=== PATIENT | female | born 1950 | race Caucasian/White ===

== ENCOUNTER 2024-08-01 14:05 | Emergency (ER) | payer MEDICARE, SELFPAY ==
--- OUTSIDE RECORDS SUMMARY | 2024-07-10 07:45 | XMS_ITS | Encounter Summary ---
Author Organization [facility] Address [facility] [place] [address] Care Team Providers Care It Support Engineer Name Role Phone Annalee Olivas DO, Charles Lewis Primary [facility] Provi elliott Source Comments In the event this information is protected by the Federal Confidentiality of Alcohol and Drug AbusePatient Records regulations: The Federal rules restrict any use of the information to criminally investigate or prosecute any alcohol or drug abuse patient.[facility] Reason for Visit * Reason Comments New Follow Up Established Patient Encounter Details Date Type Department Care Team (Latest Contact Info) Description 07/10/2024 7:45 AM EDT [facility] [address] [place] [address] Efrain Hernandez MD [address] [facility] 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 No 05/15/2024 Social Connection and Isolat ion Panel [NHANES] Answer Date Recorded In a typical week, how many times do you talk on the phone with family, friends, or neighbors? More than three times a week 05/15/2024 How often do you get togethe r with friends or relatives? More than three times a week 05/15/2024 How often do you attend chur ch or advent services? Never 05/15/2024 Do you belong to any clubs o r organizations such as episcopal groups, unions, fraternal or athletic groups, or school groups? Yes 05/15/2024 How often do you attend meet ings of the clubs or organizations you belong to? 1 to 4 times per year 05/15/2024 Are you , , di vorced, , never , or living with a partner? 05/15/2024 AUDIT-C Answer Date Recorded Q1: How often do you have a drink containing alc ohol? 2-3 times a week 05/15/2024 Q2: How many drinks containi ng alcohol do you have on a typical day when you are drinking? 1 or 2 05/15/2024 Q3: How often do you have si x or more drinks on one occasion? Never 05/15/2024 Overall Financial Resource Strain (CARDIA) Answe r Date Recorded How hard is it for you to pa y for the very basics like food, housing, medical care, and heating? Not hard at all 05/15/2024 PHQ-2 Answer Date Recorded PHQ-2 score 2 07/03/2024 [facility] [place] [facility] Occupat ional Health - Occupational Stress Questionnaire Answer Date Recorded Do you feel stress - tense, restless, nervous, or anxious, or unable to sleep at night because your mind is troubled all the time - these days? To some extent 05/15/2024 Exercise Vital Sign Answer Date Recorde d On average, how many days pe r week do you engage in moderate to strenuous exercise (like a brisk walk)? 1 day 05/15/2024 On average, how many minutes do you engage in exercise at this level? 30 min 05/15/2024 Hunger Vital Sign Answer Date Recorded Within the past 12 months, y ou worried that your food would run out before you got the money to buy more. Never true 05/16/19 25 Within the past 12 months, t he food you bought just didn't last and you didn't have money to get more. Never true 05/15/2024 PRAPARE - Transportation Answer Date Re corded In the past 12 months, has l ack of transportation kept you from medical appointments or from getting medications? No 04/20 In the past 12 months, has l ack of transportation kept you from meetings, work, or from getting things needed for daily living? No 05/15/2024 Housing Stability Vital Sign Answer Jf e Recorded In the last 12 months, was t here a time when you were not able to pay the mortgage or rent on time? No 05/15/2024 In the past 12 months, how m any times have you moved where you were living? 1 05/15/2024 At any time in the past 12 m [facility], were you homeless or living in a mcc (including now)? No 05/15/2024 Area Deprivation Index Answer Date Jorge rded National Score (1-100), lower number is lower ri sk 74 07/13/2022 State Score (1-10), lower number is lower risk 6 07/13/2022 Data from: https://www.neighborhoodatlas.medicine.[facility].edu/. Last address used for calculation [address] [place] 07/13/2022 Comments No Sex and Gender Information Value Date Recorded Sex Assigned at Not on file Legal Sex Female 9:51 AM EST Gender Identity Not on file Sexual Orientation Lesbian or Nagy 07/31/2024 2: 30 PM EDT documented as of this encounter Functional Status * Are you deaf or do you have serious difficulty hearing? Answer Date of Assessment Author No 01/22/2024 2:52 PM Yany Aguilar RN * Are you blind or do you have serious difficulty seeing, even when wearing glasses? Answer Date of Assessment Author No 01/22/2024 2:52 PM Yany Aguilar RN * Do you have serious difficulty walking or climbing stairs? Answer Date of Assessment Author No 01/22/2024 2:52 PM Yany Aguilar RN * Do you have difficulty dressing or bathing? Answer Date of Assessment Author No 01/22/2024 2:52 PM Yany Aguilar RN * Because of a physical, mental, or emotional condition, do you have difficulty doing errands alone such as visiting a doctor's office or shopping? Answer Date of Assessment Author No 01/22/2024 2:52 PM Yany Aguilar RN documented as of this encounter Mental Status * Because of a physical, mental, or emotional condition, do you have serious difficulty concentrating, remembering, or making decisions? Answer Entry Date Author No 01/22/2024 2:52 PM Yany Aguilar RN documented in this encounter Progress Notes * Efrain Hernandez MD - 07/10/2024 7:45 AM EDT [facility] NOTE Department of Orthopaedics Telephone visit NAME: Candice Dejesus CLINIC NO.: [id number] DATE: July 10, 2024 Last visit: 06/23/2024 Interval Hx: Candice Dejesus is back for follow up since their last visit with me At the last visit we discussed her left proximal humerus fracture malunion. She consented for surgery for a reverse total shoulder. She had a few more questions about surgery, preop, intra-op and postop, so she wanted to schedule a followup to discuss. Today they report questions about the surgery itself, the nerve block, and the sling. PHYSICAL EXAMINATION: Telephone visit RADIOGRAPHIC STUDIES: All imaging was personally reviewed and interpreted by me as follows: No new imaging today ASSESSMENT: Encounter Diagnosis ICD-10-CM 1. 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 We talked about how to wear her sling after surgery, how the nerve block works, and how the surgery will be performed. She also obtained clearance from her oral surgeon, who confirmed she has no infection and is cleared to proceed. Again I reiterated the risks and benefits of surgery and how this surgery has great potential to improve her pain and function but there is no guarantee, especially given the nature of RSA for malunion. She understands all of this, and she is still interested in proceeding with surgery as she is not satisfied with her current level of pain or disability. Plan: - follow up for surgery - obtain Preop PACC, labs, and CT before surgery (all scheduled) Total Time Spent: 15 minutes Efrain Hernandez MD Shoulder and Elbow Surgeon Orthopaedic Surgery Department documented in this encounter Plan of Treatment Upcoming Encounters Date Type Department Care Team (Late st Contact Info) Description 08/11/2024 11:45 AM EDT Office Visit Orthopaedics [address] [address] Efrain Hernandez MD [address] [place] [address] 2 wk PO reverse 09/15/2024 11:45 AM EDT Office Visit Orthopaedics [address] [address] Efrain Hernandez MD [address] 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
--- OUTSIDE RECORDS SUMMARY | 2024-07-15 13:40 | XMS_ITS | Encounter Summary ---
Author Organization [facility] Address [facility] [place] [address] Care Team Providers Care Injection Molder Name Role Phone Annalee Olivas DO, Charles Lewis Primary Care Provi elliott Source Comments In the event this information is protected by the Federal Confidentiality of Alcohol and Drug AbusePatient Records regulations: The Federal rules restrict any use of the information to criminally investigate or prosecute any alcohol or drug abuse patient.[facility] Reason for Visit * Reason Comments Pre-Op Visit Encounter Details Date Type Department Care Team (Late st Contact Info) Description 07/15/2024 1:40 PM EDT PAT Pre Anesthesia [address] [place] [address] 1, Pacc Dunn [address] [place] [address] Pre-op examination (Primary Dx); Crohn's disease with complication, unspecified gastrointestinal tract location (HCC); Closed fracture of proximal end of left humerus, unspecified fracture morphology, initial encounter; Hyperlipidemia, unspecified hyperlipidemia type Social History Tobacco Use Types Packs/Day Years Used Date Smoking Tobacco: Former Cigarettes Q uit: 09/20/1995 Smokeless Tobacco: Never Tobacco Cessation:Counseling Given: Not Answered Alcohol Use Standard Drinks/Week Comments Yes 7 (1 standard drink = 0.6 oz pur e alcohol) glass of wine with dinner [facility] Utilities Answer Date Recorded In the past [...] often do you attend chur ch or samaritan services? Never 05/15/2024 Do you belong to any clubs o r organizations such as faith groups, unions, fraternal or athletic groups, or [...] Answer Date Recorded PHQ-2 score 2 07/03/2024 [facility] - Occupational Stress [...] money to buy more. Never true 05/16/19 Within the past 12 months, t he [...] any time in the past 12 m [facility], were you homeless or living in a residential (including now)? No 05/15/2024 Area Deprivation Index Answer Date Jorge rded National Score (1-100), lower number is lower ri sk 74 07/13/2022 State Score (1-10), lower number is lower risk 6 07/13/2022 Data from: https://www.neighborhoodatlas.medicine.[facility].edu/. Last address used for calculation [address] 07/13/2022 Comments No Sex and Gender Information Value Date Recorded Sex Assigned at Not on file Legal Sex Female 9:51 AM EST Gender Identity Not on file Sexual Orientation Lesbian or Nagy 07/31/2024 2: 30 PM EDT documented as of this encounter Last Filed Vital Signs Vital Sign Reading Time Taken Comments Blood Pressure 128/83 07/15/2024 1:42 PM EDT Pulse 89 07/15/2024 1:42 PM EDT Temperature 36.7 C (98 F) 07/15/2024 1:42 PM EDT Respiratory Rate 16 07/15/2024 1:42 PM EDT Oxygen Saturation 95% 07/15/2024 1:42 PM EDT Inhaled Oxygen Concentration - - Weight 55 kg (121 lb 4.1 oz) 07/15/2024 1:42 PM EDT Height 147.3 cm (4' 10 ) 07/15/2024 1:42 PM EDT Body Mass Index 25.34 07/15/2024 1:42 PM EDT documented in this encounter Functional Status * Are you deaf or do you have serious difficulty hearing? Answer Date of Assessment Author No 01/22/2024 2:52 PM Yany Aguilar RN * Are you blind or do you have serious difficulty seeing, even when wearing glasses? Answer Date of Assessment Author No 01/22/2024 2:52 PM aYny Aguilar RN * Do you have serious [...] Yany Aguilar RN documented in this encounter Patient Instructions * Patient Instructions* Carlin Guaman APRN.SENIOR HYDROGEOLOGIST - 07/15/2024 1:48 PM EDT PATIENT PREOPERATIVE INSTRUCTIONS Efrain Hernandez has scheduled you for your procedure at this surgery center: [facility] [place] [facility] Scheduling Office: [phone] --[address] [place] [address]. Please read below carefully for your personalized instructions. Dietary Restrictions: - No solid food after midnight. - You may have 12 ounces of clear liquids (water, clear juices such as apple juice or gatorade, carbonated beverages, clear tea, black coffee, jello) until 2 hours before scheduled arrival at facility. - Do not drink any alcohol after midnight the night before your surgery. - No Milk/Dairy - No Pulp Juices Medications: Unless instructed differently below, stay on all of your medications until your surgery. If you start any new medications after today's visit, please contact your surgeon. use mupirocin ointment twice daily for 5 days. Apply 0.5 inch with cotton swab (Q-tip) to each nostril in the morning and evening for 5 days prior to and including day of surgery. If you start any new medications after today's visit, please contact the surgeon's office. If you are currently using a [id number] injectable or oral medication for diabetes or weight loss such as Dulaglutide (Trulicity), Exenatide (Byetta, Bydureon), Liraglutide (Victoza, Saxenda), Semaglutide (Ozempic, Wegovy, Rybelsus), or Tirzepatide (Mounjaro), the medicine should be stopped at least 7 days before surgery. These medicines can cause food to remain in your stomach for a very longtime and increase the risks from surgery and anesthesia. Not stopping the medication for a long enough time may result in your surgery being rescheduled. Blood Thinning Medications: - Hold NSAIDS (Ibuprofen, Advil, Aleve, Motrin, Celebrex, Mobic, etc.) 7 days before surgery, as directed by your surgeon. - Hold Aspirin 7 days before surgery, as directed by your surgeon. - Hold all herbals and dietary supplements 7 days before surgery. - You may take Tylenol (Acetaminophen) or any of your pain medications that do not contain aspirin or NSAIDS as needed. Important Reminders: - If you are prescribed inhalers for breathing, continue using them. - If you use CPAP/BIPAP, and will be staying over night, bring the machine with you to the surgery center. - If you use home O2, please bring with you to the surgery center - Please abstain from cannabis use for one week prior to surgery - Candy, mints, and tobacco products are NOT permitted the morning of surgery. - Hearing aids, dentures and glasses may be worn the morning of surgery. - NO jewelry, body piercings, makeup, hairpins or contacts are to be worn the day of surgery. If you develop symptoms such as a fever, cold, or flu, or have other changes to your health within TWO DAYS of scheduled surgery or the morning of surgery, please contact the surgery center above. Personal Belongings: -Please have photo ID and insurance cards. -If you do not have a copy of advance directives on file with us, please bring a copy with you on the day of surgery. - Leave ALL valuables and money at home or with family members. For Outpatient Procedures: - YOU MUST HAVE A RESPONSIBLE CLOTHESPIN MACHINE OPERATOR TAKE YOU HOME. A HOSPICE HOME HEALTH AIDE OR LEGAL RESEARCHER CANNOT BE MADE A RESPONSIBLE CLOTHESPIN MACHINE OPERATOR. - We recommend that a responsible person stays with you overnight to take care of you. - You cannot stay in a hotel alone after outpatient surgery. You will not be permitted to have yoursurgery, if you do not have someone to take care of you. Arrival Time for Surgery: - To obtain your arrival time for surgery, call your physician's office the day before your surgery. - If you have received different instructions about finding out your arrival time from your surgeon, please follow those instructions. - If your surgery is scheduled for Sunday, call the Sunday before. Your surgeon???s nurse recruiter will tell you what time to call the office. - If you have not reached the departmental nurse recruiter by 5 P.M., call [phone] after 5 P.M. the day before your surgery. Please be aware that emergency situations arise, which may delay or change your surgical time. If this happens, we will notify you as soon as possible and regret any inconvenience. If you already have an Advance Directive, please fax a copy to [phone] or email to for it to be added to your chart. If you do not have an Advance Directive, you can find the appropriate form and more information at [email or web address]. We recommend that youcomplete the Advance Directive form found on the website and bring it with you the day of your surgery. It can be witnessed and scanned into your chart that day. documented in this encounter H&P Notes * Carlin Guaman APRN.CNP - 07/15/2024 1:40 PM EDT Images from the original note were not included. HISTORY AND PHYSICAL EXAMINATION SERVICE DATE: 07/15/2024 SERVICE TIME: 2:22 PM PRIMARY CARE PHYSICIAN: Efrain Mantilla Jr, DO REASON FOR VISIT: Candice Dejesus is a 73 year old female who is scheduled for Left - 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 at the request of Dr. Efrain Hernandez for consultation. My final recommendation will be communicated back to the requesting physician by way of shared medical record or letter. Assessment Crohn disease (HCC) Assessment: stable, follows with Dr. Horvath at [facility] Status post total colectomy and ileostomy in 2021; no current medication management required. Crohn's disease, s/p TPC with ileostomy. Empties stoma 5x daily. Early satieity, but is able to keep down protein shakes. 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 Presents for surgical intervention Per surgeon's note 07/10/24: Candice's questions about surgery have all been answered. We talked about how to wear her sling after surgery, how the nerve block works, and how the surgery will be performed. She also obtained clearance from her oral surgeon, who confirmed she has no infection and is cleared to proceed. HLD (hyperlipidemia) Assessment: stable with current medication regimen Hypothyroidism stable with current medication regimen ANESTHESIA FINDINGS: Intubation History: No history of difficult intubation Significant Anesthesia Considerations: none Airway History: No history of difficult airway Raza Activity Status Index: METS: Walk indoors, such as around the house (1.75 METs) Do light work around the house, such as dusting or washing dishes (2.70 METs) Take care of self; that is eating, dressing, bathing, using the toilet (2.75 METs) Walk a block or two on level ground (2.75 METs) Do yardwork, such as raking leaves, weeding, or pushing a power mower (4.50 METs) Climb a flight of stairs or walk up a hill (5.50 METs) Participate in moderate recreational activites, such as golf, bowling, dancing, doubles tennis, or throwing a baseball or football (6.00 METs) DASI Score: 25.95 Patient denies any chest pain or undue shortness of breath with the above physical activity. Clinical Frailty Scale: 2. Well STOP-Bang Score: Patient over 50 years old Denies snoring loudly Denies feeling tired, fatigued, or sleepy during the daytime Has not been observed to stop breathing or choking/gasping during sleep Denies having high blood pressure BMI less than or equal to 35 kg/m^2 Does not have a large neck Non-male patient STOP-Bang Score: 1 [id number] Score: Age: 65-74 Sex: female CHF history: No Hypertension history: No Stroke/TIA/thromboembolism history: No Vascular disease history: No Diabetes history: No [id number] Score: 2 ARISCAT Score: Age: 51-80 Preoperative SpO2: 91-95% Respiratory infection in the last month: No Duration of surgery: >3 hrs Emergency procedure: No ARISCAT Score: most recent airway history - 04/27/21 Final Airway Details Final airway type: endotracheal airway Final Endotracheal Airway: ETT Cuffed: yes Successful intubation technique: video laryngoscopy Devices used: Pitts Blade size: #3 ETT size (mm): 7.0 Measured from: teeth Measurement (cm): 21 Placement verified by: capnometry Cormack-Lehane Classification: grade I - full view of glottis Number of attempts at approach: 1 Airway not difficult Comments Elective pitts due to dental work I - PHYSICAL EVALUATION AIRWAY Patient intubated: No. Tracheostomy tube not present Mallampati: II. TM distance: >3 FB. Neck ROM: full ROM without neurological symptoms. Mouth opening: non-adequate. Short neck: no. Thick neck: no Mills present: no Lip Bite Test: I Microretrognathia/Micronagthia/Recessed Chin: No DENTAL Dental findings: teeth intact. II - ANESTHESIA PLAN Anesthetic plan additional comments: *PACC/TCI - anesthesia choice. Beta Javier Monitoring Plan Post Procedure Analgesic Plan Prepared for surgery: This patient is optimally prepared for surgery. CONSULTS: Patient does not require consults for optimization at this time. The Following Tests/Procedures Have Been Initiated: Labs /EKG per surgeon Planned Anesthetic: Per anesthesia choice Subjective CHIEF COMPLAINT: Closed 4-part fracture of proximal end of left humerus with malunion, subsequent encounter [S42.292P] Closed fracture of proximal end of left humerus with malunion, unspecified fracture morphology, subsequent encounter [S42.202P] HPI: Patient is a 73 year old FEMALE presenting for pre-op evaluation for the above procedure. Patient denies any chest pain, shortness of breath, palpitations, fever/chills, nausea/vomiting, fatigue, or diarrhea. Patient has 4-pt varus left proximal humerus fracture malunion, presents for surgical intervention REVIEW OF SYSTEMS: PAIN ASSESSMENT: Pain Pain Level: 6 Pain Location: Shoulder-Left Description: Aching Duration Units: Months Frequency: Continuous General: No weight loss, malaise or fevers. Neuro: No history of TIA's, stroke, CEMENT TILE MAKER tumor, impaired sensorium, hemiplegia, paraplegia or quadraplegia. No neurological symptoms or problems. Respiratory: Positive for Tobacco Use quit 09/1995, Negative for COPD, Current cough, Pneumonia within 6 weeks (date) Cardiovascular: Positive for: HLD, Negative for CAD, Chest Pain, CHF, DVT/PE GI: Positive for crohn, s/p bowel surgery, permanent ileostomy, Negative for Vomiting, Abdominal pain, Difficulty swallowing : No history of dysuria, frequency or incontinence,, stones or chronic kidney disease PRICE LISTER: Negative for abnormal vaginal bleeding, abnormal vaginal discharge. : Denies, No LMP recorded. Patient is postmenopausal. Endocrine: hypothyroidism Hematology: No history of bleeding or clotting disorder. Pt is not taking anti- coagulation or platelet medications. No history of hematological symptoms or problems. Oncology: No history of CA metastasis, chemo within 30 days, or radiotherapy within 90 days. Has not lost 10% of body wt in 6 months. No history of oncological symptoms or problems. Implanted Devices: No Psych: Anxiety Marijuana use: No Musculoskeletal: Negative for joint pain or swelling, back pain or muscle pain. Skin: Negative for lesions, rash and itching. The patient has the following: ACTIVE PROBLEM LIST Crohn Disease (Hcc) SYMPTOMATIC FEMALE CLIMACTERIC STATE(aka MENOPAUSE) Crohn's Colitis, Other Complication (Hcc) Anxiety Trauma Closed Fracture of Left Proximal Humerus Multiple Rib Fractures Covid Immunization Dates Current Care Gaps Covid-19 Vaccine () Overdue since 07/07/2024 01/08/2024 Imm Admin: COVID-19 vaccine, age 12+ yr (MODERNA) 11/09/2022 Imm Admin: COVID-19 vaccine, age 12+ yr, 2022- season (MODERNA) 11/10/2021 Imm Admin: COVID-19 vaccine, age 12+ yr, bivalent (MODERNA) 10/05/2020 Imm Admin: COVID-19 original vaccine, age 12+ yr, monovalent (PFIZER- BIONTECH - PURPLE TOP) 05/05/2020 Imm Admin: COVID-19 original vaccine, age 12+ yr, monovalent (PFIZER- BIONTECH - PURPLE TOP) Only the first 5 history entries have been loaded, but more history exists. PAST MEDICAL HISTORY Diagnosis Date Crohn's disease (HCC) Hypothyroidism PAST SURGICAL HISTORY Procedure Laterality Date ILEOSTOMY HX LAPAROSCOPIC HEMICOLECTOMY PAST SURGICAL HISTORY OF 04/19/2021 Exam under anesthesia, flexible sigmoidoscopy PAST SURGICAL HISTORY OF 04/27/2021 Exploratory laparotomy, extensive lysis of adhesions, small bowel resection, completion proctectomy, end ileostomy PICC LINE INSERT/CONSULT 04/21/2021 FAMILY HISTORY Problem Relation Age of Onset Lung Cancer Mother 34 Heart Father cardiomyopathy Diabetes Brother plane crash Social History Tobacco Use Smoking status: Former Current packs/day: 0.00 Types: Cigarettes Quit date: 09/20/1995 Years since quittin.8 Smokeless tobacco: Never Substance Use Topics Alcohol use: Yes Alcohol/week: 7.0 standard drinks of alcohol Types: 7 Glasses of Wine (5oz) per week Comment: glass of wine with dinner Drug use: Not Currently Prior to Admission medications as of 07/15/24 1357 Medication Sig Last Dose Taking rosuvastatin (CRESTOR) 10 mg tablet Take 1 tablet by mouth daily at bedtime. Yes collagen, bovine, 100 % powd Yes BETA CAROTENE ORAL Take by mouth. Yes cyanocobalamin 1,000 mcg/mL ADMINISTER 1 ML UNDER THE SKIN 1 TIME EVERY MONTH Yes ALPRAZolam (XANAX) 0.5 mg tablet Take 1 tablet by mouth three times a day for 150 days. Yes levothyroxine (SYNTHROID) 50 mcg tablet Take 1 tablet by mouth once daily. Yes acetaminophen (TYLENOL) 325 mg tablet Take 2 tablets by mouth every 6 hours. Yes Syringe with Needle, Safety (ECLIPSE SYRINGE) 3 mL 25 gauge x 1 syrg Inject 1 Each subcutaneously once every month. Yes CALCIUM ORAL Take by mouth. Yes montelukast (SINGULAIR) 10 mg tablet Take 10 mg by mouth every morning. Yes Syringe with Needle, Disp, (BD LUER-RENA SYRINGE) 3 mL 23 x 1 1 Each once every month. Yes Cholecalciferol, Vitamin D3, 25 mcg (1,000 unit) cap Take 1,000 Units by mouth once daily. Yes mupirocin (BACTROBAN) 2 % ointment two times a day for 5 days. Apply 0.5 inch with cotton swab (Q-tip) to each nostril in the morning and evening for 5 days prior to and including day of surgery. No medication comments found. ALLERGIES Allergen Reactions Prednisolone Hives Objective PHYSICAL EXAM: VITALS: BP 128/83 Pulse 89 Temp 98 Resp 16 Ht 4' 10 (1.47m) Wt 121 lb 4.1 oz (55.0kg) SpO2 95% BMI 25.35 kg/(m^2). General: Alert and oriented, No acute distress Skin: Normal color, no rash, no lesions. HEENT: EOM, pupils equal, round and reactive. Cardiovascular: Normal S1 & S2, no rubs, murmurs or gallops. No JVD. Pulse regular. Lungs: Normal breath sounds, no wheezes or crackles. Abdomen: Soft, non-tender, no rigidity. Extremities: poor ROM left upper extremity Neurological: Normal cognition and motor skills. Pulses: Carotid and radial pulses normal +2. Diagnostic tests reviewed for today's visit: Lab Value Units Date High Low HB 13.7 g/dL 07/15/2024 15.5 11.5 HCT 40.4 % 07/15/2024 46.0 36.0 WBC 8.20 k/uL 07/18/2024 11.00 3.70 PLT 183 k/uL 07/15/2024 400 150 NA 136 mmol/L 07/15/2024 144 136 K 4.2 mmol/L 07/18/2024 5.1 3.7 GLUC 111 mg/dL 07/15/2024 99 74 BUN 14 mg/dL 07/15/2024 21 7 CREAT 0.80 mg/dL 07/15/2024 0.96 0.58 PTSEC 10.7 sec 01/20/2024 13.0 9.7 INR 1.0 no uni* 01/20/2024 1.3 0.9 APTT 22.4 sec 01/20/2024 32.4 23.0 ALT 29 U/L 05/15/2024 38 7 AST 41 U/L 05/15/2024 35 13 TBILI 0.5 mg/dL 05/15/2024 1.3 0.2 TSH 3.140 mIU/L 05/15/2024 4.200 0.270 Hemoglobin A1C (%) Date Value 05/15/2024 4.7 Most recent EKG Recent Results (from the past 8760 hours) ECG COMPLETE Collection Time: 07/15/24 1:03 PM Result Value Ventricular Rate 84 Atrial Rate 84 P-R Interval 118 QRS Duration 70 QT Interval 380 QTC Calculation (Bazett) 449 Calculated P [place] 30 Calculated R [place] 63 Calculated T [place] 28 Impression SINUS RHYTHM WITH PREMATURE ATRIAL COMPLEXES OTHERWISE NORMAL ECG Instructions Given to Patient: Instructions located in the after visit summary. Patient given verbal and written preop instructions and voices comprehension and compliance. SIGNATURE: Carlin Guaman APRN.CNP PATIENT NAME: Candice Dejesus DATE: 07/15/2024 TIME: 2:22 PM documented in this encounter Miscellaneous Notes * Addendum Note - Carlin Guaman APRN.CNP - 07/16/2024 7:03 AM EDTAddended by: CARLIN GUAMAN on: 07/16/2024 07:03 AM Modules accepted: Orders documented in this encounter Plan of Treatment Upcoming Encounters Date Type Department Care Team (Late st Contact Info) Description 08/11/2024 11:45 AM EDT Office Visit Orthopaedics [address] [phone] Efrain Hernandez MD [address] [place], [place] [phone] 2 wk PO reverse 09/15/2024 11:45 AM EDT Office Visit Orthopaedics [address] [address] Efrain Hernandez MD [address] [place] [address] 6 wk PO reverse documented as of this encounter Results * WBC (07/18/2024 8:49 AM EDT) WBC 8.20 3.70 - 11.00 k/uL 07/18/2024 8:53 AM EDT [facility] Blood BLOOD SPECIMEN / Unknown Venipuncture / Unknown 07/18/2024 8:49 AM EDT 07/18/2024 8:49 AM EDT Carlin Guaman APRN.SENIOR HYDROGEOLOGIST LABORATORY Final Re sult [facility] [address] [place] [address] * POTASSIUM (07/18/2024 8:49 AM EDT) Potassium 4.2 3.7 - 5.1 mmol/L 07/18/2024 9:16 AM EDT [facility] Blood BLOOD SPECIMEN / Unknown Venipuncture / Unknown 07/18/2024 8:49 AM EDT 07/18/2024 8:49 AM EDT Carlin Guaman APRN.SENIOR HYDROGEOLOGIST LABORATORY Final Re sult [facility] [address] [place] [address] documented in this encounter Visit Diagnoses Diagnosis Pre-op examination- Primary Preoperative examination, unspecified Crohn's disease with complication, unspecified gastrointestinal tract location (HCC) Closed fracture of proximal end of left humerus, unspecified fracture morphology, initial encounter Hyperlipidemia, unspecified hyperlipidemia type * Assessment & Plan Note - Carlin Guaman APRN.CNP - 07/15/2024 2:25 PM EDT Associated Problem(s): HLD (hyperlipidemia) Assessment: stable with current medication regimen * Assessment & Plan Note - Carlin Guaman APRN.CNP - 07/15/2024 2:24 PM EDT Associated Problem(s): Closed fracture of left proximal humerus Assessment: Candice Cuellar has a 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 Presents for surgical intervention Per surgeon's note 07/10/24: Candice's questions about surgery have all been answered. We talked about how to wear her sling after surgery, how the nerve block works, and how the surgery will be performed. She also obtained clearance from her oral surgeon, who confirmed she has no infection and is cleared to proceed. * Assessment & Plan Note - Carlin Guaman APRN.CNP - 07/15/2024 2:24 PM EDT Associated Problem(s): Crohn disease (HCC) Assessment: stable, follows with Dr. Horvath at [facility] Status post total colectomy and ileostomy in 2021; no current medication management required. Crohn's disease, s/p TPC with ileostomy. Empties stoma 5x daily. Early satieity, but is able to keep down protein shakes. B12 injections monthly Hgb 14.2 on 05/15/24 documented in this encounter Care Teams Injection Molder Relationship Specialty Start Date End Date Efrain Mantilla Jr., [address] [place] [phone] PCP - General Internal Medicine 07/07/24 MARK Chavis CM - Joanne 05/05/21 documented as of this encounter
--- OUTSIDE RECORDS SUMMARY | 2024-07-28 09:15 | XMS_ITS | Encounter Summary ---
Author Organization [facility] Address [facility] [place] [address] Care Team Providers Care Control And Recovery Special Tactics Name Role Phone Annalee Olivas DO, Charles Lewis Primary Care Provi elliott Source Comments In the event this information is protected by the Federal Confidentiality of Alcohol and Drug AbusePatient Records regulations: The Federal rules restrict any use of the information to criminally investigate or prosecute any alcohol or drug abuse patient.[facility] Reason for Referral * Home Health - Clinical SOC (Routine) - New Request Specialty Diagnoses / Procedures Referred By Contjosh t Referred To Contact Procedures CONSULT TO HOME HEALTH CARE CONSULT TO HOME HEALTH CARE CONSULT TO HOME HEALTH CARE Marivel Jones PA-C [address] [place] [address] Phone: tel: fax: Referral ID Status Reason Start Date Expiration Date Visits Requested Visits Authorized [id number] New Request PCP Requested Referral 07/29/2024 10/27/2024 1 1 Reason for Visit * Auth/Cert (Routine) Specialty Diagnoses / Procedures Referred By Zandra ruiz Referred To Contact ADMITTING Diagnoses Closed 4-part fracture of proximal end of left humerus with malunion, subsequent encounter Closed fracture of proximal end of left humerus with malunion, unspecified fracture morphology, subsequent encounter Closed 4-part fracture of proximal end of left humerus with malunion, subsequent encounter [S42.292P] Closed fracture of proximal end of left humerus with malunion, unspecified fracture morphology, subsequent encounter [S42.202P] Procedures ARTHROPLASTY GLENOHUMERAL JOINT TOTAL SHOULDER REVERSE TOTAL SHOULDER ARTHROPLASTY Admitting [address] [id number] Referral ID Status Reason Start Date Expiration Date Visits Re quested Visits Authorized [id number] 1 1 Encounter Details Date Type Department Care Team (Latest Contact Info) Description 07/28/2024 9:15 AM EDT - 07/30/2024 3:29 PM EDT Hospital Encounter HOSP MAIN [id number] [address] [id number] Efrain Faith MD [address] [facility] [place] [id number] Closed 4-part fracture of proximal end of left humerus with malunion, subsequent encounter [S42.292P], Closed fracture of proximal end of left humerus with malunion, unspecified fracture morphology, subsequent encounter [S42.202P] Discharge Disposition: Home Health Care Social History Tobacco Use Types Packs/Day Years Used Date Smoking Tobacco: Former Cigarettes Q uit: 09/20/1995 Smokeless Tobacco: Never Alcohol Use Standard Drinks/Week Comments Yes 7 (1 standard drink = 0.6 oz pur e alcohol) glass of wine with dinner [facility] Utilities Answer Date Recorded In the past 12 months has [employer], gas, oil, or water [employer] threatened to shut off services in your [...] week 05/15/2024 How often do you attend [facility] or [facility] services? Never 05/15/2024 Do you belong to any clubs o r organizations such as hinduism groups, unions, fraternal or athletic groups, or [...] Answer Date Recorded PHQ-2 score 2 07/03/2024 [facility] - [facility] [...] any time in the past 12 m [facility], were you homeless or living in a retirement (including now)? No 05/15/2024 Area Deprivation Index Answer Date Jorge rded National Score (1-100), lower number is lower ri sk 74 07/13/2022 State Score (1-10), lower number is lower risk 6 07/13/2022 Data from: https://www.neighborhoodatlas.medicine.[facility].edu/. Last address used for calculation [address] 07/13/2022 Comments No Sex and Gender Information Value Date Recorded Sex Assigned at Not on file Legal Sex Female 9:51 AM EST Gender Identity Not on file Sexual Orientation Lesbian or Nagy 07/31/2024 2: 30 PM EDT documented as of this encounter Last Filed Vital Signs Vital Sign Reading Time Taken Comments Blood Pressure 147/72 07/30/2024 12:15 PM EDT Pulse 93 07/30/2024 12:15 PM EDT Temperature 36.6 C (97.9 F) 07/30/2024 12:15 PM EDT Respiratory Rate 16 07/30/2024 12:15 PM EDT Oxygen Saturation 93% 07/30/2024 12:15 PM EDT Inhaled Oxygen Concentration - - Weight 64.5 kg (142 lb 3.2 oz) 07/28/2024 7:16 P M EDT Height 147.3 cm (4' 10 ) 07/28/2024 7:16 PM EDT Body Mass Index 29.72 07/28/2024 7:16 PM EDT documented in this encounter Functional Status * Are you deaf or do you have serious difficulty hearing? Answer Date of Assessment Author No 07/30/2024 2:00 PM EDT Noa Cuevas RN * Are you blind or do you have serious difficulty seeing, even when wearing glasses? Answer Date of Assessment Author No 07/30/2024 2:00 PM EDT Noa Cuevas RN * Do you have serious difficulty walking or climbing stairs? Answer Date of Assessment Author No 07/30/2024 2:00 PM EDNoa Cifuentes RN * Do you have difficulty dressing or bathing? Answer Date of Assessment Author No 07/30/2024 2:00 PM EDNoa Cifuentes RN * Because of a physical, mental, or emotional condition, do you have difficulty doing errands alone such as visiting a doctor's office or shopping? Answer Date of Assessment Author No 07/30/2024 2:00 PM EDNoa Cifuentes RN documented as of this encounter Mental Status * Because of a physical, mental, or emotional condition, do you have serious difficulty concentrating, remembering, or making decisions? Answer Entry Date Author No 07/30/2024 2:00 PM Noa Estrella RN documented in this encounter Discharge Summaries * Sherry Armando MD - 07/30/2024 3:29 PM EDT Images from the original note were not included. ORTHOPAEDIC SURGERY Discharge Summary PATIENT NAME: Candice Dejesus ADMISSION DATE: 07/28/2024 DISCHARGE DATE: 07/30/2024 Attending Physician: Efrain Faith MD Reason for Hospitalization: Left proximal humerus fracture malunion Operations During Hospitalization: Left reverse total shoulder arthroplasty Procedures During Hospitalization: No procedures performed Hospital Course: Candice Dejesus is a 73 year old female who presented for Left proximal humerus fracture malunion. On 07/28/24 , she underwent Left reverse total shoulder arthroplasty. Surgery was uneventful and after a brief stay in the PACU, she transferred to the regular nursing floor. Pain was well controlled. Intake and output were closely monitored. DVT prophylaxis was managed by ASA 81mg BID and intermittent compression stockings. Electrolytes were monitored with labs and replaced as needed. The patient had an unremarkable recovery, and diet was advanced as tolerated. The patient was deemed appropriate fordischarge home on POD2 as she was afebrile, hemodynamically stable, tolerating a diet, pain controlled on oral meds, and ambulating without difficulty. Discharge deep vein thrombosis chemoprophylaxiswill be ASA 81mg BID for 2 weeks. Follow up will occur in clinic with Dr. Faith in 2-3 weeks. Labs and Procedures Pending at Discharge: No pending results. Consulting Teams During Hospitalization: None Patient Condition at Discharge: Stable Discharge Disposition: Home with Home Health Discharge Medications: Medication List PAUSE taking these medications * acetaminophen 325 mg tablet Wait to take this until: August 11, 2024 Commonly known as: TYLENOL Take 2 tablets by mouth every 6 hours. You also have another medication with the same name that you may need to continue taking. * This list has 1 medication(s) that are the same as other medications prescribed for you. Read thedirections carefully, and ask your doctor or other care provider to review them with you. START taking these medications aspirin, enteric coated 81 mg EC tablet Commonly known as: ADULT LOW DOSE ASPIRIN Take 1 tablet by mouth two times a day for 14 days. docusate sodium 100 mg capsule Commonly known as: COLACE Take 1 capsule by mouth two times a day for 14 days. ondansetron orally disintegrating 4 mg disintegrating tablet Commonly known as: ZOFRAN ODT Take 1 tablet by mouth every 8 hours as needed for nausea/vomiting. oxyCODONE IR 5 mg immediate release tablet Commonly known as: ROXICODONE Take 1 tablet by mouth every 6 hours as needed for pain for up to 7 days. CHANGE how you take these medications * acetaminophen 500 mg tablet Commonly known as: TYLENOL EXTRA STRENGTH Take 2 tablets by mouth every 8 hours as needed for pain. What changed: Another medication with the same name was paused. Ask your nurse or doctor if you should take this medication. * This list has 1 medication(s) that are the same as other medications prescribed for you. Read thedirections carefully, and ask your doctor or other care provider to review them with you. CONTINUE taking these medications ALPRAZolam 0.5 mg tablet Commonly known as: XANAX Take 1 tablet by mouth three times a day for 150 days. BD LUER-RENA SYRINGE 3 mL 23 x 1 Generic drug: Syringe with Needle (Disp) 1 Each once every month. BETA CAROTENE ORAL CALCIUM ORAL Cholecalciferol (Vitamin D3) 25 mcg (1,000 unit) Cap collagen (bovine) 100 % Powd cyanocobalamin 1,000 mcg/mL ADMINISTER 1 ML UNDER THE SKIN 1 TIME EVERY MONTH ECLIPSE SYRINGE 3 mL 25 gauge x 1 Syrg Generic drug: Syringe with Needle, Safety Inject 1 Each subcutaneously once every month. levothyroxine 50 mcg tablet Commonly known as: SYNTHROID Take 1 tablet by mouth once daily. montelukast 10 mg tablet Commonly known as: SINGULAIR rosuvastatin 10 mg tablet Commonly known as: CRESTOR Take 1 tablet by mouth daily at bedtime. Where to Get Your Medications These medications were sent to [facility] #[id number] [place] [address] - [address] [facility] - [phone] [facility] [address] [address] [facility] [address] acetaminophen 500 mg tablet aspirin, enteric coated 81 mg EC tablet docusate sodium 100 mg capsule ondansetron orally disintegrating 4 mg disintegrating tablet oxyCODONE IR 5 mg immediate release tablet In accordance with [facility] guidelines, this serves as official documentation that this patient had a major orthopaedic surgery in the past 3 months. The aforementioned documentation in this note, previous notes and/or operative reports serve as documentation of this. It is medically appropriate for this patient to be prescribed narcotic medication above the allotted daily MED requirement or 7 day limit. Future Appointments: Future Appointments Date Time Provider Department Center 08/11/2024 11:45 AM Efrain Faith MD [facility] Main - A Bld 09/15/2024 11:45 AM Efrain Faith MD [facility] Main - A Bld Discharge Information Row Name Admission (Discharged) from 07/28/[address] [facility] by Dai Leigh Start of Care 07/31/24 Sherry Armando MD PGY-3 Orthopaedic Surgery Cosigned by Efrain Faith MD at 07/30/2024 4:05 PM EDT Associated attestation - Efrain Faith MD - 07/30/2024 4:05 PM EDT Attending Note I evaluated the patient and personally participated in the powell components. I agree with the resident's findings and plan as documented and have discussed the case and management of the patient's carewith the resident. Signature: Efrain Faith MD Date: 07/30/2024 Time: 4:05 PM documented in this encounter Discharge Instructions * Discharge Instr - Other Orders* Marivel Jones PA-C - 07/28/2024 3:45 PM EDT PATIENT DISCHARGE INSTRUCTIONS C O N F I D E N T I A L I N F O R M A T I O N The following is a brief overview of your hospitalization. Some of the information contained on this summary may be confidential. This information should be kept in your records and should be shared with your regular doctor. PHYSICIAN: Staff Physician: Efrain Faith MD Primary Care: Efrain Mantilla Jr, DO REFER TO AFTER VISIT SUMMARY FOR HOME MEDICATIONS LIST Please discard previous medication list and update your records with the new medication list, medication providers or retail pharmacies. At Home Instructions Reverse Total Shoulder Replacement Surgery These discharge instructions explain what you or your acute care nurse needs to do to continue your care at home. Please read and follow as indicated. Shoulder Care Apply ice on the shoulder for brief periods of time over the first 48 hours after surgery. A sling has been provided for you. After the first 48 to 72 hours, you may take your arm out of thesling for brief periods of time when you are home. However, you must still keep the arm protected at the side of the body. You should continue to use the sling for protection during sleep, if you areout in public, or if you are around a crowd of people. A therapist will show you a technique that will allow you to dress or bathe/shower with your arm outside of your sling. With this technique, called the drop arm technique, your arm hangs along the side of your body. Avoid active motion and avoid any lifting with this arm until cleared by Dr. Faith Incision Care The clear/padded dressing on your incision will remain until your follow up in the office It is okay to shower starting tomorrow as long as there is no drainage from the incision. Your bandage is water resistant but not water proof, so do not let it soak under the shower for a long time. No scrubbing the dressing, let the water trickle over it and pad it dry afterward Observe for redness, swelling, or drainage around the incision Please call the clinic immediately if you have fevers, chills with warmth/redness surrounding woundsite or if you notice pus drainage from the wound site If you have visible jacqueline or sutures they should be removed ~14 days after surgery. Please call Dr. Faith's office if you do not already have your follow- up appointment If you are following up beyond two weeks after surgery, your sutures can be removed at the rehab facility or by your primary care physician. Please send a picture of the wound to Dr. Faith's office if so. Pain Control Pain medicine has been prescribed for you. Take this medicine as prescribed over the first 48 hours; then begin to lessen its use. It would be helpful to start taking the pain meds when you start feeling the nerve block wear off. Usually you can tell the nerve block is wearing off when you start getting tingling sensation in the fingers again. You may take acetaminophen (Extra Strength Tylenol?? or Tylenol??) with your prescription pain medication; do not take more than 4,000mg of acetaminophen over the course of 24 hours You may resume taking any nonsteroidal anti-inflammatory pain medications such as ibuprofen (Advil??, Motrin??,) naproxen or naprosyn (Aleve??) BUT ONLY AFTER YOU HAVE COMPLETED YOUR 2 WEEKS OF ASPIRIN (81 MG TWICE PER DAY) FOR 2 WEEKS. Take one baby aspirin (81 mg) twice per day for 2 weeks after surgery, unless you have an aspirin sensitivity/allergy or asthma Showering Best way to shower is to have another person help you to take your arm out of the brace and gently let the arm dangle at your side. You then walk into the shower and while holding on a chair or side rail with your other arm, you can lean into the shower and let the water trickle over the shoulder. Wash your arm pit and the entire arm, pad it dry afterward and put the arm back in the brace No submerging wound under standing water (pool, bath tub, etc.) in the first 6 weeks Your bandage is water resistant but not water proof, so do not let it soak under the shower for a long time. When to Call Your Doctor Call your doctor for any problems, including the following: Excessive redness of the incision(s) Drainage for more than 4 days Fever greater than 101.5 F Follow up - Please call to make a follow-up appointment if one has not already been made. You should see the doctor 10 to 14 days after your surgery. Appointments for Next 60 Days Date Time Provider Location Dept Phone 08/11/2024 11:45 AM EFRAIN FAITH [facility] [phone] 09/15/2024 11:45 AM EFRAIN FAITH [facility] [phone] Efrain Faith MD Shoulder & Elbow Surgeon Associate Staff Orthopaedic Surgery [address] [place] [address] Office: . [phone] ; After office hours, call: [phone] or [phone] (Ask for the orthopaedic resident implementation specialist payroll) documented in this encounter Medications at Time of Discharge aspirin, enteric coated (ADULT LOW DOSE ASPIRIN) 81 mg EC tablet Take 1 tablet by mouth two times a day for 14 days. 28 tablet 5 08/12/19 25 docusate sodium (COLACE) 100 mg capsule Take 1 capsule by mouth two times a day for 14 days. 28 capsule 5 08/12/19 25 ondansetron orally disintegrating (ZOFRAN ODT) 4 mg disintegrating tablet Take 1 tablet by mouth every 8 hours as needed for nausea/vomiting. 10 tablet 1 5 oxyCODONE IR (ROXICODONE) 5 mg immediate release tabletIndications:P ost-operative pain Take 1 tablet by mouth every 6 hours as needed for pain for up to 7 days. 28 tablet 5 08/05/19 25 acetaminophen (TYLENOL EXTRA STRENGTH) 500 mg tablet Take 2 tablets by mouth every 8 hours as needed for pain. 180 tablet 5 08/28/19 25 collagen, bovine, 100 % powd 5 BETA CAROTENE ORAL Take by mouth. cyanocobalamin 1,000 mcg/mLIndications:P ernicious anemia ADMINISTER 1 ML UNDER THE SKIN 1 TIME EVERY MONTH 1 mL 5 5 ALPRAZolam (XANAX) 0.5 mg tabletIndications:P ernicious anemia,Crohn's disease of both small and large intestine with abscess (HCC) Take 1 tablet by mouth three times a day for 150 days. 90 tablet 4 5 08/09/19 25 levothyroxine (SYNTHROID) 50 mcg tabletIndications:O ther specified hypothyroidism Take 1 tablet by mouth once daily. 90 tablet 3 5 02/26/19 26 acetaminophen (TYLENOL) 325 mg tablet Take 2 tablets by mouth every 6 hours. 4 Syringe with Needle, Safety (ECLIPSE SYRINGE) 3 mL 25 gauge x 1 syrg Inject 1 Each subcutaneously once every month. 100 Each 5 4 CALCIUM ORAL Take by mouth. montelukast (SINGULAIR) 10 mg tablet Take 10 mg by mouth every morning. Syringe with Needle, Disp, (BD LUER-RENA SYRINGE) 3 mL 23 x 1 1 Each once every month. 12 Each 4 2 Cholecalciferol, Vitamin D3, 25 mcg (1,000 unit) cap Take 1,000 Units by mouth once daily. rosuvastatin (CRESTOR) 10 mg tablet Take 1 tablet by mouth daily at bedtime. 90 tablet 1 5 08/01/19 25 documented as of this encounter Progress Notes * Delicia Short RN - 07/30/2024 12:47 PM EDT CARE MANAGEMENT DISCHARGE NOTE SERVICE DATE: July 30, 2024 SERVICE TIME: 12:47 PM Admission Date: 07/28/2024 LOS: 0 days Discharge Arrangement Discharge Arrangement: Home with Home Health Services Arranged Medical Services: Skilled Home Health Care Type: Long-Term, Occupational Therapy Caregiver Assessment Caregiver is ready, willing and able to meet the patient's needs as recommended by the inter-professional team: Yes Name of Caregiver: [facility] by [facility] Transportation Arrangements Transportation Arrangements: Car Date of Trip: 07/30/24 Destination: home Handoff Communication: Handoff to: Primary Care Physician, Other Caregiver Primary Care Physician Name/Phone: Efrain Mantilla Jr., DO PCP - General, Internal Medicine Since 07/07/2024 Other Caregiver Name/Phone: [facility] [phone] Additional Information: Discharge Information Row Name Admission (Current) from 07/28/2024 in [place] [address] Home Health Care Agency [facility] by Moya Okruga Start of Care 07/31/24 AVS and dc summary sent to agency via [employer]. SIGNATURE: Delicia Short RN PATIENT NAME: Candice Dejesus DATE: July 30, 2024 TIME: 12:47 PM * Candi Shukla, OT/L - 07/30/2024 11:40 AM EDT Occupational Therapy Treatment Summary SERVICE DATE: 07/30/2024 SERVICE TIME: 1041 to 1134 [facility]OM: [facility] 6 Clicks Score: 19 Total Joint Replacement Discharge Readiness: Cleared from Occupational Therapy DISCHARGE RECOMMENDATIONS Home Anticipated Discharge Needs: Physical Assist at Home Physical Assist at Home for: Cleaning, Laundry, Meals, Shopping, Self Care, Transportation ASSESSMENT Response to Therapy Interventions: Good Participation in Activities PRECAUTIONS Weight Bearing Restrictions NWB on the operative limb. 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 Faith. Relevant Past Medical History: Chron's Disease, S/P Ileostomy, Anxiety, Enteritis, Refer to [facility] HOME LIVING Patient Lives With: Self/Alone Assistance Available: PRN, Other: See Comment Comments: friend and nephew/niece Entry To Home: No Stairs Number Of Stairs To Bed/Bath: 0 Tub/Shower Type: Tub/Shower Laundry: 1st level, Independent Equipment Owned: Grab Bars- Shower, Hand Held Shower, Cane PRIOR FUNCTIONAL LEVEL Within Functional Limits Reports IND with ADLs/IADLs/functional mobility without device. (+) drives, (+) fall, has been taking sponge baths for the past few months Baseline Cognition: Oriented to self, Oriented to place, Oriented to time, Oriented to situation SUBJECTIVE Pt agreeable to OT COGNITION Responsiveness: Alert, Awake Follows Commands: 3-step Commands Cog 6 Start of Session Total Points (Max Score = 24): 24 (07/30/24) Cog 6 End of Session Total Points (Max Score = 24): 24 (07/30/24) 4AT Score: 0 (07/30/24) Delirium Positive/Negative: Negative (07/30/24) THERAPY DIAGNOSIS Decreased activities of daily living (ADL) TREATMENT INTERVENTIONS Self [facility] Management ([id number]), Therapeutic Exercise (52234) Timed Code Treatment (minutes): 53 Skilled Treatment Time (minutes): 53 TRAINING & EDUCATION PROVIDED Activity Adaptation/Compensatory Strategies, Bed Mobility, Discharge Planning, Exercise Program, Expected Functional Level, Functional Mobility Involving ADLs, Identification of Systems of Support, Insight into Deficits, Pain Management, Patient Exercise/Therapy Program Support Needs, Positioning, P recautions/Restrictions, Role of Occupational Therapy, Sling/Brace Management, Edema Management, Treatment Protocol, Altering Thinking Patterns, Lower Extremity Dressing, Toileting , Transfer - Sit to Stand, Upper Extremity Dressing THERAPEUTIC SKILLS USED Activity Dosing, Cues for Sequencing/Proper Technique for Activity, Cuing Tactile, Cuing Verbal, Cuing Visual, Facilitation of Joint Range of Motion, Management of Critical Lines, Tubes and/or Drains, Movement Facilitation, Physical Assist, Teach-Back for Education, Therapeutic Use of Self FUNCTIONAL STATUS Activities of Daily Living Assist Level Additional Information Feeding Modified Independent Grooming Modified Independent Bathing Upper Body Moderate Assistance Bathing Lower Body Modified Independent Dressing Upper Body Moderate Assistance, Contact Guard Assistance, Additional Information using drop arm technique while standing wtih CGA Dressing Lower Body Minimal Assistance, Additional Information assist for clothing management on L side of body for pants/underwear Toileting Modified Independent, Additional Information IND for anterior олег care and emptying ostomy, total A to change stoma Mobility Assist Level Additional Information Bed Mobility Supine To Sit: Independent Sit To Supine: Independent Sit to Stand Independent Stand to Sit Independent Bed to Chair Toilet/Commode Independent Shower Functional Mobility Independent Functional Mobility Device: IV Pole GOALS Patient will demonstrate progress with self-care, cognitive and/or coping needs identified to allowsafe discharge to home with available support and/or physical assistance. Rehab Potential: Good Progress Toward Goals: Progressing as expected ACUTE CARE TREATMENT PLAN OT Frequency: Discontinue Therapy Services Reasons Therapy Services Discontinued: Goals met Treatment Interventions: Education, Self Care/Home Management, Joint Mobility, Functional Mobility Training, Pain Management Plan for Next Visit: Bathing Training, Dressing Training SIGNATURE: Candi Shukla OT/Florentin PATIENT NAME: Candice Dejesus DATE: July 30, 2024 TIME: 11:40 AM * Joanne Olvera, REMOTE SENSING RESEARCH SCIENTIST.NEEDLE LOOM OPERATOR HELPER - 07/30/2024 8:19 AM EDT APS POST-OPERATIVE PROGRESS NOTE Peripheral Nerve Catheter SERVICE DATE: 07/30/2024 : 1950 SERVICE TIME: 8:19 AM SURGERY DATE: 07/28/2024 PRIMARY SERVICE: Orthopedics Subjective CHIEF COMPLAINT: Post-operative pain INTERVAL HPI: Candice Dejesus is a 73 year old female who is POD #1, S/P Procedure(s) (LRB): 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 (Left) with Peripheral Nerve Catheter placed on day of surgery for post-operative pain control infusing Rop 0.2% at 07/26/59. Pain is 0/10. Anticipated discharge home today. No SOB, tinnitus, or signs of Triston's. Current Pain Level: 0/10 at rest 0 with ambulation on a scale of 0-10 Physical Therapy Sessions: yes Pain at Surgical Site: No Character: n/a Duration: consistent Radiation: Yes Relieved: n/a Patient Satisfied with Pain Control: Yes Overnight Events: None Overnight Pain Interventions: no POST-OPERATIVE BLOCK: Block Type: Interscalene Catheter, Left Current Continuous Solution Ordered for Catheter: Ropivacaine 0.2% 07/26/59 (Total Demand Doses: 0 in 4 hours) Analgesic Regimen: Tylenol 1000 mg PO Q 6 hours ATC Oxycodone 5-10 mg PO Q 4 hours PRN Morphine 2 mg IV Q 3 hours PRN ROS ENT: Negative for hoarseness, negative for dysphagia, negative for tinnitus. CARDIOVASCULAR: Negative for chest pain, negative for leg swelling, negative for palpitations. RESPIRATORY: Negative for cough, negative for wheezing, negative for shortness of breath. GI: Negative for nausea, negative for vomiting, negative for constipation. ALLERGIES Allergen Reactions Prednisolone Hives Current Facility-Administered Medications Medication Dose Route Frequency ropivacaine nerve block 0.2% (2 mg/mL) - 200 mL PERIPHERAL NERVE CATHETER CONTINUOUS And ropivacaine 0.2% (2 mg/mL) nerve block CLINICIAN DOSE 6 mL 6 mL PERIPHERAL NERVE CATHETER q 2 H PRN acetaminophen 1,000 mg tab(s) (TYLENOL) 1,000 mg ORAL q 6 H oxyCODONE IR 5-10 mg tab(s) (ROXICODONE) 5-10 mg ORAL q 4 H PRN morphine 2 mg injection 2 mg INTRAVENOUS q 3 H PRN ondansetron (PF) 4-8 mg injection (ZOFRAN) 4-8 mg INTRAVENOUS q 6 H PRN aluminum-magnesium hydroxide-simethicone 200-200-20 mg/5 mL 30 mL 30 mL ORAL q 2 H PRN magnesium hydroxide 400 mg/5 mL 30 mL (MOM) 30 mL ORAL DAILY PRN docusate sodium 100 mg cap(s) (COLACE) 100 mg ORAL BID diphenhydrAMINE 25 mg injection (BENADRYL) 25 mg INTRAVENOUS q 6 H PRN bisacodyl 10 mg suppository (DULCOLAX) 10 mg RECTAL DAILY PRN multivitamin-ferrous fumarate-folic acid 1 tablet (CENTRUM) 1 tablet ORAL DAILY ferrous sulfate 325 mg tab(s) 325 mg ORAL BID w MEALS ascorbic acid (vitamin C) 500 mg tab(s) (VITAMIN C) 500 mg ORAL BID w MEALS aspirin, enteric coated 81 mg tab(s) 81 mg ORAL BID NaCl 0.9% iv flush bag 20 mL INTRAVENOUS PRN levothyroxine 50 mcg tab(s) (SYNTHROID) 50 mcg ORAL DAILY cholecalciferol 1,000 Units tab(s) (VITAMIN D3) 1,000 Units ORAL DAILY rosuvastatin 10 mg tab(s) (CRESTOR) 10 mg ORAL AT BEDTIME ALPRAZolam 0.25 mg tab(s) (XANAX) 0.25 mg ORAL TID PRN ROPivacaine (PF) 0.2 % in NaCl 0.9% 1,000 mL PERIPHERAL NERVE CATHETER ONE TIME methocarbamol 500 mg tab(s) (ROBAXIN) 500 mg ORAL TID PRN Objective PHYSICAL EXAM: Patient Vitals for the past 4 hrs: BP Temp Pulse Resp SpO2 07/30/24 0809 144/76 36.7 ??C (98.1 ??F) 94 16 96 % AFFECT: Alert and Awake GENERAL APPEARANCE: Appears comfortable IV/CATHETER SITE: Catheter site with no signs of local infection, no erythema, and no discharge noted no swelling NEURO: Diminished sensation with distribution MOTOR: Left Upper Extremity: Diminished at distribution of block RESPIRATORY: Breathing appears normal DATA: Diagnostic tests reviewed for today's visit: Most recent labs LAB RESULTS: APTT 22.4 01/20/2024 PT Sec 10.7 01/20/2024 PT INR 1.0 01/20/2024 Hemoglobin 8.3 07/30/2024 Hematocrit 24.5 07/30/2024 Platelet Count 119 07/30/2024 Medication and Non-Pharmacologic VTE Prophylaxis/Anticoagulants Anticoagulant & Antiplatelet Medications (From admission, onward) Start Dose Route Frequency Last Action Ordered Stop 07/29/24 0900 aspirin, enteric coated 81 mg tab(s) (Surgical Risk Categories) 81 mg PO 2 TIMES DAILY Given, 07/30 214307/28/241915 -- Candice Dejesus is a 73 year old female who is being seen as described in the HPI above. Pain is controlled. Anticipated discharge today pending HHC/sling per pt. Catheter site without signs or symptoms of infection, no erythema, tenderness, drainage, or warmth. Sensory and motor exam within normal limits for distribution of regional block. Denies tinnitus, dyspnea Plan: Plan to discharge home with [employer] once cleared by primary service. Continue analgesic regimen of: Tylenol 1000 mg PO Q 6 hours ATC Oxycodone 5-10 mg PO Q 4 hours PRN Morphine 2 mg IV Q 3 hours PRN The plan was discussed in detail with patient +/- family, bedside RN, [facility] staff and primary service, who expressed agreement, understanding and comfort with the plan. Thank you for including us in her care. Please call us with any questions or concerns. [facility] will continue to follow. Patient's progress and plan discussed with Dr. Bran SIGNATURE: Joanne Olvera APRN.CNP PATIENT NAME: Candice Dejesus DATE: July 30, 2024 TIME: 8:19 AM PAGER: [phone] * Gisselle Alcala, PT - 07/30/2024 7:44 AM EDT PHYSICAL THERAPY MISSED VISIT SERVICE DATE: 07/30/2024 SERVICE TIME: 743 ROOM: [place] [id number] Patient not seen due to Clinical Appropriateness. No PT needs SIGNATURE: Gisselle Alcala PT PATIENT NAME: Candice Dejesus DATE: July 30, 2024 TIME: 7:44 AM * Sherry Armando MD - 07/30/2024 6:37 AM EDT Images from the original note were not included. 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 Faith. Relevant PMH: N/A Additional issues being addressed on this admission: N/A Plan: Activity Weightbearing status: NWB LUE in sling Range of motion: No shoulder ROM; Hand/wrist/elbow OK DVT Prophylaxis ASA 81 BID, SCDs, mobilization ID Antibiotics: periop ancef Cultures: N/A Perioperative Care Dressing: Mepilex Pain control: oxycodone, tylenol, block Diet: Regular Acute blood loss anemia: Hemoglobin goal > 7, no indication for transfusion at this time Electrolytes/renal: stable Consulting Services PT/OT: pending Case Management Items to follow up on today: Sling fit Dispo: Pending adjustment of sling Plan of care discussed with: Provider, RN, Patient. Subjective: NAEON. Pain controlled. Denies CP/SOB/N/N. Objective: Vitals: 07/29/24 1140 07/29/24 1606 07/29/24 2135 07/29/24 2355 BP: 141/71 136/67 151/73 131/55 Pulse: 97 97 106 82 Resp: 16 16 16 16 Temp: 36.8 ??C (98.2 ??F) 36.8 ??C (98.2 ??F) 36.7 ??C (98.1 ??F) TempSrc: Oral Oral Oral Oral SpO2: 91% 93% 92% 95% Weight: Height: Physical Exam: General: Awake, alert, converses appropriately, no acute distress Respiratory: Unlabored on room air, no obvious wheezing Cardiovascular: RRR to peripheral palpation Focused Musculoskeletal Exam: Left Upper Extremity: Dressing: c/d/i LUE: 5/5 elbow F/E, wrist F/E. AIN/PIN/ulnar motor intact SILT throughout 2+ Radial pulses, CR<2s Intake/Output Summary (Last 24 hours) at 07/30/2024 0637 Last data filed at 07/29/2024 1854 Gross per 24 hour Intake 320 ml Output 25 ml Net 295 ml Lab Review: Hemoglobin (g/dL) Date Value 07/28/2024 10.2 (L) 07/15/2024 13.7 08/01/2018 17.6 (H) 10/26/2017 13.9 WBC (k/uL) Date Value 07/28/2024 12.95 (H) 07/18/2024 8.20 08/01/2018 10.34 10/26/2017 12.88 (H) PT INR (no units) Date Value 09/20/2005 1.0 09/18/2005 1.0 INR (no units) Date Value 01/20/2024 1.0 05/16/2021 1.1 Glucose, Point of Care (mg/dL) Date Value 05/10/2021 123 (A) 05/08/2021 98 Creatinine (mg/dL) Date Value 07/28/2024 0.77 07/15/2024 0.80 08/01/2018 0.67 10/26/2017 0.69 Creatinine (POCT) (mg/dL) Date Value 10/19/2021 0.80 Sodium (mmol/L) Date Value 07/28/2024 136 07/15/2024 136 08/01/2018 141 10/26/2017 138 Potassium (mmol/L) Date Value 07/28/2024 4.2 07/18/2024 4.2 08/01/2018 4.7 10/26/2017 4.2 Calcium (mg/dL) Date Value 08/01/2018 10.1 10/26/2017 9.8 Calcium, Total (mg/dL) Date Value 07/28/2024 8.6 07/15/2024 10.2 Lines, Drains, and Airways Line Duration Peripheral 07/29/24 0600 [facility] Right Forearm 22 Gauge 1 day Subcutaneous 07/28/24 1105 Peripheral Nerve Block Left Neck 1 day Drain Duration Small Bowel Ostomy RLQ -- days Sherry Armando MD PGY-3 Orthopa[facility] [place] floor related issues [place] questions, [place] [phone] At all other times, or if urgent, please page the orthopaedic on-call resident at: 2BONE ([phone]) for [facility] patients [phone] for [facility] patients [phone] for [facility] patients [phone] for [facility] patients [phone] for [facility] patients * Candi Shukla OT/L - 07/29/2024 2:45 PM EDT Occupational Therapy Evaluation Summary SERVICE DATE: 07/29/2024 SERVICE TIME: 1306 to 1424 ROOM: [place] [address] OT 6 Clicks Score: 17 Total Joint Replacement Discharge Readiness: Pending Occupational Therapy Clearance DISCHARGE RECOMMENDATIONS Home Anticipated Discharge Needs: Physical Assist at Home Physical Assist at Home for: Cleaning, Laundry, Meals, Shopping, Self Care, Transportation ASSESSMENT Response to Therapy Interventions: Good Participation in Activities, Coping Deficits PRECAUTIONS Weight Bearing Restrictions NWB on the operative limb. 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 Faith. Relevant Past Medical History: Chron's Disease, S/P Ileostomy, Anxiety, Enteritis, Refer to [facility] HOME LIVING Patient Lives With: Self/Alone Assistance Available: PRN, Other: See Comment Comments: friend and nephew/niece Entry To Home: No Stairs Number Of Stairs To Bed/Bath: 0 Tub/Shower Type: Tub/Shower Laundry: 1st level, Independent Equipment Owned: Grab Bars- Shower, Hand Held Shower, Cane PRIOR FUNCTIONAL LEVEL Within Functional Limits Reports IND with ADLs/IADLs/functional mobility without device. (+) drives, (+) fall, has been taking sponge baths for the past few months Baseline Cognition: Oriented to self, Oriented to place, Oriented to time, Oriented to situation SUBJECTIVE Pt agreeable to OT COGNITION Responsiveness: Alert, Awake Follows Commands: 3-step Commands Cog 6 Start of Session Total Points (Max Score = 24): 24 (07/29/24) Cog 6 End of Session Total Points (Max Score = 24): 24 (07/29/24) 4AT Score: 0 (07/29/24) Delirium Positive/Negative: Negative (07/29/24) THERAPY DIAGNOSIS Decreased activities of daily living (ADL) TREATMENT INTERVENTIONS Evaluation, Therapeutic Exercise (21976), Self [facility] Management ([id number]) Timed Code Treatment (minutes): 62 Skilled Treatment Time (minutes): 63 TRAINING & EDUCATION PROVIDED Activity Adaptation/Compensatory Strategies, Bed Mobility, Discharge Planning, Exercise Program, Expected Functional Level, Functional Mobility Involving ADLs, Health Management of Chronic Conditions, Home Set-up/Modifications, IADLs/Home Management, Identification of Systems of Support, Insight into Deficits, Life Roles/Routines/Habits, Pain Management, Patient Exercise/Therapy Program Support Needs, Positioning, Precautions/Restrictions, Role of Occupational Therapy, Sling/Brace Management, Edema Management, Treatment Protocol THERAPEUTIC SKILLS USED Activity Dosing, Cues for Sequencing/Proper Technique for Activity, Cuing Tactile, Cuing Verbal, Cuing Visual, Facilitation of Joint Range of Motion, Management of Critical Lines, Tubes and/or Drains, Movement Facilitation, Physical Assist, Teach-Back for Education, Therapeutic Use of Self FUNCTIONAL STATUS Activities of Daily Living Assist Level Additional Information Feeding Modified Independent Grooming Modified Independent Bathing Upper Body Moderate Assistance Bathing Lower Body Modified Independent Dressing Upper Body Moderate Assistance Dressing Lower Body Modified Independent Toileting Modified Independent, Total Assistance, Additional Information IND for anterior олег care, total A to change stoma Mobility Assist Level Additional Information Bed Mobility Supine To Sit: Independent Sit To Supine: Independent Sit to Stand Independent Stand to Sit Independent Bed to Chair Toilet/Commode Shower Functional Mobility Independent Functional Mobility Device: IV Pole Exercise: L E/W/H AROM 1 set x 10 reps with assist d/t nerve block GOALS Patient will demonstrate progress with self-care, cognitive and/or coping needs identified to allowsafe discharge to home with available support and/or physical assistance. Rehab Potential: Good Good Rehab Potential Due To: Current objective clinical presentation ACUTE CARE TREATMENT PLAN OT Frequency: Per Next Session Date Treatment Interventions: Education, Self Care/Home Management, Joint Mobility, Functional Mobility Training, Pain Management Plan for Next Visit: Bathing Training, Dressing Training SIGNATURE: MIKEY Powell PATIENT NAME: Candice Dejesus DATE: July 29, 2024 TIME: 2:45 PM * Delicia Short RN - 07/29/2024 11:37 AM EDT CARE MANAGEMENT: ASSESSMENT AND DISCHARGE PLAN SERVICE DATE: July 29, 2024 SERVICE TIME: 12:29 PM PCP: Efrain Mantilla Jr, DO Primary Contact: Extended Emergency Contact Information Primary Emergency Contact: KEON DEJESUS Mobile Relation: Brother Secondary Emergency Contact: Maurice Dejesus Mobile Relation: Other Admission Status: Extended Recovery Insurance Provider: MEDICARE A AND B Discharge Planning requested by: Per Department Practice Potential Transition Plans Home Care Advance Directives Current Advance Directive: None Locomotive Operator Attempted to Assist with AD Completion: Yes Action: Education Provided, Patient Unwilling Current Living Arrangements and Support Lives with: Alone Type of Residence: Private Residence (House) Does the patient have to climb stairs at home?: No (1 floor; handicap accessible BR) Support: Family members, Friends/neighbors How do you manage to accomplish the following: Independent: Ambulation, Bathe/Shower, Dress, Meals/Meal Prep, Going to the bathroom, Medication Management, Transportation to appointments/community Current Services/Equipment Current Post-Acute Service(s): DME Current DME Type: Elevated toilet seat, Grab bars, Ostomy supplies Discharge Planning Patient Goal(s): Be able to go home, Independent living [place] Explained: [place] Given: Yes Level of Care Discussed: Home Care, Other: See Comment (Pt already had choice) Are you interested in bedside delivery of your medications? No Not offered on H70 Discharge Planning Participant(s): Patient Patient/Family Comments: Caregiver Assessment: Caregiver is ready, willing and able to meet the patient's needs as recommended by the inter-professional team: Yes Name of Caregiver: Family can assist prn and friend from out of town will be staying with pt for a couple of weeks Transport at Discharge: Transportation Arrangements: Car Needs Prior to Discharge: Needs Prior to Discharge: Accepting Facility Post-Acute Discharge Plan: S/p left reverse total shoulder replacement for proximal humerus malunion. Pt has an ileostomy. Will need [facility] SN for a couple of weeks to help change ostomy. Referral sent. Pt states she has support at home. Her friend will be staying with her for a couple of weeks. Peg, pt's friend, will provide transport. CM will continue to follow and update transitional plan as needed and appropriate through discharge. SIGNATURE: Dleicia Short RN PATIENT NAME: Candice Dejesus DATE: July 29, 2024 TIME: 12:29 PM * Sherry Armando MD - 07/29/2024 6:36 AM EDT Images from the original note were not included. 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 Faith. Relevant PMH: N/A Additional issues being addressed on this admission: N/A Plan: Activity Weightbearing status: NWB LUE in sling Range of motion: No shoulder ROM; Hand/wrist/elbow OK DVT Prophylaxis ASA 81 BID, SCDs, mobilization ID Antibiotics: periop ancef Cultures: N/A Perioperative Care Dressing: Mepilex Pain control: oxycodone, tylenol, block Diet: Regular Acute blood loss anemia: Hemoglobin goal > 7, no indication for transfusion at this time Electrolytes/renal: stable Consulting Services PT/OT: pending Case Management Items to follow up on today: PT/OT recs Dispo: Pending PT/OT recs Plan of care discussed with: Provider, RN, Patient. Subjective: NAEON. Pain controlled. Denies CP/SOB/N/N. Objective: Vitals: 07/28/24 1005 07/28/24 1100 07/28/24 1105 BP: 159/77 156/87 Pulse: 89 95 94 Resp: 18 Temp: 36.5 ??C (97.7 ??F) TempSrc: Temporal SpO2: 94% 96% 94% Physical Exam: General: Awake, alert, converses appropriately, no acute distress Respiratory: Unlabored on room air, no obvious wheezing Cardiovascular: RRR to peripheral palpation Focused Musculoskeletal Exam: Left Upper Extremity: Dressing: c/d/i LUE: 5/5 elbow F/E, wrist F/E. AIN/PIN/ulnar motor intact SILT throughout 2+ Radial pulses, CR<2s No intake or output data in the 24 hours ending 07/28/24 1113 Lab Review: Hemoglobin (g/dL) Date Value 07/15/2024 13.7 05/15/2024 14.2 08/01/2018 17.6 (H) 10/26/2017 13.9 WBC (k/uL) Date Value 07/18/2024 8.20 07/15/2024 11.67 (H) 08/01/2018 10.34 10/26/2017 12.88 (H) PT INR (no units) Date Value 09/20/2005 1.0 09/18/2005 1.0 INR (no units) Date Value 01/20/2024 1.0 05/16/2021 1.1 Glucose, Point of Care (mg/dL) Date Value 05/10/2021 123 (A) 05/08/2021 98 Creatinine (mg/dL) Date Value 07/15/2024 0.80 05/15/2024 0.78 08/01/2018 0.67 10/26/2017 0.69 Creatinine (POCT) (mg/dL) Date Value 10/19/2021 0.80 Sodium (mmol/L) Date Value 07/15/2024 136 05/15/2024 139 08/01/2018 141 10/26/2017 138 Potassium (mmol/L) Date Value 07/18/2024 4.2 07/15/2024 5.3 (H) 08/01/2018 4.7 10/26/2017 4.2 Calcium (mg/dL) Date Value 08/01/2018 10.1 10/26/2017 9.8 Calcium, Total (mg/dL) Date Value 07/15/2024 10.2 05/15/2024 10.2 Lines, Drains, and Airways Line Duration Peripheral 07/28/24 1005 [facility] Short Right Forearm 20 Gauge <1 day Drain Duration Small Bowel Ostomy RLQ -- days Sherry Armando MD PGY-3 Orthopa[facility] [place] floor [place] issues [place] questions[place] [phone] At all other times, or if urgent, please page the orthopaedic on-call resident at: 2BONE ([id number]) for [facility] patients [phone] for [facility] patients [phone] for [facility] patients [phone] for [facility] patients [id number] for [facility] patients documented in this encounter Consult Notes * Basia Llamas, COLTON.NEEDLE LOOM OPERATOR HELPER - 07/29/2024 12:25 PM EDT APS POST-OPERATIVE PROGRESS NOTE Peripheral Nerve Catheter SERVICE DATE: 07/29/2024 : 1950 SERVICE TIME: 1144 AM SURGERY DATE: 07/28/2024 PRIMARY SERVICE: Orthopedics Subjective CHIEF COMPLAINT: Post-operative pain INTERVAL HPI: Candice Dejesus is a 73 year old female who is POD #1, S/P Procedure(s) (LRB): 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 (Left) with Peripheral Nerve Catheter placed on day of surgery for post-operative pain control infusing 0.2% Ropivacaine at 07/26/59. On encounter, patient appears in [place], reports postoperative pain is well controlled on current regimen. Pre-Operative (Baseline) Pain Score: Not documented History of Chronic Pain: No Current Pain Level: 0/10 at rest 4 with ambulation on a scale of 0-10 Physical Therapy Sessions: Pending Pain at Surgical Site: Yes, left shoulder Character: aching Duration: intermittent Radiation: No Relieved: Yes - PO Pain medications, Rest, Repositioning, and PNC Patient Satisfied with Pain Control: Yes Overnight Events: None Overnight Pain Interventions: no POST-OPERATIVE BLOCK: Block Type: Interscalene Nerve Catheter, Left Block Failure: No Action Taken Towards Block Side Effects: N/A Analgesic Regimen: Tylenol 1000 mg every 8 hours Oral Opioids: Oxycodone 5-10 mg PO Q4H prn IVP Pain Regimen: Morphine 2 mg Q3H prn BTP ROS SURFACING TECHNICIAN: Numbness within distribution of block ENT: Negative for hoarseness, negative for dysphagia, baseline intermittent tinnitus. CARDIOVASCULAR: Negative for chest pain, negative for leg swelling, negative for palpitations. RESPIRATORY: Negative for cough, negative for wheezing, negative for shortness of breath. GI: c/o intermittent nausea, no vomiting ALLERGIES Allergen Reactions Prednisolone Hives Current Facility-Administered Medications Medication Dose Route Frequency ropivacaine nerve block 0.2% (2 mg/mL) - 200 mL PERIPHERAL NERVE CATHETER CONTINUOUS And ropivacaine 0.2% (2 mg/mL) nerve block CLINICIAN DOSE 6 mL 6 mL PERIPHERAL NERVE CATHETER q 2 H PRN acetaminophen 1,000 mg tab(s) (TYLENOL) 1,000 mg ORAL q 6 H oxyCODONE IR 5-10 mg tab(s) (ROXICODONE) 5-10 mg ORAL q 4 H PRN morphine 2 mg injection 2 mg INTRAVENOUS q 3 H PRN ondansetron (PF) 4-8 mg injection (ZOFRAN) 4-8 mg INTRAVENOUS q 6 H PRN aluminum-magnesium hydroxide-simethicone 200-200-20 mg/5 mL 30 mL 30 mL ORAL q 2 H PRN magnesium hydroxide 400 mg/5 mL 30 mL (MOM) 30 mL ORAL DAILY PRN docusate sodium 100 mg cap(s) (COLACE) 100 mg ORAL BID diphenhydrAMINE 25 mg injection (BENADRYL) 25 mg INTRAVENOUS q 6 H PRN bisacodyl 10 mg suppository (DULCOLAX) 10 mg RECTAL DAILY PRN multivitamin-ferrous fumarate-folic acid 1 tablet (CENTRUM) 1 tablet ORAL DAILY ferrous sulfate 325 mg tab(s) 325 mg ORAL BID w MEALS ascorbic acid (vitamin C) 500 mg tab(s) (VITAMIN C) 500 mg ORAL BID w MEALS aspirin, enteric coated 81 mg tab(s) 81 mg ORAL BID NaCl 0.9% iv flush bag 20 mL INTRAVENOUS PRN levothyroxine 50 mcg tab(s) (SYNTHROID) 50 mcg ORAL DAILY cholecalciferol 1,000 Units tab(s) (VITAMIN D3) 1,000 Units ORAL DAILY rosuvastatin 10 mg tab(s) (CRESTOR) 10 mg ORAL AT BEDTIME ALPRAZolam 0.25 mg tab(s) (XANAX) 0.25 mg ORAL TID PRN ROPivacaine (PF) 0.2 % in NaCl 0.9% 1,000 mL PERIPHERAL NERVE CATHETER ONE TIME Objective PHYSICAL EXAM: Patient Vitals for the past 4 hrs: BP Temp Temp src Pulse Resp SpO2 07/29/24 1140 141/71 36.8 ??C (98.2 ??F) Oral 97 16 91 % AFFECT: Alert, Awake, and Oriented GENERAL APPEARANCE: Appears comfortable IV/CATHETER SITE: Catheter site with no signs of local infection, no erythema, and no discharge noted no swelling MOTOR: Left Upper Extremity: Hand grasp RESPIRATORY: Breathing appears normal DATA: Diagnostic tests reviewed for today's visit: Most recent labs LAB RESULTS: APTT 22.4 01/20/2024 PT Sec 10.7 01/20/2024 PT INR 1.0 01/20/2024 Hemoglobin 10.2 07/28/2024 Hematocrit 29.4 07/28/2024 Platelet Count 131 07/28/2024 Medication and Non-Pharmacologic VTE Prophylaxis/Anticoagulants Anticoagulant & Antiplatelet Medications (From admission, onward) Start Dose Route Frequency Last Action Ordered Stop 07/29/24 0900 aspirin, enteric coated 81 mg tab(s) (Surgical Risk Categories) 81 mg PO 2 TIMES DAILY Given, 07/29 91307/28/241915 -- 07/28/241929 pneumatic compression sleeve(s) ([place], [place]) 07/28/241929 activity - mobilize patient ([place], [place]) Assessment/Plan Candice Dejesus is a 73 year old female who is POD #1, S/P Procedure(s) (LRB): 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 (Left) with Peripheral Nerve Catheter placed on day of surgery for post-operative pain control infusing 0.2% Ropivacaine at 07/26/59. On encounter, patient appears in [place], reports postoperative pain is well controlled on current regimen. Per CM note review - Pt has an ileostomy. Will need [facility] SN for a couple of weeks to help change ostomy. Referral sent. Candice Dejesus is a 73 year old female who is being seen as described in the HPI above. Catheter site without signs or symptoms of infection, no erythema, tenderness, drainage, or warmth. Sensory and motor exam within normal limits for distribution of regional block. Patient to be discharged home with AMBIT pump PLAN Continue with left PNC at 07/26/59, will switch to a home-going pump prior to the discharge. Continue with the rest of her regimen: Tylenol 1000 mg every 8 hours Oral Opioids: Oxycodone 5-10 mg PO Q4H prn IVP Pain Regimen: Morphine 2 mg Q3H prn BTP Plan of care discussed with patient, RN, primary team and APMS staff, all in agreement. APMS will continue to follow. Patient's progress and plan discussed with Dr. Bran. SIGNATURE: Basia Llamas APRN.MARIA EUGENIA PATIENT NAME: Candice Dejesus DATE: July 29, 2024 TIME: 1144 AM APMS phone/pager : [phone] documented in this encounter Nursing Notes * Noa Cuevas RN - 07/30/2024 2:58 PM EDT Admission/Transfer Note PATIENT NAME: Candice Dejesus Patient Location: [place] [address] Room: [place] [address] Patient transferred to home via wheelchair in stable condition. Actions taken: d/c instructions reviewed and questions addresed This note was completed by: Noa Cuevas * Digna Willoughby RN - 07/28/2024 7:15 PM EDT Admission/Transfer Note PATIENT NAME: Candice Dejesus Patient Location: [place] [address] Room: [place] [address] Patient admitted from PACU via bed in stable condition. Actions taken: Patient oriented to room, call light function, prescribed activities, Patient rights, and Quiet at night. The patient has been instructed on the plan of care. Patient belongings with patient. No futher actions taken at this time. Will continue to monitor and check with patient. This note was completed by: Digna Willoughby documented in this encounter OR Notes * Brief Op Note - Suri Almazan MD - 07/28/2024 3:41 PM EDT BRIEF OP NOTE LOG ID: [id number] Surgery/Procedure Date: 07/28/2024 Incision/Procedure Start Time: 12:41 PM Incision Close/Procedure End Time: Surgeon(s)/Proceduralist(s) and Shipping Clerk/Admin(s): Surgeons and Role: * Efrain Faith MD - Primary * Sherry Armando MD - Resident - Assisting * Suri Almazan MD - Fellow Procedure(s): Procedure(s) (LRB): 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 (Left) Anesthesia: General Estimated Blood Loss: 150 mls Specimens: * No specimens in log * Complications: None Pre-Op/Pre-Procedure Diagnosis: left proximal humerus fracture malunion Post-Op/Post-Procedure Diagnosis: Same Post-op Plan: PACU Labs: none PACU Imaging: L shoulder XR - ID consult none - Antibiotics: periop ancef - Pain Management: pain catheter, oxy/tylenol, IV PRN morphine - DVT prophylaxis: ASA 81mg BID x 2 weeks - Weight Bearing/Activity: NWB operative extremity - Precautions: sling - Diet: regular - Encourage IS - PT/OT - Anticipate D/C: home tomorrow - Dispo: home Plan of care discussed with: Provider, RN, Patient. Patient was accompanied to the next level of care by a licensed practitioner from the surgical teampending completion of this brief op note (or operative note) SIGNATURE: Suri Almazan MD PATIENT NAME: Candice Dejesus DATE: July 28, 2024 TIME: 3:42 PM PAGER/CONTACT #: [phone] * Operative Report - Efrain Faith MD - 07/28/2024 11:48 AM EDT OPERATIVE/PROCEDURE REPORT [place] [address] Patient Name: Candice Dejesus : 1950 Surgery/Procedure Date: 07/28/2024 Incision/Procedure Start Time: 12:41 PM Incision Close/Procedure End Time: 3:54 PM SURGEON(S)/PROCEDURALIST(S) AND CONSERVATION SCIENTIST(S): Efrain Faith MD (Primary Surgeon) Surgeon(s): Efrain Faith MD Haley, Rebecca, MD Hays, Claire, MD PRE-OP/PRE-PROCEDURE DIAGNOSIS: * Left 4-part displaced comminuted proximal humerus fracture, malunion POST-OP/POST-PROCEDURE DIAGNOSIS: * Left 4-part displaced comminuted proximal humerus fracture, malunion SURGERY/PROCEDURE(S): * Left reverse total shoulder arthroplasty for displaced comminuted proximal humerus fracture malunion 22-modifier CASE COMPLEXITY: 22-modifier due to the increased complexity of the procedure resulting in increased intensity, time, and technical difficulty due to the malunion nature of this injury. This requiredextra dissection to remove the malunited fragments of bone, including the humeral head, along with osteotomy of the lesesr tuberosity and tuberoplasty of the greater tuberosity. This all added considerable difficulty to the case. These factors added roughly an additional 60 minutes to the duration of the case OPERATIVE INDICATIONS: The patient is a 73 year old female who suffered a displaced, Left shoulder proximal humerus fracture in January. She was treated initially conservatively, which resulted in a malunited proximal humerus fracture. She came to my office roughly 6 months out from the injury with pain and limited range of motion. This was affecting her ability to perform ADLs, exercise,and work. We discussed both operative and nonoperative treatment options for this problem. Nonoperative treatment options include PT and further symptom management. She made it very clear that she was not satisfied despite this exhaustive PT regimen. Operative treatment would include reverse shoulder replacement for malunion. We discussed the risks of infection, bleeding, neurovascular injury, blood clots postoperatively, nonunion, malunion, and the need for possible subsequent surgery. We alsodiscussed the risks specific to reverse shoulder arthroplasty, including instability, periprosthetic joint infection, non-healing of the tuberosities, and acromial stress fracture. We spent a lot of time talking about the unpredictable outcomes of reverse for proximal humerus malunion, and she understood that no guarantee of improved function or pain could be provided. After both in-person and follow-up discussions about surgery and recovery the decision was made to proceed with surgical intervention in the form of reverse total shoulder arthroplasty. The risks and benefits of this procedure,as well as expected postoperative course were discussed at length with the patient. The patient understood these risks and benefits, and chose to proceed with the operation. SURGICAL IMPLANT(S): Glenoid baseplate: Tornier 25mm baseplate Glenosphere: Tornier 36mm glenosphere Humeral stem: Tornier fracture stem size 9 Humeral polyethylene insert: Tornier 36mm +0 standard poly OPERATIVE FINDINGS: A displaced, 4-part proximal humerus fracture through the surgical neck and tuberosities was noted, healed in a malunited position with the lesser tuberosity anterior without retraction and the head and greater tuberosity posteriorly displaced with significant retraction and malunited position. OPERATIVE PROCEDURE: On the day of surgery, the patient was seen in the preoperative area. The planned surgical procedure and the correct surgical site were again reviewed with the patient and the Left upper extremity was marked. Prior to being taken back to the operating room, the patient did receive an interscalene nerve block in her Left upper extremity for postoperative pain control. Preoperative antibiotics were given. The patient was then taken back to the operating room and intubated without complications. she was placed in the beach chair position, and the Left upper extremity was prepped and draped in the usual sterile fashion. A standard 10-15 cm deltopectoral incision was made along the anterior aspect of the Left shoulder.Subcutaneous dissection was taken down to the level of the deltopectoral interval and the cephalic vein was identified and taken laterally with the deltoid. The interval was then developed deeply andthe subdeltoid and subacromial spaces were freed up. The interval between the conjoint and subscapularis tendons was next developed up to the coracoacromial ligament, but this was not taken. Digital palpation was used to verify the integrity of the axillary nerve, which was protected throughout theprocedure. The conjoint tendon was then retracted with the self-retaining retractor medially to expose the subscapularis tendon deep to this. The biceps sheath and rotator interval were then opened up. The long head of the biceps tendon could not be identified, presumably already ruptured and retracted distally. The fracture lines through the surgical neck and tuberosities were next identified. Using a combination of the electrocautery, a Horn elevator and rongeurs, these fracture lines were dev eloped. It was necessary to use an osteotome given the malunited nature of the fracture. The greater tuberosity fragment was healed with considerable, dense callus laterally. The lesser tuberosity fracture fragment required osteotomy to break it from the malunited shaft and head. The humeral head fragment was malunited in the position of varus, posteromedial displacement. This required osteotome to remove in a fragmented nature. The humeral head fragment was isolated and removed. The lesser tuberosity fragment was tagged with an ethibond and the rotator interval released. The glenoid was next exposed. All loose bony and soft tissue debris was removed from the exposed glenohumeral joint and the exposed glenoid surface. The capsule was released circumferentially from the glenoid rim. Care was taken to adequately release the capsule inferiorly for adequate exposure of the inferior glenoid rim. The axillary nerve was meticulously protected during this step. Part of the triceps origin was released inferiorly as part of this exposure. Following this, the remaining labrum was excised circumferentially to completely expose the glenoid rim. After appropriate glenoid exposure and appropriate retractor placement, we placed our guidepin for reaming of the glenoid. This pin was placed in an inferior position on the glenoid, centered in the midline. We then removed the guide pin and reamed the glenoid just to the start of bleeding bone. We then drilled over the guide pin and prepared the glenoid for the standard glenoid baseplate, which was screwed in with excellentcompression. Following this the peripheral screws were drilled superior, inferior, anterior, and posterior with respective lengths of 26, 26, 14, and 14. The peripheral reamer was placed over the baseplate and rim of the baseplate was cleaned to facilitate seating of the glenosphere. We then placeda 33+3 trial glenosphere and proceeded to the humerus. The humeral shaft fragment was appropriately exposed, and the humeral canal was sounded. The humeral canal was sounded up to a size 9S stem, which was trialed along with a size +0, standard liner trial. There was considerable difficulty exposing the humerus for preparation due to the impinging greater tuberosity. With the implant in 30 degrees of retroversion and the proper stem height confirmed (top of the stem at the height of the reduced greater tuberosity and center of the humeral trial roughly at the center of the glenosphere) the trial stem and liner could not be reduced. The 9S stem was removed and the trial glenosphere removed. A 36mm glenosphere was trialed with this same process be cause it has less lateralization, however, this too could not be reduced. It was determined that the posterior impingement was preventing proper exposure. Thus the trial stem and glenosphere was removed. With the axillary nerve protected, a combination of theodore and osteotome was used to remove the posteriorly impinging greater tuberosity fragments. Only the most posteromedial portions were removed, making all effort to preserve as much proximal humeral bone stock as possible. Exposure and external rotation of the humerus was made much better after this. It was determined that a 9S stem would not fit the canal properly, and since a 33 glenoshpere is not compatible with any larger size stems, we elected to impact the 36 glenosphere. We then opened a size 36 glenosphere, which impacted onto the baseplate and Main taper engagement was confirmed with tight placement of the center screw. Withthe posteriorly impinging tuberosity removed and the the glenosphere impacted in place, the proximal humerus was redelivered into the wound for preparation of the humerus. The trials were once again impacted, with a size 9 Tornier Perform fracture stem trial fitting well. The standard +0 trial was the best fit. Even this was tight, but it was able to be reduced and there was no booking open until60 degrees of ER, and there was no dislocation due to impingement. A final Size 9 humeral implant with +0 mm polyethylene (rateGenius Perform fracture system) was then opened up for placement in the humeral canal. There was insufficient humeral head bone to place en bloc in the stem opening. The two suture tapes from the lesser tuberosity were passed through the holes in the stem. Graft from the osteotomized bone was placed into the central window in the implant. At this point the humeral implant was reduced which showed good stability and tension of the soft tissue. We then used the traction sutures to reduce the lesser tuberosity underneath the tray and tied the suture tapes to hold tuberosities in place. Following this, all retractors were removed, and digital palpation was again used to confirm the integrity of the axillary nerve. The wound was again copiously irrigated. A total of 5 L of pulse irrigation was used throughout the case. Wound was then closed in layers with #1 Vicryl, 2-0 Vicryl and running 3-0 Monocryl suture. Sterile dressings were applied. The patient was awoken from anesthesia,taken to recovery room in stable condition. Closing of the incision was performed by Suri Almazan MD, with the primary surgeon (Erfain Faith MD) readily available. The remainder of the procedure, including all critical elements, was completedby the primary surgeon (Efrain Faith MD ) with assistance from Suri Almazan MD and Sherry Armando MD. ANESTHESIA: General ESTIMATED BLOOD LOSS: 200 mls SPECIMENS: None IMPLANTABLE DEVICES: Implant Name Type Inv. Item Serial No. Wedding Decorator Lot No. LRB No. Used Action Model No. BASEPLATE GLENOID 25MM TORNIER AEQUALIS PERFORM STANDARD SHOULDER REVERSE - [id number] Joint - Shoulder BASEPLATE GLENOID 25MM TORNIER AEQUALIS PERFORM STANDARD SHOULDER REVERSE [id number] [facility] Left 1 Implanted [id number] SHDR GLENOSPHERE STD 36 Implant [id number] [employer] Left 1 Implanted [id number] PERFORM HUMERAL SYSTEM FRACTURE STEM SIZE 9 130MM [id number] Implant [id number] [employer] Left 1 Implanted [id number] AEQUALIS PERFORM REVERSED INSERT SZ 3/4 36MM +0 Implant [id number] [employer] Left 1 Implanted [id number] CENTRAL THREADED POST 6.5X30MM - [id number] Implant CENTRAL THREADED POST 6.5X30MM [employer]OR[employer] Left1 Implanted [id number] AEQUALIS PERFORM REVERSED PERIPHERAL SCREW 5MM X 14MM Screw [employer] Left 2 Implanted [id number] PERIPHERAL SCREW 26MM - [id number] Screw PERIPHERAL SCREW 26MM [employer] Left 2 Implanted [id number] DRAINS: None COMPLICATIONS: None PARTICIPATION IN SURGERY/PROCEDURE: I/primary surgeon/proceduralist performed the procedure with assistance. PLAN: - Keep dressing on till follow-up, ok to take shower with on POD#2 - WB status: NWB on the operative limb - PT: ok to do elbow, wrist and hand ROM, no PT on the operative arm - Medications: use pain medications as instructed - A/C: use ASA 81 mg BID for 2 weeks - D/C: pending OT and pain control - F/U: 2 weeks in clinic Rehab Protocol: 0-6 weeks: Ultrasling immobilizer, no shoulder ROM, elbow/wrist/ hand exercises, no active use of the arm. Okay to come out of sling with arm at side for self care and typing/writing activity in front of you 6-12 weeks: Begin Phase 1 stretching until ROM normal (Phase 1 and 2 stretching), start active overhead use of the arm, lift < 5lb 3-6 months: start resistance bands (phase 1 and 2 strengthening), weight training supine and gradually sit up, gradually go back to sports, no push up, bench press, deadlift, lifting overhead > 25lb Efrain Faith MD Shoulder and Elbow Surgeon Orthopaedic Surgery Department [place], [place] [address] Tell: [phone] Appt:[phone] 07/28/2024 3:44 PM documented in this encounter Miscellaneous Notes * Plan of Care - Marivel Jones PA-C - 07/30/2024 12:18 PM EDT Orthopaedic Surgery Plan of Care Procedure: Procedure(s) (LRB): 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 (Left) Post-OP Day: 2 Service Date: 07/30/24 Service Time: 12:18 PM S: Candice Dejesus is a 73 year old female POD 2 s/p Procedure(s) (LRB): 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 (Left) with . The patient states that her pain is controlled at this time with current analgesic regimen. No acute issues reported overnight. The patient is doing well with no current acute issues. The patient is tolerating PT/OT, who recommends Home (Self Care) and is progressing on schedule. Stoma team consulted to help change ileostomy pouch to something easier to empty for patient while only really having good use of one arm. They have changed pouch and left supplies at bedside. Familyand friends will most likely still need to help her empty her pouch. [facility] arranged to help with both halfway and OT. The patient denies any further medical complaints or pain. The patient denies headache, lightheadedness, dizziness, C/P, SOB, ABD pain, dysuria, N/V/D, fever, chills, or excessive calf pain/tenderness. Orthopaedic Comorbidities: Active Problems: Postoperative pain O: Orthopaedic Exam: NAD. Afebrile. A&OX3. VSS. Labs WNL or at baseline. Mepilex dressing C/D/I Ultrasling in place Vital Signs: BP: 147/72 Temp: 36.6 ??C (97.9 ??F) Pulse: 93 Resp: 16 SpO2: 93 % CBC: Hemoglobin (g/dL) Date Value 07/30/2024 8.3 08/01/2018 17.6 Hematocrit (%) Date Value 07/30/2024 24.5 08/01/2018 51.0 WBC (k/uL) Date Value 07/30/2024 9.49 08/01/2018 10.34 BMP: Glucose (mg/dL) Date Value 07/30/2024 102 08/01/2018 87 Potassium (mmol/L) Date Value 07/30/2024 3.2 08/01/2018 4.7 Sodium (mmol/L) Date Value 07/30/2024 139 08/01/2018 141 Chloride (mmol/L) Date Value 07/30/2024 104 08/01/2018 101 CO2 (mmol/L) Date Value 07/30/2024 21 08/01/2018 24 Creatinine (mg/dL) Date Value 07/30/2024 0.83 08/01/2018 0.67 Creatinine (POCT) (mg/dL) Date Value 10/19/2021 0.80 BUN (mg/dL) Date Value 07/30/2024 10 08/01/2018 11 Anion Gap (mmol/L) Date Value 07/30/2024 14 08/01/2018 16 Calcium (mg/dL) Date Value 08/01/2018 10.1 Calcium, Total (mg/dL) Date Value 07/30/2024 8.5 Vital signs and labs reviewed. A/P: - Activity: NWB. Ultrasling at all times. May remove for hygiene purposes - Wound: mepilex - Pain: Multimodal, PO and IV breakthrough, PNC in place and monitored by APMs. Will go home with home going ambit pump. - DVT Prophylaxis: ASA 81mg BID - Antibiotics: Олег-operative x 24 hours - Diet: regular - MIVF, HLIV when tolerating sufficient PO - Acute Blood Loss Anemia: Hgb >7.0, stable with no indication for transfusion at this time -Hgb 8.3 will continue to monitor for acute post operative anemia. She is asymptomatic. - Electrolytes/Renal: BMP WNL or at baseline, otherwise PO potassium protocol Consults: *PT/OT: skilled for home *Stoma: helped to change ileostomy. Supplies at bedside. *CM: [facility] arranged for SN and OT *APMS will discharge her with home going ambit pump -patient will discharge today Plan of Care: The plan of care was discussed with the Provider, RN, and Patient. All questions and concerns regarding the plan of care were addressed to the satisfaction of all participants. Thank you, I sincerely appreciate the opportunity to participate in this patient's care. Marivel Jones PA-C Physician Shipping Clerk/Admin I Orthopaedic Surgery [facility] Surgical Kath[place] [phone] Between 5 PM (17:00) - 7 AM (07:00) during weekdays (Mon - Sun), all day on weekends (Sat & Sun), or if urgent, please page on-call orthopaedic surgery resident for any issues at: [facility] ([id number]) for [facility] [place] patients * [facility] - Richelle Pizarro RN - 07/29/2024 4:49 PM EDT ET/WOCN Nursing Consult Topic: ET/WOCN Consultation Note Purpose of Visit: Consulted for Patient had shoulder surgery and is having difficulty with self managing her ostomy bag. Might need to change type and wants to discuss this. Outcome: Pt is an experienced ostomate her end ileostomy was created on 04/27/21. Pt's home pouching sytem is a Coloplast Domenico 1-1/8 deep convex drainable with 2.0mm brava ring .Patient report getting a 3-4 day wear time. Her medical supply company is [employer]. Pt went to the bathroom and demonstrated how to empty and clean the ostomy pouch. Advised the pt how to make cleaning the pouch easier. Pt will need help changing the pouch. Recommend home health care, pt said she has a niece that has helped in the past with changing the ostomy pouch. Pt's home supplies at bedside, Needs prior to discharge: Is patient ready to discharge from [facility] Nurse perspective? Yes Next Scheduled Visit: 08/01 scheduled pouch change Assessment: Stoma Type: End ileostomy Diameter: 1 1/8 when rounded Location: RLQ Protrusion: Protrudes slightly Mucosal Condition and Color: Red and [place] and moist Mucocutaneous Junction: Intact-Peristomal Skin: Other: pink hue at 12 o'clock Peristomal Contour: Rounded Supportive Tissue: Soft Character of Output: green liquid effluent Emptying Frequency per Day: per nursing Pouching System Removed: Coloplast Domenico 1-02/26 deep convex drainable with 2.0mm brava ring Current Wear Time: unknown Pouching System Evaluation: Scant undermining Recommendations: Skin Care: 1. Use TrackaTec Sensi Care No Sting Adhesive Remover wipes (#484805) to gently release the worn pouch from the skin. 2. Apply ConvaTec Stomahesive powder (#27679) to denuded/irritated skin as needed with each pouch change until healed. Baker off loose powder from intact skin prior to pouching. Pouching System Applied: Same as aove Wear Time Goal: 3-4 days Time Increment: 45 minutes LUCAS Martinez, RN, CWOCN For non-emergent WOC Nursing patient care needs - Please place a consult via Epic under ostomy . WOC Nurse Available Hours: M-F: [phone]; Weekends & Holidays: [phone] For emergent WOC Nursing patient care needs - Page #[phone], during available hours only. * Plan of Care - Marivel Jones PA-C - 07/29/2024 2:19 PM EDT Images from the original note were not included. Orthopaedic Surgery Plan of Care Procedure: Procedure(s) (LRB): 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 (Left) Post-OP Day: 1 Service Date: 07/29/24 Service Time: 2:29 PM S: Candice Dejesus is a 73 year old female POD 1 s/p Procedure(s) (LRB): 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 (Left) with Dr. Faith. The patient states that her pain is controlled at this time with current analgesic regimen. PNC is in place and controlling her pain No acute issues reported overnight. The patient is doing well with no current acute issues. The patient is tolerating PT/OT, who recommends Home (Self Care) and is progressing on schedule. Patient is very anxious today about her sling and her stoma. She is concerned about not being able to empty it herself. Stoma team has been consulted today Patient unsure about sling as well due to strap that goes around the waist being too tight on her stoma. Advised her that this is the best brave for her surgery. Other brace we have has a large band around the waist that will be too compressive for her stoma. The patient denies any further medical complaints or pain. The patient denies headache, lightheadedness, dizziness, C/P, SOB, ABD pain, dysuria, N/V/D, fever, chills, or excessive calf pain/tenderness. Orthopaedic Comorbidities: Active Problems: Postoperative pain O: Orthopaedic Exam: NAD. Afebrile. A&OX3. VSS. Labs WNL or at baseline. Mepilex dressing C/D/I Ultrasling in place Vital Signs: BP: 141/71 Temp: 36.8 ??C (98.2 ??F) Temp src: Oral Pulse: 97 Resp: 16 O2 Therapy: Room Air SpO2: 91 % CBC: Hemoglobin (g/dL) Date Value 07/28/2024 10.2 08/01/2018 17.6 Hematocrit (%) Date Value 07/28/2024 29.4 08/01/2018 51.0 WBC (k/uL) Date Value 07/28/2024 12.95 08/01/2018 10.34 BMP: Glucose (mg/dL) Date Value 07/28/2024 168 08/01/2018 87 Potassium (mmol/L) Date Value 07/28/2024 4.2 08/01/2018 4.7 Sodium (mmol/L) Date Value 07/28/2024 136 08/01/2018 141 Chloride (mmol/L) Date Value 07/28/2024 99 08/01/2018 101 CO2 (mmol/L) Date Value 07/28/2024 18 08/01/2018 24 Creatinine (mg/dL) Date Value 07/28/2024 0.77 08/01/2018 0.67 Creatinine (POCT) (mg/dL) Date Value 10/19/2021 0.80 BUN (mg/dL) Date Value 07/28/2024 14 08/01/2018 11 Anion Gap (mmol/L) Date Value 07/28/2024 19 08/01/2018 16 Calcium (mg/dL) Date Value 08/01/2018 10.1 Calcium, Total (mg/dL) Date Value 07/28/2024 8.6 Vital signs and labs reviewed. A/P: - Activity: NWB, okay for elbow, wrist and hand motion - Wound: mepilex - Pain: Multimodal, PO and IV breakthrough, PNC in place and being monitored by APMS - DVT Prophylaxis: ASA - Antibiotics: Олег-operative x 24 hours - Diet: regular - MIVF, HLIV when tolerating sufficient PO - Acute Blood Loss Anemia: Hgb >7.0, stable with no indication for transfusion at this time - Electrolytes/Renal: BMP WNL or at baseline, otherwise PO potassium protocol - Consults: PT/OT/CM CM: will need HHC for [place] care - PT/OT: Skilled for Home (Self Care) Plan of Care: The plan of care was discussed with the Provider, RN, and Patient. All questions and concerns regarding the plan of care were addressed to the satisfaction of all participants. Thank you, I sincerely appreciate the opportunity to participate in this patient's care. Marivel Jones PA-C Physician Shipping Clerk/Admin I Orthopaedic Surgery [facility] [phone] Between 5 PM (17:00) - 7 AM (07:00) during weekdays (Mon - Fri), all day on weekends (Sat & Sun), or if urgent, please page on-call orthopaedic surgery resident for any issues at: [phone]) for [facility] patients documented in this encounter Plan of Treatment Upcoming Encounters Date Type Department Care Team (Late st Contact Info) Description 08/11/2024 11:45 AM EDT Office Visit Orthopaedics [address] [address] Efrain Faith MD [address] [place] [address] 2 wk PO reverse 09/15/2024 11:45 AM EDT Office Visit Orthopaedics [address] [address] Efrain Faith MD [address] 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 The ADA defines fasting as no caloric intake for at least 8 hours. Fasting plasma glucose results between 100 to 125 mg/dL indicate increased risk for diabetes (prediabetes). Fasting plasma glucose results greater than or equal to 126 mg/dL meet the criteria for diagnosis of diabetes. In the absence of unequivocal hyperglycemia, results should be confirmed by repeat testing. In a patient with classic symptoms of hyperglycemia or hyperglycemic crisis, random plasma glucose results greater than or equal to 200 mg/dL meet the criteria for diagnosis of diabetes. Reference: Standards of Medical Care in Diabetes 2016, [place] Diabetes Association. Diabetes Care. 2016.39(Suppl 1). BUN 10 7 - 21 mg/dL 07/30/2024 8:41 AM EDT [facility] Creatinine 0.83 0.58 - 0.96 mg/dL 07/30/2024 8:41 AM EDT [facility] Sodium 139 136 - 144 mmol/L 07/30/2024 8:41 AM EDT [facility] Potassium 3.2(L) 3.7 - 5.1 mmol/L 07/30/2024 8:41 AM EDT [facility] Chloride 104 98 - 107 mmol/L 07/30/2024 8:41 AM EDT [facility] CO2 21(L) 22 - 30 mmol/L 07/30/2024 8:41 AM EDT [facility] Anion Gap 14 8 - 15 mmol/L 07/30/2024 8:41 AM EDT [facility] Calcium, Total 8.5 8.5 - 10.2 mg/dL 07/30/2024 8:41 AM EDT [facility] Estimated Glomerular Filtration Rate 75 >=60 mL/min/1.7 3m 07/30/2024 8:41 AM EDT [facility] Comment:Estimated Glomerular Filtration Rate (eGFR) is calculated using the 2020 CKD-EPI creatinine equation. This equation utilizes serum creatinine, sex, and age as parameters. The creatinine assay has traceable calibration to isotope dilution- mass spectrometry. Refer to KDIGO guidelines for clinical interpretation. In patients with unstable renal function, e.g. those with acute kidney injury, the eGFR may not accurately reflect actual GFR. Blood BLOOD SPECIMEN / Unknown Venipuncture / Unknown 07/30/2024 5:51 AM EDT 07/30/2024 6:38 AM EDT us Marivel Jones PA-C LABORATORY Final Resul t [facility] [address] [address] * (ABNORMAL) COMPLETE BLOOD COUNT (07/30/2024 5:51 AM EDT) WBC 9.49 3.70 - 11.00 k/uL 07/30/2024 7:05 AM EDT [facility] RBC 2.46(L) 3.90 - 5.20 m/uL 07/30/2024 7:05 AM EDT [facility] Hemoglobin 8.3(L) 11.5 - 15.5 g/dL 07/30/2024 7:05 AM EDT [facility] Hematocrit 24.5(L) 36.0 - 46.0 % 07/30/2024 7:05 AM EDT [facility] MCV 99.6 80.0 - 100.0 fL 07/30/2024 7:05 AM EDT [facility] MCH 33.7 26.0 - 34.0 pg 07/30/2024 7:05 AM T [facility] MCHC 33.9 30.5 - 36.0 g/dL 07/30/2024 7:05 AM T [facility] RDW-CV 13.2 11.5 - 15.0 % 07/30/2024 7:05 AM T [facility] Platelet Count 119(L) 150 - 400 k/uL 07/30/2024 7:05 AM T [facility] MPV 9.3 9.0 - 12.7 fL 07/30/2024 7:05 AM T [facility] Absolute nRBC <0.01 <0.01 k/uL 07/30/2024 7:05 AM [facility] Blood BLOOD SPECIMEN / Unknown Venipuncture / Unknown 07/30/2024 5:51 AM EDT 07/30/2024 6:39 AM EDT us Marivel Jones PA-C LABORATORY Final Resul t [facility] [address] [address], * (ABNORMAL) BASIC METABOLIC PANEL (07/28/2024 10:44 PM EDT) Glucose 168(H) 74 - 99 mg/dL 07/29/2024 12:02 AM [facility] Comment: The [place] Diabetes Association (ADA) provides guidance for cutoff values for fasting glucose and random glucose. The ADA defines fasting as no caloric intake for at least 8 hours. Fasting plasma glucose results between 100 to 125 mg/dL indicate increased risk for diabetes (prediabetes). Fasting plasma glucose results greater than or equal to 126 mg/dL meet the criteria for diagnosis of diabetes. In the absence of unequivocal hyperglycemia, results should be confirmed by repeat testing. In a patient with classic symptoms of hyperglycemia or hyperglycemic crisis, random plasma glucose results greater than or equal to 200 mg/dL meet the criteria for diagnosis of diabetes. Reference: Standards of Medical Care in Diabetes 2016, [place] Diabetes Association. Diabetes Care. 2016.39(Suppl 1). BUN 14 7 - 21 mg/dL 07/29/2024 12:02 AM [facility] Creatinine 0.77 0.58 - 0.96 mg/dL 07/29/2024 12:02 AM [facility] Sodium 136 136 - 144 mmol/L 07/29/2024 12:02 AM [facility] Potassium 4.2 3.7 - 5.1 mmol/L 07/29/2024 12:02 AM [facility] Chloride 99 98 - 107 mmol/L 07/29/2024 12:02 AM [facility] CO2 18(L) 22 - 30 mmol/L 07/29/2024 12:02 AM [facility] Anion Gap 19(H) 8 - 15 mmol/L 07/29/2024 12:02 AM [facility] Calcium, Total 8.6 8.5 - 10.2 mg/dL 07/29/2024 12:02 AM [facility] Estimated Glomerular Filtration Rate 82 >=60 mL/min/1.7 3m 07/29/2024 12:02 AM [facility] Comment:Estimated Glomerular Filtration Rate (eGFR) is calculated using the 2020 CKD-EPI creatinine equation. This equation utilizes serum creatinine, sex, and age as parameters. The creatinine assay has traceable calibration to isotope dilution- mass spectrometry. Refer to KDIGO guidelines for clinical interpretation. In patients with unstable renal function, e.g. those with acute kidney injury, the eGFR may not accurately reflect actual GFR. Blood BLOOD SPECIMEN / Unknown Venipuncture / Unknown 07/28/2024 10:44 PM EDT 07/28/2024 11:17 PM EDT us Suri Almazan MD LABORATORY Final Result [facility] [address] [facility] [address] [address], [place] * (ABNORMAL) COMPLETE BLOOD COUNT (07/28/2024 10:44 PM EDT) WBC 12.95(H) 3.70 - 11.00 k/uL 07/28/2024 11:47 PM EDT [facility] RBC 3.04(L) 3.90 - 5.20 m/uL 07/28/2024 11:47 PM EDT [facility] Hemoglobin 10.2(L) 11.5 - 15.5 g/dL 07/28/2024 11:47 PM EDT [facility] Hematocrit 29.4(L) 36.0 - 46.0 % 07/28/2024 11:47 PM EDT [facility] MCV 96.7 80.0 - 100.0 fL 07/28/2024 11:47 PM EDT [facility] MCH 33.6 26.0 - 34.0 pg 07/28/2024 11:47 PM EDT [facility] MCHC 34.7 30.5 - 36.0 g/dL 07/28/2024 11:47 PM EDT [facility] RDW-CV 12.6 11.5 - 15.0 % 07/28/2024 11:47 PM EDT [facility] Platelet Count 131(L) 150 - 400 k/uL 07/28/2024 11:47 PM EDT [facility] MPV 9.3 9.0 - 12.7 fL 07/28/2024 11:47 PM EDT [facility] Absolute nRBC <0.01 <0.01 k/uL 07/28/2024 11:47 PM EDT [facility] Blood BLOOD SPECIMEN / Unknown Venipuncture / Unknown 07/28/2024 10:44 PM EDT 07/28/2024 11:16 PM EDT Suri Almazan MD LABORATORY Final Result [facility] [address] [facility] [address] [place] [address], [place] * XR SHOULDER LIMITED 2V AP/TRUE AP LEFT (07/28/2024 5:11 PM EDT) Anatomical Region Laterality Modality Shoulder Radiographic Lori ging 07/28/2024 5:11 PM EDT Impressions 07/28/2024 5:18 PM EDT IMPRESSION: STATUS POST REVERSE LEFT TOTAL SHOULDER ARTHROPLASTY. Compensation Consulting Manager: SHIMON Transcribe Date/Time: Jul 28 2024 5:14P Dictated by : BATSHEVA SALINAS MD This examination was interpreted and the report reviewed and electronically signed by: BATSHEVA SALINAS MD on Jul 28 2024 5:16PM EST Narrative 07/28/2024 5:18 PM EDT * * *Final Report* * * DATE OF EXAM: Jul 28 2024 5:11PM [id number] - XR SHOULDER 2V AP/TRUE AP LT / PROCEDURE REASON: Post-operative / post-procedure assessment, asymptomatic * * * * Physician Interpretation * * * * HISTORY: Post-operative / post-procedure assessment, asymptomatic TECHNOLOGIST PROVIDED HISTORY (if applicable): TECHNIQUE: XR SHOULDER 2V AP/TRUE AP LT RESULT: LEFT shoulder 2 postoperative views compared with July 15. Status post interval reversed total shoulder arthroplasty. Some callus is seen about the residual fracture fragments of the previously seen proximal humerus fracture. No acute fracture or dislocation. Postoperative soft tissue gas is noted. In anesthetic catheter is seen in the LEFT supraclavicular neck. The acromioclavicular joint is preserved. Multiple nonacute LEFT rib fractures. Procedure Note Provider, [facility] Kathryn - 07/28/2024 * * *Final Report* * * DATE OF EXAM: Jul 28 2024 5:11PM [id number] [id number] - XR SHOULDER 2V AP/TRUE AP LT / PROCEDURE REASON: Post-operative / post-procedure assessment, asymptomatic * * * * Physician Interpretation * * * * HISTORY: Post-operative / post-procedure assessment, asymptomatic TECHNOLOGIST PROVIDED HISTORY (if applicable): TECHNIQUE: XR SHOULDER 2V AP/TRUE AP LT RESULT: LEFT shoulder 2 postoperative views compared with July 15. Status post interval reversed total shoulder arthroplasty. Some callus is seen about the residual fracture fragments of the previously seen proximal humerus fracture. No acute fracture or dislocation. Postoperative soft tissue gas is noted. In anesthetic catheter is seen in the LEFT supraclavicular neck. The acromioclavicular joint is preserved. Multiple nonacute LEFT rib fractures. IMPRESSION IMPRESSION: STATUS POST REVERSE LEFT TOTAL SHOULDER ARTHROPLASTY. Compensation Consulting Manager: PSCB Transcribe Date/Time: Jul 28 2024 5:14P Dictated by : BATSHEVA SALINAS MD This examination was interpreted and the report reviewed and electronically signed by: BATSHEVA SALINAS MD on Jul 28 2024 5:16PM EST us Suri Almazan MD RAD-PAMA Final Result * US GUIDANCE FOR NEEDLE PLACEMENT (POC) FOR JEMIMA USE ONLY (07/28/2024 11:03 AM EDT) 07/28/2024 11:0 3 AM EDT us Catie Worley MD IMAGES Final Resu lt [facility] documented in this encounter Visit Diagnoses Diagnosis Post-operative pain- Primary Other acute postoperative pain Postoperative pain Other acute postoperative pain documented in this encounter Administered Medications Inactive Administered Medications - up to 3 most recent administrations Medication Order MAR Action Action Date Dose Rate Site acetaminophen 1,000 mg tab(s) (TYLENOL) 1,000 mg, ORAL, ONCE, 1 dose, On Sun07/28/24 at 1630, max acetaminophen dose 4GM/24 hour period Give when patient able to take medications by mouth, Recovery or Phase I (only) Given 07/28/2024 5:46 PM EDT 1,000 mg acetaminophen 1,000 mg tab(s) (TYLENOL) 1,000 mg, ORAL, EVERY 6 HOURS, First dose on Sun07/28/24 at 1930, Until Discontinued Given 07/30/2024 12:35 PM EDT 1,000 mg Given 07/30/2024 5:19 AM EDT 1,000 mg Given 07/29/2024 11:56 PM EDT 1,000 mg ALPRAZolam 0.25 mg tab(s) (XANAX) 0.25 mg, ORAL, 3 TIMES DAILY NEEDED, Starting on Sun07/29/24 at 0636, Until Sun07/30/24 at 1729, Anxiety - First Line - Enteral Given 07/30/2024 12:35 PM EDT 0.25 mg Given 07/29/2024 9:44 PM EDT 0.25 mg Given 07/29/2024 2:03 PM EDT 0.25 mg ALPRAZolam 0.5 mg tab(s) (XANAX) 0.5 mg, ORAL, 3 TIMES DAILY NEEDED, Starting on Sun07/28/24 at 2329, Until Sun07/29/24 at 0636, Anxiety - First Line - Enteral Given 07/29/2024 6:22 AM EDT 0.25 mg aluminum-magnesium hydroxide-simethicone 200-200-20 mg/5 mL 30 mL 30 mL, ORAL, EVERY 2 HOURS NEEDED, Starting on Sun07/28/24 at 1916, Until Sun07/30/24 at 1729, GI upset, for heartburn and/or upset stomach, SHAKE WELL ascorbic acid (vitamin C) 500 mg tab(s) (VITAMIN C) 500 mg, ORAL, 2 TIMES DAILY W/MEALS, First dose on Sun07/29/24 at 0800, Until Discontinued Given 07/30/2024 9:01 AM EDT 500 mg Given 07/29/2024 5:13 PM EDT 500 mg Given 07/29/2024 9:13 AM EDT 500 mg aspirin, enteric coated 81 mg tab(s) 81 mg, ORAL, 2 TIMES DAILY, First dose on Sun07/29/24 at 0900, Until Discontinued, DO NOT crush. Given 07/30/2024 9:01 AM EDT 81 mg Given 07/29/2024 9:44 PM EDT 81 mg Given 07/29/2024 9:14 AM EDT 81 mg bisacodyl 10 mg suppository (DULCOLAX) 10 mg, RECTAL, ONCE DAILY NEEDED, Starting on Sun07/28/24 at 1916, Until Sun07/30/24 at 1729, Constipation - Second Line - Rectal, FOR RECTAL USE ceFAZolin 2 g in dextrose (iso-osmotic) 50 mL (ANCEF,KEFZOL) 2 g, INTRAVENOUS, at 100 mL/hr, Administer over 30 Minutes, EVERY 8 HOURS, 2 doses, First dose on Sun07/28/24 at 2200, Last dose on Sun07/29/24 at 0600, MaulSoup product = Refrigerate. B. Common Curriculum product = Room Temp., Antimicrobial indication: Prophylaxis New Bag/Syringe/Bottle 07/29/2024 5:48 AM EDT 2 g 100 mL/hr New Bag/Syringe/Bottle 07/28/2024 10:30 PM EDT 2 g 100 mL/hr cholecalciferol 1,000 Units tab(s) (VITAMIN D3) 1,000 Units, ORAL, DAILY, First dose on Sun07/28/24 at 1930, Until Discontinued, 1 unit = 0.025 mcg 400 units = 10 mcg 1,000 units = 25 mcg 5,000 units = 125 mcg Given 07/30/2024 9:01 AM EDT 1,000 Units Given 07/29/2024 9:13 AM EDT 1,000 Units Given 07/28/2024 10:30 PM EDT 1,000 Units diphenhydrAMINE 25 mg injection (BENADRYL) 25 mg, INTRAVENOUS, EVERY 6 HOURS NEEDED, Starting on Sun07/28/24 at 1916, Until Sun07/30/24 at 1729, itching/rash docusate sodium 100 mg cap(s) (COLACE) 100 mg, ORAL, 2 TIMES DAILY, First dose on Sun07/28/24 at 2100, Until Discontinued, Swallow whole; DO NOT crush, chew, or open. fentaNYL 50 mcg/mL 25-50 mcg injection (SUBLIMAZE) 25-50 mcg, INTRAVENOUS, EVERY 10 MINUTES NEEDED, Starting on Sun07/28/24 at 1628, Until Sun07/28/24 at 1900, Mild Pain (1-3) - Parenteral, Moderate Pain (4-6) - Parenteral, May repeat every 10 minutes (MAX: 250 mcg) If pain score remains greater than 4 after maximal dose achieved, contact PACU vice president of nursing/LIP/staff for reassessment. Give 25 mcg for mild pain (1-3) Give 50 mcg for moderate pain (4-6) and severe pain (>/=7), Recovery or Phase I (only) Given 07/28/2024 4:34 PM EDT 50 mcg ferrous sulfate 325 mg tab(s) 325 mg, ORAL, 2 TIMES DAILY W/MEALS, First dose on Sun07/29/24 at 0800, Until Discontinued, 325 mg ferrous SULFATE = 65 mg elemental iron Given 07/29/2024 5:13 PM EDT 325 mg Given 07/29/2024 9:13 AM EDT 325 mg lactated ringers iv infusion 100 mL/hr, INTRAVENOUS, CONTINUOUS, Starting on Sun07/28/24 at 1630, Until Sun07/28/24 at 1900, Recovery or Phase I (only) Rate Verify 07/28/2024 4:28 PM EDT 100 mL/hr 100 mL/hr lactated ringers iv infusion 100 mL/hr, INTRAVENOUS, CONTINUOUS, Starting on Sun07/28/24 at 1630, Until Sun07/29/24 at 0429 New Bag/Syringe/Bottle 07/28/2024 5:48 PM EDT 100 mL/hr 100 mL/hr levothyroxine 50 mcg tab(s) (SYNTHROID) 50 mcg, ORAL, DAILY, First dose on Sun07/29/24 at 0900, Until Discontinued, Do not give breakfast until 30 minutes after levothyroxine dose, administer on an empty stomach. Administer 2 hours before or 2 hours after antacids, calcium or iron or foods containing these items. Tube feedings should be held for 1 hour before and 1 hour after administration. Given 07/30/2024 9:01 AM EDT 50 mcg Given 07/29/2024 9:13 AM EDT 50 mcg magnesium hydroxide 400 mg/5 mL 30 mL (MOM) 30 mL, ORAL, ONCE DAILY NEEDED, Starting on Sun07/28/24 at 1916, Until Sun07/30/24 at 1729, Constipation - First Line - Enteral, SHAKE WELL methocarbamol 500 mg tab(s) (ROBAXIN) 500 mg, ORAL, 3 TIMES DAILY NEEDED, Starting on Sun07/29/24 at 1722, Until Sun07/30/24 at 1729, Muscle Spasm - First Line - Enteral, If ordered PRN for pain, patient/guardian may elect to receive this medication for higher pain levels INSTEAD of the opioid, if preferred: Yes Given 07/29/2024 9:54 PM EDT 500 mg Given 07/29/2024 6:00 PM EDT 500 mg midazolam (PF) 2 mg injection (VERSED) 2 mg, INTRAVENOUS, ONCE, 1 dose, On Sun07/28/24 at 1700 Given 07/28/2024 5:05 PM EDT 2 mg midazolam (PF) injection (VERSED) INTRAVENOUS, NEEDED, Starting on Sun07/28/24 at 1105, Until Sun07/28/24 at 1105 Given 07/28/2024 11:05 AM EDT 2 mg Fo rearm, Right morphine 2 mg injection 2 mg, INTRAVENOUS, EVERY 3 HOURS NEEDED, Starting on Sun07/28/24 at 1916, Until Sun07/30/24 at 1729, breakthrough pain multivitamin-ferrous fumarate-folic acid 1 tablet (CENTRUM) 1 tablet, ORAL, DAILY, First dose on Sun07/29/24 at 0900, Until Discontinued NaCl 0.9% iv flush bag 20 mL, INTRAVENOUS, NEEDED, Starting on Sun07/28/24 at 1916, Until Sun07/30/24 at 1729, See admin instructions, If no compatible primary is already running, infuse NaCl 0.9% as primary to flush tubing after non-chemotherapy, non-immunotherapy intermittent infusions. Administer at the same rate as intermittent infusion. Select the Flush Bag file on smart pump. ondansetron (PF) 4-8 mg injection (ZOFRAN) 4-8 mg, INTRAVENOUS, EVERY 6 HOURS NEEDED, Starting on Sun07/28/24 at 1916, Until Sun07/30/24 at 1729, Nausea/Vomiting - First Line - Parenteral, Give IV push over 2 minutes Given 07/29/2024 10:53 AM EDT 4 mg oxyCODONE IR 5-10 mg tab(s) (ROXICODONE) 5-10 mg, ORAL, EVERY 4 HOURS NEEDED, Starting on Sun07/28/24 at 1634, Until Sun07/30/24 at 1729, Moderate Pain (4-6) - Enteral, Severe Pain (>/=7) - Enteral Given 07/30/2024 2:09 PM EDT 5 mg Given 07/30/2024 10:21 AM EDT 5 mg ROPivacaine (PF) 0.2 % in NaCl 0.9% 1,000 mL PERIPHERAL NERVE CATHETER, at 6 mL/hr, ONE TIME, 1 dose, Starting on Sun07/29/24 at 0702, Until Sun07/30/24 at 1729, FOR HOME GOING USE ONLY. Administer NERVE BLOCK at continous rate of 6 mL/hr using [employer] pump and supplies. May bolus 6 mL every 60 minutes as needed. Refrigerate ropivacaine 0.2% (2 mg/mL) nerve block CLINICIAN DOSE 6 mL 6 mL, PERIPHERAL NERVE CATHETER, EVERY 2 HOURS NEEDED, Starting on Sun07/28/24 at 1609, Until Sun07/30/24 at 1729, pain score greater than 5, CATHETER SITE: LEFT INTERSCALENE Clinician Dose: 6ml and notify APMS BOLUSES GIVEN FROM NERVE BLOCK BAG Given 07/29/2024 9:54 PM EDT 6 mL Given 07/29/2024 7:26 AM EDT 6 mL ropivacaine nerve block 0.2% (2 mg/mL) - 200 mL Basal Rate (Continuous Dose): 6 mL/hr, Patient Bolus Dose (Demand Bolus): 6 mL, Bolus Interval: 60 Minutes, Bolus Doses per Hour: 1 doses/hr, PERIPHERAL NERVE CATHETER, CONTINUOUS, Starting on Sun07/28/24 at 1630, Until Sun07/30/24 at 1729, CATHETER SITE: LEFT INTERSCALENE Rate Verify 07/29/2024 5:21 PM EDT Rate Verify 07/29/2024 9:17 AM EDT New Bag/Syringe/Bottle 07/28/2024 4:36 PM EDT rosuvastatin 10 mg tab(s) (CRESTOR) 10 mg, ORAL, AT BEDTIME, First dose on Sun07/28/24 at 2330, Until Discontinued Given 07/29/2024 9:44 PM EDT 10 mg Given 07/28/2024 11:38 PM EDT 10 mg documented in this encounter Active and Recently Administered Medications Times are shown in EDT. Scheduled Medication Order 07/28/2024 07/29/2024 07/30/2024 acetaminophen 1,000 mg tab(s) (TYLENOL) (COMPLETED) 1,000 mg, ORAL, ONCE, 1 dose, On Sun07/28/24 at 1630, max acetaminophen dose 4GM/24 hour period Give when patient able to take medications by mouth, Recovery or Phase I (only) 1746 (Given - Provider: Leny Tidwell RN) acetaminophen 1,000 mg tab(s) (TYLENOL) 1,000 mg, ORAL, EVERY 6 HOURS, First dose on Sun07/28/24 at 1930, Until Discontinued 1930 (Not Given - Provider: Mariel Maria RN - Reason: Patient Declined. LIP Notified)2230 (Given - Provider: Mariel Maria RN) 0548 (Given - Provider: Mariel Maria RN)1200 (Not Given - Provider: Digna Willoughby RN - Reason: Nausea and Vomiting. Meds Can't be Given PO)1713 (Given - Provider: Digna Willoughby RN)2356 (Given - Provider: Macy Fong RN) 0519 (Given - Provider: Ranjeet Becker RN)1235 (Given - Provider: Noa Cuevas RN) ascorbic acid (vitamin C) 500 mg tab(s) (VITAMIN C) 500 mg, ORAL, 2 TIMES DAILY W/MEALS, First dose on Sun07/29/24 at 0800, Until Discontinued 0913 (Given - Provider: Digna Willoughby RN)1713 (Given - Provider: Digna Willoughby RN) 0901 (Given - Provider: Noa Cuevas, VENESSA) aspirin, enteric coated 81 mg tab(s) 81 mg, ORAL, 2 TIMES DAILY, First dose on Sun07/29/24 at 0900, Until Discontinued, DO NOT crush. 0914 (Given - Provider: Digna Willoughby RN)2144 (Given - Provider: Ranjeet Becker RN) 0901 (Given - Provider: Noa Cuevas RN) ceFAZolin 2 g in dextrose (iso-osmotic) 50 mL (ANCEF,KEFZOL) (COMPLETED) 2 g, INTRAVENOUS, at 100 mL/hr, Administer over 30 Minutes, EVERY 8 HOURS, 2 doses, First dose on Sun07/28/24 at 2200, Last dose on Sun07/29/24 at 0600, KHAN product = Refrigerate. B. Green DUPLEX product = Room Temp., Antimicrobial indication: Prophylaxis 2230 (New Bag/Syringe/Bottle - Provider: Mariel Maria RN)2300 (Infusion Complete - Provider: Mariel Maria RN) 0548 (New Bag/Syringe/Bottle - Provider: Mariel Maria RN)0618 (Infusion Complete - Provider: Mariel Maria RN) cholecalciferol 1,000 Units tab(s) (VITAMIN D3) 1,000 Units, ORAL, DAILY, First dose on Sun07/28/24 at 1930, Until Discontinued, 1 unit = 0.025 mcg 400 units = 10 mcg 1,000 units = 25 mcg 5,000 units = 125 mcg 2230 (Given - Provider: Mariel Maria RN) 09 (Given - Provider: Digna Willoughby RN) 09 (Given - Provider: Noa Cuevas RN) docusate sodium 100 mg cap(s) (COLACE) 100 mg, ORAL, 2 TIMES DAILY, First dose on Sun07/28/24 at 2100, Until Discontinued, Swallow whole; DO NOT crush, chew, or open. 2100 (Not Given - Provider: Mariel Maria RN - Reason: Patient Declined. LIP Notified) 912 (Not Given - Provider: Digna Willoughby RN - Reason: Patient Declined. LIP Notified)2099 (Not Given - Provider: Ranjeet Becker RN - Reason: Patient Declined. LIP Notified) 09 (Not Given - Provider: Noa Cuevas RN - Reason: Patient Declined. LIP Notified) ferrous sulfate 325 mg tab(s) 325 mg, ORAL, 2 TIMES DAILY W/MEALS, First dose on Sun07/29/24 at 0800, Until Discontinued, 325 mg ferrous SULFATE = 65 mg elemental iron 09 (Given - Provider: Digna Willoughby RN)171 (Given - Provider: Digna Willoughby RN) 09 (Not Given - Provider: Noa Cuevas RN - Reason: Patient Declined. LIP Notified) levothyroxine 50 mcg tab(s) (SYNTHROID) 50 mcg, ORAL, DAILY, First dose on Sun07/29/24 at 0900, Until Discontinued, Do not give breakfast until 30 minutes after levothyroxine dose, administer on an empty stomach. Administer 2 hours before or 2 hours after antacids, calcium or iron or foods containing these items. Tube feedings should be held for 1 hour before and 1 hour after administration. 912 (Given - Provider: Digna Willoughby RN) 900 (Given - Provider: Noa Cuevas RN) midazolam (PF) 2 mg injection (VERSED) (COMPLETED) 2 mg, INTRAVENOUS, ONCE, 1 dose, On Sun07/28/24 at 1700 1705 (Given - Provider: Leny Tidwell RN) multivitamin-ferrous fumarate-folic acid 1 tablet (CENTRUM) 1 tablet, ORAL, DAILY, First dose on Sun07/29/24 at 0900, Until Discontinued 912 (Not Given - Provider: Digna Willoughby RN - Reason: Patient Declined. LIP Notified) 900 (Not Given - Provider: Noa Cuevas RN - Reason: Patient Declined. LIP Notified) ROPivacaine (PF) 0.2 % in NaCl 0.9% 1,000 mL PERIPHERAL NERVE CATHETER, at 6 mL/hr, ONE TIME, 1 dose, Starting on Sun07/29/24 at 0702, Until Sun07/30/24 at 1729, FOR HOME GOING USE ONLY. Administer NERVE BLOCK at continous rate of 6 mL/hr using [employer] pump and supplies. May bolus 6 mL every 60 minutes as needed. Refrigerate rosuvastatin 10 mg tab(s) (CRESTOR) 10 mg, ORAL, AT BEDTIME, First dose on Sun07/28/24 at 2330, Until Discontinued 233 (Given - Provider: Mariel Maria RN) 2143 (Given - Provider: Ranjeet Becker RN) Continuous Medication Order 07/28/2024 07/29/2024 07/30/2024 lactated ringers iv infusion (CANCELED) 100 mL/hr, INTRAVENOUS, CONTINUOUS, Starting on Sun07/28/24 at 1630, Until Sun07/28/24 at 1900, Recovery or Phase I (only) 1628 (Rate Verify - Provider: Altagracia Price RN)1900 (Infusion Complete - Provider: Mariel Maria RN - Comment: [Order ends at this time. Document the following action when infusion is complete: Infusion Complete]) lactated ringers iv infusion () 100 mL/hr, INTRAVENOUS, CONTINUOUS, Starting on Sun07/28/24 at 1630, Until Sun07/29/24 at 0429 1748 (New Bag/Syringe/Bottle - Provider: Leny Tidwell RN) 0429 (Infusion Complete - Provider: Mariel Maria RN - Comment: [Order ends at this time. Document the following action when infusion is complete: Infusion Complete]) ropivacaine nerve block 0.2% (2 mg/mL) - 200 mL(Linked Group 1) Basal Rate (Continuous Dose): 6 mL/hr, Patient Bolus Dose (Demand Bolus): 6 mL, Bolus Interval: 60 Minutes, Bolus Doses per Hour: 1 doses/hr, PERIPHERAL NERVE CATHETER, CONTINUOUS, Starting on Sun07/28/24 at 1630, Until Sun07/30/24 at 1729, CATHETER SITE: LEFT INTERSCALENE 1636 (New Bag/Syringe/Bottle - Provider: Altagracia Price RN) 0917 (Rate Verify - Provider: Digna Willoughby RN)1721 (Rate Verify - Provider: Digna Willoughby RN) 1729 (Due: Order Ending - Provider: Reg In Adtr - Comment: [Order ends at this time. Document the following action when infusion is complete: Infusion Complete]) PRN Medication Order 07/28/2024 07/29/2024 07/30/2024 ALPRAZolam 0.25 mg tab(s) (XANAX) 0.25 mg, ORAL, 3 TIMES DAILY NEEDED, Starting on Sun07/29/24 at 0636, Until Sun07/30/24 at 1729, Anxiety - First Line - Enteral 1403 (Given - Provider: Digna Willoughby RN)2144 (Given - Provider: Ranjeet Becker RN) 1235 (Given - Provider: Noa Cuevas RN) ALPRAZolam 0.5 mg tab(s) (XANAX) (CANCELED) 0.5 mg, ORAL, 3 TIMES DAILY NEEDED, Starting on Sun07/28/24 at 2329, Until Sun07/29/24 at 0636, Anxiety - First Line - Enteral 0622 (Given - Provider: Mariel Maria RN - Comment: 0.25 mg given per pt's request. ortho day LIP aware in person) aluminum-magnesium hydroxide-simethicone 200-200-20 mg/5 mL 30 mL 30 mL, ORAL, EVERY 2 HOURS NEEDED, Starting on Sun07/28/24 at 1916, Until Sun07/30/24 at 1729, GI upset, for heartburn and/or upset stomach, SHAKE WELL bisacodyl 10 mg suppository (DULCOLAX) 10 mg, RECTAL, ONCE DAILY NEEDED, Starting on Sun07/28/24 at 1916, Until Sun07/30/24 at 1729, Constipation - Second Line - Rectal, FOR RECTAL USE diphenhydrAMINE 25 mg injection (BENADRYL) 25 mg, INTRAVENOUS, EVERY 6 HOURS NEEDED, Starting on Sun07/28/24 at 1916, Until Sun07/30/24 at 1729, itching/rash fentaNYL 50 mcg/mL 25-50 mcg injection (SUBLIMAZE) (CANCELED) 25-50 mcg, INTRAVENOUS, EVERY 10 MINUTES NEEDED, Starting on Sun07/28/24 at 1628, Until Sun07/28/24 at 1900, Mild Pain (1-3) - Parenteral, Moderate Pain (4-6) - Parenteral, May repeat every 10 minutes (MAX: 250 mcg) If pain score remains greater than 4 after maximal dose achieved, contact PACU vice president of nursing/LIP/staff for reassessment. Give 25 mcg for mild pain (1-3) Give 50 mcg for moderate pain (4-6) and severe pain (>/=7), Recovery or Phase I (only) 1634 (Given - Provider: Altagracia Price RN) magnesium hydroxide 400 mg/5 mL 30 mL (MOM) 30 mL, ORAL, ONCE DAILY NEEDED, Starting on Sun07/28/24 at 1916, Until Sun07/30/24 at 1729, Constipation - First Line - Enteral, SHAKE WELL methocarbamol 500 mg tab(s) (ROBAXIN) 500 mg, ORAL, 3 TIMES DAILY NEEDED, Starting on Sun07/29/24 at 1722, Until Sun07/30/24 at 1729, Muscle Spasm - First Line - Enteral, If ordered PRN for pain, patient/guardian may elect to receive this medication for higher pain levels INSTEAD of the opioid, if preferred: Yes 1800 (Given - Provider: Digna Willoughby RN)2154 (Given - Provider: Ranjeet Becker RN) midazolam (PF) injection (VERSED) (COMPLETED) INTRAVENOUS, NEEDED, Starting on Sun07/28/24 at 1105, Until Sun07/28/24 at 1105 1105 (Given - Provider: Jalyn Pickens RN) morphine 2 mg injection 2 mg, INTRAVENOUS, EVERY 3 HOURS NEEDED, Starting on Sun07/28/24 at 1916, Until Sun07/30/24 at 1729, breakthrough pain NaCl 0.9% iv flush bag 20 mL, INTRAVENOUS, NEEDED, Starting on Sun07/28/24 at 1916, Until Sun07/30/24 at 1729, See admin instructions, If no compatible primary is already running, infuse NaCl 0.9% as primary to flush tubing after non-chemotherapy, non-immunotherapy intermittent infusions. Administer at the same rate as intermittent infusion. Select the Flush Bag file on smart pump. ondansetron (PF) 4-8 mg injection (ZOFRAN) 4-8 mg, INTRAVENOUS, EVERY 6 HOURS NEEDED, Starting on Sun07/28/24 at 1916, Until Sun07/30/24 at 1729, Nausea/Vomiting - First Line - Parenteral, Give IV push over 2 minutes 1053 (Given - Provider: Digna Willoughby RN) oxyCODONE IR 5-10 mg tab(s) (ROXICODONE) 5-10 mg, ORAL, EVERY 4 HOURS NEEDED, Starting on Sun07/28/24 at 1634, Until Sun07/30/24 at 1729, Moderate Pain (4-6) - Enteral, Severe Pain (>/=7) - Enteral 1021 (Given - Provider: Noa Cuevas RN)1409 (Given - Provider: Noa Cuevas RN) ropivacaine 0.2% (2 mg/mL) nerve block CLINICIAN DOSE 6 mL(Linked Group 1) 6 mL, PERIPHERAL NERVE CATHETER, EVERY 2 HOURS NEEDED, Starting on Sun07/28/24 at 1609, Until Sun07/30/24 at 1729, pain score greater than 5, CATHETER SITE: LEFT INTERSCALENE Clinician Dose: 6ml and notify APMS BOLUSES GIVEN FROM NERVE BLOCK BAG 0726 (Given - Provider: Digna Willoughby, RN)4 (Given - Provider: Ranjeet Becker RN) vancomycin powd (CANCELED) X (OR/PROCEDURE) PRN, Starting on Sun07/28/24 at 1535, Until Sun07/28/24 at 1621, Intraprocedure 1535 (Given - Provider: Efrain Faith MD) Linked Groups Order Group 1: ropivacaine nerve block 0.2% (2 mg/mL) - 200 mLJump to med Basal Rate (Continuous Dose): 6 mL/hr, Patient Bolus Dose (Demand Bolus): 6 mL, Bolus Interval: 60 Minutes, Bolus Doses per Hour: 1 doses/hr, PERIPHERAL NERVE CATHETER, CONTINUOUS, Starting on Sun07/28/24 at 1630, Until Sun07/30/24 at 1729, CATHETER SITE: LEFT INTERSCALENE And ropivacaine 0.2% (2 mg/mL) nerve block CLINICIAN DOSE 6 mLJump to med 6 mL, PERIPHERAL NERVE CATHETER, EVERY 2 HOURS NEEDED, Starting on Sun07/28/24 at 1609, Until Sun07/30/24 at 1729, pain score greater than 5, CATHETER SITE: LEFT INTERSCALENE Clinician Dose: 6ml and notify APMS BOLUSES GIVEN FROM NERVE BLOCK BAG documented in this encounter Care Teams Control And Recovery Special Tactics Relationship Specialty Start Date End Date Efrain Mantilla Jr., DO [facility] [place] [id number] PCP - General Internal Medicine 07/07/24 MARK Chavis CM - Joanne 05/05/21 documented as of this encounter
--- OUTSIDE RECORDS SUMMARY | 2024-07-28 11:47 | XMS_ITS | Encounter Summary ---
Author Organization [facility] Address [address] [place] [address] Care Team Providers Care Furniture Mover Helper Name Role Phone Annalee Olivas DO, Charles Lewis Primary Care Provi elliott Source Comments In the event this information is protected by the Federal Confidentiality of Alcohol and Drug AbusePatient Records regulations: The Federal rules restrict any use of the information to criminally investigate or prosecute any alcohol or drug abuse patient.[facility] Reason for Visit * Auth/Cert (Routine) Specialty Diagnoses / Procedures Referred By Zandra t Referred To Contact ADMITTING Diagnoses Closed 4-part [...] TOTAL SHOULDER REVERSE TOTAL SHOULDER ARTHROPLASTY Admitting [address] [place] [address] Referral ID Status Reason Start Date Expiration Date Visits Re quested Visits Authorized [id number] 1 1 Encounter Details Date Type Department Care Team (Late st Contact Info) Description 07/28/2024 11:47 AM EDT Anesthesia Event Admitting [address] [place] [address] Elise Stanley MD [address] [place] [address] Anesthesia Record Procedure Summary Procedure Name Responsible Anesthesiologist Anesthesia Start Time Anesthesia Stop Time 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 1147 An Start Data 1153 1157 An Induction I have re-evalu ated the patient immediately prior to induction. 1159 An Intubation 1228 Anesthesia Ready 1241 Incision/Procedure Start 1405 Anes Handoff Break 1444 Anes Handoff Break 1534 Start Closing 1554 Procedure End 1559 Proc Fin 1603 Emerge 1610 An Extubation Patient : Airw ay suctioned clear; following commands with adequate responsiveness; strength and spontaneous ventilation confirmed; stable hemodynamics 1615 an stop data 1628 Handoff to RN I completed my handoff to the receiving nurse during which we: 1. Identified the patient 2. Identified the responsible provider 3. Reviewed the pertinent medical history 4. Discussed the surgical course 5. Reviewed intra-op anesthesia management and issues during anesthesia 6. Set expectations for post-procedure period 7. Allowed opportunity for questions and acknowledgement of understanding. 1628 An Stop Meds Name Total ceFAZolin 2 g in NaCl 0.9% 10 mL (ANCEF) 4 g dexAMETHasone 4 mg/mL 8 mg fentaNYL (PF) 100 mcg HYDROmorphone 2 mg lidocaine (PF) 1% 30 mg ondansetron (PF) 4 mg PHENYLephrine 10 mg in NaCl 0.9% 250 mL (TIMMY-SYNEPHRINE) 5,415 mcg propofol 140 mg rocuronium 50 mg tranexamic acid 1,000 mg in NaCl 0.9% 10 0 mL (CYKLOKAPRON) 2,000 mg diphenhydrAMINE 12.5 mg keTORolac 15 mg sugammadex 200 mg albumin 5% 250 mL LR 1,000 mL * Agents Name ETO2 ETN2O Inspired N2O Set O2% Inspired Sevoflurane Sevoflurane * Blood No blood administrations on file. Lines, Drains, and Airways Type Details Placement Removal Small Bowel Ostomy RLQ 01/20/24 1349 by Wound 07/28/24; 1241; Surg ical; Closed Surgi; Shoulder; Left 07/28/24 1241 by Sherly Bowie RN PIV 07/28/24; 1005; [facility]; Short; Right; Forearm; 20 Gauge; 07/29/24; 0600; Infiltration 07/28/24 1005 by Shirley Manjarrez RN 07/29/24 0600 by Mariel Maria RN Subcutaneous 07/28/24; 1105 (crea sandra via procedure documentation); Peripheral Nerve Block; Left; Neck; 07/30/24; 1829; Yes 07/28/24 1105 by Jeremy Han MD 07/30/24 1829 by Romario Drummond In Airway Endotracheal Tube; 07/28/24; 1159 (created via procedure documentation); 7 mm; Cuffed; No; 07/28/24; 1610 07/28/24 1159 by Go Kramer, 07/28/24 1610 by Maddi Figueroa APRN.FENCE REPAIRMAN documented in this encounter Social History Tobacco Use Types Packs/Day Years Used Date Smoking Tobacco: Former Cigarettes Q uit: 09/20/1995 Smokeless Tobacco: Never Alcohol Use Standard Drinks/Week Comments Yes 7 (1 standard drink = 0.6 oz pur e alcohol) glass of wine with dinner [facility] Utilities Answer Date Recorded In the past 12 months has [employer], [employer], or water [employer] threatened to shut off services in your [...] week 05/15/2024 How often do you attend [facility] or mandaen services? Never 05/15/2024 Do you belong to any clubs o r organizations such as methodist groups, unions, fraternal or athletic groups, or [...] Answer Date Recorded PHQ-2 score 2 07/03/2024 [facility] - Occupational [...] any time in the past 12 m [facility], were you homeless or living in a retirement (including now)? No 05/15/2024 Area Deprivation Index Answer Date Jorge rded National Score (1-100), lower number is lower ri sk 74 07/13/2022 State Score (1-10), lower number is lower risk 6 07/13/2022 Data from: https://www.neighborhoodatlas.medicine.[facility].edu/. Last address used for calculation [address] 07/13/2022 Comments No Sex and Gender Information Value Date Recorded Sex Assigned at Not on file Legal Sex Female 9:51 AM EST Gender Identity Not on file Sexual Orientation Lesbian or Nagy 07/31/2024 2: 30 PM EDT documented as of this encounter Last Filed Vital Signs Vital Sign Reading Time Taken Comments Blood Pressure 121/67 07/28/2024 4:10 PM EDT Pulse 102 07/28/2024 4:14 PM EDT Temperature - - Respiratory Rate - - Oxygen Saturation 93% 07/28/2024 4:14 PM EDT Inhaled Oxygen Concentration - - Weight - - Height - - Body Mass Index - - documented in this encounter Functional Status * Are you deaf or do you have serious difficulty hearing? Answer Date of Assessment Author No 01/22/2024 2:52 PM Yany Aguilar RN * Are you blind or do you have serious difficulty seeing, even when wearing glasses? Answer Date of Assessment Author No 01/22/2024 2:52 PM Yany Aguilar, VENESSA * Do you have serious difficulty walking or climbing stairs? Answer Date of Assessment Author No 01/22/2024 2:52 PM Yany Aguilar, VENESSA * Do you have difficulty dressing or bathing? 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 (Left: Shoulder) Diagnosis: Closed 4-part fracture of proximal end of left humerus with malunion, subsequent encounter Closed fracture of proximal end of left humerus with malunion, unspecified fracture morphology, subsequent encounter (Closed 4-part fracture of proximal end of left humerus with malunion, subsequent encounter [S42.292P]) (Closed fracture of proximal end of left humerus with malunion, unspecified fracture morphology, subsequent encounter [S42.202P]) Surgeons: Efrain Hernandez MD Responsible Provider: Elise Stanley MD Anesthesia Type: general ASA Status: 2 Anesthesia Type: general Airway Type: ETT Last Vitals Vitals Value Taken Time BP 131/67 07/29/247 Temp 36.6 ??C (97.9 ??F) 07/29/24426 Pulse 89 07/29/24426 Resp 16 07/29/24426 SpO2 94 % 07/29/24426 Post Anesthesia Patient Status Patient Evaluation: bedside. Anticipated Disposition: inpatient floor planned admission. Neurological Status: sleepy but arousable. Pulmonary Status: breathing comfortably on supplemental oxygen Airway Control: returned to baseline unsupported. Cardiovascular Status: stable. Pain Management: clinically adequate Postoperative Hydration: acceptable. Intraoperative Events: no significant anesthesia events Post Operative Nausea/Vomiting Status: no significant post operative nausea or vomiting Recommendation: continue current plan of care. Anesthesia Observations No Documentation SIGNATURE: Elise Stanley MD PATIENT NAME: Candice Dejesus DATE: July 29, 2024 TIME: 7:19 AM CSN: [id number] * Go Kramer DO - 07/28/2024 12:18 PM EDTAssociated Order(s): Airway ANESTHESIOLOGY PROCEDURE NOTE Airway General Information Procedure Start Time/Medication Administration: 07/28/2024 11:59 AM Procedure End Time: 07/28/2024 12:02 PM Patient location during procedure: OR Timeout Performed Pre-procedure: timeout performed Consent Obtained: Yes Patient identity confirmed: arm band, care athletic team physician and patient Staffing Anesthesiologist: Elise Stanley MD Resident: Go Kramer DO Performed by: resident and anesthesiologist Indications and Patient Condition Indications for airway management: anesthesia Preoxygenated: yes anesthesia circuit Patient position: sniffing Method: asleep Cricoid Pressure: Yes Final Airway Details Final airway type: endotracheal airway Final Endotracheal Airway: ETT Cuffed: yes Successful intubation technique: video laryngoscopy Devices used: Bougie and Sloan Endotracheal tube insertion site: oral Blade: Justice Blade size: #3 ETT size (mm): 7.0 Measured from: lips Measurement (cm): 20 Placement verified by: capnometry Cormack-Lehane Classification: grade I - full view of glottis Number of attempts at approach: 2 Ventilation between attempts: BVM Failed airway: no Unrecognized esophageal intubation: no Airway not difficult SIGNATURE: Go Kramer DO PATIENT NAME: Candice Dejesus DATE: July 28, 2024 TIME: 12:18 PM CSN: [id number] * Elise Stanley MD - 07/28/2024 11:52 AM EDT Images from the original note were not included. 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 as calculated from the following: Height as of 07/15/24: 147.3 cm (4' 10 ). Weight as of 07/15/24: 55 kg (121 lb 4.1 oz). Most recent hematocrit and potassium results: Hematocrit 40.4 07/15/2024 Hematocrit (POCT) 31 05/08/2021 Potassium 4.2 07/18/2024 Potassium (POCT) 4.5 05/08/2021 Relevant Problems No relevant active problems I - PHYSICAL EVALUATION AIRWAY Patient intubated: No. Tracheostomy tube not present Mallampati: II. TM distance: >3 FB. Neck ROM: full ROM without neurological symptoms. Mouth opening: adequate. Short neck: no. Thick neck: no Microretrognathia/Micronagthia/Recessed Chin: No DENTAL Additional exam findings: no II - ANESTHESIA PLAN ASA Score: 2 Anesthetic Plan: general Airway type: ETT The patient is not a current smoker. NPO Status: adequate Beta Javier Monitoring Plan Monitoring plan: standard ASA. Post Procedure Analgesic Plan Postoperative analgesic plan: multimodal analgesia. Informed Consent Anesthetic risks, benefits, alternatives, personnel and consent discussed: yes. Patient / Responsible Libertarian agrees to proceed: yes Patient / Surrogate agrees to blood products: Yes DNR status not reviewed with patient and/or family prior to surgery. Significant changes in the patient condition since the History and Physical, not otherwise documented in primary service progress note: no. Potential Anesthesia issues that may suggest increased risk of complications or contraindication toplanned procedure: none. Vitals Value Taken Time BP 139/73 07/28/24 1140 Pulse 79 07/28/24 1142 Resp 18 07/28/24 1005 Temp 36.5 ??C (97.7 ??F) 07/28/24 1005 SpO2 94 % 07/28/24 1142 Vitals shown include unfiled device data. Facility-Administered Medications as of 07/28/2024 Medication Dose Route Frequency [COMPLETED] midazolam (PF) injection (VERSED) INTRAVENOUS PRN Outpatient Medications as of 07/28/2024 Medication Sig rosuvastatin (CRESTOR) 10 mg tablet Take 1 tablet by mouth daily at bedtime. collagen, bovine, 100 % powd ALPRAZolam (XANAX) 0.5 mg tablet Take 1 tablet by mouth three times a day for 150 days. levothyroxine (SYNTHROID) 50 mcg tablet Take 1 tablet by mouth once daily. acetaminophen (TYLENOL) 325 mg tablet Take 2 tablets by mouth every 6 hours. CALCIUM ORAL Take by mouth. Cholecalciferol, Vitamin D3, 25 mcg (1,000 unit) cap Take 1,000 Units by mouth once daily. BETA CAROTENE ORAL Take by mouth. cyanocobalamin 1,000 mcg/mL ADMINISTER 1 ML UNDER THE SKIN 1 TIME EVERY MONTH Syringe with Needle, Safety (ECLIPSE SYRINGE) 3 mL 25 gauge x 1 syrg Inject 1 Each subcutaneously once every month. montelukast (SINGULAIR) 10 mg tablet Take 10 mg by mouth every morning. Syringe with Needle, Disp, (BD LUER-RENA SYRINGE) 3 mL 23 x 1 1 Each once every month. I have interviewed and examined the patient. I have reviewed the medical record and/or the pre-anesthesia evaluation, pertinent labs, and test results. This contains updated information obtained within 48 hours of Surgery/Procedure. SIGNATURE: Elise Stanley MD PATIENT NAME: Candice Dejesus DATE: July 28, 2024 TIME: 11:52 AM CSN: [id number] documented in this encounter Plan of Treatment Upcoming Encounters Date Type Department Care Team (Late st Contact Info) Description 08/11/2024 11:45 AM EDT Office Visit Orthopaedics [address] [address] Efrain Hernandez MD [address] [place] [address] 2 wk PO reverse 09/15/2024 11:45 AM EDT Office Visit Orthopaedics [address] [address] Efrain Hernandez MD [address] [place] [address] 6 wk PO reverse documented as of this encounter Procedures Procedure Name Priority Date/Time Associated Diagnosis Comments INTUBATION Routine 07/28/2024 11:59 AM EDT documented in this encounter Results * Airway (07/28/2024 11:59 AM EDT) Narrative Go Kramer DO - 07/28/2024 11:59 AM EDT Go Kramer DO 07/28/2024 12:20 PM Airway General Information Procedure Start Time/Medication Administration: 07/28/2024 11:59 AM Procedure End Time: 07/28/2024 12:02 PM Patient location during procedure: OR Timeout Performed Pre-procedure: timeout performed Consent Obtained: Yes Patient identity confirmed: arm band, care athletic team physician and patient Staffing Anesthesiologist: Elise Stanley MD Resident: Go Kramer DO Performed by: resident and anesthesiologist Indications and Patient Condition Indications for airway management: anesthesia Preoxygenated: yes anesthesia circuit Patient position: sniffing Method: asleep Cricoid Pressure: Yes Final Airway Details Final airway type: endotracheal airway Final Endotracheal Airway: ETT Cuffed: yes Successful intubation technique: video laryngoscopy Devices used: Bougie and Sloan Endotracheal tube insertion site: oral Blade: Justice Blade size: #3 ETT size (mm): 7.0 Measured from: lips Measurement (cm): 20 Placement verified by: capnometry Cormack-Lehane Classification: grade I - full view of glottis Number of attempts at approach: 2 Ventilation between attempts: BVM Failed airway: no Unrecognized esophageal intubation: no Airway not difficult Elise Stanley MD ANESTHESIA ORDERABLES Final Resu lt documented in this encounter Visit Diagnoses Not on filedocumented in this encounter Administered Medications Inactive Administered Medications - up to 3 most recent administrations Medication Order MAR Action Action Date Dose Rate Site albumin (5%) infusion INTRAVENOUS, NEEDED, Starting on Sun07/28/24 at 1414, Until Sun07/28/24 at 1633, Anesthesia Intraprocedure Given 07/28/2024 2:14 PM EDT 250 mL ceFAZolin 2 g in NaCl 0.9% 10 mL (ANCEF) INTRAVENOUS, Administer over 30 Minutes, X (ONE-STEP ONLY) CONTINUOUS PRN, Starting on Sun07/28/24 at 1202, Until Sun07/28/24 at 1632, Anesthesia Intraprocedure New Bag/Syringe/Bottle 07/28/2024 3:54 PM EDT 2 g New Bag/Syringe/Bottle 07/28/2024 12:02 PM EDT 2 g dexAMETHasone sodium phosphate injection (DECADRON) INTRAVENOUS, NEEDED, Starting on Sun07/28/24 at 1157, Until Sun07/28/24 at 1632, Anesthesia Intraprocedure Given 07/28/2024 11:57 AM EDT 8 mg diphenhydrAMINE injection (BENADRYL) INTRAVENOUS, NEEDED, Starting on Sun07/28/24 at 1325, Until Sun07/28/24 at 1632, Anesthesia Intraprocedure Given 07/28/2024 1:25 PM EDT 12.5 mg fentaNYL 50 mcg/mL injection (SUBLIMAZE) INTRAVENOUS, NEEDED, Starting on Sun07/28/24 at 1157, Until Sun07/28/24 at 1632, Anesthesia Intraprocedure Given 07/28/2024 11:57 AM EDT 100 mcg HYDROmorphone injection (DILAUDID) INTRAVENOUS, NEEDED, Starting on Sun07/28/24 at 1244, Until Sun07/28/24 at 1632, Anesthesia Intraprocedure Given 07/28/2024 4:19 PM EDT 0.6 mg Given 07/28/2024 4:05 PM EDT 0.6 mg Given 07/28/2024 2:07 PM EDT 0.4 mg keTORolac injection (Toradol) INTRAVENOUS, NEEDED, Starting on Sun07/28/24 at 1536, Until Sun07/28/24 at 1632, Anesthesia Intraprocedure Given 07/28/2024 3:36 PM EDT 15 mg lactated ringers iv infusion INTRAVENOUS, X (ONE-STEP ONLY) CONTINUOUS PRN, Starting on Sun07/28/24 at 1147, Until Sun07/28/24 at 1632, Anesthesia Intraprocedure New Bag/Syringe/Bottle 07/28/2024 11:47 AM EDT lidocaine (PF) 10 mg/mL (1 %) injection (XYLOCAINE) INTRAVENOUS, NEEDED, Starting on Sun07/28/24 at 1157, Until Sun07/28/24 at 1632, Anesthesia Intraprocedure Given 07/28/2024 11:57 AM EDT 30 mg ondansetron (PF) injection (ZOFRAN) INTRAVENOUS, NEEDED, Starting on Sun07/28/24 at 1532, Until Sun07/28/24 at 1632, Anesthesia Intraprocedure Given 07/28/2024 3:32 PM EDT 4 mg PHENYLephrine 10 mg in NaCl 0.9% 250 mL (TIMMY-SYNEPHRINE) INTRAVENOUS, X (ONE-STEP ONLY) CONTINUOUS PRN, Starting on Sun07/28/24 at 1202, Until Sun07/28/24 at 1632, Anesthesia Intraprocedure Rate/Dose Change 07/28/2024 3:23 PM EDT 25 mcg/min 37.5 mL/hr Rate/Dose Change 07/28/2024 2:33 PM EDT 15 mcg/min 22.5 mL /hr Rate/Dose Change 07/28/2024 2:01 PM EDT 30 mcg/min 45 mL/h r propofol injection (DIPRIVAN) INTRAVENOUS, NEEDED, Starting on Sun07/28/24 at 1157, Until Sun07/28/24 at 1632, Anesthesia Intraprocedure Given 07/28/2024 11:57 AM EDT 140 mg rocuronium injection INTRAVENOUS, NEEDED, Starting on Sun07/28/24 at 1157, Until Sun07/28/24 at 1632, Anesthesia Intraprocedure Given 07/28/2024 11:57 AM EDT 50 mg sugammadex injection (BRIDION) INTRAVENOUS, NEEDED, Starting on Sun07/28/24 at 1605, Until Sun07/28/24 at 1632, Anesthesia Intraprocedure Given 07/28/2024 4:05 PM EDT 200 mg tranexamic acid 1,000 mg in NaCl 0.9% 100 mL (CYKLOKAPRON) INTRAVENOUS, X (ONE-STEP ONLY) CONTINUOUS PRN, Starting on Sun07/28/24 at 1224, Until Sun07/28/24 at 1632, Anesthesia Intraprocedure New Bag/Syringe/Bottle 07/28/2024 3:32 PM EDT 1,000 mg New Bag/Syringe/Bottle 07/28/2024 12:24 PM EDT 1,000 mg documented in this encounter Care Teams Furniture Mover Helper Relationship Specialty Start Date End Date Efrain Mantilla Jr., DO [address] [facility] [place] [id number] PCP - General Internal Medicine 07/07/24 MARK Rubio 05/05/21 documented as of this encounter
--- OUTSIDE RECORDS SUMMARY | 2024-07-28 16:52 | XMS_ITS | Encounter Summary ---
Author Organization [facility] Address [address] [place] [address] Care Team Providers Care Conversion Developer Name Role Phone Annalee Olivas DO, Charles Lewis Primary Care Provi elliott Source Comments In the event this information is protected by the Federal Confidentiality of Alcohol and Drug AbusePatient Records regulations: The Federal rules restrict any use of the information to criminally investigate or prosecute any alcohol or drug abuse patient.[facility] Reason for Visit * Auth/Cert (Routine) [...] TOTAL SHOULDER REVERSE TOTAL SHOULDER ARTHROPLASTY Admitting [address] [place] [address] Referral ID Status Reason Start Date Expiration Date Visits Re quested Visits Authorized [id number] 1 1 Encounter Details Date Type Department Care Team (Late st Contact Info) Description 07/28/2024 4:52 PM EDT Anesthesia Event General Anesthesiology [address] [place] [address] Yuliana Bran MD [address] [place] [address] Anesthesia Record Procedure Summary Procedure Name Responsible Anesthesiologist Anesthesia Start Time Anesthesia Stop Time Pain Service Consult Yuliana Bran MD Events No events on file. Meds Name Total bupivacaine (PF) 0.25 % (2.5 mg/mL) inje ction (SENSORCAINE MPF) 5 mL mepivacaine (PF) 1% 8 mL * Agents No agents on file. * Blood No blood administrations on file. Lines, Drains, and Airways Type Details Placement Removal Small Bowel Ostomy RLQ 01/20/24 1349 by Wound 07/28/24; 1241; Surgical; Closed Surgi; Shoulder; Left 07/28/24 1241 by Sherly Bowie RN Subcutaneous 07/28/24; 1105 (asia flores via procedure documentation); Peripheral Nerve Block; Left; Neck; 07/30/24; 1829; Yes 07/28/24 1105 by Jeremy Han MD 07/30/24 1829 by Romario Drummond In documented in this encounter Social History Tobacco Use Types Packs/Day Years Used Date Smoking Tobacco: Former Cigarettes Q uit: 09/20/1995 Smokeless Tobacco: Never Alcohol Use Standard Drinks/Week Comments Yes 7 (1 standard drink = 0.6 oz pur e alcohol) glass of wine with dinner [facility] Verient Answer Date Recorded In the past 12 months has [employer], [employer], oil, or water [employer] threatened to shut off services in your [...] week 05/15/2024 How often do you attend [facility] or uatsdin services? Never 05/15/2024 Do you belong to any clubs o r organizations such as orthodoxy groups, unions, fraternal or athletic groups, or [...] Answer Date Recorded PHQ-2 score 2 07/03/2024 [facility] - Occupational [...] any time in the past 12 m [facility], were you homeless or living in a half-way (including now)? No 05/15/2024 Area Deprivation Index Answer Date Jorge rded National Score (1-100), lower number is lower ri sk 74 07/13/2022 State Score (1-10), lower number is lower risk 6 07/13/2022 Data from: https://www.neighborhoodatlas.medicine.[facility].edu/. Last address used for calculation [address] 07/13/2022 Comments No Sex and Gender Information [...] 01/22/2024 2:52 PM Yany Aguilar, VENESSA * Because of a physical, mental, or [...] Entry Date Author No 01/22/2024 2:52 PM EST Yany Martinez RN documented in this encounter Procedure Notes * Yuliana Bran MD - 07/28/2024 11:55 AM EDTAssociated Order(s): Peripheral Nerve Block ANESTHESIOLOGY PROCEDURE NOTE Peripheral Nerve Block General Information Procedure Start Time/Medication Administration: 07/28/2024 11:05 AM Procedure End time: 07/28/2024 11:30 AM Patient location during procedure: induction room Timeout Performed Pre-procedure: timeout performed Consent Obtained: Yes Patient identity confirmed: arm band and patient Reason for block: post-op pain management/at surgeon's request Staffing Anesthesiologist: Yuliana Bran MD Resident: Jeremy Han MD Performed by: anesthesiologist and resident Preparation Sterility Preparation: hand hygiene performed prior to procedure, sterile gloves, drapes, and procedure tray, surgical cap used, mask used, sterile drape used during line insertion, skin prep agent completely dried prior to procedure Sterility Technique Not Completely Performed Due to Extreme Emergency: No Site Prep: Chloraprep Procedure Details Patient Position: supine Monitoring: Pulse OX, EKG and NIBP Block Type Approach: interscalene Laterality: left Injection Technique: catheter Ultrasound Guided: Yes Image in Chart: Yes Local Infiltration: Yes Needle Needle Type: Tuohy Needle Gauge: 17 G Needle Length: 10 cm Needle Localization: ultrasound and anatomical landmarks Catheter Type: open end Catheter Size: 19 G Multiple Catheters Used: No Test Dose Response: negative test dose Assessment Injection assessment: negative aspiration, no paresthesia on injection, incremental injection and local visualized surrounding nerve on ultrasound Paresthesia: none Post-Procedure Neuro Exam Expected Regional Anesthesia: Yes Medications Administered bupivacaine (PF) 0.25 % (2.5 mg/mL) injection (SENSORCAINE MPF) - peripheral nerve block 5 mL - 07/28/2024 11:05:00 AM Comments For this procedure, I was physically present for this entire procedure. Carlin Bran MD Patient is confirmed by two identifiers, the Risks, benefits and alternatives of the regional anesthesia procedure were explained and confirmed with the patient who agrees to proceed. Standard ASA monitors were applied according to the procedure protocol. Vital signs were stable throughout the procedure, and the patient was communicating. No pain on injection and the procedure was well tolerated. The post- procedure diagnosis is the same as pre- procedure. No significant findings. No Complications unless noted above. No specimen collected. Minimal or no blood loss Discharge/transfer criteria are met upon discharge. SIGNATURE: Jeremy Han MD PATIENT NAME: Candice Dejesus DATE: July 28, 2024 TIME: 11:55 AM CSN: [id number] documented in this encounter Plan of Treatment Upcoming Encounters Date Type Department Care Team (Late st Contact Info) Description 08/11/2024 11:45 AM EDT Office Visit Orthopaedics [address] [place], [place] [id number] Efrain Hernandez MD [address] [place] [address] 2 wk PO reverse 09/15/2024 11:45 AM EDT Office Visit Orthopaedics [address] [place] [address] Efrain Hernandez MD [address] [place], [place] [phone] 6 wk PO reverse documented as of this encounter Procedures Procedure Name Priority Date/Time Associated Diagnosis Comments LA AN MOD SED SAME PHYS INITIAL 15 MINS Routine 07/28/2024 11:05 AM EDT [facility] AN PERIPHERAL NERVE BLOCK W/ CATHETER Routine 07/28/2024 11:05 AM EDT INJECTION AA&/STRD OTHER PERIPHERAL NERVE/BRANCH Routine 07/28/2024 11:05 AM EDT LA AN ULTRASOUND GUIDANCE Routine 07/28/2024 11:05 AM EDT documented in this encounter Results * LA AN ULTRASOUND GUIDANCE, INJECTION AA&/STRD OTHER PERIPHERAL NERVE/BRANCH, [facility] AN PERIPHERALNERVE BLOCK W/ CATHETER, LA AN MOD SED SAME PHYS INITIAL 15 MINS (07/28/2024 11:05 AM EDT) Narrative Yuliana Bran MD - 07/28/2024 11:05 AM EDT Yuliana Bran MD 07/29/2024 5:50 AM Peripheral Nerve Block General Information Procedure Start Time/Medication Administration: 07/28/2024 11:05 AM Procedure End time: 07/28/2024 11:30 AM Patient location during procedure: induction room Timeout Performed Pre-procedure: timeout performed Consent Obtained: Yes Patient identity confirmed: arm band and patient Reason for block: post-op pain management/at surgeon's request Staffing Anesthesiologist: Yuliana Bran MD Resident: Jeremy Han MD Performed by: anesthesiologist and resident Preparation Sterility Preparation: hand hygiene performed prior to procedure, sterile gloves, drapes, and procedure tray, surgical cap used, mask used, sterile drape used during line insertion, skin prep agent completely dried prior to procedure Sterility Technique Not Completely Performed Due to Extreme Emergency: No Site Prep: Chloraprep Procedure Details Patient Position: supine Monitoring: Pulse OX, EKG and NIBP Block Type Approach: interscalene Laterality: left Injection Technique: catheter Ultrasound Guided: Yes Image in Chart: Yes Local Infiltration: Yes Needle Needle Type: Tuohy Needle Gauge: 17 G Needle Length: 10 cm Needle Localization: ultrasound and anatomical landmarks Catheter Type: open end Catheter Size: 19 G Multiple Catheters Used: No Test Dose Response: negative test dose Assessment Injection assessment: negative aspiration, no paresthesia on injection, incremental injection and local visualized surrounding nerve on ultrasound Paresthesia: none Post-Procedure Neuro Exam Expected Regional Anesthesia: Yes Medications Administered bupivacaine (PF) 0.25 % (2.5 mg/mL) injection (SENSORCAINE MPF) - peripheral nerve block 5 mL - 07/28/2024 11:05:00 AM Comments For this procedure, I was physically present for this entire procedure. Carlin Bran MD Patient is confirmed by two identifiers, the Risks, benefits and alternatives of the regional anesthesia procedure were explained and confirmed with the patient who agrees to proceed. Standard ASA monitors were applied according to the procedure protocol. Vital signs were stable throughout the procedure, and the patient was communicating. No pain on injection and the procedure was well tolerated. The post- procedure diagnosis is the same as pre- procedure. No significant findings. No Complications unless noted above. No specimen collected. Minimal or no blood loss Discharge/transfer criteria are met upon discharge. [facility] Carlin Bran MD ANESTHESIA ORDERABLES Final Result documented in this encounter Visit Diagnoses Not on filedocumented in this encounter Administered Medications Inactive Administered Medications - up to 3 most recent administrations Medication Order MAR Action Action Date Dose Rate Site bupivacaine (PF) 0.25 % (2.5 mg/mL) injection (SENSORCAINE MPF) peripheral nerve block, ONCE, Starting on Sun07/28/24 at 1105, Until Sun07/28/24 at 1105, Anesthesia Intraprocedure Given 07/28/2024 11:05 AM EDT 5 mL Mepivacaine (PF) 10 mg/mL (1 %) (POLOCAINE, CARBOCAINE) OTHER, NEEDED, Starting on Sun07/28/24 at 1650, Until Sun07/29/24 at 0550, Anesthesia Intraprocedure Given 07/28/2024 4:50 PM EDT 8 mL documented in this encounter Care Teams Conversion Developer Relationship Specialty Start Date End Date Efrain Mantilla Jr., [address] [place] [address] PCP - General Internal Medicine 07/07/24 MARK Rubio 05/05/21 documented as of this encounter
[2024-08-01 14:12] VITALS: BP 160/89; PULSE 99; TEMP 36.8; O2SAT 96; BMI 23.6
--- OUTSIDE RECORDS SUMMARY | 2024-08-01 14:16 | XMS_ITS | Encounter Summary ---
Author Organization [employer] Address [id number] [address] [place] [address] Care Team Providers Care Cosmetology Professor Name Role Phone Annalee Olivas DO, Charles L Primary Care Provider Encounter Details Date Type Department Care Team (Latest Contact Info) Description 07/22/2024 Travel Social History Tobacco Use Types Packs/Day Years Used Date Smoking Tobacco: Former Smokeless Tobacco: Never Alcohol Use Standard Drinks/Week Comments Yes 0 (1 standard drink = 0.6 oz pur e alcohol) social Childcare Answer Date Recorded Childcare Unknown 07/31/2018 Employment Answer Date Recorded Employment Unknown 07/31/2018 Hunger Screening Answer Date Recorded Within the past 12 months we worried whether our food would run out before we got money to buy more. Never True 07/01/2024 Within the past 12 months th e food we bought just didn't last and we didn't have money to get more. Never True 07/01/2024 Purpose - Life Answer Date Recorded Purpose and direction in life Unknown Comments No Sex and Gender Information Value Date Recorded Sex Assigned at Not on file Legal Sex Female 11:30 AM EDT Gender Identity Not on file Sexual Orientation Not on file documented as of this encounter Plan of Treatment Not on file documented as of this encounter Visit Diagnoses Not on filedocumented in this encounter Care Teams Cosmetology Professor Relationship Specialty Start Date End Date Efrain Mantilla Jr., DO [address] [place] [address] PCP - General Internal Medicine 12/26/16 documented as of this encounter
--- OUTSIDE RECORDS SUMMARY | 2024-08-01 14:16 | XMS_ITS | Encounter Summary ---
Author Organization [facility] Address [address] [place] [address] Care Team Providers Care Atomic Process Engineer Name Role Phone Annalee Olivas DO, Charles Lewis Primary Care Provi elliott Source Comments In the event this information is protected by the Federal Confidentiality of Alcohol and Drug AbusePatient Records regulations: The Federal rules restrict any use of the information to criminally investigate or prosecute any alcohol or drug abuse patient.[facility] Encounter Details Date Type Department Care Team (Latest Contact Info) Description 07/31/2024 Get Medical Advice Family Medicine [facility] [address] [place] [address] Trever White MD [address] [place] [address] Prescription unavailability Social History Tobacco Use Types Packs/Day Years Used Date Smoking Tobacco: Former Cigarettes Q uit: 09/20/1995 Smokeless Tobacco: Never Alcohol Use Standard Drinks/Week Comments Yes 7 (1 standard drink = 0.6 oz pur e alcohol) glass of wine with dinner [facility] Utilities Answer Date Recorded In the past 12 months has th e electric, gas, oil, or water company [...] often do you attend chur ch or yazdanism services? Never 05/15/2024 Do you belong to any clubs o r organizations such as sabianist groups, unions, fraternal or athletic groups, or [...] Answer Date Recorded PHQ-2 score 2 07/03/2024 [facility] Occupat ional Health - Occupational [...] any time in the past 12 m [facility], were you homeless or living in a fci (including now)? No 05/15/2024 Area Deprivation Index Answer Date Jorge rded National Score (1-100), lower number is lower ri sk 74 07/13/2022 State Score (1-10), lower number is lower risk 6 07/13/2022 Data from: https://www.neighborhoodatlas.medicine.[facility].edu/. Last address used for calculation [address] 07/13/2022 Comments No Sex and Gender Information [...] of Assessment Author No 07/30/2024 2:00 PM JORDANT Noa Cuevas RN * Do you have serious difficulty walking or climbing stairs? Answer Date of Assessment Author No 07/30/2024 2:00 PM EDT Noa Cuevas RN * Do you have difficulty dressing or bathing? Answer Date of Assessment Author No 07/30/2024 2:00 PM EDT Noa Cuevas RN * Because of a physical, mental, or emotional condition, do you have difficulty doing errands alone such as visiting a doctor's office or shopping? Answer Date of Assessment Author No 07/30/2024 2:00 PM EDT Noa Cuevas RN documented as of this encounter Mental Status * Because of a physical, mental, or emotional condition, do you have serious difficulty concentrating, remembering, or making decisions? Answer Entry Date Author No 07/30/2024 2:00 PM EDT Noa Cuevas RN documented in this encounter Plan of Treatment Upcoming Encounters Date Type Department Care Team (Late st Contact Info) Description 08/11/2024 11:45 AM EDT Office Visit Orthopaedics [address] [place] [phone] Efrain Hernandez MD [address] [place] [phone] 2 wk PO reverse 09/15/2024 11:45 AM EDT Office Visit Orthopaedics [address] [address] Efrain Hernandez MD [address] [place] [address] 6 wk PO reverse documented as of this encounter Visit Diagnoses Not on filedocumented in this encounter Care Teams Atomic Process Engineer Relationship Specialty Start Date End Date Efrain Mantilla Jr., [facility] [place] [address] PCP - General Internal Medicine 07/07/24 MARK Rubio 05/05/21 documented as of this encounter
--- OUTSIDE RECORDS SUMMARY | 2024-08-01 14:16 | XMS_ITS | Encounter Summary ---
Author Organization [facility] Address [address] [place] [address] Care Team Providers Care Couture Dressmaker Name Role Phone Annalee Olivas DO Efrain Rod Primary Care Provi elliott Source Comments In the event this information is protected by the Federal Confidentiality of Alcohol and Drug AbusePatient Records regulations: The Federal rules restrict any use of the information to criminally investigate or prosecute any alcohol or drug abuse patient.[facility] Encounter Details Date Type Department Care Team (Late st Contact Info) Description 07/29/2024 Get Medical Advice Gastroenterology [address] [place] [address] Stas Horvath MD [address] [place] [address] Still in the hospital and I may not be discharged Social History Tobacco Use Types Packs/Day Years Used Date Smoking Tobacco: Former Cigarettes Q uit: 09/20/1995 Smokeless Tobacco: Never Alcohol Use Standard Drinks/Week Comments Yes 7 (1 standard drink = 0.6 oz pur e alcohol) glass of wine with dinner [facility] Utilities Answer Date Recorded In the [...] often do you attend chur ch or bahai services? Never 05/15/2024 Do you belong to any clubs o r organizations such as buddhism groups, unions, fraternal or athletic groups, or [...] Answer Date Recorded PHQ-2 score 2 07/03/2024 [facility] Occup[facility] ional Health - Occupational Stress [...] any time in the past 12 m [facility], were you homeless or living in a usp (including now)? No 05/15/2024 Area Deprivation Index Answer Date Jorge rded National Score (1-100), lower number is lower ri sk 74 07/13/2022 State Score (1-10), lower number is lower risk 6 07/13/2022 Data from: https://www.neighborhoodatlas.medicine.[facility].edu/. Last address used for calculation [address] 07/13/2022 Comments No Sex and Gender Information [...] 01/22/2024 2:52 PM Yany Aguilar, VENESSA * Are you blind or do you have serious difficulty seeing, even when wearing glasses? Answer Date of Assessment Author No 01/22/2024 2:52 PM Yany Aguilar, RN * Do you have serious difficulty [...] Yany Aguilar RN documented in this encounter Plan of Treatment Upcoming Encounters Date Type Department Care Team (Late st Contact Info) Description 08/11/2024 11:45 AM EDT Office Visit Orthopaedics [address] [place] [phone] Efrain Hernandez MD [address] [place] [address] 2 wk PO reverse 09/15/2024 11:45 AM EDT Office Visit Orthopaedics [address] [address] Efrain Hernandez MD [address] [place] [address] 6 wk PO reverse documented as of this encounter Visit Diagnoses Not on filedocumented in this encounter Care Teams Couture Dressmaker Relationship Specialty Start Date End Date Efrain Mantilla Jr., [address] [place] [phone] PCP - General Internal Medicine 07/07/24 MARK Rubio 05/05/21 documented as of this encounter
--- OUTSIDE RECORDS SUMMARY | 2024-08-01 14:16 | XMS_ITS | Encounter Summary ---
Author Organization [facility] Address [address] [place] [address] Care Team Providers Care Safety Associate Name Role Phone Annalee Olivas DO, Charles Lewis Primary Care Provi elliott Trever White MD Primary Care Provider Annalee Olivas DO, Charles Lewis Primary Care Provi elliott Source Comments In the event this information is protected by the Federal Confidentiality of Alcohol and Drug AbusePatient Records regulations: The Federal rules restrict any use of the information to criminally investigate or prosecute any alcohol or drug abuse patient.[facility] Encounter Details Date Type Department Care Team (Late st Contact Info) Description 10/19/2021 Patient Msg Respiratory [facility] [address] [place] [address] Provider, John CRYSTAL in six months Social History Tobacco Use Types Packs/Day Years Used Date Smoking Tobacco: Former Cigarettes Q uit: 09/20/1995 Smokeless Tobacco: Never Alcohol Use Standard Drinks/Week Comments Yes 7 (1 standard drink = 0.6 oz pur e alcohol) glass of wine with dinner Area Deprivation Index Answer Date Jorge rded National Score (1-100), lower number is lower ri sk Not on file 01/27/2020 State Score (1-10), lower number is lower risk N ot on file 01/27/2020 Data from: https://www.neighborhoodatlas.medicine.[facility].edu/. Last address used for calculation Not on file 01/27/2020 Comments No Sex and Gender Information Value Date Recorded Sex Assigned at Not on file Legal Sex Female 9:51 AM EST Gender Identity Not on file Sexual Orientation Lesbian or Nagy 07/31/2024 2: 30 PM EDT COVID-19 Exposure Response Date Recorded In the last 10 days, have yo u been in contact with someone who was confirmed or suspected to have Coronavirus/COVID-19? No / Unsure 10/19/2021 9:09 AM EDT documented as of this encounter Functional Status * Are you deaf or do you have serious difficulty hearing? Answer Date of Assessment Author No 07/02/2021 1:40 PM EDT Brigida Holland RN * Are you blind or do you have serious difficulty seeing, even when wearing glasses? Answer Date of Assessment Author No 07/02/2021 1:40 PM EDT Brigida Holland RN * Do you have serious difficulty walking or climbing stairs? Answer Date of Assessment Author No 07/02/2021 1:40 PM EDT Brigida Holland RN * Do you have difficulty dressing or bathing? Answer Date of Assessment Author No 07/02/2021 1:40 PM EDT Brigida Holland RN * Because of a physical, mental, or emotional condition, do you have difficulty doing errands alone such as visiting a doctor's office or shopping? Answer Date of Assessment Author No 07/02/2021 1:40 PM EDT Brigida Holland RN documented as of this encounter Mental Status * Because of a physical, mental, or emotional condition, do you have serious difficulty concentrating, remembering, or making decisions? Answer Entry Date Author No 07/02/2021 1:40 PM EDT Brigida Holland RN documented in this encounter Plan of Treatment Upcoming Encounters Date Type Department Care Team (Late st Contact Info) Description 08/11/2024 11:45 AM EDT Office Visit Orthopaedics [address] [place] [phone] Efrain Hernandez MD [address] [place], [place] [phone] 2 wk PO reverse 09/15/2024 11:45 AM EDT Office Visit Orthopaedics [address] [address] Efrain Hernandez MD [address] [place] [address] 6 wk PO reverse documented as of this encounter Visit Diagnoses Not on filedocumented in this encounter Care Teams Safety Associate Relationship Specialty Start Date End Date Efrain Mantilla Jr., DO [facility] [place] [phone] PCP - General 11/10/04 05/14/24 Trever White MD [address] [place] [address] PCP - General Family Medicine 05/15/24 07/06/24 Efrain Mantilla Jr., DO [address] [place] [address] PCP - General Internal Medicine 07/07/24 MARK Rubio 05/05/21 documented as of this encounter
--- OUTSIDE RECORDS SUMMARY | 2024-08-01 14:16 | XMS_ITS | Encounter Summary ---
Author Organization [facility] Address [facility] [place] [address] Care Team Providers Care Brim Curler Name Role Phone Annalee Olivas DO, Charles Lewis Primary Care Provi elliott Trever White MD Primary Care Provider [phone] Annalee Olivas DO, Charles Lewis Primary Care Provi elliott Source Comments In the event this information is protected by the Federal Confidentiality of Alcohol and Drug AbusePatient Records regulations: The Federal rules restrict any use of the information to criminally investigate or prosecute any alcohol or drug abuse patient.[facility] Encounter Details Date Type Department Care Team (Late st Contact Info) Description 07/19/2021 Get Medical Advice Colorectal Surgery [address] [address] Mellisa Dawkins MD [address] [phone] Incision open Social History Tobacco Use Types Packs/Day Years [...] N ot on file 01/27/2020 Data from: https://www.neighborhoodatlas.medicine.[facility]/. Last address used for calculation Not on [...] suspected to have Coronavirus/COVID-19? No / Unsure 07/12/2021 1:50 PM EDT documented as of this encounter [...] 11:45 AM EDT Office Visit Orthopaedics [address] [address] Efrain Hernandez MD [address] [place], [place] [phone] 2 wk PO reverse 09/15/2024 11:45 AM EDT Office Visit Orthopaedics [address] [address] Efrain Hernandez MD [address] [place] [address] 6 wk PO reverse documented as of this encounter Visit Diagnoses Not on filedocumented in this encounter Care Teams Brim Curler Relationship Specialty Start Date End Date Efrain Mantilla Jr., DO [facility] [place] [phone] PCP - General 11/10/04 05/14/24 Trever White MD [address] [place], [place] [phone] PCP - General Family Medicine 05/15/24 07/06/24 Efrain Mantilla Jr., DO [facility] [place] [phone] PCP - General Internal Medicine 07/07/24 MARK Rubio 05/05/21 documented as of this encounter
--- OUTSIDE RECORDS SUMMARY | 2024-08-01 14:16 | XMS_ITS | Encounter Summary ---
Author Organization [facility] Address [facility] [place] [address] Care Team Providers Care Shear Operator Name Role Phone Annalee Olivas DO, Charles Lewis Primary Care Provi elliott Source Comments In the event this information is protected by the Federal Confidentiality of Alcohol and Drug AbusePatient Records regulations: The Federal rules restrict any use of the information to criminally investigate or prosecute any alcohol or drug abuse patient.[facility] Encounter Details Date Type Department Care Team (Late st Contact Info) Description 07/29/2024 Telephone Orth and Rheum [place] [facility] [place] [address] Efrain Hernandez MD [address] [place] [address] [place] [address] Social History Tobacco Use Types Packs/Day Years Used Date Smoking Tobacco: Former Cigarettes Q uit: 09/20/1995 Smokeless Tobacco: Never Alcohol Use Standard Drinks/Week Comments Yes 7 (1 standard drink = 0.6 oz pur e alcohol) glass of wine with dinner [facility] Utilities Answer Date Recorded In the past 12 months has [employer], gas, oil, or water [employer] threatened to shut off services in your [...] often do you attend chur ch or holiness services? Never 05/15/2024 Do you belong to any clubs o r organizations such as episcopalian groups, unions, fraternal or athletic groups, or [...] Answer Date Recorded PHQ-2 score 2 07/03/2024 [facility] - Occupational [...] any time in the past 12 m onths, were you homeless or living in a retirement (including now)? No 05/15/2024 Area Deprivation Index Answer Date Jorge rded National Score (1-100), lower number is lower ri sk 74 07/13/2022 State Score (1-10), lower number is lower risk 6 07/13/2022 Data from: https://www.neighborhoodatlas.medicine.[facility].edu/. Last address used for calculation [address] 07/13/2022 Comments No Sex and Gender Information [...] of Assessment Author No 01/22/2024 2:52 PM EST Yany Martinez, VENESSA * Are you blind or do you have serious difficulty seeing, even when wearing glasses? Answer Date of Assessment Author No 01/22/2024 2:52 PM EST Yany Martinez, RN * Do you have serious difficulty walking or climbing stairs? Answer Date of Assessment Author No 01/22/2024 2:52 PM EST Yany Martinez, VENESSA * Do you have difficulty dressing [...] Yany Aguilar RN documented in this encounter Miscellaneous Notes * Telephone Encounter - Darleen Fiore - 07/29/2024 3:48 PM EDT Harmony called [facility] asking if Dr. Hernandez will follow for home healthcare. [phone] Thank You documented in this encounter Plan of Treatment Upcoming Encounters Date Type Department Care Team (Late st Contact Info) Description 08/11/2024 11:45 AM EDT Office Visit Orthopaedics [address] [address] Efrain Hernandez MD [address] [place] [address] 2 wk PO reverse 09/15/2024 11:45 AM EDT Office Visit Orthopaedics [address] [address] Efrain Hernandez MD [address] [place] [address] 6 wk PO reverse documented as of this encounter Visit Diagnoses Not on filedocumented in this encounter Care Teams Shear Operator Relationship Specialty Start Date End Date Efrain Mantilla Jr., DO [address] [place] [phone] PCP - General Internal Medicine 07/07/24 MARK Rubio 05/05/21 documented as of this encounter
--- OUTSIDE RECORDS SUMMARY | 2024-08-01 14:16 | XMS_ITS | Encounter Summary ---
Author Organization [facility] Address [address] [place] [address] Care Team Providers Care Route Sales Specialist Name Role Phone Annalee Olivas DO, Charles Lewis Primary Care Provi elliott Source Comments In the event this information is protected by the Federal Confidentiality of Alcohol and Drug AbusePatient Records regulations: The Federal rules restrict any use of the information to criminally investigate or prosecute any alcohol or drug abuse patient.[facility] Reason for Visit * Reason Comments Patient Update Encounter Details Date Type Department Care Team (Late st Contact Info) Description 07/30/2024 Telephone Pain Management [address] [place] [address] Joanne Olvera, FIELD RETURN REPAIRER.ENTERTAINMENT DIRECTOR [address] [place] [address] Patient Update Social History Tobacco Use Types Packs/Day Years Used Date Smoking Tobacco: Former Cigarettes Q uit: 09/20/1995 Smokeless Tobacco: Never Alcohol Use Standard Drinks/Week Comments Yes 7 (1 standard drink = 0.6 oz pur e alcohol) glass of wine with dinner [facility] Utilities Answer Date Recorded In the past [...] often do you attend chur ch or scientology services? Never 05/15/2024 Do you belong to any clubs o r organizations such as rastafarian groups, unions, fraternal or athletic groups, or [...] Answer Date Recorded PHQ-2 score 2 07/03/2024 [facility] - Occupational [...] were you homeless or living in a long term (including now)? No 05/15/2024 Area Deprivation Index Answer Date Jorge rded National Score (1-100), lower number is lower ri sk 74 07/13/2022 State Score (1-10), lower number is lower risk 6 07/13/2022 Data from: https://www.neighborhoodatlas.medicine[facility].edu/. Last address used for calculation [address] 07/13/2022 Comments No Sex and Gender Information [...] of Assessment Author No 07/30/2024 2:00 PM Noa Estrella RN * Do you have difficulty dressing or bathing? Answer Date of Assessment Author No 07/30/2024 2:00 PM EDNoa Cifuentes RN * Because of a physical, mental, or emotional condition, do you have difficulty doing errands alone such as visiting a doctor's office or shopping? Answer Date of Assessment Author No 07/30/2024 2:00 PM Noa Estrella RN documented as of this encounter Mental Status * Because of a physical, mental, or emotional condition, do you have serious difficulty concentrating, remembering, or making decisions? 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 Hernandez Catheter site - left interscalene Solution - Ropivacaine 0.2% Rates: 07/26/59 Phone numbers: [phone] August 01, 2024 Called and talked to pt, states pain level is: 0 The pump reads: 725.8 Pt states catheter dressing is intact, denies: redness, fever, draining, edema, pain Does pt c/o SOB, hoarse voice, difficulty swallowing No Denies c/o metallic taste in mouth, ringing in ears, dizziness etc. Pt is able to move: yes Will call pt again tomorrow. Has home health coming tomorrow and they will remove her nerve catheter for her. 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 Hernandez Catheter site - left interscalene Solution - Ropivacaine 0.2% Rates: 07/26/59 Phone numbers: [phone] July 31, 2024 Called and talked to pt, states pain level is: 0 The pump reads: 872.4 Pt states catheter dressing is intact, denies: redness, fever, draining, edema, pain Does pt c/o SOB, hoarse voice, difficulty swallowing No Denies c/o metallic taste in mouth, ringing in ears, dizziness etc. Pt is able to move: yes Will call pt again tomorrow. 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 Hernandez Catheter site - left interscalene Solution - Ropivacaine 0.2% Rates: 07/26/59 Phone numbers: [phone] July 30, 2024 [employer] teaching completed. Patient verbalized an understanding. Joanne Olvera APRN.ENTERTAINMENT DIRECTOR documented in this encounter Plan of Treatment Upcoming Encounters Date Type Department Care Team (Late st Contact Info) Description 08/11/2024 11:45 AM EDT Office Visit Orthopaedics [address] [address] Efrain Hernandez MD [address] [place] [address] 2 wk PO reverse 09/15/2024 11:45 AM EDT Office Visit Orthopaedics [address] [address] Efrain Hernandez MD [address] [place] [address] 6 wk PO reverse documented as of this encounter Visit Diagnoses Not on filedocumented in this encounter Care Teams Route Sales Specialist Relationship Specialty Start Date End Date Efrain Mantilla Jr., [address] [place] [phone] PCP - General Internal Medicine 07/07/24 MARK Rubio 05/05/21 documented as of this encounter
--- OUTSIDE RECORDS SUMMARY | 2024-08-01 14:16 | XMS_ITS | Encounter Summary ---
Author Organization [facility] Address [address] [place] [address] Care Team Providers Care Automobile Rental Agent Name Role Phone Annalee Olivas DO, Charles Lewis Primary Care Provi elliott Trever White MD Primary Care Provider [phone] Annalee Olivas DO, Charles Lewis Primary Care Provi elliott Source Comments In the event this information is protected by the Federal Confidentiality of Alcohol and Drug AbusePatient Records regulations: The Federal rules restrict any use of the information to criminally investigate or prosecute any alcohol or drug abuse patient.[facility] Encounter Details Date Type Department Care Team (Late st Contact Info) Description 10/19/2021 Get Medical Advice Gastroenterology [address] [place] [phone] Stas Horvath MD [address] [place] [address] Follow up Social History Tobacco Use Types Packs/Day Years [...] N ot on file 01/27/2020 Data from: https://www.neighborhoodatlas.medicine.[facility]/. Last address used for calculation Not on [...] 11:45 AM EDT Office Visit Orthopaedics [address] [address] Efrain Hernandez MD [address] [place], [place] [phone] 2 wk PO reverse 09/15/2024 11:45 AM EDT Office Visit Orthopaedics [address] [address] Efrain Hernandez MD [address] [place] [address] 6 wk PO reverse documented as of this encounter Visit Diagnoses Not on filedocumented in this encounter Care Teams Automobile Rental Agent Relationship Specialty Start Date End Date Efrain Mantilla Jr., DO [facility] [place] [phone] PCP - General 11/10/04 05/14/24 Trever White MD [address] [place] [address] PCP - General Family Medicine 05/15/24 07/06/24 Efrain Mantilla Jr., DO [facility] [place] [phone] PCP - General Internal Medicine 07/07/24 MARK Rubio 05/05/21 documented as of this encounter
--- OUTSIDE RECORDS SUMMARY | 2024-08-01 14:16 | XMS_ITS | Encounter Summary ---
Author Organization [facility] Address [address] [place] [address] Care Team Providers Care Mattress Finisher Name Role Phone Annalee Olivas DO Efrain Rod Primary Care Provi elliott Source Comments In the event this information is protected by the Federal Confidentiality of Alcohol and Drug AbusePatient Records regulations: The Federal rules restrict any use of the information to criminally investigate or prosecute any alcohol or drug abuse patient.[facility] Encounter Details Date Type Department Care Team (Late st Contact Info) Description 07/31/2024 Get Medical Advice Endocrinology [address] [place] [address] Dakotah North MD [address] [place] [address] [place] [address] Prescription unavailability Social History Tobacco Use Types Packs/Day Years Used Date Smoking Tobacco: Former Cigarettes Q uit: 09/20/1995 Smokeless Tobacco: Never Alcohol Use Standard Drinks/Week Comments Yes 7 (1 standard drink = 0.6 oz pur e alcohol) glass of wine with dinner [facility] Utilities Answer Date Recorded In the past 12 months has e [employer], gas, oil, or water company threatened to [...] 05/15/2024 How often do you attend chur or voodoo services? Never 05/15/2024 Do you belong to any clubs o r organizations such as protestant groups, unions, fraternal or athletic groups, or [...] Answer Date Recorded PHQ-2 score 2 07/03/2024 [facility] - [...] any time in the past 12 m [facility], were you homeless or living in a long term (including now)? No 05/15/2024 Area Deprivation Index Answer Date Jorge rded National Score (1-100), lower number is lower ri sk 74 07/13/2022 State Score (1-10), lower number is lower risk 6 07/13/2022 Data from: https://www.neighborhoodatlas.medicine.[facility].edu/. Last address used for calculation [email or web address] 07/13/2022 Comments No Sex and Gender Information [...] 11:45 AM EDT Office Visit Orthopaedics [address] [place] [phone] Efrain Hernandez MD [address] [place] [address] 2 wk PO reverse 09/15/2024 11:45 AM EDT Office Visit Orthopaedics [address] [address] Efrain Hernandez MD [address] [place] [phone] 6 wk PO reverse documented as of this encounter Visit Diagnoses Not on filedocumented in this encounter Care Teams Mattress Finisher Relationship Specialty Start Date End Date Efrain Mantilla Jr., [address] [place] [phone] PCP - General Internal Medicine 07/07/24 MARK Rubio 05/05/21 documented as of this encounter
--- OUTSIDE RECORDS SUMMARY | 2024-08-01 14:16 | XMS_ITS | Encounter Summary ---
Author Organization [facility] Address [facility] [place] [address] Care Team Providers Care Preschool Adviser Name Role Phone Annalee Olivas DO, Charles Lewis Primary Care Provi elliott Source Comments In the event this information is protected by the Federal Confidentiality of Alcohol and Drug AbusePatient Records regulations: The Federal rules restrict any use of the information to criminally investigate or prosecute any alcohol or drug abuse patient.[facility] Encounter Details Date Type Department Care Team (Late st Contact Info) Description 07/16/2024 Get Medical Advice Orthopaedics [address] [place] [address] Efrain Hernandez MD [address] [facility] [place] [address] Ct results Social History Tobacco Use Types Packs/Day Years Used Date Smoking Tobacco: Former Cigarettes Q uit: 09/20/1995 Smokeless Tobacco: Never Alcohol Use Standard Drinks/Week Comments Yes 7 (1 standard drink = 0.6 oz pur e alcohol) glass of wine with dinner [facility] Utilities Answer Date Recorded In the past 12 months has [employer], oil, or water [employer] threatened to shut off services in your [...] often do you attend chur ch or denominational services? Never 05/15/2024 Do you belong to [...] Answer Date Recorded PHQ-2 score 2 07/03/2024 [facility] - Occupational [...] were you homeless or living in a skilled nursing (including now)? No 05/15/2024 Area Deprivation Index Answer Date Jorge rded National Score (1-100), lower number is lower ri sk 74 07/13/2022 State Score (1-10), lower number is lower risk 6 07/13/2022 Data from: https://www.neighborhoodatlas.medicine.[facility].edu/. Last address used for calculation [address] 07/13/2022 Comments No Sex and Gender Information [...] 11:45 AM EDT Office Visit Orthopaedics [address] [address] Efrain Hernandez MD [address] [place] [address] 2 wk PO reverse 09/15/2024 11:45 AM EDT Office Visit Orthopaedics [address] [address] Efrain Hernandez MD [address] [place] [address] 6 wk PO reverse documented as of this encounter Visit Diagnoses Not on filedocumented in this encounter Care Teams Preschool Adviser Relationship Specialty Start Date End Date Efrain Mantilla Jr., DO [facility] [place] [address] PCP - General Internal Medicine 07/07/24 MARK Chavis CM - Joanne 05/05/21 documented as of this encounter
--- OUTSIDE RECORDS SUMMARY | 2024-08-01 14:16 | XMS_ITS | Clinical Summary ---
Author Organization [facility] tem Address [facility] [place] [id number] [address] [place] [address] Care Team Providers Care Seed Cone Picker Name Role Phone Annalee Olivas DO, Charles L Primary Care Provider Allergies Active Allergy Reactions Criticality Noted Date Comments Prednisolone Hives 03/27/2017 Solu-Medrol Mix-O-Vial Swelling 09/22/2005 Stated it made her jittery , caused severe flushing and difficulty swallowing. Medications * This document contains information received from the source organization and may not represent a complete record from that organization. omega-3 fatty acids-fish oil (FISH OIL) 300-1,000 mg capsule Take 2 g by mouth daily. Active calcium carbonate-vitam in D3 (CALCIUM 500 + D) 500 mg(1,250mg) -200 units per tablet Take 1 tablet by mouth 2 (two) times a day with meals. Active cyanocobalamin (VITAMIN B-12) 1,000 mcg/mL injection Inject 1,000 mcg into the appropriate muscle once. Active ALPRAZolam (XANAX) 0.25 mg tablet Take 0.25 mg by mouth 3 (three) times a day as needed for anxiety. Active Active Problems Problem Noted Date Diagnosed Date Adjustment disorder with mixed anxiety and depre ssed mood 06/12/2023 Phase of life problem 06/12/2023 Resolved Problems Problem Noted Date Diagnosed Date Resolved Date Persistent adjustment disord er with depressed mood 08/02/2020 06/12/2023 Encounters * This document contains information received from the source organization and may not represent a complete record from that organization. Date Type Department Care Team Description 07/22/2024 Travel 07/01/2024 Travel 06/03/2024 Travel 05/19/2024 10:17 AM EDT - 05/19/2024 11:59 PM EDT Hospital Encounter [facility] - Mammography/DEXA Imaging [address] [place] [address] Visit for screening mammogram Discharge Disposition: Home 05/19/2024 Travel from Last 3 Months Family History Medical History Relation Name Comments Cardiomyopathy Father Cancer Mother lung Breast cancer Neg Hx Relation Name Status Comments Father Mother Social History Tobacco Use Types Packs/Day Years [...] on file Sexual Orientation Not on file Last Filed Vital Signs Vital Sign Reading Time Taken Comments Blood Pressure 139/64 03/29/2017 1:00 PM EST Pulse 92 03/29/2017 1:00 PM EST Temperature 36.6 C (97.9 F) 03/29/2017 10:22 AM EST Respiratory Rate 16 03/29/2017 1:00 PM EST Oxygen Saturation 97% 03/29/2017 1:00 PM EST Inhaled Oxygen Concentration - - Weight 52.2 kg (115 lb) 05/19/2024 10:19 AM EDT Height 147.3 cm (4' 10 ) 05/19/2024 10:19 AM EDT Body Mass Index 24.04 05/19/2024 10:19 AM EDT Plan of Treatment Health Maintenance Due Date Last Done Comments Depression Screening 1962 Tobacco Screening 1962 DTaP,Tdap and Td Vaccines (1 - Tdap) 1969 Zoster (Shingles) Vaccine (1 of 2) 2000 Fall Risk Screening 11/04/2015 COVID-19 Vaccine (2023-2 5 season) 2024 01/08/2024, 11/09/2022, 11/10/2021, Additional history exists Influenza Vaccine 10/20/2024 Adult BMI Screening 05/19/2025 05/19/2024 Medical Devices Implanted Type Area Section Leader Device Identifier Shelf Expiration Date Model / Serial / Lot Lens 22.0 Diopter - [id number] - [id number] Implanted:Qty: 1 on 03/29/2017 by Haydee Davis MD at [facility] Lens Left: [employer] 12/19/2021 [id number] / [id number] / NA Procedures Procedure Name Priority Date/Time Associated Diagnosis Comments MAMM SCREENING BILATERAL W CAD Routine 05/19/2024 10:35 AM EDT Visit for screening mammogram from Last 3 Months Results * Mammography screening bilateral with CAD (05/19/2024 10:35 AM EDT) Anatomical Region Laterality Modality Breast Bilateral Mammography 05/20/2024 11:0 8 AM EDT Narrative 05/20/2024 11:11 AM EDT DEANNA DEJESUS 1950 [id number] EXAM: MAMM SCREENING BILATERAL W CAD, 05/19/2024 10:18 AM CLINICAL INDICATIONS: Screening, Visit for screening mammogram COMPARISON: Multiple prior mammograms were viewed for comparison dating back to 03/14/2021 TECHNIQUE: Bilateral digital tomosynthesis MLO and CC views of the breasts were obtained, with creation of synthetic 2D views. Computer aided detection was utilized. FINDINGS: There are scattered areas of fibroglandular density. There are no suspicious masses, calcifications, or areas of architectural distortion. IMPRESSION: No mammographic evidence of malignancy. BI-RADS: BI-RADS 1 - Negative RECOMMENDATION: Routine screening mammogram in 1 year. RISK ASSESSMENT: TC Lifetime risk: 2.14%. The patient's reported personal and family medical history was used calculate their Tyrer-Cuzick lifetime risk of malignancy. Scores less than 20% are not considered high risk per ACR guidelines and patient should continue with the above recommendation. Finalized by Trever Bettencourt MD on 05/20/2024 11:11 AM 1 b MAMM 1 YR [facility] Accredited Performing Facility: [facility] - Mammography/DEXA Imaging [address] [facility] [id number] Procedure Note Trever Bettencourt MD - 05/20/2024 DEANNA DURON ANJELICA 1950 [id number] EXAM: MAMM SCREENING BILATERAL W CAD, 05/19/2024 10:18 AM CLINICAL INDICATIONS: Screening, Visit for screening mammogram COMPARISON: Multiple prior mammograms were viewed for comparison datingback to 03/14/2021 TECHNIQUE: Bilateral digital tomosynthesis MLO and CC views of the breastswere obtained, with creation of synthetic 2D views. Computer aideddetection was utilized. FINDINGS: There are scattered areas of fibroglandular density. There are no suspicious masses, calcifications, or areas of architecturaldistortion. IMPRESSION: No mammographic evidence of malignancy. BI-RADS: BI-RADS 1 - Negative RECOMMENDATION: Routine screening mammogram in 1 year. RISK ASSESSMENT: TC Lifetime risk: 2.14%. The patient's reported personal and family medical history was usedcalculate their Tyrer-Cuzick lifetime risk of malignancy. Scores less than20% are not considered high risk per ACR guidelines and patient shouldcontinue with the above recommendation. Finalized by Trever Bettencourt MD on 05/20/2024 11:11 AM 1 b MAMM 1 YR [facility] Accredited Performing Facility: [facility] - Mamm[facility]DEXA Imaging [address] [facility] [id number] Efrain Mantilla Jr., DO IMG MAMMOGRAPHY ORDERAB LES Final Result from Last 3 Months Insurance MEDICARE [facility] Care Teams Seed Cone Picker Relationship Specialty Start Date End Date Efrain Mantilla Jr., [address] [place] [id number] PCP - General Internal Medicine 12/26/16
--- OUTSIDE RECORDS SUMMARY | 2024-08-01 14:16 | XMS_ITS | Encounter Summary ---
Author Organization [facility] Address [facility] [place] [address] Care Team Providers Care Separations Scientist Name Role Phone Annalee Olivas DO, Charles Lewis Primary Care Provi elliott Source Comments In the event this information is protected by the Federal Confidentiality of Alcohol and Drug AbusePatient Records regulations: The Federal rules restrict any use of the information to criminally investigate or prosecute any alcohol or drug abuse patient.[facility] Encounter Details Date Type Department Care Team (Latest Contact Info) Description 07/28/2024 Travel Social History Tobacco Use Types Packs/Day Years Used Date Smoking Tobacco: Former Cigarettes Q uit: 09/20/1995 Smokeless Tobacco: Never Alcohol Use Standard Drinks/Week Comments Yes 7 (1 standard drink = 0.6 oz pur e alcohol) glass of wine with dinner [facility] Utilities Answer Date Recorded In the past 12 months has [employer], gas, oil, or water [employer] threatened to shut off services in your [...] often do you attend chur ch or druze services? Never 05/15/2024 Do you belong to any clubs o r organizations such as yarsanism groups, unions, fraternal or athletic groups, or [...] Answer Date Recorded PHQ-2 score 2 07/03/2024 [facility] of Occupat ional Health - [...] any time in the past 12 m [facility], were you homeless or living in a skilled nursing (including now)? No 05/15/2024 Area Deprivation Index Answer Date Jorge rded National Score (1-100), lower number is lower ri sk 74 07/13/2022 State Score (1-10), lower number is lower risk 6 07/13/2022 Data from: https://www.neighborhoodatlas.medicine.[facility].edu/. Last address used for calculation [address] 07/13/2022 Comments No Sex and Gender Information [...] 11:45 AM EDT Office Visit Orthopaedics [address] [address] Efrain Hernandez MD [address] [place], [place] [phone] 2 wk PO reverse 09/15/2024 11:45 AM EDT Office Visit Orthopaedics [address] [address] Efrain Hernandez MD [address] [place] [address] 6 wk PO reverse documented as of this encounter Visit Diagnoses Not on filedocumented in this encounter Care Teams Separations Scientist Relationship Specialty Start Date End Date Efrain Mantilla Jr., DO [address] [place] [phone] PCP - General Internal Medicine 07/07/24 MARK Rubio 05/05/21 documented as of this encounter
--- OUTSIDE RECORDS SUMMARY | 2024-08-01 14:17 | XMS_ITS | Encounter Summary ---
Author Organization [facility] Address [address] [place] [address] Care Team Providers Care Enrober Tender Name Role Phone Annalee Olivas DO, Charles Lewis Primary Care Provi elliott Trever White MD Primary Care Provider [phone] Annalee Olivas DO, Charles Lewis Primary Care Provi elliott Source Comments In the event this information is protected by the Federal Confidentiality of Alcohol and Drug AbusePatient Records regulations: The Federal rules restrict any use of the information to criminally investigate or prosecute any alcohol or drug abuse patient.[facility] Encounter Details Date Type Department Care Team (Late st Contact Info) Description 11/16/2021 Get Medical Advice Gastroenterology [address] [phone] Stas Horvath MD [address] [place] [address] Pouch Social History Tobacco Use Types Packs/Day Years [...] N ot on file 01/27/2020 Data from: https://www.neighborhoodatlas.medicine.[facility]/. Last address used for calculation Not on [...] suspected to have Coronavirus/COVID-19? No / Unsure 11/17/2021 6:07 PM EDT documented as of this encounter [...] Assessment Author No 07/02/2021 1:40 PM EDT Oralia Holland RN documented as of this encounter [...] 11:45 AM EDT Office Visit Orthopaedics [address] [address] Efrain Hernandez MD [address] [place], [place] [phone] 2 wk PO reverse 09/15/2024 11:45 AM EDT Office Visit Orthopaedics [address] [address] Efrain Hernandez MD [address] [place], [place] [phone] 6 wk PO reverse documented as of this encounter Visit Diagnoses Not on filedocumented in this encounter Care Teams Enrober Tender Relationship Specialty Start Date End Date Efrain Mantilla Jr., DO [facility] [place] [phone] PCP - General 11/10/04 05/14/24 Trever White MD [address] [place], [place] [phone] PCP - General Family Medicine 05/15/24 07/06/24 Efrain Mantilla Jr., DO [facility] [place] [phone] PCP - General Internal Medicine 07/07/24 MARK Rubio 05/05/21 documented as of this encounter
--- OUTSIDE RECORDS SUMMARY | 2024-08-01 14:17 | XMS_ITS | Encounter Summary ---
Author Organization [facility] Address [address] [place] [address] Care Team Providers Care Food Packer Name Role Phone Annalee Olivas DO, Charles Lewis Primary Care Provi elliott Source Comments In the event this information is protected by the Federal Confidentiality of Alcohol and Drug AbusePatient Records regulations: The Federal rules restrict any use of the information to criminally investigate or prosecute any alcohol or drug abuse patient.[facility] Encounter Details Date Type Department Care Team (Late st Contact Info) Description 07/23/2024 Get Medical Advice Endocrinology [address] [place] [address] Dakotah North MD [address] [place] [address] [place] [address] Test results TSH Social History Tobacco Use Types Packs/Day Years Used Date Smoking Tobacco: Former Cigarettes Q uit: 09/20/1995 Smokeless Tobacco: Never Alcohol Use Standard Drinks/Week Comments Yes 7 (1 standard drink = 0.6 oz pur e alcohol) glass of wine with dinner [facility] Utilities Answer Date Recorded In the past 12 months has e [employer], gas, oil, or water company threatened to [...] How often do you attend chur or uatsdin services? Never 05/15/2024 Do you belong to any clubs o r organizations such as gnosticist groups, unions, fraternal or athletic groups, or [...] Answer Date Recorded PHQ-2 score 2 07/03/2024 [facility] of Occupat ional Health - Occupational Stress [...] any time in the past 12 m [facility], were you homeless or living in a chcf (including now)? No 05/15/2024 Area Deprivation Index Answer Date Jorge rded National Score (1-100), lower number is lower ri sk 74 07/13/2022 State Score (1-10), lower number is lower risk 6 07/13/2022 Data from: https://www.neighborhoodatlas.medicine.[facility].edu/. Last address used for calculation [address] 07/13/2022 Comments No Sex and Gender Information [...] encounter Miscellaneous Notes * Telephone Encounter - Dakotah North MD - 07/24/2024 9:32 AM EDT Messaged her in results encounter documented in this encounter Plan of Treatment Upcoming Encounters Date Type Department Care Team (Late st Contact Info) Description 08/11/2024 11:45 AM EDT Office Visit Orthopaedics [address] [address] Efrain Hernandez MD [address] [place] [address] 2 wk PO reverse 09/15/2024 11:45 AM EDT Office Visit Orthopaedics [address] [address] fErain Hernandez MD [address] [place] [address] 6 wk PO reverse documented as of this encounter Visit Diagnoses Not on filedocumented in this encounter Care Teams Food Packer Relationship Specialty Start Date End Date Efrain Mantilla Jr., DO [address] [place] [phone] PCP - General Internal Medicine 07/07/24 MARK Rubio 05/05/21 documented as of this encounter
--- OUTSIDE RECORDS SUMMARY | 2024-08-01 14:17 | XMS_ITS | Encounter Summary ---
Author Organization [facility] Address [address] [place] [address] Care Team Providers Care Oyster Picker Name Role Phone Trever White MD Primary Care Provider [phone] Annalee Olivas DO, Charles Lewis Primary Care Provi elliott Source Comments In the event this information is protected by the Federal Confidentiality of Alcohol and Drug AbusePatient Records regulations: The Federal rules restrict any use of the information to criminally investigate or prosecute any alcohol or drug abuse patient.[facility] Encounter Details Date Type Department Care Team (Late st Contact Info) Description 05/30/2024 Get Medical Advice Gastroenterology [address] [address] Stas Horvath MD [address] [place] [address] Calcium scoring test results Social History Tobacco Use Types Packs/Day Years Used Date Smoking Tobacco: Former Cigarettes Q uit: 09/20/1995 Smokeless Tobacco: Never Alcohol Use Standard Drinks/Week Comments Yes 7 (1 standard drink = 0.6 oz pur e alcohol) glass of wine with dinner [facility] Utilities Answer Date Recorded In the [...] often do you attend chur ch or sikh services? Never 05/15/2024 Do you belong to any clubs o r organizations such as nondenominational groups, unions, fraternal or athletic groups, or [...] 05/15/2024 PHQ-2 Answer Date Recorded PHQ-2 score 0 01/31/2024 [facility] of Occupat ional Health - Occupational Stress [...] time in the past 12 m [facility], were you homeless or living in a fci (including now)? No 05/15/2024 Area Deprivation Index Answer Date Jorge rded National Score (1-100), lower number is lower ri sk 74 07/13/2022 State Score (1-10), lower number is lower risk 6 07/13/2022 Data from: https://www.neighborhoodatlas.medicine.[facility].edu/. Last address used for calculation [address] 07/13/2022 Comments No Sex and Gender Information [...] 11:45 AM EDT Office Visit Orthopaedics [address] [address] Efrain Hernandez MD [address] [place] [address] 2 wk PO reverse 09/15/2024 11:45 AM EDT Office Visit Orthopaedics [address] [address] Efrain Hernandez MD [address] [place], [place] [phone] 6 wk PO reverse documented as of this encounter Visit Diagnoses Not on filedocumented in this encounter Care Teams Oyster Picker Relationship Specialty Start Date End Date Trever White MD [address] [place] [address] PCP - General Family Medicine 05/15/24 07/06/24 Efrain Mantilla Jr., [facility] [place] [address] PCP - General Internal Medicine 07/07/24 MARK Rubio 05/05/21 documented as of this encounter
--- OUTSIDE RECORDS SUMMARY | 2024-08-01 14:17 | XMS_ITS | Encounter Summary ---
Author Organization [facility] Address [address] [place] [address] Care Team Providers Care Wastewater Process Engineer Name Role Phone Annalee Olivas DO, Charles Lewis Primary Care Provi elliott Trever White MD Primary Care Provider [phone] Annalee Olivas DO, Charles Lewis Primary Care Provi elliott Source Comments In the event this information is protected by the Federal Confidentiality of Alcohol and Drug AbusePatient Records regulations: The Federal rules restrict any use of the information to criminally investigate or prosecute any alcohol or drug abuse patient.[facility] Encounter Details Date Type Department Care Team (Late st Contact Info) Description 11/17/2021 Get Medical Advice Gastroenterology [address] [phone] Stas Horvath MD [address] [place] [address] Update Social History Tobacco Use Types Packs/Day [...] Data from: https://www.neighborhoodatlas.medicine.[facility]/. Last address used for calculation Not [...] 07/02/2021 1:40 PM EDT Oralia Holland RN * Are you blind or do you have serious difficulty seeing, even when wearing glasses? Answer Date of Assessment Author No 07/02/2021 1:40 PM EDT Oralia Holland RN * Do you have serious [...] 11:45 AM EDT Office Visit Orthopaedics [address] [address] Efrain Hernandez MD [address] [place], [place] [phone] 2 wk PO reverse 09/15/2024 11:45 AM EDT Office Visit Orthopaedics [address] [address] Efrain Hernandez MD [address] [place], [place] [phone] 6 wk PO reverse documented as of this encounter Visit Diagnoses Not on filedocumented in this encounter Care Teams Wastewater Process Engineer Relationship Specialty Start Date End Date Efrain Mantilla Jr., DO [facility] [place] [phone] PCP - General 11/10/04 05/14/24 Trever White MD [address] [place], [place] [phone] PCP - General Family Medicine 05/15/24 07/06/24 Efrain Mantilla Jr., DO [facility] [place] [phone] PCP - General Internal Medicine 07/07/24 MARK Rubio 05/05/21 documented as of this encounter
--- OUTSIDE RECORDS SUMMARY | 2024-08-01 14:17 | XMS_ITS | Encounter Summary ---
Author Organization [facility] Address [address] [place] [address] Care Team Providers Care Director Of Critical Care Name Role Phone Annalee Olivas DO, Charles Lewis Primary Care Provi elliott Trever White MD Primary Care Provider [phone] Annalee Olivas DO, Charles Lewis Primary Care Provi elliott Source Comments In the event this information is protected by the Federal Confidentiality of Alcohol and Drug AbusePatient Records regulations: The Federal rules restrict any use of the information to criminally investigate or prosecute any alcohol or drug abuse patient.[facility] Encounter Details Date Type Department Care Team (Late st Contact Info) Description 05/08/2024 Get Medical Advice Gastroenterology [address] [phone] Stas Horvath MD [address] [place] [address] RX Social History Tobacco Use Types Packs/Day Years Used Date Smoking Tobacco: Former Cigarettes Q uit: 09/20/1995 Smokeless Tobacco: Never Alcohol Use Standard Drinks/Week Comments Yes 7 (1 standard drink = 0.6 oz pur e alcohol) glass of wine with dinner [facility] Utilities Answer Date Recorded In the past 12 months has th e electric, gas, oil, or water company threatened to shut off services in your home? No 01/21/2024 PHQ-2 Answer Date Recorded PHQ-2 score 0 01/31/2024 Hunger Vital Sign Answer Date Recorded Within the past 12 months, y ou worried that your food would run out before you got the money to buy more. Never true 01/21/20 24 Within the past 12 months, t he food you bought just didn't last and you didn't have money to get more. Never true 01/21/2024 PRAPARE - Transportation Answer Date Re corded In the past 12 months, has l ack of transportation kept you from medical appointments or from getting medications? No 03/2023 In the past 12 months, has l ack of transportation kept you from meetings, work, or from getting things needed for daily living? No 01/21/2024 Housing Stability Vital Sign Answer Jf e Recorded In the last 12 months, was t here a time when you were not able to pay the mortgage or rent on time? No 01/21/2024 In the past 12 months, how m any times have you moved where you were living? 1 01/21/2024 At any time in the past 12 m [facility], were you homeless or living in a detention (including now)? No 01/21/2024 Area Deprivation Index Answer Date Jorge rded National Score (1-100), lower number is lower ri sk 74 07/13/2022 State Score (1-10), lower number is lower risk 6 07/13/2022 Data from: https://www.neighborhoodatlas.medicine.[facility].edu/. Last address used for calculation [address] 07/13/2022 Comments No Sex and Gender Information [...] 11:45 AM EDT Office Visit Orthopaedics [address] [place] [phone] Efrain Hernandez MD [address] [place] [phone] 2 wk PO reverse 09/15/2024 11:45 AM EDT Office Visit Orthopaedics [address] [address] Efrain Hernandez MD [address] [place] [address] 6 wk PO reverse documented as of this encounter Visit Diagnoses Not on filedocumented in this encounter Care Teams Director Of Critical Care Relationship Specialty Start Date End Date Efrain Mantilla Jr., DO [address] [place] [phone] PCP - General 11/10/04 05/14/24 Trever White MD [address] [place] [address] PCP - General Family Medicine 05/15/24 07/06/24 Efrain Mantilla Jr., [facility] [place] [address] PCP - General Internal Medicine 07/07/24 MARK Rubio 05/05/21 documented as of this encounter
--- OUTSIDE RECORDS SUMMARY | 2024-08-01 14:17 | XMS_ITS | Encounter Summary ---
Author Organization [facility] Address [facility] [place] [address] Care Team Providers Care Broaching Machine Repairer Name Role Phone Annalee lOivas DO, Charles Lewis Primary Care Provi elliott Source Comments In the event this information is protected by the Federal Confidentiality of Alcohol and Drug AbusePatient Records regulations: The Federal rules restrict any use of the information to criminally investigate or prosecute any alcohol or drug abuse patient.[facility] Encounter Details Date Type Department Care Team (Late st Contact Info) Description 07/22/2024 Get Medical Advice Orthopaedics [address] [place] [address] Efrain Hernandez MD [address] [place] [address] After surgery care Social History Tobacco Use Types Packs/Day Years Used Date Smoking Tobacco: Former Cigarettes Q uit: 09/20/1995 Smokeless Tobacco: Never Alcohol Use Standard Drinks/Week Comments Yes 7 (1 standard drink = 0.6 oz pur e alcohol) glass of wine with dinner [facility] Utilities Answer Date Recorded In the past 12 months has [employer], oil, or water [employer] threatened to shut off services in your [...] often do you attend chur ch or quaker services? Never 05/15/2024 Do you belong to any clubs o r organizations such as restorationist groups, unions, fraternal or athletic groups, or [...] Answer Date Recorded PHQ-2 score 2 07/03/2024 [facility] of Occupat ional Health - Occupational [...] any time in the past 12 m [facility], were you homeless or living in a longterm (including now)? No 05/15/2024 Area Deprivation Index Answer Date Jorge rded National Score (1-100), lower number is lower ri sk 74 07/13/2022 State Score (1-10), lower number is lower risk 6 07/13/2022 Data from: https://www.neighborhoodatlas.medicine.[facility].edu/. Last address used for calculation [address] [employer] 07/13/2022 Comments No Sex and Gender Information [...] 11:45 AM EDT Office Visit Orthopaedics [address] [address] Efrain Hernandez MD [address] [place] [address] 2 wk PO reverse 09/15/2024 11:45 AM EDT Office Visit Orthopaedics [address] [address] Efrain Hernandez MD [address] [place] [address] 6 wk PO reverse documented as of this encounter Visit Diagnoses Not on filedocumented in this encounter Care Teams Broaching Machine Repairer Relationship Specialty Start Date End Date Efrain Mantilla Jr., DO [address] [place] [phone] PCP - General Internal Medicine 07/07/24 MARK Chavis CM - Joanne 05/05/21 documented as of this encounter
--- OUTSIDE RECORDS SUMMARY | 2024-08-01 14:17 | XMS_ITS | Encounter Summary ---
Author Organization [facility] Address [address] [place] [address] Care Team Providers Care Metal Machine Operator Name Role Phone Annalee Olivas DO, Charles Lewis Primary Care Provi elliott Trever White MD Primary Care Provider [phone] Annalee Olivas DO, Charles Lewis Primary Care Provi elliott Source Comments In the event this information is protected by the Federal Confidentiality of Alcohol and Drug AbusePatient Records regulations: The Federal rules restrict any use of the information to criminally investigate or prosecute any alcohol or drug abuse patient.[facility] Encounter Details Date Type Department Care Team (Late st Contact Info) Description 05/11/2024 Get Medical Advice Gastroenterology [address] [phone] Stas Horvath MD [address] [place] [address] Update Social History Tobacco Use Types Packs/Day Years Used Date Smoking Tobacco: Former Cigarettes Q uit: 09/20/1995 Smokeless Tobacco: Never Alcohol Use Standard Drinks/Week Comments Yes 7 (1 standard drink = 0.6 oz pur e alcohol) glass of wine with dinner [facility] Utilities Answer Date Recorded In the past 12 months has [employer], gas, oil, or water company threatened [...] often do you attend chur ch or protestant services? Never 05/15/2024 Do you belong to any clubs o r organizations such as religion groups, unions, fraternal or athletic groups, or [...] Answer Date Recorded PHQ-2 score 0 01/31/2024 [facility] of Occupat ional Health - Occupational Stress [...] any time in the past 12 m [facility], were you homeless or living in a care home (including now)? No 05/15/2024 Area Deprivation Index Answer Date Jorge rded National Score (1-100), lower number is lower ri sk 74 07/13/2022 State Score (1-10), lower number is lower risk 6 07/13/2022 Data from: https://www.neighborhoodatlas.medicine.[facility].edu/. Last address used for calculation [address] 07/13/2022 Comments No Sex and Gender Information [...] Assessment Author No 01/22/2024 2:52 PM Yany Agiular RN documented as of this encounter Mental [...] 11:45 AM EDT Office Visit Orthopaedics [address] [address] Efrain Hernandez MD [address] [place], [place] [phone] 2 wk PO reverse 09/15/2024 11:45 AM EDT Office Visit Orthopaedics [address] [address] Efrain Hernandez MD [address] [place] [address] 6 wk PO reverse documented as of this encounter Visit Diagnoses Not on filedocumented in this encounter Care Teams Metal Machine Operator Relationship Specialty Start Date End Date Efrain Mantilla Jr., DO [address] [place] [phone] PCP - General 11/10/04 05/14/24 Trever White MD [address] [place] [address] PCP - General Family Medicine 05/15/24 07/06/24 Efrain Mantilla Jr., DO [address] [place] [phone] PCP - General Internal Medicine 07/07/24 MARK Rubio 05/05/21 documented as of this encounter
--- OUTSIDE RECORDS SUMMARY | 2024-08-01 14:17 | XMS_ITS | Encounter Summary ---
Author Organization [facility] Address [address] [place] [address] Care Team Providers Care Automatic Corn Grinder Operator Name Role Phone Annalee Olivas DO Efrain Rod Primary Care Provi elliott Source Comments In the event this information is protected by the Federal Confidentiality of Alcohol and Drug AbusePatient Records regulations: The Federal rules restrict any use of the information to criminally investigate or prosecute any alcohol or drug abuse patient.[facility] Encounter Details Date Type Department Care Team (Late st Contact Info) Description 07/21/2024 Get Medical Advice Endocrinology [address] [place] [address] Dakotah North MD [address] [place] [address] [place] [address] Thyroid test Social History Tobacco Use Types Packs/Day Years Used Date Smoking Tobacco: Former Cigarettes Q uit: 09/20/1995 Smokeless Tobacco: Never Alcohol Use Standard Drinks/Week Comments Yes 7 (1 standard drink = 0.6 oz pur e alcohol) glass of wine with dinner [facility] Utilities Answer Date Recorded In the past 12 months has e [employer], gas, oil, or water company threatened to [...] any clubs o r organizations such as yazdanism groups, unions, fraternal or athletic groups, or [...] any time in the past 12 m [facility], were you homeless or living in a custodial (including now)? No 05/15/2024 Area Deprivation Index Answer Date Jorge rded National Score (1-100), lower number is lower ri sk 74 07/13/2022 State Score (1-10), lower number is lower risk 6 07/13/2022 Data from: https://www.neighborhoodatlas.medicine.[facility].edu/. Last address used for calculation [address] 07/13/2022 Comments No Sex and Gender Information [...] 11:45 AM EDT Office Visit Orthopaedics [address] [address] Efrain Hernandez MD [address] [place] [address] 2 wk PO reverse 09/15/2024 11:45 AM EDT Office Visit Orthopaedics [address] [address] Efrain Hernandez MD [address] [place] [address] 6 wk PO reverse documented as of this encounter Visit Diagnoses Not on filedocumented in this encounter Care Teams Automatic Corn Grinder Operator Relationship Specialty Start Date End Date Efrain Mantilla Jr., DO [address] [place] [phone] PCP - General Internal Medicine 07/07/24 MARK Rubio 05/05/21 documented as of this encounter
--- OUTSIDE RECORDS SUMMARY | 2024-08-01 14:17 | XMS_ITS | Encounter Summary ---
Author Organization [facility] Address [address] [place] [address] Care Team Providers Care Personal Secretary Name Role Phone Annalee Olivas DO, Charles Lewis Primary Care Provi elliott Trever White MD Primary Care Provider [phone] Annalee Olivas DO, Charles Lewis Primary Care Provi elliott Source Comments In the event this information is protected by the Federal Confidentiality of Alcohol and Drug AbusePatient Records regulations: The Federal rules restrict any use of the information to criminally investigate or prosecute any alcohol or drug abuse patient.[facility] Encounter Details Date Type Department Care Team (Late st Contact Info) Description 10/21/2021 Get Medical Advice Gastroenterology [address] [phone] Stas Horvath MD [address] [place] [address] Update Social History Tobacco Use [...] N ot on file 01/27/2020 Data from: https://www.neighborhoodatlas.medicine.[facility]/. Last address used for calculation Not on [...] 11:45 AM EDT Office Visit Orthopaedics [address] [address] Efrain Hernandez MD [address] [place], [place] [phone] 2 wk PO reverse 09/15/2024 11:45 AM EDT Office Visit Orthopaedics [address] [address] Efrain Hernandez MD [address] [place], [place] [phone] 6 wk PO reverse documented as of this encounter Visit Diagnoses Not on filedocumented in this encounter Care Teams Personal Secretary Relationship Specialty Start Date End Date Efrain Mantilla Jr., DO [facility] [place] [phone] PCP - General 11/10/04 05/14/24 Trever White MD [address] [place], [place] [phone] PCP - General Family Medicine 05/15/24 07/06/24 Efrain Mantilla Jr., DO [facility] [place] [phone] PCP - General Internal Medicine 07/07/24 MARK Rubio 05/05/21 documented as of this encounter
--- OUTSIDE RECORDS SUMMARY | 2024-08-01 14:17 | XMS_ITS | Encounter Summary ---
Author Organization [facility] Address [address] [place] [address] Care Team Providers Care Product Craftsman Name Role Phone Annalee Olivas DO, Charles Lewis Primary Care Provi elliott Trever White MD Primary Care Provider [phone] Annalee Olivas DO, Charles Lewis Primary Care Provi elliott Source Comments In the event this information is protected by the Federal Confidentiality of Alcohol and Drug AbusePatient Records regulations: The Federal rules restrict any use of the information to criminally investigate or prosecute any alcohol or drug abuse patient.[facility] Encounter Details Date Type Department Care Team (Late st Contact Info) Description 11/28/2021 Get Medical Advice Gastroenterology [address] [phone] Stas Horvath MD [address] [place] [address] New system Social History Tobacco Use Types Packs/Day Years [...] on file 01/27/2020 Data from: https://www.neighborhoodatlas.medicine.[facility]/. Last address used for calculation Not on [...] suspected to have Coronavirus/COVID-19? No / Unsure 11/25/2021 2:00 PM EDT documented as of this encounter [...] AM EDT Office Visit Orthopaedics [address] [address] Efrain Hernandez MD [address] [place], [place] [phone] 2 wk PO reverse 09/15/2024 11:45 AM EDT Office Visit Orthopaedics [address] [address] Efrain Hernandez MD [address] [place] [address] 6 wk PO reverse documented as of this encounter Visit Diagnoses Not on filedocumented in this encounter Care Teams Product Craftsman Relationship Specialty Start Date End Date Efrain Mantilla Jr., DO [facility] [place] [phone] PCP - General 11/10/04 05/14/24 Trever White MD [address] [place] [address] PCP - General Family Medicine 05/15/24 07/06/24 Efrain Mantilla Jr., DO [facility] [place] [phone] PCP - General Internal Medicine 07/07/24 MARK Rubio 05/05/21 documented as of this encounter
--- OUTSIDE RECORDS SUMMARY | 2024-08-01 14:17 | XMS_ITS | Encounter Summary ---
Author Organization [facility] Address [address] [place] [address] Care Team Providers Care Road Worker Name Role Phone Annalee Olivas DO, Charles Lewis Primary Care Provi elliott Trever White MD Primary Care Provider [phone] Annalee Olivas DO, Charles Lewis Primary Care Provi elliott Source Comments In the event this information is protected by the Federal Confidentiality of Alcohol and Drug AbusePatient Records regulations: The Federal rules restrict any use of the information to criminally investigate or prosecute any alcohol or drug abuse patient.[facility] Encounter Details Date Type Department Care Team (Late st Contact Info) Description 10/04/2021 Get Medical Advice Gastroenterology [address] [place] [address] Stas Horvath MD [address] [place] [address] Message received. On my chart Social History Tobacco Use Types Packs/Day Years [...] N ot on file 01/27/2020 Data from: https://www.neighborhoodatlas.medicine.[facility]/. Last address used for calculation Not [...] Brigida [place] RN documented in this encounter Miscellaneous Notes * Telephone Encounter - Brigida Hopkins RN - 10/06/2021 3:40 PM EDT Called and spoke to patient and was going to suggest pt call the doctor/office who ordered the CT chest. Patient stated she had called the pulmonary department multiple times with no response or answers. She called this office and spoke to Minal Mcnamara who was able to help pt connect to the pulmonary department. Pt was told office will be reaching out to pt to get her scheduled in approx 3 months and the office will send an order for pt to have another test closer to her appointment with Tom Garcia. Pt asked that this message be sent to Dr. Horvath as well. Brigida Hopkins RN October 0624:01 PM documented in this encounter Plan of Treatment Upcoming Encounters Date Type Department Care Team (Late st Contact Info) Description 08/11/2024 11:45 AM EDT Office Visit Orthopaedics [address] [place] [address] Efrain Hernandez MD [address] [place], [place] [phone] 2 wk PO reverse 09/15/2024 11:45 AM EDT Office Visit Orthopaedics [address] [place] [address] Efrain Hernandez MD [address] [place], [place] [phone] 6 wk PO reverse documented as of this encounter Visit Diagnoses Not on filedocumented in this encounter Care Teams Road Worker Relationship Specialty Start Date End Date Efrain Mantilla Jr., [address] [place] [phone] PCP - General 11/10/04 05/14/24 Trever White MD [address] [place] [address] PCP - General Family Medicine 05/15/24 07/06/24 Efrain Mantilla Jr., DO [address] [place] [phone] PCP - General Internal Medicine 07/07/24 MARK Chavis CM - Joanne 05/05/21 documented as of this encounter
--- OUTSIDE RECORDS SUMMARY | 2024-08-01 14:17 | XMS_ITS | Encounter Summary ---
Author Organization [facility] Address [facility] [place] [address] Care Team Providers Care Dramatic Coach Name Role Phone Trever White MD Primary Care Provider [phone] Annalee Olivas DO, Charles Lewis Primary Care Provi elliott Source Comments In the event this information is protected by the Federal Confidentiality of Alcohol and Drug AbusePatient Records regulations: The Federal rules restrict any use of the information to criminally investigate or prosecute any alcohol or drug abuse patient.[facility] Encounter Details Date Type Department Care Team (Late st Contact Info) Description 05/30/2024 Results Follow-Up Family Medicine [facility] [address] [place] [address] Phuong Byrnes PA-C [address] [place] [address] Social History Tobacco Use Types Packs/Day Years Used Date Smoking Tobacco: Former Cigarettes Q uit: 09/20/1995 Smokeless Tobacco: Never Alcohol Use Standard Drinks/Week Comments Yes 7 (1 standard drink = 0.6 oz pur e alcohol) glass of wine with dinner [facility] Utilities Answer Date Recorded In the [...] often do you attend chur ch or congregational services? Never 05/15/2024 Do you belong to any clubs o r organizations such as pentecostalism groups, unions, fraternal or athletic groups, or [...] Date Recorded PHQ-2 score 2 07/03/2024 [facility] of Occupat ional Health - Occupational Stress [...] any time in the past 12 m [facility], were you homeless or living in a long term (including now)? No 05/15/2024 Area Deprivation Index Answer Date Jorge rded National Score (1-100), lower number is lower ri sk 74 07/13/2022 State Score (1-10), lower number is lower risk 6 07/13/2022 Data from: https://www.neighborhoodatlas.medicine.[facility].edu/. Last address used for calculation [address] [employer] 07/13/2022 Comments No Sex and Gender [...] 11:45 AM EDT Office Visit Orthopaedics [address] [phone] Efrain Hernandez MD [address] [place] [address] 2 wk PO reverse 09/15/2024 11:45 AM EDT Office Visit Orthopaedics [address] [place] [address] Efrain Hernandez MD [address] [place], [place] [phone] 6 wk PO reverse documented as of this encounter Visit Diagnoses Not on filedocumented in this encounter Care Teams Dramatic Coach Relationship Specialty Start Date End Date Trever White MD [address] [place] [address] PCP - General Family Medicine 05/15/24 07/06/24 Efrain Mantilla Jr., [address] [place] [phone] PCP - General Internal Medicine 07/07/24 MARK Chavis CM - Joanne 05/05/21 documented as of this encounter
--- OUTSIDE RECORDS SUMMARY | 2024-08-01 14:17 | XMS_ITS | Encounter Summary ---
Author Organization [facility] Address [facility] [place] [address] Care Team Providers Care Electric Motor Mechanic Name Role Phone Annalee Olivas DO, Charles Lewis Primary Care Provi elliott Source Comments In the event this information is protected by the Federal Confidentiality of Alcohol and Drug AbusePatient Records regulations: The Federal rules restrict any use of the information to criminally investigate or prosecute any alcohol or drug abuse patient.[facility] Reason for Visit * Reason Comments Patient Update Encounter Details Date Type Department Care Team (Late st Contact Info) Description 08/01/2024 Telephone Orth and Rheum [place] [address] [place] [address] Efrain Hernandez MD [address] [place] [address] Patient Update Social History Tobacco Use Types Packs/Day Years Used Date Smoking Tobacco: Former Cigarettes Q uit: 09/20/1995 Smokeless Tobacco: Never Alcohol Use Standard Drinks/Week Comments Yes 7 (1 standard drink = 0.6 oz pur e alcohol) glass of wine with dinner [facility] Utilities Answer Date Recorded In the past 12 months has [facility] [employer], oil, or water [employer] threatened to shut off services in your [...] often do you attend chur ch or jewish services? Never 05/15/2024 Do you belong to any clubs o r organizations such as bahai groups, unions, fraternal or athletic groups, or [...] any time in the past 12 m [facility], were you homeless or living in a penitentiary (including now)? No 05/15/2024 Area Deprivation Index Answer Date Jorge rded National Score (1-100), lower number is lower ri sk 74 07/13/2022 State Score (1-10), lower number is lower risk 6 07/13/2022 Data from: https://www.neighborhoodatlas.medicine.[facility].edu/. Last address used for calculation [address] [employer] 07/13/2022 Comments No Sex and Gender Information [...] Noa Cuevas RN documented in this encounter Miscellaneous Notes * Telephone Encounter - Darleen Fiore - 08/01/2024 2:08 PM EDT [facility] RN regarding Ms. Dejesus (dos 07/28/24) reverse total left shoulder. Per Shakila the patient has increased swelling, lack of mobility and arm is purple. States that the patient has a neighbor that is a retired Physician, states that he was concerned about compartment syndrome, had the patient taken to [facility] to have an Ultrasound. Please call Shakila at [phone]. documented in this encounter Plan of Treatment Upcoming Encounters Date Type Department Care Team (Late st Contact Info) Description 08/11/2024 11:45 AM EDT Office Visit Orthopaedics [address] [address] Efrain Hernandez MD [address] [place] [address] 2 wk PO reverse 09/15/2024 11:45 AM EDT Office Visit Orthopaedics [address] [address] Efrain Hernandez MD [address] [place] [address] 6 wk PO reverse documented as of this encounter Visit Diagnoses Not on filedocumented in this encounter Care Teams Electric Motor Mechanic Relationship Specialty Start Date End Date Efrain Mantilla Jr., [address] [place] [phone] PCP - General Internal Medicine 07/07/24 MARK Rubio 05/05/21 documented as of this encounter
--- OUTSIDE RECORDS SUMMARY | 2024-08-01 14:17 | XMS_ITS | Encounter Summary ---
Author Organization [facility] Address [address] [place] [address] Care Team Providers Care Resource Specialist Teacher Name Role Phone Annalee Olivas DO, Charles Lewis Primary Care Provi elliott Trever White MD Primary Care Provider [phone] Annalee Olivas DO, Charles Lewis Primary Care Provi elliott Source Comments In the event this information is protected by the Federal Confidentiality of Alcohol and Drug AbusePatient Records regulations: The Federal rules restrict any use of the information to criminally investigate or prosecute any alcohol or drug abuse patient.[facility] Encounter Details Date Type Department Care Team (Late st Contact Info) Description 11/18/2021 Get Medical Advice Gastroenterology [address] [phone] Stas Horvath MD [address] [place] [address] Tune up Social History Tobacco Use Types Packs/Day [...] N ot on file 01/27/2020 Data from: https://www.neighborhoodatlas.medicine.[facility]/. Last address used for calculation Not on [...] AM EDT Office Visit Orthopaedics [address] [address] Efrain Hernandez MD [address] [place], [place] [phone] 2 wk PO reverse 09/15/2024 11:45 AM EDT Office Visit Orthopaedics [address] [address] Efrain Hernandez MD [address] [place] [address] 6 wk PO reverse documented as of this encounter Visit Diagnoses Not on filedocumented in this encounter Care Teams Resource Specialist Teacher Relationship Specialty Start Date End Date Efrain Mantilla Jr., DO [facility] [place] [phone] PCP - General 11/10/04 05/14/24 Trever White MD [address] [place] [address] PCP - General Family Medicine 05/15/24 07/06/24 Efrain Mantilla Jr., DO [facility] [place] [phone] PCP - General Internal Medicine 07/07/24 MARK Rubio 05/05/21 documented as of this encounter
--- OUTSIDE RECORDS SUMMARY | 2024-08-01 14:17 | XMS_ITS | Encounter Summary ---
Author Organization [facility] Address [address] [place] [address] Care Team Providers Care Pasting Inspector Name Role Phone Trever White MD Primary Care Provider [phone] Annalee Olivas DO, Charles Lewis Primary Care Provi elliott Source Comments In the event this information is protected by the Federal Confidentiality of Alcohol and Drug AbusePatient Records regulations: The Federal rules restrict any use of the information to criminally investigate or prosecute any alcohol or drug abuse patient.[facility] Encounter Details Date Type Department Care Team (Late st Contact Info) Description 05/30/2024 Get Medical Advice Gastroenterology [address] [address] Stas Horvath MD [address] [place] [address] Lipid panel Social History Tobacco Use Types Packs/Day Years Used Date Smoking Tobacco: Former Cigarettes Q uit: 09/20/1995 Smokeless Tobacco: Never Alcohol Use Standard Drinks/Week Comments Yes 7 (1 standard drink = 0.6 oz pur e alcohol) glass of wine with dinner [facility] Utilities Answer Date Recorded In the [...] often do you attend chur ch or nondenominational services? Never 05/15/2024 Do you belong to any clubs o r organizations such as hindu groups, unions, fraternal or athletic groups, or [...] Answer Date Recorded PHQ-2 score 0 01/31/2024 [facility] of Occupat ional Health - Occupational Stress [...] any time in the past 12 m [facility], were you homeless or living in a retirement (including now)? No 05/15/2024 Area Deprivation Index Answer Date Jorge rded National Score (1-100), lower number is lower ri sk 74 07/13/2022 State Score (1-10), lower number is lower risk 6 07/13/2022 Data from: https://www.neighborhoodatlas.medicine.[facility].edu/. Last address used for calculation [address] [employer] 07/13/2022 Comments No Sex and Gender Information [...] 11:45 AM EDT Office Visit Orthopaedics [address] [address] Efrain Hernandez MD [address] [place] [phone] 2 wk PO reverse 09/15/2024 11:45 AM EDT Office Visit Orthopaedics [address] [address] Efrain Hernandez MD [address] [place], [place] [phone] 6 wk PO reverse documented as of this encounter Visit Diagnoses Not on filedocumented in this encounter Care Teams Pasting Inspector Relationship Specialty Start Date End Date Trever White MD [address] [place] [address] PCP - General Family Medicine 05/15/24 07/06/24 Efrain Mantilla Jr., [facility]3 [place] [address] PCP - General Internal Medicine 07/07/24 MARK Rubio 05/05/21 documented as of this encounter
--- OUTSIDE RECORDS SUMMARY | 2024-08-01 14:17 | XMS_ITS | Encounter Summary ---
Author Organization Address [address] [place] [address] Care Team Providers Care Civil Engineering Specialist Name Role Phone Trever White MD Primary Care Provider [phone] Annalee Olivas DO, Charles Lewis Primary Care Provi elliott Source Comments In the event this information is protected by the Federal Confidentiality of Alcohol and Drug AbusePatient Records regulations: The Federal rules restrict any use of the information to criminally investigate or prosecute any alcohol or drug abuse patient. Encounter Details Date Type Department Care Team (Late st Contact Info) Description 05/30/2024 Get Medical Advice Family Medicine [facility] [address] [place] [address] Trever White MD [address] [place] [address] Results of the recent test Social History Tobacco Use Types Packs/Day Years Used Date Smoking Tobacco: Former Cigarettes Q uit: 09/20/1995 Smokeless Tobacco: Never Alcohol Use Standard Drinks/Week Comments Yes 7 (1 standard drink = 0.6 oz pur e alcohol) glass of wine with dinner [facility] Utilities Answer Date Recorded In the [...] often do you attend chur ch or rastafarian services? Never 05/15/2024 Do you belong to any clubs o r organizations such as cheondoism groups, unions, fraternal or athletic groups, or [...] Answer Date Recorded PHQ-2 score 0 01/31/2024 [facility] of Occupat ional Health - Occupational [...] any time in the past 12 m [facility], were you homeless or living in a nursing home (including now)? No 05/15/2024 Area Deprivation Index Answer Date Jorge rded National Score (1-100), lower number is lower ri sk 74 07/13/2022 State Score (1-10), lower number is lower risk 6 07/13/2022 Data from: https://www.neighborhoodatlas.medicine.[facility].edu/. Last address used for calculation [address] [employer] 07/13/2022 Comments No Sex and Gender Information [...] encounter Miscellaneous Notes * Telephone Encounter - Cristina Hodges PA-C - 05/30/2024 2:31 PM EDT Defer to PCP if he wanted to communicate via MyChart, phone or make follow up appt Seen by PCP 05/15/2024 for initial visit to establish care. Calcium score done - 17 (all at LAD). Lipids: (unknown ETOH screen done - HDL >80) Latest Ref Rng 05/15/2024 Cholesterol, Total <200 mg/dL 282 (H) Triglyceride <150 mg/dL 178 (H) HDL Cholesterol >39 mg/dL 118 Non HDL Cholesterol <130 mg/dL 164 (H) Fasting Time hrs 12 VLDL Cholesterol <30 mg/dL 36 (H) TC:HDL Ratio <5.10 2.39 LDL Cholesterol <100 mg/dL 128 (H) LDL:HDL Ratio <2.54 1.08 Using the Coronary Artery Calcium Score 10 Year risk of a CHD Event Coronary Age Difference from Chronologic Age 3.0% 60 -13 Without Considering the Coronary Artery Calcium Score 10 Year risk of a CHD Event Coronary Age Difference from Chronologic Age 3.1% 60 -13 documented in this encounter Plan of Treatment Upcoming Encounters Date Type Department Care Team (Late st Contact Info) Description 08/11/2024 11:45 AM EDT Office Visit Orthopaedics [address] [address] Efrain Hernandez MD [address] [place], [place] [phone] 2 wk PO reverse 09/15/2024 11:45 AM EDT Office Visit Orthopaedics [address] [address] Efrain Hernandez MD [address] [place] [address] 6 wk PO reverse documented as of this encounter Visit Diagnoses Not on filedocumented in this encounter Care Teams Civil Engineering Specialist Relationship Specialty Start Date End Date Trever White MD [address] [place] [address] PCP - General Family Medicine 05/15/24 07/06/24 Efrain Mantilla Jr., [facility]3 [place] [address] PCP - General Internal Medicine 07/07/24 MARK Rubio 05/05/21 documented as of this encounter
--- OUTSIDE RECORDS SUMMARY | 2024-08-01 14:17 | XMS_ITS | Encounter Summary ---
Author Organization [facility] Address [facility] [place] [address] Care Team Providers Care Customs Compliance Manager Name Role Phone Annalee Olivas DO, Charles Lewis Primary Care Provi elliott Source Comments In the event this information is protected by the Federal Confidentiality of Alcohol and Drug AbusePatient Records regulations: The Federal rules restrict any use of the information to criminally investigate or prosecute any alcohol or drug abuse patient.[facility] Encounter Details Date Type Department Care Team (Late st Contact Info) Description 07/19/2024 Results Follow-Up Family Medicine [facility] [address] [place] [address] Joellen Nguyễn, [employer] [address] [place] [address] Social History Tobacco Use Types Packs/Day Years Used Date Smoking Tobacco: Former Cigarettes Q uit: 09/20/1995 Smokeless Tobacco: Never Alcohol Use Standard Drinks/Week Comments Yes 7 (1 standard drink = 0.6 oz pur e alcohol) glass of wine with dinner [facility] Utilities Answer Date Recorded In the past 12 months has th e [employer], gas, oil, or water [employer] threatened to shut off services in your [...] often do you attend chur ch or christianity services? Never 05/15/2024 Do you belong to any clubs o r organizations such as holiness groups, unions, fraternal or athletic groups, or [...] Answer Date Recorded PHQ-2 score 2 07/03/2024 [facility] of Occupat ional Health - Occupational Stress [...] any time in the past 12 m [facility], were you homeless or living in a skilled nursing (including now)? No 05/15/2024 Area Deprivation Index Answer Date Jorge rded National Score (1-100), lower number is lower ri sk 74 07/13/2022 State Score (1-10), lower number is lower risk 6 07/13/2022 Data from: https://www.neighborhoodatlas.medicine.[facility].edu/. Last address used for calculation [address] [employer] 07/13/2022 Comments No Sex and Gender Information [...] 11:45 AM EDT Office Visit Orthopaedics [address] [place] [phone] Efrain Hernandez MD [address] [place] [address] 2 wk PO reverse 09/15/2024 11:45 AM EDT Office Visit Orthopaedics [address] [address] Efrain Hernandez MD [address] [place] [address] 6 wk PO reverse documented as of this encounter Visit Diagnoses Not on filedocumented in this encounter Care Teams Customs Compliance Manager Relationship Specialty Start Date End Date Efrain Mantilla Jr., [address] [place] [phone] PCP - General Internal Medicine 07/07/24 MARK Rubio 05/05/21 documented as of this encounter
--- OUTSIDE RECORDS SUMMARY | 2024-08-01 14:17 | XMS_ITS | Encounter Summary ---
Author Organization [facility] Address [facility] [place] [address] Care Team Providers Care Master Baker Name Role Phone Annalee Olivas DO, Charles Lewis Primary Care Provi elliott Source Comments In the event this information is protected by the Federal Confidentiality of Alcohol and Drug AbusePatient Records regulations: The Federal rules restrict any use of the information to criminally investigate or prosecute any alcohol or drug abuse patient.[facility] Encounter Details Date Type Department Care Team (Late st Contact Info) Description 07/25/2024 Get Medical Advice Family Medicine [facility] [address] [place] [address] Trever White MD [address] [place] [address] Upcoming appointment schedule August 15 Social History Tobacco Use Types Packs/Day Years Used Date Smoking Tobacco: Former Cigarettes Q uit: 09/20/1995 Smokeless Tobacco: Never Alcohol Use Standard Drinks/Week Comments Yes 7 (1 standard drink = 0.6 oz pur e alcohol) glass of wine with dinner [facility] Utilities Answer Date Recorded In the past 12 months has th e [employer], gas, oil, or water company threatened to [...] often do you attend chur ch or mosque services? Never 05/15/2024 Do you belong to any clubs o r organizations such as sabianism groups, unions, fraternal or athletic groups, or [...] any time in the past 12 m [facility], were you homeless or living in a senior living (including now)? No 05/15/2024 Area Deprivation Index Answer Date Jorge rded National Score (1-100), lower number is lower ri sk 74 07/13/2022 State Score (1-10), lower number is lower risk 6 07/13/2022 Data from: https://www.neighborhoodatlas.medicine.[facility].edu/. Last address used for calculation [address] [employer] 07/13/2022 Comments No Sex and Gender Information [...] 11:45 AM EDT Office Visit Orthopaedics [address] [address] Efrain Hernandez MD [address] [place] [address] 2 wk PO reverse 09/15/2024 11:45 AM EDT Office Visit Orthopaedics [address] [address] Efrain Hernandez MD [address] [place] [address] 6 wk PO reverse documented as of this encounter Visit Diagnoses Not on filedocumented in this encounter Care Teams Master Baker Relationship Specialty Start Date End Date Efrain Mantilla Jr., [facility]3 [place] [address] PCP - General Internal Medicine 07/07/24 MARK Rubio 05/05/21 documented as of this encounter
--- OUTSIDE RECORDS SUMMARY | 2024-08-01 14:17 | XMS_ITS | Encounter Summary ---
Author Organization [facility] Address [address] [place] [address] Care Team Providers Care Posting Clerk Name Role Phone Annalee Olivas DO, Charles Lewis Primary Care Provi elliott Source Comments In the event this information is protected by the Federal Confidentiality of Alcohol and Drug AbusePatient Records regulations: The Federal rules restrict any use of the information to criminally investigate or prosecute any alcohol or drug abuse patient.[facility] Encounter Details Date Type Department Care Team (Late st Contact Info) Description 07/24/2024 Results Follow-Up Endocrinology [address] [place] [address] Dakotah North MD [address] [place] [address] [place] [address] Social History Tobacco Use Types Packs/Day Years Used Date Smoking Tobacco: Former Cigarettes Q uit: 09/20/1995 Smokeless Tobacco: Never Alcohol Use Standard Drinks/Week Comments Yes 7 (1 standard drink = 0.6 oz pur e alcohol) glass of wine with dinner [facility] Utilities Answer Date Recorded In the past 12 months has [employer], [employer], oil, or water [employer] threatened to shut off services in your [...] often do you attend chur ch or jain services? Never 05/15/2024 Do you belong to [...] Date Recorded PHQ-2 score 2 07/03/2024 [facility] of Occupat ional Health - Occupational [...] is lower risk 6 07/13/2022 Data from: https://www.neighborhoodatlas.medicine.[facility].edu/. Last address used for calculation [address] [employer] 07/13/2022 Comments No Sex and Gender [...] AM EDT Office Visit Orthopaedics [address] [address] Efrain Hernandez MD [address] [place] [address] 2 wk PO reverse 09/15/2024 11:45 AM EDT Office Visit Orthopaedics [address] [address] Efrain Hernandez MD [address] [place] [address] 6 wk PO reverse documented as of this encounter Visit Diagnoses Not on filedocumented in this encounter Care Teams Posting Clerk Relationship Specialty Start Date End Date Efrain Mantilla Jr., DO [address] [place] [phone] PCP - General Internal Medicine 07/07/24 MARK Chavis CM - Joanne 05/05/21 documented as of this encounter
--- OUTSIDE RECORDS SUMMARY | 2024-08-01 14:17 | XMS_ITS | Encounter Summary ---
Author Organization [facility] Address [address] [place] [address] Care Team Providers Care Power Generation Technician Name Role Phone Annalee Olivas DO, Charles Lewis Primary Care Provi elliott Trever White MD Primary Care Provider [phone] Annalee Olivas DO, Charles Lewis Primary Care Provi elliott Source Comments In the event this information is protected by the Federal Confidentiality of Alcohol and Drug AbusePatient Records regulations: The Federal rules restrict any use of the information to criminally investigate or prosecute any alcohol or drug abuse patient.[facility] Encounter Details Date Type Department Care Team (Late st Contact Info) Description 12/13/2021 Patient Msg Gastroenterology [address] [place] [phone] Stas Horvath MD [address] [place] [address] Labs Social History Tobacco Use Types Packs/Day Years [...] N ot on file 01/27/2020 Data from: https://www.neighborhoodatlas.medicine.[facility]/. Last address used for calculation [...] 11:45 AM EDT Office Visit Orthopaedics [address] [address] Efrain Hernandez MD [address] [place], [place] [phone] 2 wk PO reverse 09/15/2024 11:45 AM EDT Office Visit Orthopaedics [address] [address] Efrain Hernandez MD [address] [place], [place] [phone] 6 wk PO reverse documented as of this encounter Visit Diagnoses Not on filedocumented in this encounter Care Teams Power Generation Technician Relationship Specialty Start Date End Date Efrain Mantilla Jr., DO [facility]3 [place] [address] PCP - General 11/10/04 05/14/24 Trever White MD [address] [place], [place] [phone] PCP - General Family Medicine 05/15/24 07/06/24 Efrain Mantilla Jr., DO [facility]3 [place] [address] PCP - General Internal Medicine 07/07/24 MARK Rubio 05/05/21 documented as of this encounter
--- OUTSIDE RECORDS SUMMARY | 2024-08-01 14:17 | XMS_ITS | Encounter Summary ---
Author Organization [facility] Address [address] [place] [address] Care Team Providers Care Baby Registry Sales Consultant Name Role Phone Annalee Olivas DO, Charles Lewis Primary Care Provi elliott Trever White MD Primary Care Provider [phone] Annalee Olivas DO, Charles Lewis Primary Care Provi elliott Source Comments In the event this information is protected by the Federal Confidentiality of Alcohol and Drug AbusePatient Records regulations: The Federal rules restrict any use of the information to criminally investigate or prosecute any alcohol or drug abuse patient.[facility] Encounter Details Date Type Department Care Team (Late st Contact Info) Description 01/06/2022 Get Medical Advice Gastroenterology [address] [place] [phone] Stas Horvath MD [address] [place] [address] Help! Social History Tobacco Use Types Packs/Day Years [...] N ot on file 01/27/2020 Data from: https://www.neighborhoodatlas.medicine.[facility]/. Last address used for calculation Not on [...] 11:45 AM EDT Office Visit Orthopaedics [address] [place] [phone] Efrain Hernandez MD [address] [place] [address] 2 wk PO reverse 09/15/2024 11:45 AM EDT Office Visit Orthopaedics [address] [address] Efrain Hernandez MD [address] [place], [place] [phone] 6 wk PO reverse documented as of this encounter Visit Diagnoses Not on filedocumented in this encounter Care Teams Baby Registry Sales Consultant Relationship Specialty Start Date End Date Efrain Mantilla Jr., DO [facility]3 [place] [address] PCP - General 11/10/04 05/14/24 Trever White MD [address] [place] [address] PCP - General Family Medicine 05/15/24 07/06/24 Efrain Mantilla Jr., DO [address] [place] [address] PCP - General Internal Medicine 07/07/24 MARK Rubio 05/05/21 documented as of this encounter
--- OUTSIDE RECORDS SUMMARY | 2024-08-01 14:17 | XMS_ITS | Encounter Summary ---
Author Organization [facility] Address [address] [place] [address] Care Team Providers Care Tumbler Tender Name Role Phone Annalee Olivas DO, Charles Lewis Primary Care Provi elliott Trever White MD Primary Care Provider [phone] Annalee Olivas DO, Charles Lewis Primary Care Provi elliott Source Comments In the event this information is protected by the Federal Confidentiality of Alcohol and Drug AbusePatient Records regulations: The Federal rules restrict any use of the information to criminally investigate or prosecute any alcohol or drug abuse patient.[facility] Encounter Details Date Type Department Care Team (Late st Contact Info) Description 07/11/2021 Get Medical Advice Gastroenterology [address] [place] [phone] Stas Horvath MD [address] [place] [address] Clinic visit Social History Tobacco Use Types Packs/Day Years [...] N ot on file 01/27/2020 Data from: https://www.neighborhoodatlas.medicine.[facility]/. Last address used for calculation Not [...] 11:45 AM EDT Office Visit Orthopaedics [address] [address] Efrain Hernandez MD [address] [place], [place] [phone] 2 wk PO reverse 09/15/2024 11:45 AM EDT Office Visit Orthopaedics [address] [address] Efrain Hernandez MD [address] [place] [address] 6 wk PO reverse documented as of this encounter Visit Diagnoses Not on filedocumented in this encounter Care Teams Tumbler Tender Relationship Specialty Start Date End Date Efrain Mantilla Jr., DO [facility]3 [place] [address] PCP - General 11/10/04 05/14/24 Trever White MD [address] [place] [address] PCP - General Family Medicine 05/15/24 07/06/24 Efrain Mantilla Jr., DO [facility]3 [place] [address] PCP - General Internal Medicine 07/07/24 MARK Rubio 05/05/21 documented as of this encounter
--- OUTSIDE RECORDS SUMMARY | 2024-08-01 14:17 | XMS_ITS | Encounter Summary ---
Author Organization [facility] Address [address] [place] [address] Care Team Providers Care Phone Circuit Operator Name Role Phone Annalee Olivas DO, Charles Lewis Primary Care Provi elliott Source Comments In the event this information is protected by the Federal Confidentiality of Alcohol and Drug AbusePatient Records regulations: The Federal rules restrict any use of the information to criminally investigate or prosecute any alcohol or drug abuse patient.[facility] Encounter Details Date Type Department Care Team (Late st Contact Info) Description 07/18/2024 Get Medical Advice Endocrinology [address] [place] [address] Dakotah North MD [address] [place] [address] [place] [address] Retest for thyroid Social History Tobacco Use Types Packs/Day Years Used Date Smoking Tobacco: Former Cigarettes Q uit: 09/20/1995 Smokeless Tobacco: Never Alcohol Use Standard Drinks/Week Comments Yes 7 (1 standard drink = 0.6 oz pur e alcohol) glass of wine with dinner [facility] Utilities Answer Date Recorded In the past 12 months has e [employer], gas, oil, or water company threatened to [...] How often do you attend chur or taoism services? Never 05/15/2024 Do you belong to [...] Answer Date Recorded PHQ-2 score 2 07/03/2024 [facility] of Occupat ional Health - Occupational [...] No 05/15/2024 Housing Stability Vital Sign Answer Fj e Recorded In the last 12 months, was t here a time when you were not able to pay the mortgage or rent on time? No 05/15/2024 In the past 12 months, how m any times have you moved where you were living? 1 05/15/2024 At any time in the past 12 m [facility], were you homeless or living in a [place] [facility] [place] facility (including now)? No 05/15/2024 Area Deprivation Index Answer Date Jorge rded National Score (1-100), lower number is lower ri sk 74 07/13/2022 State Score (1-10), lower number is lower risk 6 07/13/2022 Data from: https://www.neighborhoodatlas.medicine.[facility].edu/. Last address used for calculation [address] 07/13/2022 Comments No Sex and Gender Information [...] encounter Miscellaneous Notes * Telephone Encounter - Dania Harris RN - 07/21/2024 12:57 PM EDT KARRI 07/09/23 No future appt scheduled since TSH normal and stable, can have TSH monitored once yearly which can be done by PCP, along with future LT4 refills documented in this encounter Plan of Treatment Upcoming Encounters Date Type Department Care Team (Late st Contact Info) Description 08/11/2024 11:45 AM EDT Office Visit Orthopaedics [address] [place] [phone] Efrain Hernandez MD [address] [place] [address] 2 wk PO reverse 09/15/2024 11:45 AM EDT Office Visit Orthopaedics [address] [place] [phone] Efrain Hernandez MD [address] [place] [address] 6 wk PO reverse documented as of this encounter Results * THYROID STIMULATING HORMONE (07/22/2024 12:34 PM EDT) TSH 2.790 0.270 - 4.200 mIU/L 07/23/2024 3:06 PM EDT [facility] Blood BLOOD SPECIMEN / Unknown Venipuncture / Unknown 07/22/2024 12:34 PM EDT 07/22/2024 12:34 PM EDT us Dakotah North MD LABORATORY Final Resu lt [facility] [address] [facility] [address] [place] [address], documented in this encounter Visit Diagnoses Diagnosis Other specified hypothyroidism- Primary documented in this encounter Care Teams Phone Circuit Operator Relationship Specialty Start Date End Date Efrain Mantilla Jr., DO [address] [place] [phone] PCP - General Internal Medicine 07/07/24 MARK Rubio 05/05/21 documented as of this encounter
--- OUTSIDE RECORDS SUMMARY | 2024-08-01 14:17 | XMS_ITS | Clinical Summary ---
Author Organization [facility] Address [address] [place] [address] Care Team Providers Care General Distillery Worker Name Role Phone Efrain Mantilla MD Primary Care Provider [phone] Encounters Date Type Department Care Team Description 06/23/2024 Telephone [facility] [address] [facility] [address] [place] [address] Kelbley, Colette, BANKING SERVICES ADVISOR Sx set 07/28/24 06/18/2024 9:00 AM EDT Treatment [facility] [address] [facility] [address] [place] [address] Kelbley, Colette, BANKING SERVICES ADVISOR Acute pain of left shoulder (Primary Dx); Stiffness of left shoulder joint; Closed supracondylar fracture of left humerus with routine healing, subsequent encounter 06/18/2024 Bamboo flowsheet [facility] [address] [facility] [address] [place] [address] Kelbley, Colette, BANKING SERVICES ADVISOR 06/18/2024 Travel 06/16/2024 9:00 AM EDT Treatment [facility] [address] [facility] [address] [place] [address] Kelbley, Colette, BANKING SERVICES ADVISOR Acute pain of left shoulder (Primary Dx); Stiffness of left shoulder joint; Closed supracondylar fracture of left humerus with routine healing, subsequent encounter 06/16/2024 Bamboo flowsheet [facility] [address] [facility] [address] [place] [address] Kelbley, Colette, BANKING SERVICES ADVISOR 06/16/2024 Travel 06/13/2024 9:00 AM EDT Treatment [facility] [address] [facility] [address] [place] [address] Kelbley, Colette, BANKING SERVICES ADVISOR Acute pain of left shoulder (Primary Dx); Stiffness of left shoulder joint; Closed supracondylar fracture of left humerus with routine healing, subsequent encounter 06/13/2024 Bamboo flowsheet [facility] [address] [facility] [address] [place] [address] Kelbley, Colette, BANKING SERVICES ADVISOR 06/13/2024 Travel 06/11/2024 10:00 AM EDT Treatment [facility] [address] [facility] [address] [place] [address] Kelbley, Colette, BANKING SERVICES ADVISOR Acute pain of left shoulder (Primary Dx); Stiffness of left shoulder joint; Closed supracondylar fracture of left humerus with routine healing, subsequent encounter 06/11/2024 Bamboo flowsheet [facility] [address] [facility] [address] [place] [address] Kelbley, Colette, BANKING SERVICES ADVISOR 06/11/2024 Travel 06/09/2024 9:30 AM EDT Treatment [facility] [address] [facility] [address] [place] [address] Kelbley, Colette, BANKING SERVICES ADVISOR Acute pain of left shoulder (Primary Dx); Stiffness of left shoulder joint; Closed supracondylar fracture of left humerus with routine healing, subsequent encounter 06/09/2024 Bamboo flowsheet [facility] [address] [facility] [address] [place] [address] Kelbley, Colette, BANKING SERVICES ADVISOR 06/09/2024 Travel 06/04/2024 2:30 PM EDT Treatment [facility] [address] [facility] [address] [place] [address] Kelbley, Colette, BANKING SERVICES ADVISOR Acute pain of left shoulder (Primary Dx); Stiffness of left shoulder joint; Closed supracondylar fracture of left humerus with routine healing, subsequent encounter 06/04/2024 Bamboo flowsheet [facility] [address] [facility] [address] [place] [address] Kelbley, Colette, BANKING SERVICES ADVISOR 06/04/2024 Travel 06/02/2024 9:00 AM EDT Treatment [facility] [address] [facility] [address] [place] [address] Kelbley, Colette, BANKING SERVICES ADVISOR Acute pain of left shoulder (Primary Dx); Stiffness of left shoulder joint; Closed supracondylar fracture of left humerus with routine healing, subsequent encounter 06/02/2024 Bamboo flowsheet [facility] [address] [facility] [address] [place] [address] Kelbley, Colette, BANKING SERVICES ADVISOR 06/02/2024 Travel 05/30/2024 9:00 AM EDT Treatment [facility] [address] [facility] [address] [place] [address] Kelbley, Colette, BANKING SERVICES ADVISOR Acute pain of left shoulder (Primary Dx); Stiffness of left shoulder joint; Closed supracondylar fracture of left humerus with routine healing, subsequent encounter 05/30/2024 Bamboo flowsheet [facility] [address] [facility] [address] [place] [address] Kelbley, Colette, BANKING SERVICES ADVISOR 05/30/2024 Travel 05/28/2024 9:00 AM EDT Treatment [facility] [address] [facility] [address] [place] [address] Kelbley, Colette, BANKING SERVICES ADVISOR Acute pain of left shoulder (Primary Dx); Stiffness of left shoulder joint; Closed supracondylar fracture of left humerus with routine healing, subsequent encounter 05/28/2024 Bamboo flowsheet [facility] [address] [facility] [address] [place] [address] Kelbley, Colette, BANKING SERVICES ADVISOR 05/28/2024 Travel 05/26/2024 9:00 AM EDT Treatment [facility] [address] [facility] [address] [place] [address] Kelbley, Colette, BANKING SERVICES ADVISOR Acute pain of left shoulder (Primary Dx); Stiffness of left shoulder joint; Closed supracondylar fracture of left humerus with routine healing, subsequent encounter 05/26/2024 Bamboo flowsheet [facility] [address] [facility] [address] [place] [address] Kelbley, Colette, BANKING SERVICES ADVISOR 05/26/2024 Travel 05/23/2024 9:00 AM EDT Treatment [facility] [address] [facility] [address] [place] [address] Kelbley, Colette, BANKING SERVICES ADVISOR Acute pain of left shoulder (Primary Dx); Stiffness of left shoulder joint; Closed supracondylar fracture of left humerus with routine healing, subsequent encounter 05/23/2024 Bamboo flowsheet [facility] [address] [facility] [address] [place] [address] Kelbley, Colette, BANKING SERVICES ADVISOR 05/23/2024 Travel 05/22/2024 9:00 AM EDT Treatment [facility] [address] [facility] [address] [place] [address] Morgan Davis, PT Acute pain of left shoulder (Primary Dx); Stiffness of left shoulder joint; Closed supracondylar fracture of left humerus with routine healing, subsequent encounter 05/22/2024 Bamboo flowsheet [facility] [address] [facility] [address] [place] [address] Morgan Davis, PT 05/22/2024 Travel 05/19/2024 8:30 AM EDT Treatment [facility] [address] [facility] [address] [place] [address] Kelbley, Colette, BANKING SERVICES ADVISOR Acute pain of left shoulder (Primary Dx); Stiffness of left shoulder joint; Closed supracondylar fracture of left humerus with routine healing, subsequent encounter 05/19/2024 Bamboo flowsheet [facility] [address] [facility] [address] [place] [address] Kelbley, Colette, BANKING SERVICES ADVISOR 05/19/2024 Travel 05/16/2024 9:00 AM EDT Treatment [facility] [address] [facility] [address] [place] [address] Kelbley, Colette, BANKING SERVICES ADVISOR Acute pain of left shoulder (Primary Dx); Stiffness of left shoulder joint; Closed supracondylar fracture of left humerus with routine healing, subsequent encounter 05/16/2024 Bamboo flowsheet [facility] [address] [facility] [address] [place] [address] Colette Vaughn, BANKING SERVICES ADVISOR 05/16/2024 Travel 05/14/2024 9:00 AM EDT Treatment [facility] [address] [facility] [address] [place] [address] Christina Vaughnissa, BANKING SERVICES ADVISOR Acute pain of left shoulder (Primary Dx); Stiffness of left shoulder joint; Closed supracondylar fracture of left humerus with routine healing, subsequent encounter 05/14/2024 Bamboo flowsheet [facility] [address] [facility] [address] [place] [address] Christina Vaughnissa, BANKING SERVICES ADVISOR 05/14/2024 Travel 05/12/2024 9:00 AM EDT Treatment [facility] [address] [facility] [address] [place] [address] Christina Vaughnissa, BANKING SERVICES ADVISOR Acute pain of left shoulder (Primary Dx); Stiffness of left shoulder joint; Closed supracondylar fracture of left humerus with routine healing, subsequent encounter 05/12/2024 Bamboo flowsheet [facility] [address] [facility] [address] [place] [address] CollinColette liu, BANKING SERVICES ADVISOR 05/12/2024 Travel 05/07/2024 9:00 AM EDT Treatment [facility] [address] [facility] [address] [place] [address] Tutu Washington, BANKING SERVICES ADVISOR Acute pain of left shoulder (Primary Dx); Stiffness of left shoulder joint; Closed supracondylar fracture of left humerus with routine healing, subsequent encounter 05/07/2024 Bamboo flowsheet [facility] [address] [facility] [address] [place] [address] Tutu Washington, BANKING SERVICES ADVISOR 05/07/2024 Travel 05/05/2024 9:30 AM EDT Treatment [facility] [address] [facility] [address] [place] [address] Tutu Washington, BANKING SERVICES ADVISOR Acute pain of left shoulder (Primary Dx); Stiffness of left shoulder joint; Closed supracondylar fracture of left humerus with routine healing, subsequent encounter 05/05/2024 Bamboo flowsheet [facility] [address] [facility] [address] [place] [address] Tutu Washington, BANKING SERVICES ADVISOR 05/05/2024 Travel 05/01/2024 9:00 AM EDT Treatment [facility] [address] [facility] [address] [place] [address] Colette Vaughn, BANKING SERVICES ADVISOR Acute pain of left shoulder (Primary Dx); Stiffness of left shoulder joint; Closed supracondylar fracture of left humerus with routine healing, subsequent encounter 05/01/2024 Bamboo flowsheet [facility] [address] [facility] [address] [place] [address] Colette Vaughn, BANKING SERVICES ADVISOR 05/01/2024 Travel from Last 3 Months Social History Tobacco Use Types Packs/Day Years Used Date Smoking Tobacco: Never Assessed Comments Unknown Sex and Gender Information Value Date Recorded Sex Assigned at Not on file Legal Sex Female 10:39 AM EST Gender Identity Not on file Sexual Orientation Not on file Plan of Treatment Health Maintenance Due Date Last Done Comments CT Colonography 1950 Colonoscopy 1950 FIT-DNA 1950 FIT 1950 FOBT 1950 Pneumococcal Vaccine: 65+ Ye ars (1 of 1 - PCV) 2000 Colorectal Cancer Screening 07/07/2021 Sigmoidoscopy 07/07/2021 07/07/2016, 06/19, 09/17/2012, Additional history exists Influenza Vaccine (Season Ended) 2024 Mammogram 05/19/2025 05/19/2024, 04/20, 05/08/2022, Additional history exists Insurance MEDICARE [employer] Care Teams General Distillery Worker Relationship Specialty Start Date End Date Efrain Mantilla MD [address] [place] [address] PCP - General Internal Medicine 02/27/24
--- OUTSIDE RECORDS SUMMARY | 2024-08-01 14:17 | XMS_ITS | Encounter Summary ---
Author Organization [facility] Address [facility] [place] [address] Care Team Providers Care Housekeeping Coordinator Name Role Phone Annalee Olivas DO, Charles Lewis Primary Care Provi elliott Trever White MD Primary Care Provider [phone] Annalee Olivas DO, Charles Lewis Primary Care Provi elliott Source Comments In the event this information is protected by the Federal Confidentiality of Alcohol and Drug AbusePatient Records regulations: The Federal rules restrict any use of the information to criminally investigate or prosecute any alcohol or drug abuse patient.[facility] Encounter Details Date Type Department Care Team (Late st Contact Info) Description 12/09/2021 Get Medical Advice Colorectal Surgery [address] [address] Mellisa Dawkins MD [address] [id number] Your departure Social History Tobacco Use Types Packs/Day Years [...] N ot on file 01/27/2020 Data from: https://www.neighborhoodatlas.medicine.[facility]/. Last address used for calculation Not on [...] AM EDT Office Visit Orthopaedics [address] [address] Efrain Hernandez MD [address] [place], [place] [id number] 2 wk PO reverse 09/15/2024 11:45 AM EDT Office Visit Orthopaedics [address] [address] Efrain Hernandez MD [address] [place] [address] 6 wk PO reverse documented as of this encounter Visit Diagnoses Not on filedocumented in this encounter Care Teams Housekeeping Coordinator Relationship Specialty Start Date End Date Efrain Mantilla Jr., DO [facility] [place] [address] PCP - General 11/10/04 05/14/24 Trever White MD [address] [place], [place] [id number] PCP - General Family Medicine 05/15/24 07/06/24 Efrain Mantilla Jr., DO [facility] [place] [address] PCP - General Internal Medicine 07/07/24 MARK Rubio 05/05/21 documented as of this encounter
--- OUTSIDE RECORDS SUMMARY | 2024-08-01 14:17 | XMS_ITS | Encounter Summary ---
Author Organization [facility] Address [address] [place] [address] Care Team Providers Care Supplier Quality Engineering Manager Name Role Phone Annalee Olivas DO, Charles Lewis Primary Care Provi elliott Source Comments In the event this information is protected by the Federal Confidentiality of Alcohol and Drug AbusePatient Records regulations: The Federal rules restrict any use of the information to criminally investigate or prosecute any alcohol or drug abuse patient.[facility] Encounter Details Date Type Department Care Team (Late st Contact Info) Description 07/31/2024 Patient Msg Neurology [address] [place] [address] Joanne Albarado, VENESSA Social History Tobacco Use Types Packs/Day Years Used Date Smoking Tobacco: Former Cigarettes Q uit: 09/20/1995 Smokeless Tobacco: Never Alcohol Use Standard Drinks/Week Comments Yes 7 (1 standard drink = 0.6 oz pur e alcohol) glass of wine with dinner [facility] Utilities Answer Date Recorded In the [...] often do you attend chur ch or faith services? Never 05/15/2024 Do you belong to any clubs o r organizations such as restoration groups, unions, fraternal or athletic groups, or [...] Answer Date Recorded PHQ-2 score 2 07/03/2024 [facility] of Occupat ional [facility] - Occupational Stress Questionnaire Answer Date Recorded [...] any time in the past 12 m [facility], were you homeless or living in a skilled nursing (including now)? No 05/15/2024 Area Deprivation Index Answer Date Jorge rded National Score (1-100), lower number is lower ri sk 74 07/13/2022 State Score (1-10), lower number is lower risk 6 07/13/2022 Data from: https://www.neighborhoodatlas.medicine.[facility].edu/. Last address used for calculation [address] 07/13/2022 Comments No Sex and Gender Information [...] AM EDT Office Visit Orthopaedics [address] [address] Efrain Hernandez MD [address] [place], [place] [id number] 2 wk PO reverse 09/15/2024 11:45 AM EDT Office Visit Orthopaedics [address] [address] Efrain Hernandez MD [address] [place] [address] 6 wk PO reverse documented as of this encounter Visit Diagnoses Not on filedocumented in this encounter Care Teams Supplier Quality Engineering Manager Relationship Specialty Start Date End Date Efrain Mantilla Jr., [facility] [place] [address] PCP - General Internal Medicine 07/07/24 MARK Chavis CM - Joanne 05/05/21 documented as of this encounter
--- OUTSIDE RECORDS SUMMARY | 2024-08-01 14:18 | XMS_ITS | Encounter Summary ---
Author Organization [facility] Address [address] [place] [address] Care Team Providers Care Facilities Custodian Name Role Phone Annalee Olivas DO, Charles Lewis Primary Care Provi elliott Trever White MD Primary Care Provider [phone] Annalee Olivas DO, Charles Lewis Primary Care Provi elliott Source Comments In the event this information is protected by the Federal Confidentiality of Alcohol and Drug AbusePatient Records regulations: The Federal rules restrict any use of the information to criminally investigate or prosecute any alcohol or drug abuse patient.[facility] Reason for Visit * Reason Comments Refill Request Encounter Details Date Type Department Care Team (Late st Contact Info) Description 08/07/2023 Refill Gastroenterology [address] [id number] Stas Horvath MD [address] [place] [address] Refill Request Social History Tobacco Use Types Packs/Day Years [...] is lower risk 6 07/13/2022 Data from: https://www.neighborhoodatlas.[facility]/. Last address used for calculation [address] 07/13/2022 Comments No Sex and Gender Information [...] 11:45 AM EDT Office Visit Orthopaedics [address] [phone] Efrain Hernandez MD [address] [place], [place] [id number] 2 wk PO reverse 09/15/2024 11:45 AM EDT Office Visit Orthopaedics [address] [address] Efrain Hernandez MD [address] [place] [address] 6 wk PO reverse documented as of this encounter Visit Diagnoses Diagnosis Pernicious anemia Crohn's disease of both small and large intestine with abscess (HCC) Regional enteritis of small intestine with large intestine documented in this encounter Care Teams Facilities Custodian Relationship Specialty Start Date End Date Efrain Mantilla Jr., DO [facility] [place] [address] PCP - General 11/10/04 05/14/24 Trever White MD [address] [place] [address] PCP - General Family Medicine 05/15/24 07/06/24 Efrain Mantilla Jr., DO [address] [place] [address] PCP - General Internal Medicine 07/07/24 MARK Rubio 05/05/21 documented as of this encounter
--- OUTSIDE RECORDS SUMMARY | 2024-08-01 14:18 | XMS_ITS | Encounter Summary ---
Author Organization [facility] Address [address] [place] [address] Care Team Providers Care Nursing Home Assistant Administrator Name Role Phone Trever White MD Primary Care Provider [phone] Annalee Olivas DO, Charles Lewis Primary Care Provi elliott Source Comments In the event this information is protected by the Federal Confidentiality of Alcohol and Drug AbusePatient Records regulations: The Federal rules restrict any use of the information to criminally investigate or prosecute any alcohol or drug abuse patient.[facility] Encounter Details Date Type Department Care Team (Late st Contact Info) Description 06/26/2024 Get Medical Advice Gastroenterology [address] [address] Stas Horvath MD [address] [place] [address] Upcoming surgery Social History Tobacco Use Types Packs/Day Years Used Date Smoking Tobacco: Former Cigarettes Q uit: 09/20/1995 Smokeless Tobacco: Never Alcohol Use Standard Drinks/Week Comments Yes 7 (1 standard drink = 0.6 oz pur e alcohol) glass of wine with dinner [facility] Utilities Answer Date Recorded In [...] often do you attend chur ch or catholic services? Never 05/15/2024 Do you belong to [...] PHQ-2 Answer Date Recorded PHQ-2 score 2 06/10/2024 [facility] [place] of Occupat ional Health - Occupational [...] any time in the past 12 m [facility], were you homeless or living in a [place] health care facility (including now)? No 05/15/2024 Area Deprivation Index Answer Date Jorge rded National Score (1-100), lower number is lower ri sk 74 07/13/2022 State Score (1-10), lower number is lower risk 6 07/13/2022 Data from: https://www.neighborhoodatlas.medicine.[facility].edu/. Last address used for calculation [address] 07/13/2022 Comments No Sex and Gender Information [...] 01/22/2024 2:52 PM EST Yany Martinez RN * Are you blind or do you have serious difficulty seeing, even when wearing glasses? Answer Date of Assessment Author No 01/22/2024 2:52 PM EST Yany Martinez RN * Do you have serious difficulty [...] 11:45 AM EDT Office Visit Orthopaedics [address] [address] Efrain Hernandez MD [address] [place], [place] [phone] 2 wk PO reverse 09/15/2024 11:45 AM EDT Office Visit Orthopaedics [address] [address] Efrain Hernandez MD [address] [place], [place] [phone] 6 wk PO reverse documented as of this encounter Visit Diagnoses Not on filedocumented in this encounter Care Teams Nursing Home Assistant Administrator Relationship Specialty Start Date End Date Trever White MD [address] [place] [address] PCP - General Family Medicine 05/15/24 07/06/24 Efrain Mantilla Jr., [facility] [place] [address] PCP - General Internal Medicine 07/07/24 MARK Rubio 05/05/21 documented as of this encounter
--- OUTSIDE RECORDS SUMMARY | 2024-08-01 14:18 | XMS_ITS | Encounter Summary ---
Author Organization [facility] Address [address] [place] [address] Care Team Providers Care Freelance Data Entry Name Role Phone Annalee Olivas DO, Charles Lewis Primary Care Provi elliott Pcp, No WIGS SALESPERSON Primary Care Provider [facility] Trever Valdez MD Primary Care Provider [phone] Annalee Olivas DO, Charles Lewis Primary Care Provi elliott Source Comments In the event this information is protected by the Federal Confidentiality of Alcohol and Drug AbusePatient Records regulations: The Federal rules restrict any use of the information to criminally investigate or prosecute any alcohol or drug abuse patient.[facility] Reason for Visit * Reason Comments PHOTOS TAKEN Encounter Details Date Type Department Care Team (Late st Contact Info) Description 08/07/2003 Abstract Plastic Surgery [address] [id number] Hipolito Montez (Hist) PHOTOS TAKEN Social History Tobacco Use Types Packs/Day Years Used Date Smoking Tobacco: Never Assessed Comments No Sex and Gender Information Value Date Recorded Sex Assigned at Not on file Legal Sex Female 9:51 AM EST Gender Identity Not on file Sexual Orientation Lesbian or Nagy 07/31/2024 2: 30 PM EDT documented as of this encounter Progress Notes * 08/07/2003 11:53 AM EDT [id number] DATES OF PHOTOS: 08/07/2003 TAKEN WITH LENS: FRONTAL A.) 7ft / 85 mm H x5 ABDOMEN, FROM NIPPLES TO BELOW PUBIC AREA FRONTAL B.) 7ft / 85mm H x3 PT SITTING 90' ANGLE AP, R&L LAT VIEWS FRONTAL C.) 7ft / 85 mm H x3 PA VIEWS, ARMS EXTENDED OUT, 1/2 WAY DOWN & ARMS AT SIDE. POSES: PHOTO INFO: DIAGNOSIS: NECK / TRUNK: ABDOMINOPLASTY documented in this encounter Plan of Treatment Upcoming Encounters Date Type Department Care Team (Late st Contact Info) Description 08/11/2024 11:45 AM EDT Office Visit Orthopaedics [address] [place] [address] Efrain Hernandez MD [address] [place] [address] 2 wk PO reverse 09/15/2024 11:45 AM EDT Office Visit Orthopaedics [address] [address] Efrain Hernandez MD [address] [place] [address] 6 wk PO reverse documented as of this encounter Visit Diagnoses Not on filedocumented in this encounter Additional Health Concerns Infection Onset Date Last Indicated Resolved Time COVID-19 Rule-Out 04/18/2021 04/18/2021 04/18/2021 3:21 PM EST COVID-19 Rule-Out 05/09/2021 05/09/2021 05/09/2021 2:08 PM EDT COVID-19 Rule-Out 06/03/2021 06/03/2021 06/03/2021 10:53 AM EDT COVID-19 Rule-Out 07/01/2021 07/01/2021 07/01/2021 8:18 PM EDT documented as of this encounter Care Teams Freelance Data Entry Relationship Specialty Start Date End Date Efrain Mantilla Jr., [address] [place] [phone] PCP - General 11/10/04 05/14/24 Mattie Spaulding APRN PCP - General 07/08/03 11/09/04 Trever White MD [address] [place], [place] [phone] PCP - General Family Medicine 05/15/24 07/06/24 Efrain Mantilla Jr., [address] [place] [address] PCP - General Internal Medicine 07/07/24 MARK Rubio 05/05/21 documented as of this encounter
--- OUTSIDE RECORDS SUMMARY | 2024-08-01 14:18 | XMS_ITS | Encounter Summary ---
Author Organization [facility] Address [address] [place] [address] Care Team Providers Care Railcar Switcher Name Role Phone Annalee Olivas DO, Charles Lewis Primary Care Provi elliott Trever White MD Primary Care Provider [phone] Annalee Olivas DO, Charles Lewis Primary Care Provi elliott Source Comments In the event this information is protected by the Federal Confidentiality of Alcohol and Drug AbusePatient Records regulations: The Federal rules restrict any use of the information to criminally investigate or prosecute any alcohol or drug abuse patient.[facility] Encounter Details Date Type Department Care Team (Late st Contact Info) Description 02/18/2017 Patient Msg Gastroenterolgy [address] [place] [address] Stas Horvath MD [address] [place] [address] Social History Tobacco Use Types Packs/Day Years Used Date Smoking Tobacco: Former Cigarettes Q uit: 09/20/1995 Alcohol Use Standard Drinks/Week Comments Yes 0 (1 standard drink = 0.6 oz pur e alcohol) Comments No Sex and Gender Information Value Date Recorded Sex Assigned at Not on file Legal Sex Female 9:51 AM EST Gender Identity Not on file Sexual Orientation Lesbian or Nagy 07/31/2024 2: 30 PM EDT documented as of this encounter Plan of Treatment Upcoming Encounters Date Type Department Care Team (Late st Contact Info) Description 08/11/2024 11:45 AM EDT Office Visit Orthopaedics [address] [address] Efrain Hernandez MD [address] [place] [address] 2 wk PO reverse 09/15/2024 11:45 AM EDT Office Visit Orthopaedics [address] [address] Efrain Hernandez MD [address] [place] [address] 6 wk PO reverse documented [...] documented as of this encounter Care Teams Railcar Switcher Relationship Specialty Start Date End Date Efrain Mantilla Jr., DO [employer] [place] [address] PCP - General 11/10/04 05/14/24 Trever White MD [address] [place] [address] PCP - General Family Medicine 05/15/24 07/06/24 Efrain Mantilla Jr., [address] [place] [address] [place] [address] PCP - General Internal Medicine 07/07/24 MARK Rubio 05/05/21 documented as of this encounter
--- OUTSIDE RECORDS SUMMARY | 2024-08-01 14:18 | XMS_ITS | Encounter Summary ---
Author Organization [facility] Address [address] [place] [address] Care Team Providers Care Forest Products Gatherer Name Role Phone Annalee Olivas DO, Charles [...] Care Team (Late st Contact Info) Description 10/03/2023 Telephone HOSP STOMA [address] [place] [address] Therapy, [facility] [address] [place] [id number] Social History Tobacco Use Types Packs/Day Years [...] is lower risk 6 07/13/2022 Data from: https://www.neighborhoodatlas.medicine.[facility]/. Last address used for calculation [address] 07/13/2022 Comments No Sex and Gender Information [...] encounter Miscellaneous Notes * Telephone Encounter - Phyllis Kimbrough RN - 10/03/2023 4:22 PM EDT [facility] nursing returned patient message regarding: having difficulty with pouching Left Message: Yes, went to voicemail and voicemail was left Information/Recommendations provided: returned call and no answer so left voicemail for pt to call back. Also provided appointment line number if wants to come in for outpatient [facility] clinic appointment. Time spent: 15 minutes Phyllis Kimbrough, LUCAS, RN, COCN, CCCN * Telephone Encounter - Alysia Montoya, PEREZ - 10/03/2023 3:13 PM EDT Patient is having trouble with pouching system and needs recommendations. Call back# [phone] Thank you, Alysia Montoya Coordinator II [facility] nursing documented in this encounter Plan of Treatment Upcoming Encounters Date Type Department Care Team (Late st Contact Info) Description 08/11/2024 11:45 AM EDT Office Visit Orthopaedics [address] [place] [address] Efrain Hernandez MD [address] [place], [place] [phone] 2 wk PO reverse 09/15/2024 11:45 AM EDT Office Visit Orthopaedics [address] [place] [address] Efrain Hernandez MD [address] [place], [place] [phone] 6 wk PO reverse documented as of this encounter Visit Diagnoses Not on filedocumented in this encounter Care Teams Forest Products Gatherer Relationship Specialty Start Date End Date Efrain Mantilla Jr., DO [address] [place] [phone] PCP - General 11/10/04 05/14/24 Trever White MD [address] [place] [address] PCP - General Family Medicine 05/15/24 07/06/24 Efrain Mantilla Jr. DO [address] [facility] [place] [address] PCP - General Internal Medicine 07/07/24 MARK Rubio 05/05/21 documented as of this encounter
--- OUTSIDE RECORDS SUMMARY | 2024-08-01 14:18 | XMS_ITS | Encounter Summary ---
Author Organization [facility] Address [address] [place] [address] Care Team Providers Care Feed Project Engineer Name Role Phone Annalee Olivas DO, Charles Lewis Primary Care Provi elliott Trever White MD Primary Care Provider [phone] Annalee Olivas DO, Charles Lewis Primary Care Provi elliott Source Comments In the event this information is protected by the Federal Confidentiality of Alcohol and Drug AbusePatient Records regulations: The Federal rules restrict any use of the information to criminally investigate or prosecute any alcohol or drug abuse patient.[facility] Encounter Details Date Type Department Care Team (Late st Contact Info) Description 03/27/2022 Get Medical Advice Gastroenterology [address] [place] [phone] Stas Horvath MD [address] [place] [address] Blood testing Social History Tobacco Use Types Packs/Day Years Used Date Smoking Tobacco: Former Cigarettes Q uit: 09/20/1995 Smokeless Tobacco: Never Alcohol Use Standard Drinks/Week Comments Yes 7 (1 standard drink = 0.6 oz pur e alcohol) glass of wine with dinner Area Deprivation Index Answer Date Jorge rded National Score (1-100), lower number is lower ri sk 69 03/06/2022 State Score (1-10), lower number is lower risk N ot on file 03/06/2022 Data from: https://www.neighborhoodatlas.medicine.[facility]/. Last address used for calculation [address] 03/06/2022 Comments No Sex and Gender Information Value [...] 11:45 AM EDT Office Visit Orthopaedics [address] [address] Efrain Hernandez MD [address] [place] [address] 2 wk PO reverse 09/15/2024 11:45 AM EDT Office Visit Orthopaedics [address] [address] Efrain Hernandez MD [address] [place], [place] [phone] 6 wk PO reverse documented as of this encounter Visit Diagnoses Not on filedocumented in this encounter Care Teams Feed Project Engineer Relationship Specialty Start Date End Date Efrain Mantilla Jr., DO [address] [place] [address] PCP - General 11/10/04 05/14/24 Trever White MD [address] [place] [address] PCP - General Family Medicine 05/15/24 07/06/24 Efrain Mantilla Jr., DO [facility] [place] [address] PCP - General Internal Medicine 07/07/24 MARK Rubio 05/05/21 documented as of this encounter
--- OUTSIDE RECORDS SUMMARY | 2024-08-01 14:18 | XMS_ITS | Encounter Summary ---
Author Organization [facility] Address [address] [place] [address] Care Team Providers Care Finishing Powder Press Operator Name Role Phone Annalee Olivas DO, Charles Lewis Primary Care Provi elliott Trever White MD Primary Care Provider [phone] Annalee Olivas DO, Charles Lewis Primary Care Provi elliott Source Comments In the event this information is protected by the Federal Confidentiality of Alcohol and Drug AbusePatient Records regulations: The Federal rules restrict any use of the information to criminally investigate or prosecute any alcohol or drug abuse patient.[facility] Encounter Details Date Type Department Care Team (Late st Contact Info) Description 04/02/2017 Get Medical Advice Gastroenterology [address] [place] [phone] Stas Horvath MD [address] [place] [address] RE: RE: Visit Follow Up Question Social History Tobacco Use Types Packs/Day Years [...] 11:45 AM EDT Office Visit Orthopaedics [address] [place] [phone] Efrain Hernandez MD [address] [place] [address] 2 wk PO reverse 09/15/2024 11:45 AM EDT Office Visit Orthopaedics [address] [place] [address] Efrain Hernandez MD [address] [place] [address] 6 wk PO reverse documented as of [...] documented as of this encounter Care Teams Finishing Powder Press Operator Relationship Specialty Start Date End Date Efrain Mantilla Jr., DO [facility]3 [place] [address] PCP - General 11/10/04 05/14/24 Trever White MD [address] [place] [address] PCP - General Family Medicine 05/15/24 07/06/24 Efrain Mantilla Jr., DO [facility]3 [place] [address] PCP - General Internal Medicine 07/07/24 MARK Rubio 05/05/21 documented as of this encounter
--- OUTSIDE RECORDS SUMMARY | 2024-08-01 14:18 | XMS_ITS | Encounter Summary ---
Author Organization [facility] Address [address] [place] [address] Care Team Providers Care Movie Actor Name Role Phone Annalee Olivas DO, Charles Lewis Primary Care Provi elilott Trever White MD Primary Care Provider [phone] Annalee Olivas DO, Charles Lewis Primary Care Provi elliott Source Comments In the event this information is protected by the Federal Confidentiality of Alcohol and Drug AbusePatient Records regulations: The Federal rules restrict any use of the information to criminally investigate or prosecute any alcohol or drug abuse patient.[facility] Encounter Details Date Type Department Care Team (Late st Contact Info) Description 05/17/2022 Get Medical Advice Gastroenterology [address] [place] [phone] Stas Horvath MD [address] [place] [address] New diagnosis Social History Tobacco Use Types Packs/Day Years [...] N ot on file 03/06/2022 Data from: https://www.neighborhoodatlas.medicine.[facility]/. Last address used for calculation [address] [...] 11:45 AM EDT Office Visit Orthopaedics [address] [address] Efrain Hernandez MD [address] [place] [address] 2 wk PO reverse 09/15/2024 11:45 AM EDT Office Visit Orthopaedics [address] [address] Efrain Hernandez MD [address] [place], [place] [phone] 6 wk PO reverse documented as of this encounter Visit Diagnoses Not on filedocumented in this encounter Care Teams Movie Actor Relationship Specialty Start Date End Date Efrain Mantilla Jr., DO [address] [place] [address] PCP - General 11/10/04 05/14/24 Trever White MD [address] [place] [address] PCP - General Family Medicine 05/15/24 07/06/24 Efrain Mantilla Jr., DO [facility] [place] [address] PCP - General Internal Medicine 07/07/24 MARK Rubio 05/05/21 documented as of this encounter
--- OUTSIDE RECORDS SUMMARY | 2024-08-01 14:18 | XMS_ITS | Encounter Summary ---
Author Organization [facility] Address [facility] [place] [address] Care Team Providers Care Manager Dental Name Role Phone Annalee Olivas DO, Charles Lewis Primary Care Provi elliott Trever White MD Primary Care Provider [phone] Annalee Olivas DO, Charles Lewis Primary Care Provi elliott Source Comments In the event this information is protected by the Federal Confidentiality of Alcohol and Drug AbusePatient Records regulations: The Federal rules restrict any use of the information to criminally investigate or prosecute any alcohol or drug abuse patient.[facility] Encounter Details Date Type Department Care Team (Late st Contact Info) Description 04/19/2022 Get Medical Advice Pulmonary Medicine [address] [place] [address] Pedro Cisneros MD [address] [place] [address] Test results video visit Social History Tobacco Use Types Packs/Day [...] ot on file 03/06/2022 Data from: https://www.neighborhoodatlas.medicine.[facility]/. Last address used for calculation [address] [...] 11:45 AM EDT Office Visit Orthopaedics [address] [address] Efrain Hernandez MD [address] [place] [address] 2 wk PO reverse 09/15/2024 11:45 AM EDT Office Visit Orthopaedics [address] [address] Efrain Hernandez MD [address] [place], [place] [phone] 6 wk PO reverse documented as of this encounter Visit Diagnoses Not on filedocumented in this encounter Care Teams Manager Dental Relationship Specialty Start Date End Date Efrain Mantilla Jr., DO [address] [place] [address] PCP - General 11/10/04 05/14/24 Trever White MD [address] [place] [address] PCP - General Family Medicine 05/15/24 07/06/24 Efrain Mantilla Jr., DO [facility]3 [place] [address] PCP - General Internal Medicine 07/07/24 MARK Rubio 05/05/21 documented as of this encounter
--- OUTSIDE RECORDS SUMMARY | 2024-08-01 14:18 | XMS_ITS | Encounter Summary ---
Author Organization [facility] Address [address] [place] [address] Care Team Providers Care Tire Builder Heavy Service Name Role Phone Annalee Olivas DO, Charles Lewis Primary Care Provi elliott Trever White MD Primary Care Provider [phone] Annalee Olivas DO, Charles Lewis Primary Care Provi elliott Source Comments In the event this information is protected by the Federal Confidentiality of Alcohol and Drug AbusePatient Records regulations: The Federal rules restrict any use of the information to criminally investigate or prosecute any alcohol or drug abuse patient.[facility] Encounter Details Date Type Department Care Team (Late st Contact Info) Description 07/18/2016 Get Medical Advice Gastroenterology [address] [place] [phone] Stas Horvath MD [address] [place] [address] RE: Test Result Question Social History Tobacco Use Types Packs/Day [...] AM EDT Office Visit Orthopaedics [address] [address] Efrain Hernandez MD [address] [place], [place] [phone] 2 wk PO reverse 09/15/2024 11:45 AM EDT Office Visit Orthopaedics [address] [address] Efrain Hernandez MD [address] [place] [address] 6 wk PO reverse documented [...] documented as of this encounter Care Teams Tire Builder Heavy Service Relationship Specialty Start Date End Date Efrain Mantilla Jr., DO [facility] [place] [address] PCP - General 11/10/04 05/14/24 Trever White MD [address] [place] [address] PCP - General Family Medicine 05/15/24 07/06/24 Efrain Mantilla Jr., DO [address] [place] [address] PCP - General Internal Medicine 07/07/24 MARK Rubio 05/05/21 documented as of this encounter
--- OUTSIDE RECORDS SUMMARY | 2024-08-01 14:18 | XMS_ITS | Encounter Summary ---
Author Organization [facility] Address [address] [place] [address] Care Team Providers Care Leak Detection Engineer Name Role Phone Annalee Olivas DO, Charles Lewis Primary Care Provi elliott Trever White MD Primary Care Provider [phone] Annalee Olivas DO, Charles Lewis Primary Care Provi elliott Source Comments In the event this information is protected by the Federal Confidentiality of Alcohol and Drug AbusePatient Records regulations: The Federal rules restrict any use of the information to criminally investigate or prosecute any alcohol or drug abuse patient.[facility] Encounter Details Date Type Department Care Team (Late st Contact Info) Description 03/06/2022 Get Medical Advice Gastroenterology [address] [place] [phone] Stas Horvath MD [address] [place] [address] Rx and letter Social History Tobacco Use Types Packs/Day Years [...] N ot on file 03/06/2022 Data from: https://www.neighborhoodatlas.medicine.[facility]/. Last address used for calculation [address] [...] 11:45 AM EDT Office Visit Orthopaedics [address] [address] Efrain Hernandez MD [address] [place] [address] 2 wk PO reverse 09/15/2024 11:45 AM EDT Office Visit Orthopaedics [address] [address] Efrain Hernandez MD [address] [place], [place] [phone] 6 wk PO reverse documented as of this encounter Visit Diagnoses Not on filedocumented in this encounter Care Teams Leak Detection Engineer Relationship Specialty Start Date End Date Efrain Mantilla Jr., DO [address] [place] [address] PCP - General 11/10/04 05/14/24 Trever White MD [address] [place], [place] [phone] PCP - General Family Medicine 05/15/24 07/06/24 Efrain Mantilla Jr., DO [address] [place] [address] PCP - General Internal Medicine 07/07/24 MARK Rubio 05/05/21 documented as of this encounter
--- OUTSIDE RECORDS SUMMARY | 2024-08-01 14:18 | XMS_ITS | Encounter Summary ---
Author Organization [facility] Address [address] [place] [address] Care Team Providers Care Dictaphone Technician Name Role Phone Annalee Olivas DO, Charles Lewis Primary Care Provi elliott Trever White MD Primary Care Provider [phone] Annalee Olivas DO, Charles Lewis Primary Care Provi elliott Source Comments In the event this information is protected by the Federal Confidentiality of Alcohol and Drug AbusePatient Records regulations: The Federal rules restrict any use of the information to criminally investigate or prosecute any alcohol or drug abuse patient.[facility] Encounter Details Date Type Department Care Team (Late st Contact Info) Description 03/01/2022 Get Medical Advice Gastroenterology [address] [place] [phone] Stas Horvath MD [address] [place] [address] New Year new RX Social History Tobacco Use Types Packs/Day [...] N ot on file 01/27/2020 Data from: https://www.neighborhoodatlas.medicine.[facility]/. Last address used for calculation [...] Telephone Encounter - Brigida Hopkins RN - 03/01/2022 10:21 AM EST [id number] [place] [address] - [address] [facility] [phone] and spoke to Mercedes Lerma pharmacist and called in prescription for xanax and Vitamin B-12 injection medications.Brigida Hopkins RN March 01, 2022 10:35 AM documented in this encounter Plan of Treatment Upcoming Encounters Date Type Department Care Team (Late st Contact Info) Description 08/11/2024 11:45 AM EDT Office Visit Orthopaedics [address] [address] Efrain Hernandez MD [address] [place], [place] [phone] 2 wk PO reverse 09/15/2024 11:45 AM EDT Office Visit Orthopaedics [address] [address] Efrain Hernandez MD [address] [place], [place] [phone] 6 wk PO reverse documented as of this encounter Visit Diagnoses Diagnosis Pernicious anemia Crohn's disease of both small and large intestine with abscess (HCC) Regional enteritis of small intestine with large intestine documented in this encounter Care Teams Dictaphone Technician Relationship Specialty Start Date End Date Efrain Mantilla Jr., [address] [place] [phone] PCP - General 11/10/04 05/14/24 Trever White MD [address] [place] [address] PCP - General Family Medicine 05/15/24 07/06/24 Efrain Mantilla Jr., DO [address] [place] [phone] PCP - General Internal Medicine 07/07/24 MARK Rubio 05/05/21 documented as of this encounter
--- OUTSIDE RECORDS SUMMARY | 2024-08-01 14:18 | XMS_ITS | Encounter Summary ---
Author Organization [facility] Address [address] [place] [address] Care Team Providers Care Veterinary Technician Name Role Phone Annalee Olivas DO, Charles Lewis Primary Care Provi elliott Trever White MD Primary Care Provider [phone] Annalee Olivas DO, Charles Lewis Primary Care [...] Care Team (Late st Contact Info) Description 06/06/2017 Get Medical Advice Gastroenterology [address] [place] [phone] Stas Horvath MD [address] [place] [address] RE: RE: Visit Follow Up [...] 11:45 AM EDT Office Visit Orthopaedics [address] [place] [phone] Efrain Hernandez MD [address] [place] [address] 2 wk PO reverse 09/15/2024 11:45 AM EDT Office Visit Orthopaedics [address] [place] [address] Efrain Hernandez MD [address] [place] [address] 6 wk PO reverse documented as of [...] documented as of this encounter Care Teams Veterinary Technician Relationship Specialty Start Date End Date Efrain Mantilla Jr., DO [facility]3 [place] [address] PCP - General 11/10/04 05/14/24 Trever White MD [address] [place] [address] PCP - General Family Medicine 05/15/24 07/06/24 Efrain Mantilla Jr., DO [facility]3 [place] [address] PCP - General Internal Medicine 07/07/24 MARK Rubio 05/05/21 documented as of this encounter
--- OUTSIDE RECORDS SUMMARY | 2024-08-01 14:18 | XMS_ITS | Encounter Summary ---
Author Organization [facility] Address [address] [place] [address] Care Team Providers Care Bluing Oven Tender Name Role Phone Annalee Olivas DO, Charles Lewis Primary Care Provi elliott Trever White MD Primary Care Provider [phone] Annalee Olivas DO, Charles Lewis Primary Care Provi elliott Source Comments In the event this information is protected by the Federal Confidentiality of Alcohol and Drug AbusePatient Records regulations: The Federal rules restrict any use of the information to criminally investigate or prosecute any alcohol or drug abuse patient.[facility] Encounter Details Date Type Department Care Team (Late st Contact Info) Description 08/08/2022 Patient Msg Gastroenterology [address] [id number] Provider, John B12 Social History Tobacco Use Types Packs/Day Years [...] is lower risk 6 07/13/2022 Data from: https://www.neighborhoodatlas.medicine.[facility].edu/. Last address used for calculation [address] 07/13/2022 Comments No Sex and Gender Information [...] encounter Miscellaneous Notes * Telephone Encounter - Carey Rodriguez - 08/08/2022 2:27 PM EDT Received call from patient, she has her B-12 injections monthly. Patient is scheduled for a clinic visit 09/08/22. Carey Rodriguez documented in this encounter Plan of Treatment Upcoming Encounters Date Type Department Care Team ([facility] st Contact Info) Description 08/11/2024 11:45 AM EDT Office Visit Orthopaedics [address] [address] Efrain Hernandez MD [address] [place] [address] 2 wk PO reverse 09/15/2024 11:45 AM EDT Office Visit Orthopaedics [address] [address] Efrain Hernandez MD [address] [place], [place] [phone] 6 wk PO reverse documented as of this encounter Visit Diagnoses Not on filedocumented in this encounter Care Teams Bluing Oven Tender Relationship Specialty Start Date End Date Efrain Mantilla Jr., DO [facility]3 [place] [address] PCP - General 11/10/04 05/14/24 Trever White MD [address] [place] [address] PCP - General Family Medicine 05/15/24 07/06/24 Efrain Mantilla Jr., DO [facility]3 [place] [address] PCP - General Internal Medicine 07/07/24 MARK Rubio 05/05/21 documented as of this encounter
--- OUTSIDE RECORDS SUMMARY | 2024-08-01 14:18 | XMS_ITS | Encounter Summary ---
Author Organization [facility] Address [address] [place] [address] Care Team Providers Care Trust Accounts Supervisor Name Role Phone Annalee Olivas DO, Charles Lewis Primary Care Provi elliott Trever White MD Primary Care Provider [phone] Annalee Olivas DO, Charles Lewis Primary Care Provi elliott Source Comments In the event this information is protected by the Federal Confidentiality of Alcohol and Drug AbusePatient Records regulations: The Federal rules restrict any use of the information to criminally investigate or prosecute any alcohol or drug abuse patient.[facility] Encounter Details Date Type Department Care Team (Late st Contact Info) Description 08/15/2022 Get Medical Advice Gastroenterology [address] [phone] Stas Hovrath MD [address] [place] [address] RX refill Social History Tobacco Use Types Packs/Day Years [...] is lower risk 6 07/13/2022 Data from: https://www.neighborhoodatlas.[facility]/. Last address used for calculation [address] 07/13/2022 Comments No Sex and Gender Information [...] 11:45 AM EDT Office Visit Orthopaedics [address] [address] Efrain Hernandez MD [address] [place], [place] [phone] 2 wk PO reverse 09/15/2024 11:45 AM EDT Office Visit Orthopaedics [address] [address] Efrain Hernandez MD [address] [place], [place] [phone] 6 wk PO reverse documented as of this encounter Visit Diagnoses Not on filedocumented in this encounter Care Teams Trust Accounts Supervisor Relationship Specialty Start Date End Date Efrain Mantilla Jr., DO [facility] [place] [address] PCP - General 11/10/04 05/14/24 Trever White MD [address] [place] [address] PCP - General Family Medicine 05/15/24 07/06/24 Efrain Mantilla Jr., DO [address] [place] [address] PCP - General Internal Medicine 07/07/24 MARK Rubio 05/05/21 documented as of this encounter
--- OUTSIDE RECORDS SUMMARY | 2024-08-01 14:18 | XMS_ITS | Encounter Summary ---
Author Organization [facility] Address [address] [place] [address] Care Team Providers Care Automatic Oven Operator Name Role Phone Annalee Olivas DO, Charles Lewis Primary Care Provi elliott Trever White MD Primary Care Provider [phone] Annalee Olivas DO, Charles Lewis Primary Care Provi elliott Source Comments In the event this information is protected by the Federal Confidentiality of Alcohol and Drug AbusePatient Records regulations: The Federal rules restrict any use of the information to criminally investigate or prosecute any alcohol or drug abuse patient.[facility] Encounter Details Date Type Department Care Team (Late st Contact Info) Description 04/23/2024 Get Medical Advice Gastroenterology [address] [phone] Stas Horvath MD [address] [place] [address] Lab test results Social History Tobacco Use Types Packs/Day Years Used Date Smoking Tobacco: Former Cigarettes Q uit: 09/20/1995 Smokeless Tobacco: Never Alcohol Use Standard Drinks/Week Comments Yes 7 (1 standard drink = 0.6 oz pur e alcohol) glass of wine with dinner [facility] Utilities Answer Date Recorded In [...] time in the past 12 m [facility], were you homeless or living in a long term (including now)? No 01/21/2024 Area Deprivation Index Answer Date Jorge rded National Score (1-100), lower number is lower ri sk 74 07/13/2022 State Score (1-10), lower number is lower risk 6 07/13/2022 Data from: https://www.neighborhoodatlas.med[facility].edu/. Last address used for calculation [address] 07/13/2022 Comments No Sex and Gender Information [...] 11:45 AM EDT Office Visit Orthopaedics [address] [phone] Efrain Hernandez MD [address] [place] [address] 2 wk PO reverse 09/15/2024 11:45 AM EDT Office Visit Orthopaedics [address] [address] Efrain Hernandez MD [address] [place] [address] 6 wk PO reverse documented as of this encounter Visit Diagnoses Not on filedocumented in this encounter Care Teams Automatic Oven Operator Relationship Specialty Start Date End Date Efrain Mantilla Jr., DO [address] [place] [phone] PCP - General 11/10/04 05/14/24 Trever White MD [address] [place] [address] PCP - General Family Medicine 05/15/24 07/06/24 Efrain Mantilla Jr., [facility]3 [place] [address] PCP - General Internal Medicine 07/07/24 MARK Rubio 05/05/21 documented as of this encounter
--- OUTSIDE RECORDS SUMMARY | 2024-08-01 14:18 | XMS_ITS | Encounter Summary ---
Author Organization [facility] Address [facility] [place] [address] Care Team Providers Care Industrial Safety And Health Technician Name Role Phone Annalee Olivas DO, Charles Lewis Primary Care Provi elliott Trever White MD Primary Care Provider [phone] Annalee Olivas DO, Charles Lewis Primary Care [...] Contact Info) Description 03/27/2022 Get Medical Advice Pulmonary Medicine [address] [place] [address] Pedro Cisneros MD [address] [place] [address] April Social History Tobacco Use Types Packs/Day Years [...] N ot on file 03/06/2022 Data from: https://www.neighborhoodatlas.[facility]/. Last address used for calculation [...] 11:45 AM EDT Office Visit Orthopaedics [address] [address] Efrain Hernandez MD [address] [place], [place] [phone] 2 wk PO reverse 09/15/2024 11:45 AM EDT Office Visit Orthopaedics [address] [address] Efrain Hernandez MD [address] [place], [place] [phone] 6 wk PO reverse documented as of this encounter Visit Diagnoses Not on filedocumented in this encounter Care Teams Industrial Safety And Health Technician Relationship Specialty Start Date End Date Efrain Mantilla Jr., DO [facility]3 [place] [address] PCP - General 11/10/04 05/14/24 Trever White MD [address] [place] [address] PCP - General Family Medicine 05/15/24 07/06/24 Efrain Mantilla Jr., DO [address] [place] [address] PCP - General Internal Medicine 07/07/24 MARK Rubio 05/05/21 documented as of this encounter
--- OUTSIDE RECORDS SUMMARY | 2024-08-01 14:18 | XMS_ITS | Clinical Summary ---
Author Organization [facility] Address [address] [place] [address] Phone Care Team Providers Care Program Trainer Name Role Phone Unavailable Primary Care Provider Unavailabl e Social History Tobacco Use Types Packs/Day Years Used Date Smoking Tobacco: Never Assessed Comments Unknown Sex and Gender Information Value Date Recorded Sex Assigned at Not on file Legal Sex Female 12:09 AM EST Gender Identity Not on file Sexual Orientation Not on file Plan of Treatment Not on file
--- OUTSIDE RECORDS SUMMARY | 2024-08-01 14:18 | XMS_ITS | Encounter Summary ---
Author Organization [facility] Address [facility] [place] [address] Care Team Providers Care Snow Groomer Name Role Phone Annalee Olivas DO, Charles Lewis Primary Care Provi elliott Trever White MD Primary Care Provider [phone] Annalee Olivas DO, Charles Lewis Primary Care Provi elliott Source Comments In the event this information is protected by the Federal Confidentiality of Alcohol and Drug AbusePatient Records regulations: The Federal rules restrict any use of the information to criminally investigate or prosecute any alcohol or drug abuse patient.[facility] Encounter Details Date Type Department Care Team (Late st Contact Info) Description 03/24/2022 Get Medical Advice Pulmonary Medicine [address] [place] [address] Pedro Cisneros MD [facility] [place] [address] May 05 appointment Social History Tobacco Use Types Packs/Day Years [...] N ot on file 03/06/2022 Data from: https://www.neighborhoodatlas.medicine.[facility]/. Last address used for calculation [address] [...] 11:45 AM EDT Office Visit Orthopaedics [address] [address] Efrain Hernandez MD [address] [place] [address] 2 wk PO reverse 09/15/2024 11:45 AM EDT Office Visit Orthopaedics [address] [address] Efrain Hernandez MD [address] [place], [place] [phone] 6 wk PO reverse documented as of this encounter Visit Diagnoses Not on filedocumented in this encounter Care Teams Snow Groomer Relationship Specialty Start Date End Date Efrain Mantilla Jr., DO [address] [place] [address] PCP - General 11/10/04 05/14/24 Trever White MD [address] [place] [address] PCP - General Family Medicine 05/15/24 07/06/24 Efrain Mantilla Jr., DO [facility]3 [place] [address] PCP - General Internal Medicine 07/07/24 MARK Rubio 05/05/21 documented as of this encounter
--- OUTSIDE RECORDS SUMMARY | 2024-08-01 14:18 | XMS_ITS | Encounter Summary ---
Author Organization [facility] Address [facility] [place] [address] Care Team Providers Care Set Up Mechanic Coating Machines Name Role Phone Annalee Olivas DO, Charles Lewis Primary Care Provi elliott Trever White MD Primary Care Provider [phone] Annalee Olivas DO, Charles Lewis Primary Care Provi elliott Source Comments In the event this information is protected by the Federal Confidentiality of Alcohol and Drug AbusePatient Records regulations: The Federal rules restrict any use of the information to criminally investigate or prosecute any alcohol or drug abuse patient.[facility] Encounter Details Date Type Department Care Team (Late st Contact Info) Description 01/04/2023 Get Medical Advice Pulmonary Medicine [address] [place] [address] Pedro Cisneros MD [facility]3 [place] [address] Test required April 14 Social History Tobacco Use Types Packs/Day Years [...] is lower risk 6 07/13/2022 Data from: https://www.neighborhoodatlas.[facility]/. Last address used for calculation [address] 07/13/2022 Comments No Sex and Gender Information [...] 11:45 AM EDT Office Visit Orthopaedics [address] [phone] Efrain Hernandez MD [address] [place] [address] 2 wk PO reverse 09/15/2024 11:45 AM EDT Office Visit Orthopaedics [address] [address] Efrain Hernandez MD [address] [place], [place] [phone] 6 wk PO reverse documented as of this encounter Visit Diagnoses Not on filedocumented in this encounter Care Teams Set Up Mechanic Coating Machines Relationship Specialty Start Date End Date Efrain Mantilla Jr., DO [facility]3 [place] [address] PCP - General 11/10/04 05/14/24 Trever White MD [address] [place] [address] PCP - General Family Medicine 05/15/24 07/06/24 Efrain Mantilla Jr., DO [address] [place] [address] PCP - General Internal Medicine 07/07/24 MARK Rubio 05/05/21 documented as of this encounter
--- OUTSIDE RECORDS SUMMARY | 2024-08-01 14:18 | XMS_ITS | Encounter Summary ---
Author Organization [facility] Address [facility] [place] [address] Care Team Providers Care Bank Cashier Name Role Phone Annalee Olivas DO, Charles Lewis Primary Care Provi elliott Trever White MD Primary Care Provider [phone] Annalee Olivas DO, Charles Lewis Primary Care Provi elliott Source Comments In the event this information is protected by the Federal Confidentiality of Alcohol and Drug AbusePatient Records regulations: The Federal rules restrict any use of the information to criminally investigate or prosecute any alcohol or drug abuse patient.[facility] Encounter Details Date Type Department Care Team (Late st Contact Info) Description 05/23/2023 Get Medical Advice Pulmonary Medicine [address] [place] [address] Pedro Cisneros MD [address] [place] [address] Test results Social History Tobacco Use Types Packs/Day [...] 6 07/13/2022 Data from: https://www.neighborhoodatlas.medicine.[facility]/. Last address used for calculation [address] 07/13/2022 Comments No Sex and Gender Information [...] 11:45 AM EDT Office Visit Orthopaedics [address] [phone] Efrain Hernandez MD [address] [place] [address] 2 wk PO reverse 09/15/2024 11:45 AM EDT Office Visit Orthopaedics [address] [address] Efrain Hernandez MD [address] [place], [place] [phone] 6 wk PO reverse documented as of this encounter Visit Diagnoses Not on filedocumented in this encounter Care Teams Bank Cashier Relationship Specialty Start Date End Date Efrain Mantilla Jr., DO [facility]3 [place] [address] PCP - General 11/10/04 05/14/24 Trever White MD [address] [place] [address] PCP - General Family Medicine 05/15/24 07/06/24 Efrain Mantilla Jr., DO [address] [place] [address] PCP - General Internal Medicine 07/07/24 MARK Rubio 05/05/21 documented as of this encounter
--- OUTSIDE RECORDS SUMMARY | 2024-08-01 14:18 | XMS_ITS | Encounter Summary ---
Author Organization [facility] Address [address] [place] [address] Care Team Providers Care Kindergarten Aide Name Role Phone Annalee Olivas DO, Charles Lewis Primary Care Provi elliott Trever White MD Primary Care Provider [phone] Annalee Olivas DO, Charles Lewis Primary Care Provi elliott Source Comments In the event this information is protected by the Federal Confidentiality of Alcohol and Drug AbusePatient Records regulations: The Federal rules restrict any use of the information to criminally investigate or prosecute any alcohol or drug abuse patient.[facility] Encounter Details Date Type Department Care Team (Late st Contact Info) Description 03/06/2022 Patient Msg Gastroenterology [address] [phone] Provider, Ccf Letter Social History Tobacco Use Types Packs/Day Years [...] N ot on file 03/06/2022 Data from: https://www.neighborhoodatlas.medicine.[facility]/. Last address used for calculation [address] [employer] 03/06/2022 Comments No Sex and Gender Information [...] 11:45 AM EDT Office Visit Orthopaedics [address] [address] Efrain Hernandez MD [address] [place] [address] 2 wk PO reverse 09/15/2024 11:45 AM EDT Office Visit Orthopaedics [address] [address] Efrain Hernandez MD [address] [place], [place] [phone] 6 wk PO reverse documented as of this encounter Visit Diagnoses Not on filedocumented in this encounter Care Teams Kindergarten Aide Relationship Specialty Start Date End Date Efrain Mantilla Jr., DO [facility]3 [place] [address] PCP - General 11/10/04 05/14/24 Trever White MD [address] [place] [address] PCP - General Family Medicine 05/15/24 07/06/24 Efrain Mantilla Jr., DO [facility]3 [place] [address] PCP - General Internal Medicine 07/07/24 MARK Rubio 05/05/21 documented as of this encounter
--- OUTSIDE RECORDS SUMMARY | 2024-08-01 14:18 | XMS_ITS | Encounter Summary ---
Author Organization [facility] Address [facility] [place] [address] Care Team Providers Care Information Systems Consultant Name Role Phone Annalee Olivas DO, Charles Lewis Primary Care Provi elliott Trever White MD Primary Care Provider [phone] Annalee Olivas DO, Charles Lewis Primary Care Provi elliott Source Comments In the event this information is protected by the Federal Confidentiality of Alcohol and Drug AbusePatient Records regulations: The Federal rules restrict any use of the information to criminally investigate or prosecute any alcohol or drug abuse patient.[facility] Encounter Details Date Type Department Care Team (Late st Contact Info) Description 01/23/2024 Get Medical Advice Pulmonary Medicine [address] [place] [address] Pedro Cisneros MD [address] [place] [address] Fractured ribs Social History Tobacco Use Types Packs/Day Years Used Date Smoking Tobacco: Former Cigarettes Q uit: 09/20/1995 Smokeless Tobacco: Never Alcohol Use Standard Drinks/Week Comments Yes 7 (1 standard drink = 0.6 oz pur e alcohol) glass of wine with dinner [facility] Utilities Answer Date Recorded In the past 12 months has th e electric, gas, oil, or water company threatened to shut off services in your home? No 01/21/2024 Hunger Vital Sign Answer Date Recorded Within [...] any time in the past 12 m [facility], were you homeless or living in a alf (including now)? No 01/21/2024 Area Deprivation Index Answer Date Jorge rded National Score (1-100), lower number is lower ri sk 74 07/13/2022 State Score (1-10), lower number is lower risk 6 07/13/2022 Data from: https://www.neighborhoodatlas.medicine.[facility].edu/. Last address used for calculation [address] 07/13/2022 Comments No Sex and Gender [...] 11:45 AM EDT Office Visit Orthopaedics [address] [address] Efrain Hernandez MD [address] [place] [address] 2 wk PO reverse 09/15/2024 11:45 AM EDT Office Visit Orthopaedics [address] [address] Efrain Hernandez MD [address] [place] [phone] 6 wk PO reverse documented as of this encounter Visit Diagnoses Not on filedocumented in this encounter Care Teams Information Systems Consultant Relationship Specialty Start Date End Date Efrain Mantilla Jr., [address] [place] [phone] PCP - General 11/10/04 05/14/24 Trever White MD [address] [facility] [place] [address] PCP - General Family Medicine 05/15/24 07/06/24 Efrain Mantilla Jr., DO [address] [place] [address] PCP - General Internal Medicine 07/07/24 MARK Rubio 05/05/21 documented as of this encounter
--- OUTSIDE RECORDS SUMMARY | 2024-08-01 14:18 | XMS_ITS | Encounter Summary ---
Author Organization [facility] Address [address] [place] [address] Care Team Providers Care Solar Sales Representative Name Role Phone Annalee Olivas DO, Charles Lewis Primary Care Provi elliott Trever White MD Primary Care Provider [phone] Annalee Olivas DO, Charles Lewis Primary Care Provi elliott Source Comments In the event this information is protected by the Federal Confidentiality of Alcohol and Drug AbusePatient Records regulations: The Federal rules restrict any use of the information to criminally investigate or prosecute any alcohol or drug abuse patient.[facility] Encounter Details Date Type Department Care Team (Late st Contact Info) Description 07/02/2021 Get Medical Advice Gastroenterology [address] [phone] Stas Horvath MD [address] [place] [address] Update Social History Tobacco Use [...] N ot on file 01/27/2020 Data from: https://www.neighborhoodatlas.medicine.[facility]/. Last address used for calculation Not on [...] suspected to have Coronavirus/COVID-19? No / Unsure 07/04/2021 10:51 AM EDT documented as of this encounter [...] 11:45 AM EDT Office Visit Orthopaedics [address] [address] Efrain Hernandez MD [address] [place], [place] [phone] 2 wk PO reverse 09/15/2024 11:45 AM EDT Office Visit Orthopaedics [address] [address] Efrain Hernandez MD [address] [place], [place] [phone] 6 wk PO reverse documented as of this encounter Visit Diagnoses Not on filedocumented in this encounter Care Teams Solar Sales Representative Relationship Specialty Start Date End Date Efrain Mantilla Jr., DO [facility]3 [place] [address] PCP - General 11/10/04 05/14/24 Trever White MD [address] [place], [place] [phone] PCP - General Family Medicine 05/15/24 07/06/24 Efrain Mantilla Jr., DO [facility]3 [place] [address] PCP - General Internal Medicine 07/07/24 MARK Rubio 05/05/21 documented as of this encounter
--- OUTSIDE RECORDS SUMMARY | 2024-08-01 14:18 | XMS_ITS | Encounter Summary ---
Author Organization [facility] Address [address] [place] [address] Care Team Providers Care Automation Analyst Name Role Phone Annalee Olivas DO, Charles Lewis Primary Care Provi elliott Trever White MD Primary Care Provider [phone] Annalee Olivas DO, Charles Lewis Primary Care Provi elliott Source Comments In the event this information is protected by the Federal Confidentiality of Alcohol and Drug AbusePatient Records regulations: The Federal rules restrict any use of the information to criminally investigate or prosecute any alcohol or drug abuse patient.[facility] Encounter Details Date Type Department Care Team (Late st Contact Info) Description 03/02/2022 Get Medical Advice Gastroenterology [address] [phone] Stas Horvath MD [address] [place] [address] Ostomy supplies Social History Tobacco Use Types Packs/Day Years [...] N ot on file 03/06/2022 Data from: https://www.neighborhoodatlas.medicine.[facility]/. Last address used for calculation [address] [...] 11:45 AM EDT Office Visit Orthopaedics [address] [address] Efrain Hernandez MD [address] [place] [address] 2 wk PO reverse 09/15/2024 11:45 AM EDT Office Visit Orthopaedics [address] [address] Efrain Hernandez MD [address] [place], [place] [id number] 6 wk PO reverse documented as of this encounter Visit Diagnoses Not on filedocumented in this encounter Care Teams Automation Analyst Relationship Specialty Start Date End Date Efrain Mantilla Jr., DO [address] [place] [address] PCP - General 11/10/04 05/14/24 Trever White MD [address] [place], [place] [id number] PCP - General Family Medicine 05/15/24 07/06/24 Efrain Mantilla Jr., DO [address] [place] [address] PCP - General Internal Medicine 07/07/24 MARK Rubio 05/05/21 documented as of this encounter
--- OUTSIDE RECORDS SUMMARY | 2024-08-01 14:18 | XMS_ITS | Encounter Summary ---
Author Organization Address [address] [place] [address] Care Team Providers Care Hims Clerk Name Role Phone Annalee Olivas DO, Charles Lewis Primary Care Provi elliott Trever White MD Primary Care Provider [phone] Annalee Olivas DO, Charles Lewis Primary Care Provi elliott Source Comments In the event this information is protected by the Federal Confidentiality of Alcohol and Drug AbusePatient Records regulations: The Federal rules restrict any use of the information to criminally investigate or prosecute any alcohol or drug abuse patient. Encounter Details Date Type Department Care Team (Late st Contact Info) Description 08/05/2018 Get Medical Advice Gastroenterology [address] [phone] Stas Horvath MD [address] [place] [address] RE: Visit Follow Up Question Social History Tobacco Use Types Packs/Day Years Used Date Smoking Tobacco: Former Cigarettes Q uit: 09/20/1995 Smokeless Tobacco: Never Alcohol Use Standard Drinks/Week Comments Yes 7 (1 standard drink = 0.6 oz pur e alcohol) glass of wine with dinner Comments No Sex and Gender Information Value [...] 11:45 AM EDT Office Visit Orthopaedics [address] [address] Efrain Hernandez MD [address] [place] [address] 2 wk PO reverse 09/15/2024 11:45 AM EDT Office Visit Orthopaedics [address] [address] Efrain Hernandez MD [address] [place] [address] 6 wk PO reverse documented [...] documented as of this encounter Care Teams Hims Clerk Relationship Specialty Start Date End Date Efrain Mantilla Jr., DO [facility] [place] [address] PCP - General 11/10/04 05/14/24 Trever White MD [address] [facility] [place] [address] PCP - General Family Medicine 05/15/24 07/06/24 Efrain Mantilla Jr., DO [address] [place] [address] PCP - General Internal Medicine 07/07/24 MARK Rubio 05/05/21 documented as of this encounter
--- OUTSIDE RECORDS SUMMARY | 2024-08-01 14:18 | XMS_ITS | Encounter Summary ---
Author Organization [facility] Address [facility] [place] [address] Care Team Providers Care Hand Nailer Name Role Phone Trever White MD Primary Care Provider [phone] Annalee Olivas DO, Charles Lewis Primary Care Provi elliott Source Comments In the event this information is protected by the Federal Confidentiality of Alcohol and Drug AbusePatient Records regulations: The Federal rules restrict any use of the information to criminally investigate or prosecute any alcohol or drug abuse patient.[facility] Encounter Details Date Type Department Care Team (Late st Contact Info) Description 06/09/2024 Get Medical Advice Orthopaedics [address] [place] [address] Yuval North DO [address] [place] [address] Update reference progress with physical therapy Social History Tobacco Use Types Packs/Day Years Used Date Smoking Tobacco: Former Cigarettes Q uit: 09/20/1995 Smokeless Tobacco: Never Alcohol Use Standard Drinks/Week Comments Yes 7 (1 standard drink = 0.6 oz pur e alcohol) glass of wine with dinner [facility] Utilities Answer Date Recorded In the [...] often do you attend chur ch or moravian services? Never 05/15/2024 Do you belong to [...] Answer Date Recorded PHQ-2 score 2 06/10/2024 [facility] - Occupational Stress [...] any time in the past 12 m [facility], were you homeless or living in a skilled nursing (including now)? No 05/15/2024 Area Deprivation Index Answer Date Jorge rded National Score (1-100), lower number is lower ri sk 74 07/13/2022 State Score (1-10), lower number is lower risk 6 07/13/2022 Data from: https://www.neighborhoodatlas.medicine.[facility].edu/. Last address used for calculation [address] 07/13/2022 Comments No Sex and Gender Information [...] encounter Miscellaneous Notes * Telephone Encounter - Daisy Katz - 06/10/2024 8:54 AM EDT Contacted patient and scheduled an appointment with Dr. Walters. documented in this encounter Plan of Treatment Upcoming Encounters Date Type Department Care Team (Late st Contact Info) Description 08/11/2024 11:45 AM EDT Office Visit Orthopaedics [address] [address] Efrain Hernandez MD [address] [place], [place] [id number] 2 wk PO reverse 09/15/2024 11:45 AM EDT Office Visit Orthopaedics [address] [address] Efrain Hernandez MD [address] [place] [address] 6 wk PO reverse documented as of this encounter Visit Diagnoses Not on filedocumented in this encounter Care Teams Hand Nailer Relationship Specialty Start Date End Date Trever White MD [address] [place] [address] PCP - General Family Medicine 05/15/24 07/06/24 Efrain Mantilla Jr., DO [facility] [place] [address] PCP - General Internal Medicine 07/07/24 MARK Rubio 05/05/21 documented as of this encounter
--- OUTSIDE RECORDS SUMMARY | 2024-08-01 14:18 | XMS_ITS | Encounter Summary ---
Author Organization [facility] Address [address] [place] [address] Care Team Providers Care Centrifugal Screen Tender Name Role Phone Annalee Olivas DO, Charles Lewis Primary Care Provi elliott Trever White MD Primary Care Provider [phone] Annalee Olivas DO, Charles Lewis Primary Care Provi elliott Source Comments In the event this information is protected by the Federal Confidentiality of Alcohol and Drug AbusePatient Records regulations: The Federal rules restrict any use of the information to criminally investigate or prosecute any alcohol or drug abuse patient.[facility] Encounter Details Date Type Department Care Team (Late st Contact Info) Description 04/18/2022 Get Medical Advice Gastroenterology [address] [phone] Stas Horvath MD [address] [place] [address] Osteo supplies Social History Tobacco Use Types Packs/Day [...] N ot on file 03/06/2022 Data from: https://www.neighborhoodatlas.medicine.[facility]/. Last address used for [...] AM EDT Office Visit Orthopaedics [address] [address] Efrain Hernandez MD [address] [place] [address] 2 wk PO reverse 09/15/2024 11:45 AM EDT Office Visit Orthopaedics [address] [address] Efrain Hernandez MD [address] [place], [place] [address] 6 wk PO reverse documented as of this encounter Visit Diagnoses Not on filedocumented in this encounter Care Teams Centrifugal Screen Tender Relationship Specialty Start Date End Date Efrain Mantilla Jr., DO [address] [place] [address] PCP - General 11/10/04 05/14/24 Trever White MD [address] [place], [place] [phone] PCP - General Family Medicine 05/15/24 07/06/24 Efrain Mantilla Jr., DO [address] [place] [address] PCP - General Internal Medicine 07/07/24 MARK Rubio 05/05/21 documented as of this encounter
--- OUTSIDE RECORDS SUMMARY | 2024-08-01 14:18 | XMS_ITS | Encounter Summary ---
Author Organization [facility] Address [address] [place] [address] Care Team Providers Care Maintenance Mechanic Helper Name Role Phone Annalee Olivas DO, Charles Lewis Primary Care Provi elliott Trever White MD Primary Care Provider [phone] Annalee Olivas DO, Charles Lewis Primary Care Provi elliott Source Comments In the event this information is protected by the Federal Confidentiality of Alcohol and Drug AbusePatient Records regulations: The Federal rules restrict any use of the information to criminally investigate or prosecute any alcohol or drug abuse patient.[facility] Encounter Details Date Type Department Care Team (Late st Contact Info) Description 04/19/2022 Get Medical Advice Gastroenterology [address] [phone] Stas Horvath MD [address] [place] [address] Osteo supplies Social History Tobacco [...] N ot on file 03/06/2022 Data from: https://www.neighborhoodatlas.medicine.[facility]/. Last address used for calculation [...] 11:45 AM EDT Office Visit Orthopaedics [address] [address] Efrain Hernandez MD [address] [place] [address] 2 wk PO reverse 09/15/2024 11:45 AM EDT Office Visit Orthopaedics [address] [address] Efrain Hernandez MD [address] [place], [place] [phone] 6 wk PO reverse documented as of this encounter Visit Diagnoses Not on filedocumented in this encounter Care Teams Maintenance Mechanic Helper Relationship Specialty Start Date End Date Efrain Mantilla Jr., DO [address] [place] [address] PCP - General 11/10/04 05/14/24 Trever White MD [address] [place], [place] [phone] PCP - General Family Medicine 05/15/24 07/06/24 Efrain Mantilla Jr., DO [address] [place] [address] PCP - General Internal Medicine 07/07/24 MARK Rubio 05/05/21 documented as of this encounter
--- OUTSIDE RECORDS SUMMARY | 2024-08-01 14:18 | XMS_ITS | Encounter Summary ---
Author Organization [facility] Address [address] [place] [address] Care Team Providers Care Care Tech Name Role Phone Trever White MD Primary Care Provider [phone] Annalee Olivas DO, Charles Lewis Primary Care Provi elliott Source Comments In the event this information is protected by the Federal Confidentiality of Alcohol and Drug AbusePatient Records regulations: The Federal rules restrict any use of the information to criminally investigate or prosecute any alcohol or drug abuse patient.[facility] Encounter Details Date Type Department Care Team (Late st Contact Info) Description 06/02/2024 Get Medical Advice Family Medicine [facility] [address] [place] [address] Trever White MD [address] [place] [address] Stain Social History Tobacco Use Types Packs/Day Years Used Date Smoking Tobacco: Former Cigarettes Q uit: 09/20/1995 Smokeless Tobacco: Never Alcohol Use Standard Drinks/Week Comments Yes 7 (1 standard drink = 0.6 oz pur e alcohol) glass of wine with dinner [facility] Utilities Answer Date Recorded In the [...] Answer Date Recorded PHQ-2 score 0 01/31/2024 [facility] Occupat ional Health - [...] any time in the past 12 m [facility], were you homeless or living in a group home (including now)? No 05/15/2024 Area Deprivation Index Answer Date Jorge rded National Score (1-100), lower number is lower ri sk 74 07/13/2022 State Score (1-10), lower number is lower risk 6 07/13/2022 Data from: https://www.neighborhoodatlas.medicine[facility].edu/. Last address used for calculation [address] 07/13/2022 Comments No Sex and Gender Information [...] AM EDT Office Visit Orthopaedics [address] [address] Efrain Hernandez MD [address] [place], [place] [address] 2 wk PO reverse 09/15/2024 11:45 AM EDT Office Visit Orthopaedics [address] [address] Efrain Hernandez MD [address] [place], [place] [address] 6 wk PO reverse documented as of this encounter Visit Diagnoses Not on filedocumented in this encounter Care Teams Care Tech Relationship Specialty Start Date End Date Trever White MD [address] [place] [address] PCP - General Family Medicine 05/15/24 07/06/24 Efrain Mantilla Jr., [address] [place] [address] PCP - General Internal Medicine 07/07/24 MARK Rubio 05/05/21 documented as of this encounter
--- OUTSIDE RECORDS SUMMARY | 2024-08-01 14:18 | XMS_ITS | Encounter Summary ---
Author Organization [facility] Address [address] [place] [address] Care Team Providers Care Livestock Farm Manager Name Role Phone Annalee Olivas DO, Charles Lewis Primary Care Provi elliott Trever White MD Primary Care Provider [phone] Annalee Olivas DO, Charles Lewis Primary Care Provi elliott Source Comments In the event this information is protected by the Federal Confidentiality of Alcohol and Drug AbusePatient Records regulations: The Federal rules restrict any use of the information to criminally investigate or prosecute any alcohol or drug abuse patient.[facility] Encounter Details Date Type Department Care Team (Late st Contact Info) Description 08/07/2016 Get Medical Advice Gastroenterology [address] [phone] Stas Horvath MD [address] [place] [address] RE: RE: Medication Question (Not Renewal) Social History Tobacco Use Types Packs/Day Years [...] 08/11/2024 11:45 AM EDT Office Visit Orthopaedics [address] [place] [address] Efrain Hernandez MD [address] [place] [address] 2 wk PO reverse 09/15/2024 11:45 AM EDT Office Visit Orthopaedics [address] [place] [address] Efrain Hernandez MD [address] [place] [address] 6 wk PO reverse documented [...] documented as of this encounter Care Teams Livestock Farm Manager Relationship Specialty Start Date End Date Efrain Mantilla Jr., DO [facility]3 [place] [address] PCP - General 11/10/04 05/14/24 Trever White MD [address] [place] [address] PCP - General Family Medicine 05/15/24 07/06/24 Efrain Mantilla Jr., DO [facility]3 [place] [address] PCP - General Internal Medicine 07/07/24 MARK Rubio 05/05/21 documented as of this encounter
--- OUTSIDE RECORDS SUMMARY | 2024-08-01 14:18 | XMS_ITS | Encounter Summary ---
Author Organization [facility] Address [address] [place] [address] Care Team Providers Care Computer Console Operator Name Role Phone Annalee Olivas DO, Charles Lewis Primary Care Provi elliott Trever White MD Primary Care Provider [phone] Annalee Olivas DO, Charles Lewis Primary Care Provi elliott Source Comments In the event this information is protected by the Federal Confidentiality of Alcohol and Drug AbusePatient Records regulations: The Federal rules restrict any use of the information to criminally investigate or prosecute any alcohol or drug abuse patient.[facility] Encounter Details Date Type Department Care Team (Late st Contact Info) Description 06/21/2017 Get Medical Advice Gastroenterology [address] [phone] Stas Horvath MD [address] [place] [address] RE: Visit Follow Up Question [...] 11:45 AM EDT Office Visit Orthopaedics [address] [address] Efrain Hernandez MD [address] [place], [place] [phone] 2 wk PO reverse 09/15/2024 11:45 AM EDT Office Visit Orthopaedics [address] [address] Efrain Hernandez MD [address] [place] [address] 6 wk PO reverse documented [...] documented as of this encounter Care Teams Computer Console Operator Relationship Specialty Start Date End Date Efrain Mantilla Jr., DO [facility] [place] [address] PCP - General 11/10/04 05/14/24 Trever White MD [address] [place] [address] PCP - General Family Medicine 05/15/24 07/06/24 Efrain Mantilla Jr., DO [facility] [place] [address] PCP - General Internal Medicine 07/07/24 MARK Rubio 05/05/21 documented as of this encounter
--- OUTSIDE RECORDS SUMMARY | 2024-08-01 14:18 | XMS_ITS | Encounter Summary ---
Author Organization [facility] Address [address] [place] [address] Care Team Providers Care Property Analyst Name Role Phone Annalee Olivas DO, Charles Lewis Primary Care Provi elliott Trever White MD Primary Care Provider [phone] Annalee Olivas DO, Charles Lewis Primary Care Provi elliott Source Comments In the event this information is protected by the Federal Confidentiality of Alcohol and Drug AbusePatient Records regulations: The Federal rules restrict any use of the information to criminally investigate or prosecute any alcohol or drug abuse patient.[facility] Encounter Details Date Type Department Care Team (Late st Contact Info) Description 08/01/2017 Get Medical Advice Gastroenterology [address] [phone] Stas Horvath MD [address] [place] [address] RE: Visit Follow Up Question [...] AM EDT Office Visit Orthopaedics [address] [address] Efrain Hernandez MD [address] [place], [place] [phone] 2 wk PO reverse 09/15/2024 11:45 AM EDT Office Visit Orthopaedics [address] [address] Efrain Hernandez MD [address] [place] [address] 6 wk PO reverse documented [...] documented as of this encounter Care Teams Property Analyst Relationship Specialty Start Date End Date Efrain Mantilla Jr., DO [facility] [place] [address] PCP - General 11/10/04 05/14/24 Trever White MD [address] [place] [address] PCP - General Family Medicine 05/15/24 07/06/24 Efrain Mantilla Jr., DO [facility] [place] [address] PCP - General Internal Medicine 07/07/24 MARK Rubio 05/05/21 documented as of this encounter
--- OUTSIDE RECORDS SUMMARY | 2024-08-01 14:18 | XMS_ITS | Encounter Summary ---
Author Organization [facility] Address [address] [place] [address] Care Team Providers Care Practical Nursing Instructor Name Role Phone Annalee Olivas DO, Charles Lewis Primary Care Provi elliott Trever White MD Primary Care Provider [phone] Annalee Olivas DO, Charles Lewis Primary Care Provi elliott Source Comments In the event this information is protected by the Federal Confidentiality of Alcohol and Drug AbusePatient Records regulations: The Federal rules restrict any use of the information to criminally investigate or prosecute any alcohol or drug abuse patient.[facility] Encounter Details Date Type Department Care Team (Late st Contact Info) Description 07/10/2017 Get Medical Advice Gastroenterology [address] [phone] Stas Horvath MD [address] [place] [address] RE: RE: Visit Follow Up [...] 11:45 AM EDT Office Visit Orthopaedics [address] [phone] Efrain Hernandez MD [address] [place] [address] 2 wk PO reverse 09/15/2024 11:45 AM EDT Office Visit Orthopaedics [address] [place] [address] Efrain Hernandez MD [address] [place] [address] 6 wk PO reverse documented as of [...] documented as of this encounter Care Teams Practical Nursing Instructor Relationship Specialty Start Date End Date Efrain Mantilla Jr., DO [facility] [place] [address] PCP - General 11/10/04 05/14/24 Trever White MD [address] [place] [address] PCP - General Family Medicine 05/15/24 07/06/24 Efrain Mantilla Jr., DO [facility]3 [place] [address] PCP - General Internal Medicine 07/07/24 MARK Rubio 05/05/21 documented as of this encounter
--- OUTSIDE RECORDS SUMMARY | 2024-08-01 14:18 | XMS_ITS | Encounter Summary ---
Author Organization [facility] Address [facility] [place] [id number] Care Team Providers Care Timber Appraiser Name Role Phone Trever White MD Primary Care Provider [phone] Annalee Olivas DO, Charles Lewis Primary Care Provi elliott Source Comments In the event this information is protected by the Federal Confidentiality of Alcohol and Drug AbusePatient Records regulations: The Federal rules restrict any use of the information to criminally investigate or prosecute any alcohol or drug abuse patient.[facility] Reason for Referral * Diagnostic Procedure Only (Routine) - Closed Specialty Diagnoses / Procedures Referred By Contac t Referred To Contact XR IMAGING Diagnoses Closed 4-part fracture of proximal end of left humerus with malunion, subsequent encounter Closed fracture of proximal end of left humerus with malunion, unspecified fracture morphology, subsequent encounter Procedures XR SHOULDER GENERAL 3V OR MORE AP/TRUE AP/OTHER LEFT RADEX SHOULDER COMPLETE MINIMUM 2 VIEWS Efrain Hernandez MD [address] [facility] [place] [address] Phone: tel: fax: XR IMAGING [place] [address] Referral ID Status Reason Start Date Expiration Date V isits Requested Visits Authorized [id number] Closed Auto-Generate d Referral 06/23/2024 07/23/2025 1 1 * Outpatient Procedure (Routine) - Closed Specialty Diagnoses / Procedures Referred By Contac t Referred To Contact [facility] Diagnoses Pre-op testing Procedures ECG COMPLETE ECG ROUTINE ECG W/LEAST 12 LDS W/I&R Efrain Hernandez MD [address] [place] [address] Phone: tel: fax: [facility] [address] [place] [address] Referral ID Status Reason Start Date Expiration Date V isits Requested Visits Authorized [id number] Closed Auto-Generate d Referral 06/23/2024 06/23/2025 1 1 Encounter Details Date Type Department Care Team (Late st Contact Info) Description 06/23/2024 Patient Update Orthopaedics [address] [address] Efrain Hernandez MD [address] [place] [address] Social History Tobacco Use Types Packs/Day Years Used Date Smoking Tobacco: Former Cigarettes Q uit: 09/20/1995 Smokeless Tobacco: Never Alcohol Use Standard Drinks/Week Comments Yes 7 (1 standard drink = 0.6 oz pur e alcohol) glass of wine with dinner [facility] Utilities Answer Date Recorded In the past 12 months has [employer], gas, oil, or water [employer] threatened to shut off services in your [...] week 05/15/2024 How often do you attend [facility] or mormonism services? Never 05/15/2024 Do you belong to [...] Answer Date Recorded PHQ-2 score 2 06/10/2024 [facility] [...] any time in the past 12 [facility], were you homeless or living in a halfway (including now)? No 05/15/2024 Area Deprivation Index Answer Date Jorge rded National Score (1-100), lower number is lower ri sk 74 07/13/2022 State Score (1-10), lower number is lower risk 6 07/13/2022 Data from: https://www.neighborhoodatlas.medicine.[facility].edu/. Last address used for calculation [address] 07/13/2022 Comments No Sex and Gender Information [...] Yany Martinez RN documented in this encounter Plan of Treatment Upcoming Encounters Date Type Department Care Team (Late st Contact Info) Description 08/11/2024 11:45 AM EDT Office Visit Orthopaedics [address] [address] Efrain Hernandez MD [address] [place] [address] 2 wk PO reverse 09/15/2024 11:45 AM EDT Office Visit Orthopaedics [address] [address] Efrain Hernandez MD [address] [place] [address] 6 wk PO reverse Scheduled Orders Name Type Priority Associated Diagnoses Orde r Schedule ECG COMPLETE ECG Routine Pre-op testing 1 Occurrences starting 06/23/2024 until 06/23/2025 documented as of this encounter Results * XR SHOULDER GENERAL 3V OR MORE AP/TRUE AP/OTHER LEFT (07/15/2024 1:32 PM EDT) Anatomical Region Laterality Modality Shoulder Other 07/15/2024 1:32 PM EDT Impressions 07/16/2024 9:37 AM EDT IMPRESSION: 1. Healing malunited proximal left humeral fracture with anterior fracture apex angulation. 2. Healing left-sided rib fractures. Stone Driller Helper: SHIMON Transcribe Date/Time: Jul 16 2024 9:33A Dictated by : BRADY BLAND MD This examination was interpreted and the report reviewed and electronically signed by: BRADY BLAND MD on Jul 16 2024 9:35AM EST Narrative 07/16/2024 9:37 AM EDT * * *Final Report* * * DATE OF EXAM: Jul 15 2024 1:32PM [id number] - XR SHLDR >/=3V AP/TOMMY AP/OTHR LT / PROCEDURE REASON: multiple diagnoses * * * * Physician Interpretation * * * * EXAM: XR SHLDR >/=3V AP/TOMMY AP/OTHR LT HISTORY: Closed 4-part fracture of proximal end of left humerus with malunion, subsequent encounter Closed fracture of proximal end of left humerus with malunion, unspecified fracture morphology, subsequent encounter . pre op for reverse lt shoulder TECHNIQUE: XR SHLDR >/=3V AP/TOMYM AP/OTHR LT Laterality: LEFT Number of different views (projections): 4 COMPARISON: 05/27/2024 RESULT: Continued interval healing of proximal humeral fracture with persistent anterior fracture apex angulation with progressive areas of bridging ossification with persistent fracture lucency. The humeral head is dysmorphic with areas of fragmentation posteriorly. Healing left-sided rib fractures. Procedure Note Provider, [facility] - 07/16/2024 * * *Final Report* * * DATE OF EXAM: Jul 15 2024 1:32PM [id number] [id number] - XR SHLDR >/=3V AP/TOMMY AP/OTHR LT / PROCEDURE REASON: multiple diagnoses * * * * Physician Interpretation * * * * EXAM: XR SHLDR >/=3V AP/TOMMY AP/OTHR LT HISTORY: Closed 4-part fracture of proximal end of left humerus with malunion, subsequent encounter Closed fracture of proximal end of left humerus with malunion, unspecified fracture morphology, subsequent encounter . pre op for reverse lt shoulder TECHNIQUE: XR SHLDR >/=3V AP/TOMMY AP/OTHR LT Laterality: LEFT Number of different views (projections): 4 COMPARISON: 05/27/2024 RESULT: Continued interval healing of proximal humeral fracture with persistent anterior fracture apex angulation with progressive areas of bridging ossification with persistent fracture lucency. The humeral head is dysmorphic with areas of fragmentation posteriorly. Healing left-sided rib fractures. IMPRESSION IMPRESSION: 1. Healing malunited proximal left humeral fracture with anterior fracture apex angulation. 2. Healing left-sided rib fractures. Stone Driller Helper: PSCB Transcribe Date/Time: Jul 16 2024 9:33A Dictated by : BRADY BLAND MD This examination was interpreted and the report reviewed and electronically signed by: BRADY BLAND MD on Jul 16 2024 9:35AM EST us Efrain Hernandez MD RAD[facility] Final Result * (ABNORMAL) COMPLETE BLOOD COUNT (07/15/2024 11:30 AM EDT) WBC 11.67(H) 3.70 - 11.00 k/uL 07/15/2024 6:42 PM EDT [facility] RBC 4.07 3.90 - 5.20 m/uL 07/15/2024 6:42 PM EDT [facility] Hemoglobin 13.7 11.5 - 15.5 g/dL 07/15/2024 6:42 PM EDT [facility] Hematocrit 40.4 36.0 - 46.0 % 07/15/2024 6:42 PM EDT [facility] MCV 99.3 80.0 - 100.0 fL 07/15/2024 6:42 PM EDT [facility] MCH 33.7 26.0 - 34.0 pg 07/15/2024 6:42 PM EDT [facility] MCHC 33.9 30.5 - 36.0 g/dL 07/15/2024 6:42 PM EDT [facility] RDW-CV 12.2 11.5 - 15.0 % 07/15/2024 6:42 PM EDT [facility] Platelet Count 183 150 - 400 k/uL 07/15/2024 6:42 PM EDT [facility] MPV 9.3 9.0 - 12.7 fL 07/15/2024 6:42 PM EDT [facility] Absolute nRBC <0.01 <0.01 k/uL 07/15/2024 6:42 PM EDT [facility] Blood BLOOD SPECIMEN / Unknown Venipuncture / Unknown 07/15/2024 11:30 AM EDT 07/15/2024 11:31 AM EDT us Efrain Hernandez MD LABORATORY Final Result [facility] [address] [address], * (ABNORMAL) BASIC METABOLIC PANEL (07/15/2024 11:30 AM EDT) Glucose 111(H) 74 - 99 mg/dL 07/15/2024 8:16 PM [facility] Comment: The [place] Diabetes Association (ADA) provides guidance for cutoff [...] Standards of Medical Care in Diabetes 2016, [place] Diabetes Association. Diabetes Care. 2016.39(Suppl 1). BUN 14 7 - 21 mg/dL 07/15/2024 8:16 PM [facility] Creatinine 0.80 0.58 - 0.96 mg/dL 07/15/2024 8:16 PM [facility] Sodium 136 136 - 144 mmol/L 07/15/2024 8:16 PM [facility] Potassium 5.3(H) 3.7 - 5.1 mmol/L 07/15/2024 8:16 PM [facility] Chloride 101 98 - 107 mmol/L 07/15/2024 8:16 PM [facility] CO2 20(L) 22 - 30 mmol/L 07/15/2024 8:16 PM [facility] Anion Gap 15 8 - 15 mmol/L 07/15/2024 8:16 PM [facility] Calcium, Total 10.2 8.5 - 10.2 mg/dL 07/15/2024 8:16 PM [facility] Estimated Glomerular Filtration Rate 78 >=60 mL/min/1.7 3m 07/15/2024 8:16 PM [facility] Comment:Estimated Glomerular Filtration Rate (eGFR) is [...] BLOOD SPECIMEN / Unknown Venipuncture / Unknown 07/15/2024 11:30 AM EDT 07/15/2024 11:31 AM EDT us Efrain Hernandez MD LABORATORY Final Result [facility] [address] [facility] [address] [place] [address], [place] documented in this encounter Visit Diagnoses Diagnosis Pre-op testing- Primary Preoperative examination, unspecified Closed 4-part fracture of proximal end of left humerus with malunion, subsequent encounter Closed fracture of proximal end of left humerus with malunion, unspecified fracture morphology, subsequent encounter Closed 4-part fracture of proximal end of left humerus with malunion, subsequent encounter Closed fracture of proximal end of left humerus with malunion, unspecified fracture morphology, subsequent encounter documented in this encounter Care Teams Timber Appraiser Relationship Specialty Start Date End Date Trever White MD [address] [facility] [place] [address] PCP - General Family Medicine 05/15/24 07/06/24 Efrain Mantilla Jr., [address] [place] [address] PCP - General Internal Medicine 07/07/24 MARK Rubio 05/05/21 documented as of this encounter
--- OUTSIDE RECORDS SUMMARY | 2024-08-01 14:18 | XMS_ITS | Encounter Summary ---
Author Organization [facility] Address [address] [place] [phone] Phone Care Team Providers Care Lanolin Plant Operator Name Role Phone Unavailable Primary Care Provider Unavailabl e Reason for Referral * Imaging (Routine) - Pending Review Specialty Diagnoses / Procedures Referred By Contac t Referred To Contact Radiology Diagnoses Pure hypercholesterolemia, unspecified Procedures CT cardiac [place] [address] [place] [address] Phone: tel: fax: Referral ID Status Reason Start Date Expiration Date Visits Requested Visits Authorized [id number] Pending Review Perform Procedure 04/25/2024 04/25/2025 1 1 Encounter Details Date Type Department Care Team (Latest Contact Info) Description 04/25/2024 Transcribe Orders [facility] [address] [place] [address] Efrain Mantilla DO [address] [place] [address] Pure hypercholesterolemia , unspecified (Primary Dx) Social History Tobacco Use Types Packs/Day Years Used Date Smoking Tobacco: Never Assessed Comments Unknown Sex and Gender Information Value Date Recorded Sex Assigned at Not on file Legal Sex Female 12:09 AM EST Gender Identity Not on file Sexual Orientation Not on file documented as of this encounter Plan of Treatment Scheduled Orders Name Type Priority Associated Diagnoses Orde r Schedule CT cardiac scoring wo IV contrast Imaging Routine Pure hypercholesterolemia, unspecified Expected: 04/25/2024, Expires: 04/25/2025 documented as of this encounter Visit Diagnoses Diagnosis Pure hypercholesterolemia, unspecified- Primary documented in this encounter
--- OUTSIDE RECORDS SUMMARY | 2024-08-01 14:18 | XMS_ITS | Encounter Summary ---
Author Organization [facility] Address [address] [place] [address] Care Team Providers Care Potato Chip Cooker Machine Name Role Phone Annalee Olivas DO, Charles Lewis Primary Care Provi [place]iott Trever White MD Primary Care Provider [phone] Annalee Olivas DO, Charles Lewis Primary Care Provi [place]iott Source Comments In the event this information is protected by the Federal Confidentiality of Alcohol and Drug AbusePatient Records regulations: The Federal rules restrict any use of the information to criminally investigate or prosecute any alcohol or drug abuse patient.[facility] Encounter Details Date Type Department Care Team (Late st Contact Info) Description 07/13/2016 Get Medical Advice Gastroenterology [address] [place] [phone] Stas Horvath MD [address] [place] [address] RE: RE: Visit Follow Up [...] 11:45 AM EDT Office Visit Orthopaedics [address] [place] [phone] Efrain Hernandez MD [address] [place] [address] 2 wk PO reverse 09/15/2024 11:45 AM EDT Office Visit Orthopaedics [address] [place] [address] Efrain Hernandez MD [address] [place] [address] 6 wk PO reverse documented as of [...] documented as of this encounter Care Teams Potato Chip Cooker Machine Relationship Specialty Start Date End Date Efrain Mantilla Jr., DO [facility] [place] [address] PCP - General 11/10/04 05/14/24 Trever White MD [address] [place] [address] PCP - General Family Medicine 05/15/24 07/06/24 Efrain Mantilla Jr., DO [facility] [place] [address] PCP - General Internal Medicine 07/07/24 MARK Rubio 05/05/21 documented as of this encounter
--- OUTSIDE RECORDS SUMMARY | 2024-08-01 14:19 | XMS_ITS | Encounter Summary ---
Author Organization [facility] Address [address] [place] [address] Care Team Providers Care Gasket Maker Name Role Phone Annalee Olivas DO, Charles Lewis Primary Care Provi elliott Trever White MD Primary Care Provider [phone] Annalee Olivas DO, Charles Lewis Primary Care Provi [place]iott Source Comments In the event this information is protected by the Federal Confidentiality of Alcohol and Drug AbusePatient Records regulations: The Federal rules restrict any use of the information to criminally investigate or prosecute any alcohol or drug abuse patient.[facility] Encounter Details Date Type Department Care Team (Late st Contact Info) Description 08/15/2022 Get Medical Advice Gastroenterology [address] [place] [phone] Stas Horvath MD [address] [place] [address] RX refill Social History Tobacco [...] is lower risk 6 07/13/2022 Data from: https://www.neighborhoodatlas.[facility]/. Last address used for calculation [...] 11:45 AM EDT Office Visit Orthopaedics [address] [address] Efrain Hernandez MD [address] [place], [place] [id number] 2 wk PO reverse 09/15/2024 11:45 AM EDT Office Visit Orthopaedics [address] [address] Efrain Hernandez MD [address] [place], [place] [address] 6 wk PO reverse documented as of this encounter Visit Diagnoses Not on filedocumented in this encounter Care Teams Gasket Maker Relationship Specialty Start Date End Date Efrain Mantilla Jr., DO [facility] [place] [address] PCP - General 11/10/04 05/14/24 Trever White MD [address] [place] [address] PCP - General Family Medicine 05/15/24 07/06/24 Efrain Mantilla Jr., DO [address] [place] [address] PCP - General Internal Medicine 07/07/24 MARK Rubio 05/05/21 documented as of this encounter
--- OUTSIDE RECORDS SUMMARY | 2024-08-01 14:19 | XMS_ITS | Encounter Summary ---
Author Organization [facility] Address [address] [place] [address] Care Team Providers Care Engine Monitor Name Role Phone Annalee Olivas DO, Charles Lewis Primary Care Provi elliott Trever White MD Primary Care Provider [phone] Annalee Olivas DO, Charles Lewis Primary Care Provi [place]iott Source Comments In the event this information is protected by the Federal Confidentiality of Alcohol and Drug AbusePatient Records regulations: The Federal rules restrict any use of the information to criminally investigate or prosecute any alcohol or drug abuse patient.[facility] Encounter Details Date Type Department Care Team (Late st Contact Info) Description 01/01/2020 Get Medical Advice Gastroenterology [address] [place] [phone] Stas Horvath MD [address] [place] [address] RE: Visit Follow Up Question [...] AM EDT Office Visit Orthopaedics [address] [address] Efrain Hernandez MD [address] [place] [address] 2 wk PO reverse 09/15/2024 11:45 AM EDT Office Visit Orthopaedics [address] [address] Efrain Hernandez MD [address] [place] [address] 6 wk PO reverse documented [...] documented as of this encounter Care Teams Engine Monitor Relationship Specialty Start Date End Date Efrain Mantilla Jr., DO [facility] [place] [address] PCP - General 11/10/04 05/14/24 Trever White MD [address] [place] [address] PCP - General Family Medicine 05/15/24 07/06/24 Efrain Mantilla Jr., DO [address] [place] [address] PCP - General Internal Medicine 07/07/24 MARK Rubio 05/05/21 documented as of this encounter
--- OUTSIDE RECORDS SUMMARY | 2024-08-01 14:19 | XMS_ITS | Encounter Summary ---
Author Organization [facility] Address [address] [place] [address] Care Team Providers Care Tool Coordinator Name Role Phone Annalee Olivas DO, [...] any alcohol or drug abuse patient.[facility] Encounter Details Date Type Department Care Team (Late st Contact Info) Description 07/01/2021 Get Medical Advice Gastroenterology [address] [place] [phone] Stas Horvath MD [address] [place] [address] Nausea Social History Tobacco Use Types Packs/Day Years [...] N ot on file 01/27/2020 Data from: https://www.neighborhoodatlas.medicine.[facility]/. Last address used for calculation Not [...] hearing? Answer Date of Assessment Author No 06/05/2021 9:38 AM Page Roth RN * Are you blind or do you have serious difficulty seeing, even when wearing glasses? Answer Date of Assessment Author No 06/05/2021 9:38 AM Page Roth RN * Do you have serious difficulty walking or climbing stairs? Answer Date of Assessment Author No 06/05/2021 9:38 AM Page Roth RN * Do you have difficulty dressing or bathing? Answer Date of Assessment Author No 06/05/2021 9:38 AM Page Roth RN * Because of a physical, mental, or emotional condition, do you have difficulty doing errands alone such as visiting a doctor's office or shopping? Answer Date of Assessment Author No 06/05/2021 9:38 AM Page Roth RN documented as of this encounter Mental Status * Because of a physical, mental, or emotional condition, do you have serious difficulty concentrating, remembering, or making decisions? Answer Entry Date Author No 06/05/2021 9:38 AM Page Roth RN documented in this encounter Plan of Treatment Upcoming Encounters Date Type Department Care Team (Late st Contact Info) Description 08/11/2024 11:45 AM EDT Office Visit Orthopaedics [address] [address] Efrain Hernandez MD [address] [place], [place] [id number] 2 wk PO reverse 09/15/2024 11:45 AM EDT Office Visit Orthopaedics [address] [address] Efrain Hernandez MD [address] [place] [address] 6 wk PO reverse documented as of this encounter Visit Diagnoses Not on filedocumented in this encounter Additional Health Concerns Infection Onset Date Last Indicated Resolved Time COVID-19 Rule-Out 07/01/2021 07/01/2021 07/01/2021 8:18 PM EDT documented as of this encounter Care Teams Tool Coordinator Relationship Specialty Start Date End Date Efrain Mantilla Jr., DO [address] [place] [address] PCP - General 11/10/04 05/14/24 Trever White MD [address] [place] [address] PCP - General Family Medicine 05/15/24 07/06/24 Efrain Mantilla Jr., DO [address] [place] [address] PCP - General Internal Medicine 07/07/24 MARK Rubio 05/05/21 documented as of this encounter
--- OUTSIDE RECORDS SUMMARY | 2024-08-01 14:19 | XMS_ITS | Encounter Summary ---
Author Organization [facility] Address [address] [place] [address] Care Team Providers Care Jig Fitter Name Role Phone Annalee Olivas DO, Charles Lewis Primary Care Provi [place]iott Trever White MD Primary Care Provider [phone] Annalee Olivas DO, Charles Lewis Primary Care Provi [place] Source Comments In the event this information is protected by the Federal Confidentiality of Alcohol and Drug AbusePatient Records regulations: The Federal rules restrict any use of the information to criminally investigate or prosecute any alcohol or drug abuse patient.[facility] Encounter Details Date Type Department Care Team (Late st Contact Info) Description 06/07/2021 Get Medical Advice Gastroenterology [address] [place] [phone] Stas Horvath MD [address] [place] [address] Medication changes Social History Tobacco Use Types Packs/Day Years [...] file 01/27/2020 Data from: https://www.neighborhoodatlas.medicine.[facility]/. Last address used for calculation [...] suspected to have Coronavirus/COVID-19? No / Unsure 06/04/2021 7:24 PM EDT documented as of this encounter [...] 11:45 AM EDT Office Visit Orthopaedics [address] [address] Efrain Hernandez MD [address] [place], [place] [address] 2 wk PO reverse 09/15/2024 11:45 AM EDT Office Visit Orthopaedics [address] [address] Efrain Hernandez MD [address] [place] [address] 6 wk PO reverse documented as of this encounter Visit Diagnoses Not on filedocumented in this encounter Additional Health Concerns Infection Onset Date Last Indicated Resolved Time COVID-19 Rule-Out 07/01/2021 07/01/2021 07/01/2021 8:18 PM EDT documented as of this encounter Care Teams Jig Fitter Relationship Specialty Start Date End Date Efrain Mantilla Jr., DO [address] [place] [address] PCP - General 11/10/04 05/14/24 Trever White MD [address] [place] [address] PCP - General Family Medicine 05/15/24 07/06/24 Efrain Mantilla Jr., DO [address] [place] [address] PCP - General Internal Medicine 07/07/24 MARK Rubio 05/05/21 documented as of this encounter
--- OUTSIDE RECORDS SUMMARY | 2024-08-01 14:19 | XMS_ITS | Encounter Summary ---
Author Organization [facility] Address [address] [place] [address] Care Team Providers Care Lean Manufacturing Coordinator Name Role Phone Annalee Olivas DO, Charles Lewis Primary Care Provi elliott Trever White MD Primary Care Provider [phone] Annalee Olivas DO, Charles Lewis Primary Care Provi elliott Source Comments In the event this information is protected by the Federal Confidentiality of Alcohol and Drug AbusePatient Records regulations: The Federal rules restrict any use of the information to criminally investigate or prosecute any alcohol or drug abuse patient.[facility] Encounter Details Date Type Department Care Team (Late st Contact Info) Description 09/28/2022 Patient Msg Gastroenterology [address] [phone] Provider, [facility] Information Social History Tobacco Use Types Packs/Day Years [...] is lower risk 6 07/13/2022 Data from: https://www.neighborhoodatlas.medicine.[facility].edu/. Last address used for calculation [...] * Telephone Encounter - Carey Rodriguez - 09/29/2022 1:56 PM EDT Received call from Nae at [employer], she received the fax sent by Brigida CLIFFORD, however she said the wound care evaluation was missing and if we can please fax it over. Carey Rodriguez documented in this encounter Plan of Treatment Upcoming Encounters Date Type Department Care Team (Late st Contact Info) Description 08/11/2024 11:45 AM EDT Office Visit Orthopaedics [address] [address] Efrain Hernandez MD [address] [place] [address] 2 wk PO reverse 09/15/2024 11:45 AM EDT Office Visit Orthopaedics [address] [address] Efrain Hernandez MD [address] [place] [address] 6 wk PO reverse documented as of this encounter Visit Diagnoses Not on filedocumented in this encounter Care Teams Lean Manufacturing Coordinator Relationship Specialty Start Date End Date Efrain Mantilla Jr., DO [facility] [place] [address] PCP - General 11/10/04 05/14/24 Trever White MD [address] [place] [address] PCP - General Family Medicine 05/15/24 07/06/24 Efrain Mantilla Jr., DO [facility] [place] [address] PCP - General Internal Medicine 07/07/24 MARK Chavis CM - Joanne 05/05/21 documented as of this encounter
--- OUTSIDE RECORDS SUMMARY | 2024-08-01 14:19 | XMS_ITS | Encounter Summary ---
Author Organization [facility] Address [address] [place] [address] Care Team Providers Care Mixer Operator Hot Metal Name Role Phone Annalee Olivas DO, Charles Lewis Primary Care Provi elliott Trever White MD Primary Care Provider [phone] Annalee Olivas DO, Charles Lewis Primary Care Provi elliott Source Comments In the event this information is protected by the Federal Confidentiality of Alcohol and Drug AbusePatient Records regulations: The Federal rules restrict any use of the information to criminally investigate or prosecute any alcohol or drug abuse patient.[facility] Encounter Details Date Type Department Care Team (Late st Contact Info) Description 02/01/2024 Get Medical Advice Gastroenterology [address] [phone] Stas Horvath MD [address] [place] [address] Skilled Nursing and Medicare! Social History Tobacco Use Types Packs/Day Years Used Date Smoking Tobacco: Former Cigarettes Q uit: 09/20/1995 Smokeless Tobacco: Never Alcohol Use Standard Drinks/Week Comments Yes 7 (1 standard drink = 0.6 oz pur e alcohol) glass of wine with dinner [facility] Utilities Answer Date Recorded In the past [...] time in the past 12 m [facility], were you homeless or living in a care home (including now)? No 01/21/2024 Area Deprivation Index Answer Date Jorge rded National Score (1-100), lower number is lower ri sk 74 07/13/2022 State Score (1-10), lower number is lower risk 6 07/13/2022 Data from: https://www.neighborhoodatlas.medicine.[facility].edu/. Last address used for calculation [address] 07/13/2022 Comments No Sex and Gender Information [...] 11:45 AM EDT Office Visit Orthopaedics [address] [phone] Efrain Hernandez MD [address] [place] [address] 2 wk PO reverse 09/15/2024 11:45 AM EDT Office Visit Orthopaedics [address] [address] Efrain Hernandez MD [address] [place] [address] 6 wk PO reverse documented as of this encounter Visit Diagnoses Not on filedocumented in this encounter Care Teams Mixer Operator Hot Metal Relationship Specialty Start Date End Date Efrain Mantilla Jr., DO [address] [place] [phone] PCP - General 11/10/04 05/14/24 Trever White MD [address] [place] [address] PCP - General Family Medicine 05/15/24 07/06/24 Efrain Mantilla Jr., [address] [place] [address] PCP - General Internal Medicine 07/07/24 MARK Rubio 05/05/21 documented as of this encounter
--- OUTSIDE RECORDS SUMMARY | 2024-08-01 14:19 | XMS_ITS | Encounter Summary ---
Author Organization [facility] Address [address] [place] [address] Care Team Providers Care Wiring Technician Name Role Phone Annalee Olivas DO, Charles Lewis Primary Care Provi elliott Trever White MD Primary Care Provider [phone] Annalee Olivas DO, Charles Lewis Primary Care [...] Team (Late st Contact Info) Description 09/28/2022 Get Medical Advice Gastroenterology [address] [phone] Stas Horvath MD [address] [place] [address] [employer] supplies Social History Tobacco Use Types Packs/Day [...] is lower risk 6 07/13/2022 Data from: https://www.neighborhoodatlas.medicine.[facility]/. Last address used for calculation [address] 07/13/2022 Comments No Sex and Gender Information [...] Telephone Encounter - Brigida Hopkins RN - 09/28/2022 2:55 PM EDT Called [employer] at [phone] (Home Care Customer Service Line) and spoke to Zaira and had her fax the Standard Order form necessary for the sterile gauze pt is requestingto this nurse. Needs to be completed every 30 days. Paperwork for all other supplies related to pt's ostomy supplies is good through February of 2023. Pt advised via [employer] as she is active. Brigida Hopkins RN September 28, 2022 3:08 PM documented in this encounter Plan of Treatment Upcoming Encounters Date Type Department Care Team (Late st Contact Info) Description 08/11/2024 11:45 AM EDT Office Visit Orthopaedics [address] [place] [address] Efrain Hernandez MD [address] [place], [place] [phone] 2 wk PO reverse 09/15/2024 11:45 AM EDT Office Visit Orthopaedics [address] [address] Efrain Hernandez MD [address] [place], [place] [phone] 6 wk PO reverse documented as of this encounter Visit Diagnoses Not on filedocumented in this encounter Care Teams Wiring Technician Relationship Specialty Start Date End Date Efrain Mantilla Jr., DO [address] [place] [phone] PCP - General 11/10/04 05/14/24 Trever White MD [address] [place] [address] PCP - General Family Medicine 05/15/24 07/06/24 Efrain Mantilla Jr., [facility] [place] [address] PCP - General Internal Medicine 07/07/24 MARK Rubio 05/05/21 documented as of this encounter
--- OUTSIDE RECORDS SUMMARY | 2024-08-01 14:19 | XMS_ITS | Encounter Summary ---
Author Organization [facility] Address [address] [place] [address] Care Team Providers Care Mushroom Cutter Name Role Phone Annalee Olivas DO, Charles Lewis Primary Care Provi elliott Trever White MD Primary Care Provider [phone] Annalee Olivas DO, Charles Lewis Primary Care Provi elliott Source Comments In the event this information is protected by the Federal Confidentiality of Alcohol and Drug AbusePatient Records regulations: The Federal rules restrict any use of the information to criminally investigate or prosecute any alcohol or drug abuse patient.[facility] Encounter Details Date Type Department Care Team (Late st Contact Info) Description 02/02/2020 Get Medical Advice Gastroenterology [address] [phone] Stas Horvath MD [address] [place] [address] RE: Medication Question (Not Renewal) Social History [...] file 01/27/2020 Data from: https://www.neighborhoodatlas.medicine.[facility].edu/. Last address used for calculation Not on [...] 08/11/2024 11:45 AM EDT Office Visit Orthopaedics [address] [place], [place] [phone] Efrain Hernandez MD [address] [place] [address] 2 wk PO reverse 09/15/2024 11:45 AM EDT Office Visit Orthopaedics [address] [place] [address] Efrain Hernandez MD [address] [place] [address] 6 wk PO reverse [...] documented as of this encounter Care Teams Mushroom Cutter Relationship Specialty Start Date End Date Efrain Mantilla Jr., DO [address] [facility] [place] [address] PCP - General 11/10/04 05/14/24 Trever White MD [address] [place] [address] PCP - General Family Medicine 05/15/24 07/06/24 Efrain Mantilla Jr., DO [address] [place] [address] PCP - General Internal Medicine 07/07/24 MARK Rubio 05/05/21 documented as of this encounter
--- OUTSIDE RECORDS SUMMARY | 2024-08-01 14:19 | XMS_ITS | Encounter Summary ---
Author Organization [facility] Address [address] [place] [address] Care Team Providers Care Wire Border Assembler Name Role Phone Annalee Olivas DO, Charles Lewis Primary Care Provi elliott Trever White MD Primary Care Provider [phone] Annalee Olivas DO, Charles Lewis Primary Care [...] Care Team (Late st Contact Info) Description 03/03/2024 Get Medical Advice Gastroenterology [address] [phone] Stas Horvath MD [address] [place] [address] B12 rx Social History Tobacco Use Types Packs/Day Years Used Date Smoking Tobacco: Former Cigarettes Q uit: 09/20/1995 Smokeless Tobacco: Never Alcohol Use Standard Drinks/Week Comments Yes 7 (1 standard drink = 0.6 oz pur e alcohol) glass of wine with dinner [facility] Utilities Answer Date Recorded In [...] any time in the past 12 m [facility], were you homeless or living in a [facility]p (including now)? No 01/21/2024 Area Deprivation Index Answer Date Jorge rded National Score (1-100), lower number is lower ri sk 74 07/13/2022 State Score (1-10), lower number is lower risk 6 07/13/2022 Data from: https://www.neighborhoodatlas.medicine.[facility].edu/. Last address used for calculation [address] 07/13/2022 Comments No Sex and Gender Information [...] AM EDT Office Visit Orthopaedics [address] [address] Efrain Hernandez MD [address] [place], [place] [phone] 2 wk PO reverse 09/15/2024 11:45 AM EDT Office Visit Orthopaedics [address] [address] Efrain Hernandez MD [address] [place] [address] 6 wk PO reverse documented as of this encounter Visit Diagnoses Not on filedocumented in this encounter Care Teams Wire Border Assembler Relationship Specialty Start Date End Date Efrain Mantilla Jr., DO [address] [place] [phone] PCP - General 11/10/04 05/14/24 Trever White MD [address] [place] [address] PCP - General Family Medicine 05/15/24 07/06/24 Efrain Mantilla Jr., [facility]3 [place] [address] PCP - General Internal Medicine 07/07/24 MARK Rubio 05/05/21 documented as of this encounter
--- OUTSIDE RECORDS SUMMARY | 2024-08-01 14:19 | XMS_ITS | Encounter Summary ---
Author Organization [facility] Address [address] [place] [address] Care Team Providers Care Cribbing Setter Name Role Phone Annalee Olivas DO, Charles Lewis Primary Care Provi elliott Trever White MD Primary Care Provider [phone] Annalee Olivas DO, Charles Lewis Primary Care Provi elliott Source Comments In the event this information is protected by the Federal Confidentiality of Alcohol and Drug AbusePatient Records regulations: The Federal rules restrict any use of the information to criminally investigate or prosecute any alcohol or drug abuse patient.[facility] Encounter Details Date Type Department Care Team (Late st Contact Info) Description 09/30/2020 Get Medical Advice Gastroenterology [address] [place] [address] Stas Horvath MD [address] [place] [address] RE: Visit Follow Up Question [...] N ot on file 01/27/2020 Data from: https://www.neighborhoodatlas.medicine.[facility].edu/. Last address used for calculation Not [...] 08/11/2024 11:45 AM EDT Office Visit Orthopaedics [address] [place], [place] [phone] Efrain Hernandez MD [address] [place] [phone] 2 wk PO reverse 09/15/2024 11:45 AM EDT Office Visit Orthopaedics [address] [place] [address] Efrain Hernandez MD [address] [place] [address] 6 wk PO reverse documented [...] documented as of this encounter Care Teams Cribbing Setter Relationship Specialty Start Date End Date Efrain Mantilla Jr., DO [address] [facility] [place] [address] PCP - General 11/10/04 05/14/24 Trever White MD [address] [place] [address] PCP - General Family Medicine 05/15/24 07/06/24 Efrain Mantilla Jr., DO [address] [facility] [place] [address] PCP - General Internal Medicine 07/07/24 MARK Rubio 05/05/21 documented as of this encounter
--- OUTSIDE RECORDS SUMMARY | 2024-08-01 14:19 | XMS_ITS | Encounter Summary ---
Author Organization [facility] Address [facility] [place] [address] Care Team Providers Care Manager Procurement Name Role Phone Annalee Olivas DO, Charles Lewis Primary Care Provi elliott Trever White MD Primary Care Provider [phone] Annalee Olivas DO, Charles Lewis Primary Care [...] Care Team (Late st Contact Info) Description 06/08/2021 Get Medical Advice Colorectal Surgery [address] [address] Mellisa Dawkins MD [address] [phone] Pain Social History Tobacco Use Types Packs/Day Years [...] on file 01/27/2020 Data from: https://www.neighborhoodatlas.medicine.[facility]/. Last address used for calculation Not on [...] AM EDT Office Visit Orthopaedics [address] [address] Efrain Hernandez MD [address] [place], [place] [phone] 2 wk PO reverse 09/15/2024 11:45 AM EDT Office Visit Orthopaedics [address] [address] Efrian Hernandez MD [address] [place], [place] [phone] 6 wk PO reverse documented as of this encounter Visit Diagnoses Not on filedocumented in this encounter Additional Health Concerns Infection Onset Date Last Indicated Resolved Time COVID-19 Rule-Out 07/01/2021 07/01/2021 07/01/2021 8:18 PM EDT documented as of this encounter Care Teams Manager Procurement Relationship Specialty Start Date End Date Efrain Mantilla Jr., DO [address] [place] [address] PCP - General 11/10/04 05/14/24 Trever White MD [address] [place] [address] PCP - General Family Medicine 05/15/24 07/06/24 Efrain Mantilla Jr., DO [address] [place] [address] PCP - General Internal Medicine 07/07/24 MARK Rubio 05/05/21 documented as of this encounter
--- OUTSIDE RECORDS SUMMARY | 2024-08-01 14:19 | XMS_ITS | Encounter Summary ---
Author Organization [facility] Address [address] [place] [address] Care Team Providers Care Tower Observer Name Role Phone Annalee Olivas DO, Charles Lewis Primary Care Provi elliott Trever White MD Primary Care Provider [phone] Annalee Olivas DO, Charles Lewis Primary Care Provi elliott Source Comments In the event this information is protected by the Federal Confidentiality of Alcohol and Drug AbusePatient Records regulations: The Federal rules restrict any use of the information to criminally investigate or prosecute any alcohol or drug abuse patient.[facility] Encounter Details Date Type Department Care Team (Late st Contact Info) Description 05/27/2020 Get Medical Advice Gastroenterology [address] [place] [address] Stas Horvath MD [address] [place] [address] RE: Visit Follow Up Question [...] N ot on file 01/27/2020 Data from: https://www.neighborhoodatlas.medicine.[facility].edu/. Last address used for calculation Not [...] 08/11/2024 11:45 AM EDT Office Visit Orthopaedics [address] [place], [place] [phone] Efrain Hernandez MD [address] [place] [phone] 2 wk PO reverse 09/15/2024 11:45 AM EDT Office Visit Orthopaedics [address] [place] [address] Efrain Hernandez MD [address] [place] [address] 6 wk PO reverse documented [...] documented as of this encounter Care Teams Tower Observer Relationship Specialty Start Date End Date Efrain Mantilla Jr., DO [address] [facility] [place] [address] PCP - General 11/10/04 05/14/24 Trever White MD [address] [place] [address] PCP - General Family Medicine 05/15/24 07/06/24 Efrain Mantilla Jr., DO [address] [facility] [place] [address] PCP - General Internal Medicine 07/07/24 MARK Rubio 05/05/21 documented as of this encounter
--- OUTSIDE RECORDS SUMMARY | 2024-08-01 14:19 | XMS_ITS | Encounter Summary ---
Author Organization [facility] Address [address] [place] [address] Care Team Providers Care Veterinary Assistant Name Role Phone Annalee Olivas DO, Charles Lewis Primary Care Provi elliott Trever White MD Primary Care Provider [phone] Annalee Olivas DO, Charles Lewis Primary Care Provi elliott Source Comments In the event this information is protected by the Federal Confidentiality of Alcohol and Drug AbusePatient Records regulations: The Federal rules restrict any use of the information to criminally investigate or prosecute any alcohol or drug abuse patient.[facility] Encounter Details Date Type Department Care Team (Late st Contact Info) Description 03/21/2021 Get Medical Advice Gastroenterology [address] [place] [phone] Stas Horvath MD [address] [place] [address] update Social History Tobacco Use Types Packs/Day Years [...] ot on file 01/27/2020 Data from: https://www.neighborhoodatlas.medicine.[facility]/. Last address used for calculation Not [...] 08/11/2024 11:45 AM EDT Office Visit Orthopaedics [address] [place], [place] [phone] Efrain Hernandez MD [address] [place] [phone] 2 wk PO reverse 09/15/2024 11:45 AM EDT Office Visit Orthopaedics [address] [place] [address] Efrain Hernandez MD [address] [place] [address] 6 wk PO reverse documented [...] as of this encounter Care Teams Veterinary Assistant Relationship Specialty Start Date End Date Efrain Mantilla Jr., DO [address] [facility] [place] [address] PCP - General 11/10/04 05/14/24 Trever White MD [address] [place] [address] PCP - General Family Medicine 05/15/24 07/06/24 Efrain Mantilla Jr., DO [address] [facility] [place] [address] PCP - General Internal Medicine 07/07/24 MARK Rubio 05/05/21 documented as of this encounter
--- OUTSIDE RECORDS SUMMARY | 2024-08-01 14:19 | XMS_ITS | Clinical Summary ---
Author Organization [facility] Address [address] [place] [address] Care Team Providers Care Photographic Reproduction Technician Name Role Phone Annalee Olivas DO, [facility] elliott Allergies Active Allergy Reactions Criticality Noted Date Comments Prednisolone Hives 03/27/2017 Medications Cholecalciferol, Vitamin D3, 25 mcg (1,000 unit) cap Take 1,000 Units by mouth once daily. Active Syringe with Needle, Disp, (BD LUER-RENA SYRINGE) 3 mL 23 x 1 1 Each once every month. 12 Each 4 022 Active montelukast (SINGULAIR) 10 mg tablet Take 10 mg by mouth every morning. Active CALCIUM ORAL Take by mouth. Ac tive Syringe with Needle, Safety (ECLIPSE SYRINGE) 3 mL 25 gauge x 1 syrg Inject 1 Each subcutaneously once every month. 100 Each 5 024 Active acetaminophen (TYLENOL) 325 mg tablet Take 2 tablets by mouth every 6 hours. 024 Active levothyroxine (SYNTHROID) 50 mcg tabletIndications :Other specified hypothyroidism Take 1 tablet by mouth once daily. 90 tablet 3 025 2025 Active ALPRAZolam (XANAX) 0.5 mg tabletIndications :Pernicious anemia,Crohn's disease of both small and large intestine with abscess (HCC) Take 1 tablet by mouth three times a day for 150 days. 90 tablet 4 025 2024 Active cyanocobalamin 1,000 mcg/mLIndications :Pernicious anemia ADMINISTER 1 ML UNDER THE SKIN 1 TIME EVERY MONTH 1 mL 5 Active collagen, bovine, 100 % powd Active BETA CAROTENE ORAL Take by mouth. Activ e aspirin, enteric coated (ADULT LOW DOSE ASPIRIN) 81 mg EC tablet Take 1 tablet by mouth two times a day for 14 days. 28 tablet 025 2024 Active docusate sodium (COLACE) 100 mg capsule Take 1 capsule by mouth two times a day for 14 days. 28 capsule 025 2024 Active ondansetron orally disintegrating (ZOFRAN ODT) 4 mg disintegrating tablet Take 1 tablet by mouth every 8 hours as needed for nausea/vomiting. 10 tablet 1 Active oxyCODONE IR (ROXICODONE) 5 mg immediate release tabletIndications :Post-operative pain Take 1 tablet by mouth every 6 hours as needed for pain for up to 7 days. 28 tablet 025 2024 Active acetaminophen (TYLENOL EXTRA STRENGTH) 500 mg tablet Take 2 tablets by mouth every 8 hours as needed for pain. 180 tablet 025 2024 Active rosuvastatin (CRESTOR) 10 mg tablet Take 1 tablet by mouth daily at bedtime. 90 tablet Active rosuvastatin (CRESTOR) 10 mg tablet Take 1 tablet by mouth daily at bedtime. 90 tablet 1 025 2024 Discontinued mupirocin (BACTROBAN) 2 % ointmentIndicatio ns:Pre-op examination two times a day for 5 days. Apply 0.5 inch with cotton swab (Q-tip) to each nostril in the morning and evening for 5 days prior to and including day of surgery. 22 g 025 2024 Active Problems Problem Noted Date Diagnosed Date HLD (hyperlipidemia) 07/15/2024 Assessment & Plan (07/15/2024 2:25 PM EDT): Assessment: stable with current medication regimen Multiple rib fractures 01/21/2024 Assessment & Plan (01/21/2024 10:38 AM EST): -Aggressive pulmonary hygiene, I.S. Q1H while awake -Multimodal pain manamagent -APMS consulted -CXR prn for change in respiratory status CXR this morning no identified PTX Trauma 01/20/2024 Closed fracture of left proximal humerus 024 Assessment & Plan (07/15/2024 2:27 PM EDT): Assessment: Candice Cuellar has a 4-pt varus [...] no infection and is cleared to proceed. Assessment & Plan (01/21/2024 1:50 PM EST): Orthopedics consulted Follow up final recommendations, on schedule for potential intervention 01/20 NPO IV hydration Analgesia Anxiety 05/08/2021 Assessment & Plan (05/17/2021 1:46 PM EDT): PLAN: Valium 2.5mg IV every 6 hrs prn Assessment & Plan (05/16/2021 8:48 AM EDT): PLAN: Valium 2.5mg IV every 6 hrs prn Assessment & Plan (05/14/2021 2:40 AM EDT): Assessment: history of anxiety, takes xanax PRN PLAN: - Xanax 0.25 mg TID PRN - olanzapine 5mg qhs and once daily PRN Assessment & Plan (05/13/2021 11:47 AM EDT): Assessment: history of anxiety, takes xanax PRN PLAN: - Xanax 0.25 mg TID PRN - olanzapine 5mg qhs and once daily PRN Assessment & Plan (05/13/2021 8:58 AM EDT): PLAN: Valium 2.5mg IV every 6 hrs prn Assessment & Plan (05/12/2021 12:28 PM EDT): Assessment: history of anxiety, takes xanax PRN PLAN: - Xanax 0.25 mg TID PRN -olanzapine 5mg disintegrating BID ordered Assessment & Plan (05/12/2021 9:31 AM EDT): PLAN: Valium 2.5mg IV every 6 hrs prn Assessment & Plan (05/11/2021 12:02 PM EDT): Assessment: history of anxiety, takes xanax PRN PLAN: - Xanax 0.25 mg TID PRN Assessment & Plan (05/11/2021 10:20 AM EDT): PLAN: Valium 2.5mg IV every 6 hrs prn Assessment & Plan (05/10/2021 8:01 AM EDT): PLAN: Valium 2.5mg IV every 6 hrs prn Assessment & Plan (05/09/2021 12:15 PM EDT): Assessment: history of anxiety, takes xanax PRN PLAN: - Xanax 0.25 mg BID PRN Assessment & Plan (05/09/2021 9:43 AM EDT): PLAN: Valium 2.5mg IV every 6 hrs prn Assessment & Plan (05/08/2021 11:15 PM EDT): Assessment: history of anxiety, takes xanax PRN PLAN: - Xanax 0.25 mg BID PRN Postoperative pain 04/28/2021 Assessment & Plan (05/17/2021 1:46 PM EDT): PLAN: Continue multimodal regimen oral and breakthrough IV pain meds Tramadol dced and flexeril ordered Assessment & Plan (05/16/2021 8:48 AM EDT): PLAN: Continue multimodal regimen oral and breakthrough IV pain meds Tramadol dced and flexeril ordered Assessment & Plan (05/14/2021 2:43 AM EDT): Assessment: PLAN: - Roxicodone 5 mg PO Q6hrs PRN - Tylenol 650 mg PO Q6hrs Assessment & Plan (05/13/2021 11:45 AM EDT): Assessment: PLAN: - Roxicodone 5 mg PO Q6hrs PRN - Tylenol 650 mg PO Q6hrs Assessment & Plan (05/13/2021 8:58 AM EDT): PLAN: Continue multimodal regimen oral and breakthrough IV pain meds Tramadol dced and flexeril ordered Assessment & Plan (05/12/2021 12:27 PM EDT): Assessment: PLAN: - d/c fentatnyl and gabapentin - Roxicodone 5-10 mg PO Q6hrs PRN - Tylenol 650 mg PO Q6hrs Assessment & Plan (05/12/2021 9:31 AM EDT): PLAN: Continue multimodal regimen oral and breakthrough IV pain meds Tramadol dced and flexeril ordered Assessment & Plan (05/11/2021 12:01 PM EDT): Assessment: PLAN: - d/c fentatnyl and gabapentin - Roxicodone 5-10 mg PO Q6hrs PRN - Tylenol 650 mg PO Q6hrs Assessment & Plan (05/11/2021 10:19 AM EDT): PLAN: Continue multimodal regimen oral and breakthrough IV pain meds Tramadol dced and flexeril ordered Assessment & Plan (05/10/2021 8:01 AM EDT): PLAN: Continue multimodal regimen oral and breakthrough IV pain meds Tramadol dced and flexeril ordered Assessment & Plan (05/09/2021 12:11 PM EDT): Assessment: PLAN: - fentanyl 50 mcg IV Q1hr PRN - Roxicodone 5-10 mg PO Q6hrs PRN - Tylenol 650 mg PO Q6hrs Assessment & Plan (05/09/2021 9:43 AM EDT): PLAN: Continue multimodal regimen oral and breakthrough IV pain meds Tramadol dced and flexeril ordered Assessment & Plan (05/08/2021 11:13 PM EDT): Assessment: PLAN: - fentanyl 50 mcg IV Q1hr PRN - Roxicodone 5-10 mg PO Q6hrs PRN - Tylenol 650 mg PO Q6hrs Assessment & Plan (05/08/2021 9:12 AM EDT): PLAN: Continue multimodal regimen oral and breakthrough IV pain meds Tramadol dced and flexeril ordered Assessment & Plan (05/07/2021 8:33 AM EDT): PLAN: Continue multimodal regimen oral and breakthrough IV pain meds Assessment & Plan (05/06/2021 10:51 AM EDT): PLAN: Continue multimodal regimen Dc decision unit rn and switch to oral and breakthrough IV meds Assessment & Plan (05/05/2021 9:28 AM EDT): PLAN: Continue multimodal regimen Dc decision unit rn and switch to oral and breakthrough IV meds Assessment & Plan (05/04/2021 1:32 PM EDT): PLAN: Continue multimodal regimen Dc decision unit rn and switch to oral and breakthrough IV meds Assessment & Plan (05/03/2021 10:18 AM EDT): PLAN: Continue multimodal regimen Dc decision unit rn and switch to oral and breakthrough IV meds Assessment & Plan (05/02/2021 9:29 AM EDT): PLAN: Continue multimodal regimen Dc decision unit rn and switch to oral and breakthrough IV meds Assessment & Plan (05/01/2021 4:23 AM EDT): PLAN: Continue multimodal regimen Dc decision unit rn and switch to oral and breakthrough IV meds Assessment & Plan (04/29/2021 12:32 PM EST): PLAN: Continue multimodal regimen Dc decision unit rn and switch to oral and breakthrough IV meds Assessment & Plan (04/28/2021 2:59 PM EST): PLAN: Continue multimodal regimen Crohn's colitis, other complication 04/18/2021 Assessment & Plan (05/17/2021 1:46 PM EDT): Assessment: strictured rectum with associated perirectal abscess PLAN: -NST consult for TPN -S/p proctectomy and end ileostomy 04/27/21 Assessment & Plan (05/16/2021 8:48 AM EDT): Assessment: strictured rectum with associated perirectal abscess PLAN: -NST consult for TPN -S/p proctectomy and end ileostomy 04/27/21 Assessment & Plan (05/14/2021 2:40 AM EDT): Assessment: s/p proctectomy with end ileostomy with Dr. Deras 04/27/21. Takes Humira at home PLAN: - continue TPN via PICC - Nutrition consulted, c/w TPN - hold home humira Assessment & Plan (05/13/2021 11:44 AM EDT): Assessment: s/p proctectomy with end ileostomy with Dr. Deras 04/27/21. Takes Humira at home PLAN: - continue TPN via PICC - Nutrition consulted, c/w TPN - hold home humira Assessment & Plan (05/13/2021 8:58 AM EDT): Assessment: strictured rectum with associated perirectal abscess PLAN: -NST consult for TPN -S/p proctectomy and end ileostomy 04/27/21 Assessment & Plan (05/12/2021 12:27 PM EDT): Assessment: s/p proctectomy with end ileostomy with Dr. Deras 04/27/21. Takes Humira at home PLAN: - continue TPN via PICC - Nutrition consulted, c/w TPN - hold home humira Assessment & Plan (05/12/2021 9:31 AM EDT): Assessment: strictured rectum with associated perirectal abscess PLAN: -NST consult for TPN -S/p proctectomy and end ileostomy 04/27/21 Assessment & Plan (05/11/2021 12:00 PM EDT): Assessment: s/p proctectomy with end ileostomy with Dr. Deras 04/27/21. Takes Humira at home PLAN: - continue TPN via PICC - Nutrition consulted, c/w TPN - hold home humira Assessment & Plan (05/11/2021 10:19 AM EDT): Assessment: strictured rectum with associated perirectal abscess PLAN: -NST consult for TPN -S/p proctectomy and end ileostomy 04/27/21 Assessment & Plan (05/10/2021 8:00 AM EDT): Assessment: strictured rectum with associated perirectal abscess PLAN: -NST consult for TPN -S/p proctectomy and end ileostomy 04/27/21 Assessment & Plan (05/09/2021 12:11 PM EDT): Assessment: s/p proctectomy with end ileostomy with Dr. Deras 04/27/21. Takes Humira at home PLAN: - continue TPN via PICC - Nutrition consulted, TPN will be concentrated starting tonight. - hold home humira Assessment & Plan (05/09/2021 9:43 AM EDT): Assessment: strictured rectum with associated perirectal abscess PLAN: -NST consult for TPN -S/p proctectomy and end ileostomy 04/27/21 Assessment & Plan (05/08/2021 11:39 PM EDT): Assessment: s/p proctectomy with end ileostomy with Dr. Deras 04/27/21. Takes Humira at home PLAN: - continue TPN via PICC - hold home humira Assessment & Plan (05/08/2021 9:12 AM EDT): Assessment: strictured rectum with associated perirectal abscess PLAN: -NST consult for TPN -S/p proctectomy and end ileostomy 04/27/21. Now continues to have worsening nausea and vomiting. WBC count ruthie from 05/06 to 05/07. Plan for CT abd/pelvis today with IV and oral contrast. She may not tolerate a lot of PO contrast and we advised her to take as much as she feels comfortable with and to stop if she gets nauseated. Lipase ordered for worsening back pain overnight and vomiting. Assessment & Plan (05/07/2021 8:33 AM EDT): Assessment: strictured rectum with associated perirectal abscess PLAN: -NST consult for TPN S/p proctectomy and end ileostomy 04/27/21 Assessment & Plan (05/06/2021 10:51 AM EDT): Assessment: strictured rectum with associated perirectal abscess PLAN: -NST consult for TPN S/p proctectomy and end ileostomy 04/27/21 Assessment & Plan (05/05/2021 9:28 AM EDT): Assessment: strictured rectum with associated perirectal abscess PLAN: -NST consult for TPN S/p proctectomy and end ileostomy 04/27/21 Assessment & Plan (05/04/2021 1:31 PM EDT): Assessment: strictured rectum with associated perirectal abscess PLAN: -NST consult for TPN -GIS as tolerated S/p proctectomy and end ileostomy 04/27/21 Assessment & Plan (05/03/2021 10:18 AM EDT): Assessment: strictured rectum with associated perirectal abscess PLAN: -NST consult for TPN -GIS as tolerated S/p proctectomy and end ileostomy 04/27/21 Assessment & Plan (05/02/2021 9:29 AM EDT): Assessment: strictured rectum with associated perirectal abscess PLAN: -NST consult for TPN -GIS as tolerated S/p proctectomy and end ileostomy 04/27/21 Assessment & Plan (05/01/2021 4:23 AM EDT): Assessment: strictured rectum with associated perirectal abscess PLAN: -NST consult for TPN -GIS as tolerated S/p proctectomy and end ileostomy 04/27/21 Assessment & Plan (04/30/2021 12:33 PM EST): Assessment: strictured rectum with associated perirectal abscess PLAN: -NST consult for TPN -GIS as tolerated S/p proctectomy and end ileostomy 04/27/21 Assessment & Plan (04/29/2021 12:31 PM EST): Assessment: strictured rectum with associated perirectal abscess PLAN: -NST consult for TPN -GIS as tolerated S/p proctectomy and end ileostomy 04/27/21 Assessment & Plan (04/28/2021 2:59 PM EST): Assessment: strictured rectum with associated perirectal abscess PLAN: -NST consult for TPN -GIS as tolerated -planning for proctectomy and end ileostomy once nutrition improves - planning for next Weds/Thurs Assessment & Plan (04/26/2021 1:58 PM EST): Assessment: strictured rectum with associated perirectal abscess PLAN: -NST consult for TPN -GIS as tolerated -planning for proctectomy and end ileostomy once nutrition improves - planning for next Weds/Thurs Assessment & Plan (04/25/2021 10:27 AM EST): Assessment: strictured rectum with associated perirectal abscess PLAN: -NST consult for TPN -GIS as tolerated -planning for proctectomy and end ileostomy once nutrition improves - planning for next Weds/Thurs Assessment & Plan (04/22/2021 11:26 AM EST): Assessment: strictured rectum with associated perirectal abscess PLAN: -NST consult for TPN -GIS as tolerated -planning for proctectomy and end ileostomy once nutrition improves - planning for next Weds/Thurs Assessment & Plan (04/21/2021 8:42 AM EST): Assessment: strictured rectum with associated perirectal abscess PLAN: -travis and TPN today -afterwards can do clears with ensure clears -planning for proctectomy and end ileostomy once nutrition improves - timing tbd: if pt has ongoing bowel function then in a couple weeks and can d/c home on TPN; however, if pt is not passing flatus/BMs and more distended, then will keep in house and plan for surgery mid-late next week Assessment & Plan (04/20/2021 10:36 AM EST): Assessment: strictured rectum with associated perirectal abscess PLAN: -plan for at least diverting ileostomy today; discussion had re proctectomy -> if nutrition labs acceptable, then will plan for completion proctectomy Crohn disease 11/09/2003 Assessment & Plan (07/15/2024 2:24 PM EDT): Assessment: stable, follows with Dr. Horvath at [facility] Status post total colectomy and ileostomy in 2021; no current medication management required. Crohn's disease, s/p TPC with ileostomy. Empties stoma 5x daily. Early satieity, but is able to keep down protein shakes. B12 injections monthly Hgb 14.2 on 05/15/24 SYMPTOMATIC FEMALE CLIMACTERIC STATE(aka MENOPAU SE) 11/09/2003 Resolved Problems Problem Noted Date Diagnosed Date Resolved Date Fall 01/22/2024 05/15/2024 Facial contusion 01/21/2024 05/15/2024 Assessment & Plan (01/21/2024 10:38 AM EST): Monitor Acute pain due to trauma 01/21/2024 Assessment & Plan (01/21/2024 10:38 AM EST): APMS consulted Open abdominal wall wound 07/01/2021 Intractable nausea and vomiting 07/01/2021 05/15/2024 Enteritis 06/03/2021 05/15/2024 Generalized abdominal pain 06/03/2021 0 05/15/2024 Nausea and vomiting 06/03/2021 05/16/19 Hyponatremia 05/17/2021 05/18/2021 Assessment & Plan (05/17/2021 1:47 PM EDT): PLAN: Continue to monitor with daily labs Replace to keep above 136 Aspiration pneumonia 05/09/2021 022 Assessment & Plan (05/17/2021 1:46 PM EDT): PLAN: Identified on CT Chest POD11 On IV antibiotics Assessment & Plan (05/16/2021 8:48 AM EDT): PLAN: Identified on CT Chest POD11 On IV antibiotics Assessment & Plan (05/14/2021 2:40 AM EDT): Assessment: CXR showing bibasilar opacities, CXR grossly unchanged 05/10 vs 05/09. Febrile overnight 05/09 - 05/10 to 39.4. Intermittently rigorous - finished course of meropenem, stable on RA PLAN: NTD Assessment & Plan (05/13/2021 11:49 AM EDT): Assessment: CXR showing bibasilar opacities, CXR grossly unchanged 05/10 vs 05/09. Febrile overnight 05/09 - 05/10 to 39.4. Intermittently rigorous PLAN: - continue meropenem until 05/14 per ID - respiratory status stable on RA Assessment & Plan (05/13/2021 8:59 AM EDT): PLAN: Identified on CT Chest POD11 On IV antibiotics Assessment & Plan (05/12/2021 9:31 AM EDT): PLAN: Identified on CT Chest POD11 On IV antibiotics Assessment & Plan (05/11/2021 12:03 PM EDT): Assessment: CXR showing bibasilar opacities, CXR grossly unchanged 05/10 vs 05/09. Febrile overnight 05/09 - 05/10 to 39.4. Intermittently rigorous PLAN: - continue meropenem until 05/14 per ID - respiratory status stable on 2L NC saturating 99-100% Assessment & Plan (05/11/2021 10:20 AM EDT): PLAN: Identified on CT Chest POD11 On IV antibiotics Assessment & Plan (05/10/2021 1:17 PM EDT): Assessment: CXR showing bibasilar opacities, CXR grossly unchanged 05/10 vs 05/09. Febrile overnight 05/09 - 05/10 to 39.4. Intermittently rigorous PLAN: - continue meropenem until 05/14 per ID - respiratory status stable on 2L NC saturating 99-100% Assessment & Plan (05/10/2021 8:01 AM EDT): PLAN: Identified on CT Chest POD11 On IV antibiotics Assessment & Plan (05/09/2021 9:44 AM EDT): PLAN: Identified on CT Chest POD11 On IV antibiotics Respiratory distress 05/08/202105/15/ 025 Assessment & Plan (05/16/2021 8:48 AM EDT): PLAN: Transferred to SICU POD11 for respiratory distress CT Chest identified aspiration pneumonia Assessment & Plan (05/14/2021 2:48 AM EDT): Assessment: AMET on RNF POD 9 for tachypnea, hypoxia with SpO2 84 on 4L NC -> non-rebreather up to 90%. CXR + lung windows in CT A/P possibly show perihilar opacities but not overwhelmingly convincing. Patient on lovenox 40 mg BID on RNF for DVT prophylaxis. Concern for aspiration event vs. PE vs. Anxiety (patient takes xanax 0.25 mg PRN at home). Bedside ultrasound on arrival to SICU showed possible Henry sign with mild RV dilation. - 05/09 CT PE negative, but concern for aspiration and incidental lung nodule found - Some tachypnea but oxygenating well without over signs of acute lung pathology PLAN: - BPH - Monitor Assessment & Plan (05/13/2021 11:48 AM EDT): Assessment: AMET on RNF POD 9 for tachypnea, hypoxia with SpO2 84 on 4L NC -> non-rebreather up to 90%. CXR + lung windows in CT A/P possibly show perihilar opacities but not overwhelmingly convincing. Patient on lovenox 40 mg BID on RNF for DVT prophylaxis. Concern for aspiration event vs. PE vs. Anxiety (patient takes xanax 0.25 mg PRN at home). Bedside ultrasound on arrival to SICU showed possible Henry sign with mild RV dilation. PLAN: - Placed on sepsis care path - empiric meropenem started for possible sepsis (ED 05/14) - blood cx NG - ID consult - continue meropenem until 05/14 - procalcitonin 1.95 -> 26 - Echo: EF 68%, normal RV + LV function - CXR 05/09: Bibasilar opacities, aspiration vs infection. Not suspicious for fluid overload at this time, no diuresis at this time. - Sinus tachycardia; Anxiety vs sepsis vs hypovolemia. HDS - on RA now Assessment & Plan (05/13/2021 8:58 AM EDT): PLAN: Transferred to SICU POD11 for respiratory distress CT Chest identified aspiration pneumonia Assessment & Plan (05/12/2021 9:31 AM EDT): PLAN: Transferred to SICU POD11 for respiratory distress CT Chest identified aspiration pneumonia Assessment & Plan (05/11/2021 12:03 PM EDT): Assessment: AMET on RNF POD 9 for tachypnea, hypoxia with SpO2 84 on 4L NC -> non-rebreather up to 90%. CXR + lung windows in CT A/P possibly show perihilar opacities but not overwhelmingly convincing. Patient on lovenox 40 mg BID on RNF for DVT prophylaxis. Concern for aspiration event vs. PE vs. Anxiety (patient takes xanax 0.25 mg PRN at home). Bedside ultrasound on arrival to SICU showed possible Henry sign with mild RV dilation. PLAN: - Placed on sepsis care path - empiric meropenem started for possible sepsis (ED 05/14) - blood cx NG - ID consult - continue meropenem until 05/14 - procalcitonin 1.95 -> 26 - Echo: EF 68%, normal RV + LV function - CXR 05/09: Bibasilar opacities, aspiration vs infection. Not suspicious for fluid overload at this time, no diuresis at this time. - Sinus tachycardia; Anxiety vs sepsis vs hypovolemia. HDS - on RA now Assessment & Plan (05/11/2021 10:20 AM EDT): PLAN: Transferred to SICU POD11 for respiratory distress CT Chest identified aspiration pneumonia Assessment & Plan (05/10/2021 1:16 PM EDT): Assessment: AMET on RNF POD 9 for tachypnea, hypoxia with SpO2 84 on 4L NC -> non-rebreather up to 90%. CXR + lung windows in CT A/P possibly show perihilar opacities but not overwhelmingly convincing. Patient on lovenox 40 mg BID on RNF for DVT prophylaxis. Concern for aspiration event vs. PE vs. Anxiety (patient takes xanax 0.25 mg PRN at home). Bedside ultrasound on arrival to SICU showed possible Henry sign with mild RV dilation. PLAN: - Placed on sepsis care path - empiric meropenem started for possible sepsis - blood cx NG x 1 day - ID consult - continue meropenem until 05/14 - procalcitonin 1.95 -> 26 - Troponins negative - Echo: EF 68%, normal RV + LV function - CXR 05/09: Bibasilar opacities, aspiration vs infection. Not suspicious for fluid overload at this time, no diuresis at this time. - Sinus tachycardia; Anxiety vs sepsis vs hypovolemia. HDS Assessment & Plan (05/10/2021 8:01 AM EDT): PLAN: Transferred to SICU POD11 for respiratory distress CT Chest identified aspiration pneumonia Assessment & Plan (05/09/2021 12:17 PM EDT): Assessment: AMET on RNF POD 9 for tachypnea, hypoxia with SpO2 84 on 4L NC -> non-rebreather up to 90%. CXR + lung windows in CT A/P possibly show perihilar opacities but not overwhelmingly convincing. Patient on lovenox 40 mg BID on RNF for DVT prophylaxis. Concern for aspiration event vs. PE vs. Anxiety (patient takes xanax 0.25 mg PRN at home). Bedside ultrasound on arrival to SICU showed possible Henry sign with mild RV dilation. PLAN: - Placed on sepsis care path - empiric meropenem started for possible sepsis - blood cx - urine cx - ID consult - procalcitonin 1.95 - Troponins negative - follow up formal echo, read pending - CXR 05/09: Bibasilar opacities, aspiration vs infection. Not suspicious for fluid overload at this time, no diuresis at this time. - Sinus tachycardia; Anxiety vs sepsis vs hypovolemia. HDS Assessment & Plan (05/09/2021 9:44 AM EDT): PLAN: Transferred to SICU POD11 for respiratory distress CT Chest identified aspiration pneumonia Assessment & Plan (05/08/2021 11:44 PM EDT): Assessment: AMET on RNF POD 9 for tachypnea, hypoxia with SpO2 84 on 4L NC -> non-rebreather up to 90%. CXR + lung windows in CT A/P possibly show perihilar opacities but not overwhelmingly convincing. Patient on lovenox 40 mg BID on RNF for DVT prophylaxis. Concern for aspiration event vs. PE vs. Anxiety (patient takes xanax 0.25 mg PRN at home). Bedside ultrasound on arrival to SICU showed possible Henry sign with mild RV dilation. PLAN: - Placed on sepsis care path - empiric meropenem started for possible sepsis - blood cx - urine cx - procalcitonin - Troponins - follow up CT PE - follow up formal echo - heparin stroke nomogram initiated for empiric treatment of PE given bedside echo findings - EKG showing sinus tachycardia - etiology of tachycardia uncertain at this point - PE vs. Anxiety vs. Aspiration event vs. sepsis Leukocytosis 05/08/2021 05/18/2021 Assessment & Plan (05/17/2021 1:46 PM EDT): PLAN: Aspiration pneumonia identified on CT Chest POD11 Assessment & Plan (05/16/2021 8:48 AM EDT): PLAN: Aspiration pneumonia identified on CT Chest POD11 Assessment & Plan (05/14/2021 2:43 AM EDT): Assessment: WBC now downtrending PLAN: - Trend Assessment & Plan (05/13/2021 11:50 AM EDT): Assessment: WBC now downtrending PLAN: - Trend CBC - follow up blood cultures - empiric meropenem through 05/14 - ID consulted, appreciate recs Assessment & Plan (05/13/2021 8:59 AM EDT): PLAN: Aspiration pneumonia identified on CT Chest POD11 Assessment & Plan (05/12/2021 9:31 AM EDT): PLAN: Aspiration pneumonia identified on CT Chest POD11 Assessment & Plan (05/11/2021 10:20 AM EDT): PLAN: Aspiration pneumonia identified on CT Chest POD11 Assessment & Plan (05/10/2021 8:01 AM EDT): PLAN: Aspiration pneumonia identified on CT Chest POD11 Assessment & Plan (05/09/2021 12:18 PM EDT): Assessment: WBC uptrending over past two days 11 -> 19 -> 23 in setting of possible aspiration event PLAN: - Trend CBC - follow up blood cultures - empiric meropenem started overnight - ID consult Assessment & Plan (05/09/2021 9:44 AM EDT): PLAN: Aspiration pneumonia identified on CT Chest POD11 Assessment & Plan (05/08/2021 11:43 PM EDT): Assessment: WBC uptrending over past two days 11 -> 19 -> 23 in setting of possible aspiration event PLAN: - Trend CBC - follow up blood cultures - empiric meropenem started overnight Hypermagnesemia 05/05/2021 05/18/2021 Assessment & Plan (05/17/2021 1:46 PM EDT): PLAN: Monitor with daily labs Replace to keep above 2 Assessment & Plan (05/16/2021 8:48 AM EDT): PLAN: Monitor with daily labs Replace to keep above 2 Assessment & Plan (05/13/2021 8:58 AM EDT): PLAN: Monitor with daily labs Replace to keep above 2 Assessment & Plan (05/12/2021 9:31 AM EDT): PLAN: Monitor with daily labs Replace to keep above 2 Assessment & Plan (05/11/2021 10:19 AM EDT): PLAN: Monitor with daily labs Replace to keep above 2 Assessment & Plan (05/10/2021 8:02 AM EDT): PLAN: Monitor with daily labs Replace to keep above 2 Assessment & Plan (05/06/2021 10:52 AM EDT): PLAN: Monitor with daily labs Replace to keep above 2 Assessment & Plan (05/05/2021 9:28 AM EDT): PLAN: Monitor with daily labs Replace to keep above 2 Hypokalemia 05/04/2021 05/15/2024 Assessment & Plan (01/21/2024 10:38 AM EST): Repletion ordered monitor Assessment & Plan (05/17/2021 1:46 PM EDT): PLAN: Replace to keep above 4 Assessment & Plan (05/16/2021 8:48 AM EDT): PLAN: Replace to keep above 4 Assessment & Plan (05/13/2021 8:58 AM EDT): PLAN: Replace to keep above 4 Assessment & Plan (05/12/2021 9:31 AM EDT): PLAN: Replace to keep above 4 Assessment & Plan (05/11/2021 10:19 AM EDT): PLAN: Replace to keep above 4 Assessment & Plan (05/10/2021 8:01 AM EDT): PLAN: Replace to keep above 4 Assessment & Plan (05/06/2021 10:52 AM EDT): PLAN: Replace to keep above 4 Assessment & Plan (05/05/2021 9:28 AM EDT): PLAN: Replace to keep above 4 Assessment & Plan (05/04/2021 1:32 PM EDT): PLAN: Replace to keep above 4 Ileus 05/03/2021 05/18/2021 Assessment & Plan (05/17/2021 1:46 PM EDT): PLAN: NGT placed POD5, stoma intubated POD6 NGT out POD8 NGT replaced POD 11 NGT removed POD17 Assessment & Plan (05/16/2021 8:48 AM EDT): PLAN: NGT placed POD5, stoma intubated POD6 NGT out POD8 NGT replaced POD 11 NGT removed POD17 Assessment & Plan (05/14/2021 2:42 AM EDT): Assessment: NG tube with high output, nausea and discomfort with clamping Performed gastrografin PO challenge yesterday, contrast passed the LOT. PLAN: - Cont NGT - NPO - zofran and compazine prn for nausea Assessment & Plan (05/13/2021 11:47 AM EDT): Assessment: PLAN: - NGT in place with high output - NPO - Performed gastrografin PO challenge yesterday, contrast passed the LOT. - zofran and compazine prn for nausea Assessment & Plan (05/13/2021 8:58 AM EDT): PLAN: NGT placed POD5, stoma intubated POD6 NGT out POD8 NGT replaced POD 11 Assessment & Plan (05/12/2021 12:29 PM EDT): Assessment: PLAN: - NGT in place with high output - NPO Pending gastrograffin study -zofran and compazine prn for nausea Assessment & Plan (05/12/2021 9:31 AM EDT): PLAN: NGT placed POD5, stoma intubated POD6 NGT out POD8 NGT replaced POD 11 Assessment & Plan (05/11/2021 12:02 PM EDT): Assessment: one episode of emesis on RNF, 1700 out of NG in last 24 hours PLAN: - NGT placed on RNF - keep NGT to LIWS - 600cc out from NG tube overnight. Clamp trial per primary team - NPO Assessment & Plan (05/11/2021 10:19 AM EDT): PLAN: NGT placed POD5, stoma intubated POD6 NGT out POD8 NGT replaced POD 11 Assessment & Plan (05/10/2021 1:18 PM EDT): Assessment: one episode of emesis on RNF, 1700 out of NG in last 24 hours PLAN: - NGT placed on RNF - keep NGT to LIWS - 600cc out from NG tube overnight. Clamp trial per primary team - NPO Assessment & Plan (05/10/2021 8:01 AM EDT): PLAN: NGT placed POD5, stoma intubated POD6 NGT out POD8 NGT replaced POD 11 Assessment & Plan (05/09/2021 12:15 PM EDT): Assessment: one episode of emesis on RNF, 1700 out of NG in last 24 hours PLAN: - NGT placed on RNF - keep NGT to LIWS - NPO Assessment & Plan (05/09/2021 9:43 AM EDT): PLAN: NGT placed POD5, stoma intubated POD6 NGT out POD8 Vomited 3/18 and 3/19. CT ordered Assessment & Plan (05/08/2021 11:12 PM EDT): Assessment: one episode of emesis on RNF PLAN: - NGT placed on RNF - keep NGT to LIWS Assessment & Plan (05/08/2021 9:12 AM EDT): PLAN: NGT placed POD5, stoma intubated POD6 NGT out POD8 Vomited 3/18 and 3/19. CT ordered Assessment & Plan (05/07/2021 8:34 AM EDT): PLAN: NGT placed POD5, stoma intubated POD6 NGT out POD8 Vomited 3/18 overnight, no nausea in the AM, minimal distention. NG not replaced Assessment & Plan (05/06/2021 10:52 AM EDT): PLAN: NGT placed POD5, stoma intubated POD6 NGT out POD8 Assessment & Plan (05/05/2021 9:28 AM EDT): PLAN: NGT placed POD5, stoma intubated POD6 Assessment & Plan (05/04/2021 1:32 PM EDT): PLAN: NGT placed POD5, stoma intubated POD6 Assessment & Plan (05/03/2021 10:19 AM EDT): PLAN: NGT placed POD5, stoma intubated POD6 Anemia 04/30/2021 05/15/2024 Assessment & Plan (05/17/2021 1:46 PM EDT): Assessment: pt with hgb 6.8 on POD 1. lovenox held. Did not respond appropriately to 1u PRBC Was down again to 6.9 on 04/30 so one unit was given PLAN: Hg responded appropriately Assessment & Plan (05/16/2021 8:48 AM EDT): Assessment: pt with hgb 6.8 on POD 1. lovenox held. Did not respond appropriately to 1u PRBC Was down again to 6.9 on 04/30 so one unit was given PLAN: Hg responded appropriately Assessment & Plan (05/14/2021 2:40 AM EDT): PLAN: H/h stable tranfuse <7 Assessment & Plan (05/13/2021 11:45 AM EDT): PLAN: H/h stable tranfuse <7 Assessment & Plan (05/13/2021 8:58 AM EDT): Assessment: pt with hgb 6.8 on POD 1. lovenox held. Did not respond appropriately to 1u PRBC Was down again to 6.9 on 04/30 so one unit was given PLAN: Hg responded appropriately Assessment & Plan (05/12/2021 9:31 AM EDT): Assessment: pt with hgb 6.8 on POD 1. lovenox held. Did not respond appropriately to 1u PRBC Was down again to 6.9 on 04/30 so one unit was given PLAN: Hg responded appropriately Assessment & Plan (05/11/2021 12:01 PM EDT): Assessment: PLAN: H/h stable tranfuse <7 Assessment & Plan (05/11/2021 10:19 AM EDT): Assessment: pt with hgb 6.8 on POD 1. lovenox held. Did not respond appropriately to 1u PRBC Was down again to 6.9 on 04/30 so one unit was given PLAN: Hg responded appropriately Assessment & Plan (05/10/2021 8:01 AM EDT): Assessment: pt with hgb 6.8 on POD 1. lovenox held. Did not respond appropriately to 1u PRBC Was down again to 6.9 on 04/30 so one unit was given PLAN: Hg responded appropriately Assessment & Plan (05/09/2021 9:43 AM EDT): Assessment: pt with hgb 6.8 on POD 1. lovenox held. Did not respond appropriately to 1u PRBC Was down again to 6.9 on 04/30 so one unit was given PLAN: Hg responded appropriately Assessment & Plan (05/08/2021 9:12 AM EDT): Assessment: pt with hgb 6.8 on POD 1. lovenox held. Did not respond appropriately to 1u PRBC Was down again to 6.9 on 04/30 so one unit was given PLAN: Hg responded appropriately Assessment & Plan (05/07/2021 8:33 AM EDT): Assessment: pt with hgb 6.8 on POD 1. lovenox held. Did not respond appropriately to 1u PRBC Was down again to 6.9 on 04/30 so one unit was given PLAN: Hg responded appropriately Assessment & Plan (05/06/2021 10:52 AM EDT): Assessment: pt with hgb 6.8 on POD 1. lovenox held. Did not respond appropriately to 1u PRBC Was down again to 6.9 on 04/30 so one unit was given PLAN: Hg responded appropriately Assessment & Plan (05/05/2021 9:28 AM EDT): Assessment: pt with hgb 6.8 on POD 1. lovenox held. Did not respond appropriately to 1u PRBC Was down again to 6.9 on 04/30 so one unit was given PLAN: Hg responded appropriately Assessment & Plan (05/04/2021 1:32 PM EDT): Assessment: pt with hgb 6.8 on POD 1. lovenox held. Did not respond appropriately to 1u PRBC Was down again to 6.9 on 04/30 so one unit was given PLAN: Hg responded appropriately Assessment & Plan (05/03/2021 10:19 AM EDT): Assessment: pt with hgb 6.8 on POD 1. lovenox held. Did not respond appropriately to 1u PRBC Was down again to 6.9 on 04/30 so one unit was given PLAN: Hg responded appropriately Assessment & Plan (05/02/2021 9:30 AM EDT): Assessment: pt with hgb 6.8 on POD 1. lovenox held. Did not respond appropriately to 1u PRBC Was down again to 6.9 on 04/30 so one unit was given PLAN: Hg responded appropriately Assessment & Plan (05/01/2021 4:24 AM EDT): Assessment: pt with hgb 6.8 on POD 1. lovenox held. Did not respond appropriately to 1u PRBC Was down again to 6.9 on 04/30 so one unit was given PLAN: Hg responded appropriately Assessment & Plan (04/30/2021 12:34 PM EST): Assessment: pt with hgb 6.8 on POD 1. lovenox held. Did not respond appropriately to 1u PRBC Now down again to 6.9 PLAN: Transfuse one unit today If augments appropriately, will resume lovenox Severe protein-calorie malnutrition 04/21/2021 05/15/2024 Assessment & Plan (05/02/2021 9:29 AM EDT): PLAN: NST consult On TPN - will wean when tolerating diet and supplements Assessment & Plan (05/01/2021 4:23 AM EDT): PLAN: NST consult On TPN - will wean when tolerating diet and supplements Assessment & Plan (04/30/2021 12:33 PM EST): PLAN: NST consult On TPN - will wean when tolerating diet and supplements Assessment & Plan (04/29/2021 12:32 PM EST): PLAN: NST consult On TPN - will wean when tolerating diet and supplements Assessment & Plan (04/28/2021 2:59 PM EST): PLAN: NST consult On TPN Assessment & Plan (04/26/2021 1:58 PM EST): PLAN: NST consult On TPN Assessment & Plan (04/25/2021 10:27 AM EST): PLAN: NST consult On TPN Assessment & Plan (04/22/2021 11:26 AM EST): PLAN: NST consult On TPN Scar condition and fibrosis of skin 08/07/2003 05/15/2024 Encounters Date Type Department Care Team Description 08/01/2024 Telephone Orth and Rheum Roy [address] [place] [address] Efrain Faith MD Patient Update 07/31/2024 Patient Msg Neurology [address] [place] [address] Joanne Albarado RN 07/31/2024 Get Medical Advice Endocrinology [address] [place] [address] Dakotah North MD Prescription unavailability 07/31/2024 Get Medical Advice [facility] [address] [place] [address] Trever White MD Prescription unavailability 07/30/2024 Telephone Pain Management [address] [id number] Joanne Olvera, DE ALCHOLIZER.DIGITAL ASSOCIATE MEDIA DIRECTOR Patient Update 07/29/2024 Telephone Orth and Rheum [facility] [address] [place] [address] Efrain Faith MD 07/29/2024 Get Medical Advice Gastroenterology [address] [phone] Stas Horvath MD Still in the hospital and I may not be discharged 07/28/2024 4:52 PM EDT Anesthesia Event General Anesthesiology [facility] [place] [address] Yuliana Bran MD 07/28/2024 11:47 AM EDT Anesthesia Event Admitting [facility] [place] [address] Elise Stanley MD 07/28/2024 11:08 AM EDT - 07/28/2024 3:18 PM EDT Surgery Admitting [facility] [place] [address] Efrain Faith MD 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 07/28/2024 9:15 AM EDT - 07/30/2024 3:29 PM EDT Hospital Encounter HOSP [facility]IN H[facility] [address] [phone] Efrain Faith MD Closed 4-part fracture of proximal end of left humerus with malunion, subsequent encounter [S42.292P], Closed fracture of proximal end of left humerus with malunion, unspecified fracture morphology, subsequent encounter [S42.202P] Discharge Disposition: Home Health Care 07/28/2024 Travel 07/25/2024 Get Medical Advice [facility] [address] [place] [address] Trever White MD Upcoming appointment schedule August 15 07/24/2024 Results Follow-Up Endocrinology [address] [place] [address] Dakotah North MD 07/23/2024 Get Medical Advice Endocrinology [address] [place] [address] Dakotah North MD Test results TSH 07/22/2024 Get Medical Advice Orthopaedics [address] [place] [address] Efrain Faith MD After surgery care 07/21/2024 Get Medical Advice Endocrinology [address] [place] [address] Dakotah North MD Thyroid test 07/19/2024 Results Follow-Up [facility] [address] [place] [address] Joellen Nguyễn, DE ALCHOLIZER.DIGITAL ASSOCIATE MEDIA DIRECTOR 07/18/2024 Get Medical Advice Endocrinology [address] [place] [address] Dakotah North MD Retest for thyroid 07/17/2024 Travel 07/16/2024 Get Medical Advice Orthopaedics [address] [place] [address] results 07/16/2024 Get Medical Advice [facility] [address] [place] [address] Trever White MD Upcoming July appointment 07/16/2024 Patient Msg Pre Anesthesia [address] [place] [address] Carlin Guaman, DE ALCHOLIZER.DIGITAL ASSOCIATE MEDIA DIRECTOR Additional Labs Needed 07/15/2024 1:40 PM EDT PAT Pre Anesthesia [address] [place] [address] 1, Pacc [place] Pre-op examination (Primary Dx); Crohn's disease with complication, unspecified gastrointestinal tract location (HCC); Closed fracture of proximal end of left humerus, unspecified fracture morphology, initial encounter; Hyperlipidemia, unspecified hyperlipidemia type 07/15/2024 12:40 PM EDT - 07/15/2024 11:59 PM EDT Hospital Encounter Radiology [address] [facility] [place] [address] Closed 4-part fracture of proximal end of left humerus with malunion, subsequent encounter [S42.292P] Discharge Disposition: Home 07/15/2024 12:34 PM EDT - 07/15/2024 12:39 PM EDT Hospital Encounter Radiology [address] [place] [address] Closed 4-part fracture of proximal end of left humerus with malunion, subsequent encounter [S42.292P] Discharge Disposition: Home 07/15/2024 Radiology Radiology [address] [facility] [place] [address] Abigail Eduardo, RT(R) Radiology XR 07/10/2024 7:45 AM EDT [facility] Orthopaedics [address] [place] [address] Efrain Faith MD Closed 4-part fracture of proximal end of left humerus with malunion, subsequent encounter (Primary Dx) 07/07/2024 Travel 07/01/2024 Get Medical Advice Orthopaedics [address] [address] Efrain Faith MD Upcoming surgery 06/26/2024 Get Medical Advice Gastroenterology [address] [address] Stas Horvath MD Upcoming surgery 06/24/2024 Get Medical Advice Orthopaedics [address] [address] Efrain Fatih MD Blood test request 06/23/2024 10:30 AM EDT Office Visit Orthopaedics [address] [address] Efrain Faith MD Closed 4-part fracture of proximal end of left humerus with malunion, subsequent encounter (Primary Dx); Closed fracture of proximal end of left humerus with malunion, unspecified fracture morphology, subsequent encounter 06/23/2024 Patient Update Orthopaedics [address] [address] Efrain Faith MD 06/16/2024 Travel 06/12/2024 10:15 AM EDT Office Visit Orthopaedics [address] [place] [address] Isaak Walters MD Closed fracture of proximal end of left humerus with malunion, unspecified fracture morphology, subsequent encounter (Primary Dx) 06/09/2024 Get Medical Advice Orthopaedics [address] [place] [address] Yuval North, DO Update reference progress with physical therapy 06/02/2024 Get Medical Advice [facility] [address] [place] [address] Trever White MD Stain 05/30/2024 Get Medical Advice Gastroenterology [address] [place] [address] Stas Horvath MD Lipid panel 05/30/2024 [facility] Medical Advice Gastroenterology [address] [place] [address] Stas Horvath MD Calcium scoring test results 05/30/2024 Get Medical Advice [facility] [address] [place] [address] Trever White MD Results of the recent test 05/30/2024 Results Follow-Up [facility] [address] [place] [address] Phuong Byrnes PA-C 05/29/2024 2:00 PM EDT - 05/29/2024 11:59 PM EDT Hospital Encounter [facility] [place] Scan [address] [place] [address] Encounter for screening for cardiovascular disorders [Z13.6] Discharge Disposition: Home 05/27/2024 11:30 AM EDT Office Visit Orthopaedics [address] [facility] [place] [address] Yuval North, DO Other closed displaced fracture of proximal end of left humerus with routine healing, subsequent encounter (Primary Dx) 05/27/2024 10:53 AM EDT - 05/27/2024 11:59 PM EDT Hospital Encounter Radiology [address] [place] [address] Acute pain of left shoulder [M25.512] Discharge Disposition: Home 05/27/2024 Radiology Radiology [address] [place] [address] Rian Marguerite, RT(R) Radiology XR 05/19/2024 Patient Msg [id number] [place] [address] Trever White MD Cardiac CT 05/17/2024 Results Follow-Up [id number] [place] [address] Trever White MD 05/17/2024 Orders Only [id number] [place] [address] Trever White MD Encounter for screening for cardiovascular disorders (Primary Dx) 05/15/2024 11:00 AM EDT Office Visit [id number] [place] [address] Trever White MD Hypercholesterolemia (Primary Dx); Crohn's disease of small intestine without complication (HCC); Anxiety; Elevated blood pressure reading without diagnosis of hypertension; IFG (impaired fasting glucose) 05/15/2024 Travel 05/11/2024 Get Medical Advice Gastroenterology [address] [phone] Stas Horvath MD Update 05/08/2024 Get Medical Advice Gastroenterology [address] [address] Stas Horvath MD RX 05/08/2024 Refill Gastroenterology [address] [address] Stas Horvath MD Refill Request from Last 3 Months Family History Medical History Relation Comments Diabetes Brother plane crash Heart Father cardiomyopathy Lung Cancer Mother Relation Status Comments Brother Father Mother Social History Tobacco Use Types Packs/Day Years Used Date Smoking Tobacco: Former Cigarettes Q uit: 09/20/1995 Smokeless Tobacco: Never Tobacco Cessation:Counseling Given: Not Answered Alcohol Use Standard Drinks/Week Comments Yes 7 (1 standard drink = 0.6 oz pur e alcohol) glass of wine with dinner [facility] Utilities Answer Date Recorded In the [...] often do you attend chur ch or shinto services? Never 05/15/2024 Do you belong to any clubs o r organizations such as zoroastrianism groups, unions, fraternal or athletic groups, or [...] Answer Date Recorded PHQ-2 score 2 07/03/2024 [facility] of Occupat ional Health - Occupational Stress [...] any time in the past 12 m [facility], were you homeless or living in a intermediate (including now)? No 05/15/2024 Area Deprivation Index Answer Date Jorge rded National Score (1-100), lower number is lower ri sk 74 07/13/2022 State Score (1-10), lower number is lower risk 6 07/13/2022 Data from: https://www.neighborhoodatlas.medicine.[facility].edu/. Last address used for calculation [address] 07/13/2022 Comments No Sex and Gender Information Value Date Recorded Sex Assigned at Not on file Legal Sex Female 9:51 AM EST Gender Identity Not on file Sexual Orientation Lesbian or Nagy 07/31/2024 2: 30 PM EDT Last Filed Vital Signs Vital Sign Reading [...] Mass Index 29.72 07/28/2024 7:16 PM EDT Plan of Treatment Upcoming Encounters Date Type Department Care Team (Late st Contact Info) Description 08/11/2024 11:45 AM EDT Office Visit Orthopaedics [address] [place] [address] Efrain Faith MD [address] [place] [address] 2 wk PO reverse 09/15/2024 11:45 AM EDT Office Visit Orthopaedics [address] [place] [address] Efrain Faith MD [address] [place] [address] 6 wk PO reverse Health Maintenance Due Date Last Done Comments Depression Screening 1968 DTaP,Tdap,Td Vaccine (1 - Tdap) 1969 CT Colonography 11/04/1995 Cologuard (FIT-DNA) 11/04/1995 Fecal Occult Blood 11/04/1995 Pneumococcal Vaccine: 50+ (1 of 1 - PCV) 2000 Shingrix Vaccine (1 of 2) 2000 Colonoscopy 10/22/2002 10/22/2001 Colorectal Cancer Screening 07/07/2021 Sigmoidoscopy 07/07/2021 07/07/2016, 07, 10/31/2010, Additional history exists Advance Directive Discussion 02/20/2024 Medicare Annual Wellness Visit 02/20/2024 Covid-19 Vaccine (2023-2 5 season) 2024 01/08/2024, 11/09/2022, 11/10/2021, Additional history exists Influenza Vaccine (Season Ended) 2024 Mammogram Screening 05/19/2025 05/19/2024, 05/19/2024, 05/18/2023, Additional history exists Diabetes Screening 07/31/2027 07/30/2024, 0 07/28/2024, 07/15/2024, Additional history exists Lipid Screening 07/18/2029 07/18/2024, 05/15/2024 Hepatitis C Screening Completed 07/04/2021 , 07/04/2021, 08/01/2018, Additional history exists Bone Density Screening Completed , 03/14/2021, 02/06/2019, Additional history exists RSV Vaccine Completed 03/03/2024 Medical Devices Implanted Type Area Friction Saw Operator Device Identifier Shelf Expiration Date Model / Serial / Lot Shdr Glenosphere Std 36 Implanted:Qty: 1 on 07/28/2024 at [facility] Implant Left: Bone - Shoulder [employer] 02/27/2029 [id number] / [id number] / Perform Humeral System Fracture Stem Size 9 130mm [id number] Implanted:Qty: 1 on 07/28/2024 at [facility] Implant Left: Bone - Shoulder [employer] 10/10/2028 [id number] / [id number] / Aequalis Perform Reversed Insert Sz 3/4 36mm +0 Implanted:Qty: 1 on 07/28/2024 at [facility] Implant Left: Bone - Shoulder [employer] 05/10/2027 [id number] / [id number] / Central Threaded Post 6.5x30mm - [id number] Implanted:Qty: 1 on 07/28/2024 at [facility] Implant Left: Bone - Shoulder [employer] [id number] / / Baseplate Glenoid 25mm Tornier Aequalis Perform Standard Shoulder Reverse - [id number] Implanted:Qty: 1 on 07/28/2024 by Efrain Faith MD at [facility] Joint - Shoulder Left: Bone - Shoulder [facility] 12/31/2026 [id number] / [id number] / Aequalis Perform Reversed Peripheral Screw 5mm X 14mm Implanted:Qty: 2 on 07/28/2024 at [facility] Screw Left: Bone - Shoulder [employer] [id number] / / Peripheral Screw 26mm - [id number] Implanted:Qty: 2 on 07/28/2024 at [facility] Screw Left: Bone - Shoulder [employer] [id number] / / Procedures Procedure Name Priority Date/Time Associated Diagnosis Comments BASIC METABOLIC PANEL Routine 07/30/2024 5:51 AM EDT COMPLETE BLOOD COUNT Routine 07/30/2024 5:51 AM EDT BASIC METABOLIC PANEL STAT 07/28/2024 10:44 PM EDT COMPLETE BLOOD COUNT STAT 07/28/2024 10:44 PM EDT XR SHOULDER LIMITED 2V AP/TRUE AP LEFT STAT 07/28/2024 5:11 PM EDT INTUBATION Routine 07/28/2024 11:59 AM EDT ARTHROPLASTY GLENOHUMERAL JOINT TOTAL SHOULDER 07/28/2024 11:28 AM EDT Closed 4-part fracture of proximal end of left humerus with malunion, subsequent encounter Closed fracture of proximal end of left humerus with malunion, unspecified fracture morphology, subsequent encounter [place] AN MOD SED SAME PHYS INITIAL 15 MINS Routine 07/28/2024 11:05 AM EDT [facility] AN PERIPHERAL NERVE BLOCK W/ CATHETER Routine 07/28/2024 11:05 AM EDT INJECTION AA&/STRD OTHER PERIPHERAL NERVE/BRANCH Routine 07/28/2024 11:05 AM EDT [place] AN ULTRASOUND GUIDANCE Routine 07/28/2024 11:05 AM EDT US GUIDANCE FOR NEEDLE PLACEMENT (POC) FOR JEMIMA USE ONLY STAT 07/28/2024 11:03 AM EDT TSH BLD Routine 07/22/2024 12:34 PM EDT Other specified hypothyroidism LIPID PANEL, FASTING Routine 07/18/2024 8:49 AM EDT Hyperlipidemia, unspecified hyperlipidemia type WBC Routine 07/18/2024 8:49 AM EDT Pre-op examination POTASSIUM BLD Routine 07/18/2024 8:49 AM EDT Pre-op examination XR SHOULDER GENERAL 3V OR MORE AP/TRUE AP/OTHER LEFT Routine 07/15/2024 1:32 PM EDT Closed 4-part fracture of proximal end of left humerus with malunion, subsequent encounter Closed fracture of proximal end of left humerus with malunion, unspecified fracture morphology, subsequent encounter ECG COMPLETE 07/15/2024 1:03 PM EDT ECG COMPLETE 07/15/2024 1:[address] SHOULDER WO IVCON LEFT Routine 07/15/2024 1:00 PM EDT Closed 4-part fracture of proximal end of left humerus with malunion, subsequent encounter COMPLETE BLOOD COUNT Routine 07/15/2024 11:30 AM EDT Pre-op testing BASIC METABOLIC PANEL Routine 07/15/2024 11:30 AM EDT Pre-op testing CT CALCIUM SCORING SELF PAY Routine 05/29/2024 2:17 PM EDT Encounter for screening for cardiovascular disorders XR SHOULDER GENERAL 3V OR MORE AP/TRUE AP/OTHER LEFT Routine 05/27/2024 11:05 AM EDT Acute pain of left shoulder EXTERNAL LAB 05/20/2024 9:08 AM EDT T4 FREE/FREE THYROX Routine 05/15/2024 1 1:51 AM EDT Hypercholesterolemia Elevated blood pressure reading without diagnosis of hypertension IFG (impaired fasting glucose) TSH BLD Routine 05/15/2024 11:51 AM EDT Hypercholesterolemia Elevated blood pressure reading without diagnosis of hypertension IFG (impaired fasting glucose) VITAMIN B12 BLOOD Routine 05/15/2024 11: 51 AM EDT Hypercholesterolemia Elevated blood pressure reading without diagnosis of hypertension IFG (impaired fasting glucose) LIPID PANEL, FASTING Routine 05/15/2024 11:51 AM EDT Hypercholesterolemia Elevated blood pressure reading without diagnosis of hypertension IFG (impaired fasting glucose) HEMOGLOBIN A1C Routine 05/15/2024 11:51 AM EDT Hypercholesterolemia Elevated blood pressure reading without diagnosis of hypertension IFG (impaired fasting glucose) COMPREHENSIVE METABOLIC PANEL Routine 05/15/2024 11:51 AM EDT Hypercholesterolemia Elevated blood pressure reading without diagnosis of hypertension IFG (impaired fasting glucose) CBC + DIFF Routine 05/15/2024 11:51 AM EDT Hypercholesterolemia Elevated blood pressure reading without diagnosis of hypertension IFG (impaired fasting glucose) HEPATITIS C ANTIBODY IA WITH CONFIRMATION Routine 07/04/2021 11:05 AM EDT Crohn's disease of both small and large intestine with other complication (HCC) SIGMOIDOSCOPY 07/07/2016 7:53 AM EDT BMD WHOLE BODY Routine 08/07/2007 3:40 PM EDT Usp Steroids Protein-Reymundo Malnutr Nos Intest Malabsorption Nos COLONOSCOPY, GI 10/22/2001 from Last 3 Months or Most Recently Relevant to Health Maintenance Results * (ABNORMAL) COMPLETE BLOOD COUNT (07/30/2024 5:51 AM EDT) Only the most recent of3 resultswithin the time period is included. WBC 9.49 3.70 - 11.00 k/uL 07/30/2024 7:05 AM EDT [facility] RBC 2.46(L) 3.90 - 5.20 m/uL 07/30/2024 7:05 AM EDT [facility] Hemoglobin 8.3(L) 11.5 - 15.5 g/dL 07/30/2024 7:05 AM EDT [facility] Hematocrit 24.5(L) 36.0 - 46.0 % 07/30/2024 7:05 AM EDT [facility] MCV 99.6 80.0 - 100.0 fL 07/30/2024 7:05 AM EDT [facility] MCH 33.7 26.0 - 34.0 pg 07/30/2024 7:05 AM EDT [facility] MCHC 33.9 30.5 - 36.0 g/dL 07/30/2024 7:05 AM EDT [facility] RDW-CV 13.2 11.5 - 15.0 % 07/30/2024 7:05 AM EDT [facility] Platelet Count 119(L) 150 - 400 k/uL 07/30/2024 7:05 AM EDT [facility] MPV 9.3 9.0 - 12.7 fL 07/30/2024 7:05 AM EDT [facility] Absolute nRBC <0.01 <0.01 k/uL 07/30/2024 7:05 AM EDT [facility] Blood BLOOD SPECIMEN / Unknown Venipuncture / Unknown 07/30/2024 5:51 AM EDT 07/30/2024 6:39 AM EDT us Marivel Jones PA-C LABORATORY Final Resul t [facility] [address] [place] [address], * (ABNORMAL) BASIC METABOLIC PANEL (07/30/2024 5:51 AM EDT) Only the most recent of3 resultswithin the time period is included. Glucose 102(H) 74 - 99 mg/dL 07/30/2024 8:41 AM EDT [facility] Comment: The [place] [employer] [...] 7 - 21 mg/dL 07/30/2024 8:41 AM [facility] Creatinine 0.83 0.58 - 0.96 mg/dL 07/30/2024 8:41 AM [facility] Sodium 139 136 - 144 mmol/L 07/30/2024 8:41 AM [facility] Potassium 3.2(L) 3.7 - 5.1 mmol/L 07/30/2024 8:41 AM [facility] Chloride 104 98 - 107 mmol/L 07/30/2024 8:41 AM [facility] CO2 21(L) 22 - 30 mmol/L 07/30/2024 8:41 AM [facility] Anion Gap 14 8 - 15 mmol/L 07/30/2024 8:41 AM [facility] Calcium, Total 8.5 8.5 - 10.2 mg/dL 07/30/2024 8:41 AM [facility] Estimated Glomerular Filtration Rate 75 >=60 mL/min/1.7 3m 07/30/2024 8:41 AM [facility] Comment:Estimated Glomerular Filtration Rate (eGFR) is [...] Marivel Jones PA-C LABORATORY Final Resul t [facility] [address] [facility] [address] [place] [address], [place] * XR SHOULDER LIMITED 2V AP/TRUE AP LEFT (07/28/2024 5:11 PM EDT) Anatomical Region Laterality Modality Shoulder Radiographic Lori ging 07/28/2024 5:11 PM EDT Impressions 07/28/2024 5:18 PM EDT IMPRESSION: STATUS POST REVERSE LEFT TOTAL SHOULDER ARTHROPLASTY. Supervisor [employer]: [employer] Transcribe Date/Time: Jul 28 2024 5:14P Dictated by : BATSHEVA SALINAS MD This examination was interpreted and the report reviewed and electronically signed by: BATHSEVA SALINAS MD on Jul 28 2024 5:16PM [...] nonacute LEFT rib fractures. Procedure Note Provider, [facility] - 07/28/2024 * * *Final Report* * [...] STATUS POST REVERSE LEFT TOTAL SHOULDER ARTHROPLASTY. Supervisor Ship Maintenance Services: P[employer] Transcribe Date/Time: Jul 28 2024 5:14P Dictated by : BATSHEVA SALINAS MD This examination was interpreted and the report reviewed and electronically signed by: BATSHEVA SALINAS MD on Jul 28 2024 5:16PM EST Suri Almazan MD RAD-PAMA Final Result * Airway (07/28/2024 11:59 AM EDT) Narrative Go Kramer DO - 07/28/2024 11:59 AM EDT Go Kramer DO 07/28/2024 12:20 PM Airway General Information Procedure Start Time/Medication Administration: 07/28/2024 11:59 AM Procedure End Time: 07/28/2024 12:02 PM Patient location during procedure: OR Timeout Performed Pre-procedure: timeout performed Consent Obtained: Yes Patient identity confirmed: arm band, care bakery team member and patient Staffing Anesthesiologist: Elise Stanley MD Resident: Go Krmaer DO Performed by: resident and anesthesiologist Indications [...] Unrecognized esophageal intubation: no Airway not difficult us Elise Stanley MD ANESTHESIA ORDERABLES Final Resu lt * [place] AN ULTRASOUND GUIDANCE, INJECTION AA&/STRD OTHER PERIPHERAL NERVE/BRANCH, [facility] AN PERIPHERALNERVE BLOCK W/ CATHETER, [place] AN MOD SED SAME PHYS INITIAL 15 [...] loss Discharge/transfer criteria are met upon discharge. Yuliana Bran MD ANESTHESIA ORDERABLES Final Result * US GUIDANCE FOR NEEDLE PLACEMENT (POC) FOR JEMIMA USE ONLY (07/28/2024 11:03 AM EDT) 07/28/2024 11:0 3 AM EDT Catie Worley MD IMAGES Final Resu lt [facility] * THYROID STIMULATING HORMONE (07/22/2024 12:34 PM EDT) Only the most recent of2 resultswithin the time period is included. TSH 2.790 0.270 - 4.200 mIU/L 07/23/2024 3:06 PM EDT [facility] Blood BLOOD SPECIMEN / Unknown Venipuncture / Unknown 07/22/2024 12:34 PM EDT 07/22/2024 12:34 PM EDT Dakotah North MD LABORATORY Final Resu lt [facility] [address] [place] [address], [place] * POTASSIUM (07/18/2024 8:49 AM EDT) Potassium 4.2 3.7 - 5.1 mmol/L 07/18/2024 9:16 AM EDT [facility] Blood BLOOD SPECIMEN / Unknown Venipuncture / Unknown 07/18/2024 8:49 AM EDT 07/18/2024 8:49 AM EDT Carlin Guaman DE ALCHOLIZER.DIGITAL ASSOCIATE MEDIA DIRECTOR LABORATORY Final Re sult [facility] [address] [place] [address] * WBC (07/18/2024 8:49 AM EDT) WBC 8.20 3.70 - 11.00 k/uL 07/18/2024 8:53 AM EDT [facility] Blood BLOOD SPECIMEN / Unknown Venipuncture / Unknown 07/18/2024 8:49 AM EDT 07/18/2024 8:49 AM EDT Carlin Guaman APRN.DIGITAL ASSOCIATE MEDIA DIRECTOR LABORATORY Final Re sult Performing Organization Address City/[facility]/ZIP Co de Phone Number [facility] [address] [place] [address] * LIPID PANEL, FASTING (07/18/2024 8:49 AM EDT) Only the most recent of2 resultswithin the time period is included. Cholesterol, Total 199 <200 mg/dL 07/18/2024 7:18 PM EDT [facility] Comment: <200 mg/dL, Desirable 200-239 mg/dL, Borderline high >239 mg/dL, High Triglyceride 97 <150 mg/dL 07/18/2024 7:18 PM EDT [facility] Comment: <150 mg/dL, Normal 150-199 mg/dL, Borderline high 200-499 mg/dL, High >499 mg/dL, Very high HDL Cholesterol 100 >39 mg/dL 7:18 PM EDT [facility] Comment: 40-59 mg/dL, Acceptable >59 mg/dL, High: Negative risk factor for coronary heart disease <40 mg/dL, Low: Positive risk factor for coronary heart disease LDL Cholesterol, Calculated 82 <100 mg/dL 07/18/2024 7:18 PM EDT [facility] Comment: <100 mg/dL, Optimal 100-129 mg/dL, Near optimal/above optimal 130-159 mg/dL, Borderline high 160-189 mg/dL, High >189 mg/dL, Very high Secondary prevention optimal LDL Cholesterol levels are recommended to be <70 mg/dL LDL cholesterol is calculated using the Miller-NIH equation. Non HDL Cholesterol 99 <130 mg/dL 07/18/2024 7:18 PM EDT [facility] Comment: <130 mg/dL, Optimal 130-159 mg/dL, Near optimal/above optimal 160-189 mg/dL, Borderline high 190-219 mg/dL, High >219 mg/dL, Very high Secondary prevention optimal non HDL Cholesterol levels are recommended to be <100 mg/dL VLDL Cholesterol 15 <30 mg/dL 07/19/19 7:18 PM EDT [facility] TC:HDL Ratio 1.99 <5.10 07/18/2024 7:18 PM EDT [facility] LDL:HDL Ratio 0.82 <2.54 07/18/2024 7:18 PM EDT [facility] Comment: Reference: 1. National Cholesterol Education Program ATP III Guideline At-A-Glance Quick Desk Reference: National Heart, Lung, and Blood Roy. National Institutes of Health. 2001: NIH Publication No. 01-3305. 2. An International Atherosclerosis Society position paper: global recommendations for the management of dyslipidemia: executive summary, Atherosclerosis. 2014: 232(2):410-413. Fasting Time 12 hrs 07/18/2024 7:18 PM EDT [facility] Blood BLOOD SPECIMEN / Unknown Venipuncture / Unknown 07/18/2024 8:49 AM EDT 07/18/2024 8:49 AM EDT Joellen Nguyễn DE ALCHOLIZER.[facility] LABORATORY Final Result [facility] [address] [facility] [address] [address], [facility] [address] [place] [address] * XR SHOULDER GENERAL 3V OR MORE AP/TRUE AP/OTHER LEFT (07/15/2024 1:32 PM EDT) Anatomical Region Laterality Modality Shoulder Other 07/15/2024 1:32 PM EDT Impressions 07/16/2024 9:37 AM EDT IMPRESSION: 1. Healing malunited proximal left humeral fracture with anterior fracture apex angulation. 2. Healing left-sided rib fractures. Supervisor Ship [employer]: [employer] Transcribe Date/Time: Jul 16 2024 9:33A [...] Healing left-sided rib fractures. Procedure Note Provider, [facility] - 07/16/2024 * * *Final Report* * [...] apex angulation. 2. Healing left-sided rib fractures. Supervisor Ship Maintenance Services: [employer] Transcribe Date/Time: Jul 16 2024 9:33A Dictated by : BRADY BLAND MD This examination was interpreted and the report reviewed and electronically signed by: BRADY BLAND MD on Jul 16 2024 9:35AM EST Efrain Faith MD RAD-PAMA Final Result * ECG COMPLETE (07/15/2024 1:03 PM EDT) Ventricular Rate 84 BPM [facility] Atrial Rate 84 BPM [facility] P-R Interval 118 ms [facility] QRS Duration 70 ms [facility] QT Interval 380 ms [facility] QTC Calculation (Bazett) 449 ms [facility] Calculated P [place] 30 degrees [facility] Calculated R [place] 63 degrees [facility] Calculated T [place] 28 degrees [facility] 07/15/2024 1:03 PM EDT Impressions [facility] - 07/16/2024 9:50 AM EDT SINUS RHYTHM WITH PREMATURE ATRIAL COMPLEXES OTHERWISE NORMAL ECG Confirmed by JONES HAIR M.D. ([id number]) on 07/16/2024 9:50:29 AM Narrative [facility] - 07/16/2024 9:50 AM EDT NAME : CANDICE DEJESUS PID : [id number] : 1950 Gender : Female Race : ORD : Procedure Date : Jul 15 2024 13:03:03 Edit Date : Jul 16 2024 09:50:31 Diagnosis: SINUS RHYTHM WITH PREMATURE ATRIAL COMPLEXES OTHERWISE NORMAL ECG Confirmed by JONES HAIR M.D. ([id number]) on 07/16/2024 9:50:29 AM Test Reason : Location : 145 : LOCARD Overread By : JONES HAIR M.D. Edited By : JONES HAIR M.D. Referred By : EFRAIN FAITH Acquired by : RAYMOND, us [facility] Provider EKG Final Result [facility] [address] [id number] * CT SHOULDER WO IVCON LEFT (07/15/2024 1:00 PM EDT) Anatomical Region Laterality Modality Shoulder Computed Tomogra phy 07/15/2024 1:00 PM EDT Impressions 07/16/2024 10:05 AM EDT IMPRESSION: Subacute comminuted proximal humeral fracture with interval humeral head osteonecrosis with subchondral collapse and fragmentation and developing posttraumatic glenohumeral osteoarthritis. Transcribe Date/Time: Jul 16 2024 9:53A Dictated by: JAMAL SCHWARTZ MD This examination was interpreted and the report reviewed and electronically signed by: JAMAL SCHWARTZ MD on Jul 16 2024 10:03AM EST Thank you for allowing us to participate in the care of your patient. Should there be any questions regarding this interpretation, please call [phone]. If you are unable to reach us at the number above, please feel free to contact [facility]iology at [phone]. Narrative 07/16/2024 10:05 AM EDT * * *Final Report* * * DATE OF EXAM: Jul 15 2024 1:00PM [facility] 0089 - CT SHOULDER WO IVCON LT / PROCEDURE REASON: Closed 4-part fracture of proximal end of left humerus with malunion, subsequent * * * * Physician Interpretation * * * * RESULT: EXAMINATION: CT SHOULDER WO IVCON LT CLINICAL HISTORY: Closed 4-part fracture of proximal end of left humerus with malunion, subsequent encounter TECHNIQUE: Axial CT of the left shoulder was obtained for the purposes of preoperative planning. Coronal and sagittal reformats were reviewed. Bone and soft tissue reconstruction algorithms were utilized. CT Radiation dose: Integrated Dose-length product (DLP) for this visit = 313 mGy*cm. CT Dose Reduction Employed: Automated exposure control (AEC) COMPARISON: 01/20/2024 RESULT: Again seen is a comminuted impacted proximal humeral fracture, with interval partially bridging callus but also interval collapse of the humeral head, with fragmentation likely related to some posttraumatic osteonecrosis of the humeral head. There is partial bony bridging across the proximal humeral fracture with bridging bone extending from the greater tuberosity to the proximal shaft, however with persistent osseous fragments in the dominant portion of the humeral head, which appears more flattened and collapse compared to prior. There are smaller intra-articular fragments which are also likely posttraumatic. There is some residual fracture lucency along the humeral head/neck junction which is only partially fused. There is bony generalized bony demineralization, and alignment is changed compared to the prior examination predominantly relating to the bony collapse and increased impaction across the fracture components. There is at least moderate glenohumeral joint space narrowing, which appears to have progressed prominently along the inferior aspect of the joint, where some posttraumatic deformity results in bony impingement with the proximal humeral shaft and the inferior glenoid, where there is mild bony remodeling. Unchanged moderate osteoarthritis at the acromioclavicular joint. No new fractures. There are some incompletely assessed degenerative changes of the visualized lower cervical spine. Few minimal scattered vascular calcifications are present. Few 2-3 mm left upper lobe pulmonary nodules are noted, below size criteria for follow-up. No other significant incidental findings. Gum Machine Filler (topogram) images: No significant additional findings. Procedure Note Provider, [facility] - 07/16/2024 * * *Final Report* * * DATE OF EXAM: Jul 15 2024 1:00PM [facility] 0089 - CT SHOULDER WO IVCON LT / PROCEDURE REASON: Closed 4-part fracture of proximal end of left humerus with malunion, subsequent * * * * Physician Interpretation * * * * RESULT: EXAMINATION: CT SHOULDER WO IVCON LT CLINICAL HISTORY: Closed 4-part fracture of proximal end of left humerus with malunion, subsequent encounter TECHNIQUE: Axial CT of the left shoulder was obtained for the purposes of preoperative planning. Coronal and sagittal reformats were reviewed. Bone and soft tissue reconstruction algorithms were utilized. CT Radiation dose: Integrated Dose-length product (DLP) for this visit = 313 mGy*cm. CT Dose Reduction Employed: Automated exposure control (AEC) COMPARISON: 01/20/2024 RESULT: Again seen is a comminuted impacted proximal humeral fracture, with interval partially bridging callus but also interval collapse of the humeral head, with fragmentation likely related to some posttraumatic osteonecrosis of the humeral head. There is partial bony bridging across the proximal humeral fracture with bridging bone extending from the greater tuberosity to the proximal shaft, however with persistent osseous fragments in the dominant portion of the humeral head, which appears more flattened and collapse compared to prior. There are smaller intra-articular fragments which are also likely posttraumatic. There is some residual fracture lucency along the humeral head/neck junction which is only partially fused. There is bony generalized bony demineralization, and alignment is changed compared to the prior examination predominantly relating to the bony collapse and increased impaction across the fracture components. There is at least moderate glenohumeral joint space narrowing, which appears to have progressed prominently along the inferior aspect of the joint, where some posttraumatic deformity results in bony impingement with the proximal humeral shaft and the inferior glenoid, where there is mild bony remodeling. Unchanged moderate osteoarthritis at the acromioclavicular joint. No new fractures. There are some incompletely assessed degenerative changes of the visualized lower cervical spine. Few minimal scattered vascular calcifications are present. Few 2-3 mm left upper lobe pulmonary nodules are noted, below size criteria for follow-up. No other significant incidental findings. Gum Machine Filler (topogram) images: No significant additional findings. IMPRESSION IMPRESSION: Subacute comminuted proximal humeral fracture with interval humeral head osteonecrosis with subchondral collapse and fragmentation and developing posttraumatic glenohumeral osteoarthritis. Transcribe Date/Time: Jul 16 2024 9:53A Dictated by: JAMAL SCHWARTZ MD This examination was interpreted and the report reviewed and electronically signed by: JAMAL SCHWARTZ MD on Jul 16 2024 10:03AM EST Thank you for allowing us to participate in the care of your patient. Should there be any questions regarding this interpretation, please call [phone]. If you are unable to reach us at the number above, please feel free to contact [facility] eRadiology at [phone]. us Efrain Faith MD CT-PAMA Final Result * CT CALCIUM SCORING SELF PAY (05/29/2024 2:17 PM EDT) Anatomical Region Laterality Modality Heart Computed Tomogra phy 05/29/2024 2:17 PM EDT Impressions 05/29/2024 6:25 PM EDT IMPRESSION: - Total Coronary Calcium Score (CAC) = 17 AU. Supervisor Ship Maintenance Services: [employer]ON Transcribe Date/Time: May 29 2024 4:26P Dictated by : STEWART MEDLEY MD This examination was interpreted and the report reviewed and electronically signed by: ASHLEY LARA MD on May 29 2024 6:23PM EST Narrative 05/29/2024 6:25 PM EDT * * *Final Report* * * DATE OF EXAM: May 29 2024 2:17PM [facility] 2105 - CT CALCIUM SCORING SELF PAY / PROCEDURE REASON: Encounter for screening for cardiovascular disorders * * * * Physician Interpretation * * * * Examination: CT Coronary Calcium Score Direct Image Comparison: CT chest 01/20/2024 HISTORY: 73 years old Female with concern for coronary artery disease. There is request to assess and quantify coronary calcification TECHNIQUE: SCANNER: [email or web address] multi-detector scanner. PROTOCOL: ECG-synchronized imaging of the heart without intravenous administration of contrast material Scan Range: myriam to the base of the heart Tube Voltage: [address] Dose-Length Product (DLP): [address] Dose Reduction Employed: Automated exposure control(AEC) and iterative recon CONTRAST: None Scan acquisition was uncomplicated Macro Version: [id number] For optimization of anatomic evaluation, off-line postprocessing was performed on a dedicated workstation by the interpreting physician. STUDY LIMITATIONS: None. RESULT: LINES, TUBES and DEVICES: None visualized CHEST: Chest wall anatomy: unremarkable. visualized LUNGS: linear atelectasis. MEDIASTINUM: unremarkable. PERICARDIUM: unremarkable CENTRAL PULMONARY ARTERY: normal dimensions. Assessment is limited due to lack of contrast enhancement. CARDIAC CHAMBERS: assessment is limited in the non-contrast study. -overall normal dimensions - mild calcification of the mitral annulus. AORTIC VALVE: assessment is limited in the current study. No leaflet calcification. visualized AORTA: Aortic Size: Normal size visualized thoracic aorta. Wall Changes: scattered mild calcified wall changes. AORTIC DIMENSIONS: AORTIC ROOT: 3.2 cm measured [id number] mid ASCENDING THORACIC AORTA: 2.7 cm mid DESCENDING THORACIC AORTA: 2.2 cm CORONARY ANATOMY: normal origin of the coronary arteries. Calcium Score (Agatston Units): LM: 0 AU LAD: 17 AU LCx: 0 AU RCA: 0 AU Other: 0 AU Total: 17 AU Percentile Rank (age and gender matched relative to reference population): 43 percentile* [* [email or web address]-[email or web address]/calcium/input.[email or web address]] limited upper ABDOMEN: unremarkable BONES and SOFT TISSUES: degenerative changes of the thoracic spine. Gum Machine Filler (topogram) images: No additional findings. Procedure Note Provider, [facility] - 05/29/2024 * * *Final Report* * * DATE OF EXAM: May 29 2024 2:17PM [facility] 2105 - CT CALCIUM SCORING SELF PAY / PROCEDURE REASON: Encounter for screening for cardiovascular disorders * * * * Physician Interpretation * * * * Examination: CT Coronary Calcium Score Direct Image Comparison: CT chest 01/20/2024 HISTORY: 73 years old Female with concern for coronary artery disease. There is request to assess and quantify coronary calcification TECHNIQUE: SCANNER: [email or web address] multi-detector scanner. PROTOCOL: ECG-synchronized imaging of the heart without intravenous administration of contrast material Scan Range: myriam to the base of the heart Tube Voltage: [address] Dose-Length Product (DLP): [address] Dose Reduction Employed: Automated exposure control(AEC) and iterative recon CONTRAST: None Scan acquisition was uncomplicated Macro Version: [id number] For optimization of anatomic evaluation, off-line postprocessing was performed on a dedicated workstation by the interpreting physician. STUDY LIMITATIONS: None. RESULT: LINES, TUBES and DEVICES: None visualized CHEST: Chest wall anatomy: unremarkable. visualized LUNGS: linear atelectasis. MEDIASTINUM: unremarkable. PERICARDIUM: unremarkable CENTRAL PULMONARY ARTERY: normal dimensions. Assessment is limited due to lack of contrast enhancement. CARDIAC CHAMBERS: assessment is limited in the non-contrast study. -overall normal dimensions - mild calcification of the mitral annulus. AORTIC VALVE: assessment is limited in the current study. No leaflet calcification. visualized AORTA: Aortic Size: Normal size visualized thoracic aorta. Wall Changes: scattered mild calcified wall changes. AORTIC DIMENSIONS: AORTIC ROOT: 3.2 cm measured [id number] mid ASCENDING THORACIC AORTA: 2.7 cm mid DESCENDING THORACIC AORTA: 2.2 cm CORONARY ANATOMY: normal origin of the coronary arteries. Calcium Score (Agatston Units): LM: 0 AU LAD: 17 AU LCx: 0 AU RCA: 0 AU Other: 0 AU Total: 17 AU Percentile Rank (age and gender matched relative to reference population): 43 percentile* [* https://www.mitchell-nhlbi.org/calcium/input.aspx] limited upper ABDOMEN: unremarkable BONES and SOFT TISSUES: degenerative changes of the thoracic spine. Gum Machine Filler (topogram) images: No additional findings. IMPRESSION IMPRESSION: - Total Coronary Calcium Score (CAC) = 17 AU. Supervisor Ship Maintenance Services: [facility] Transcribe Date/Time: May 29 2024 4:26P Dictated by : STEWART MEDLEY MD This examination was interpreted and the report reviewed and electronically signed by: ASHLEY LARA MD on May 29 2024 6:23PM EST Trever White MD CT-PAMA Final Result * XR SHOULDER GENERAL 3V OR MORE AP/TRUE AP/OTHER LEFT (05/27/2024 11:05 AM EDT) Anatomical Region Laterality Modality Shoulder Other 05/27/2024 11:0 5 AM EDT Impressions 05/27/2024 2:10 PM EDT IMPRESSION: Interval progressive healing of the proximal humeral fracture. Supervisor Ship Maintenance Services: [facility] Transcribe Date/Time: May 27 2024 2:06P Dictated by : MARQUES MAHAN MD This examination was interpreted and the report reviewed and electronically signed by: MARQUES MAHAN MD on May 27 2024 2:08PM EST Narrative 05/27/2024 2:10 PM EDT * * *Final Report* * * DATE OF EXAM: May 27 2024 11:05AM LZX 5252 - XR SHLDR >/=3V AP/TOMMY AP/OTHR LT / PROCEDURE REASON: Acute pain of left shoulder * * * * Physician Interpretation * * * * HISTORY: Acute pain of left shoulder . TECHNIQUE: XR SHLDR >/=3V AP/TOMMY AP/OTHR LT Laterality: LEFT Number of different views (projections): 3 COMPARISON: Radiographs dated 04/15/2024. RESULT: There has been progressive healing of the proximal humeral fracture. Again seen are the multiple left rib fractures. Acromioclavicular and glenohumeral osteoarthritis. Widening of the acromiohumeral interval. No soft tissue swelling. No evidence of acute process in the included chest. No other significant abnormality. Procedure Note Provider, [facility] - 05/27/2024 * * *Final Report* * * DATE OF EXAM: May 27 2024 11:05AM LZX 5252 - XR SHLDR >/=3V AP/TOMMY AP/OTHR LT / PROCEDURE REASON: Acute pain of left shoulder * * * * Physician Interpretation * * * * HISTORY: Acute pain of left shoulder . TECHNIQUE: XR SHLDR >/=3V AP/TOMMY AP/OTHR LT Laterality: LEFT Number of different views (projections): 3 COMPARISON: Radiographs dated 04/15/2024. RESULT: There has been progressive healing of the proximal humeral fracture. Again seen are the multiple left rib fractures. Acromioclavicular and glenohumeral osteoarthritis. Widening of the acromiohumeral interval. No soft tissue swelling. No evidence of acute process in the included chest. No other significant abnormality. IMPRESSION IMPRESSION: Interval progressive healing of the proximal humeral fracture. Supervisor Ship Maintenance Services: [facility] Transcribe Date/Time: May 27 2024 2:06P Dictated by : MARQUES MAHAN MD This examination was interpreted and the report reviewed and electronically signed by: MARQUES MAHAN MD on May 27 2024 2:08PM EST Yuval North DO RAD-PAMA Final Result * EXTERNAL LAB (05/20/2024 9:08 AM EDT) External Provider PA-C LABORATORY Final Res ult * (ABNORMAL) VITAMIN B12 (05/15/2024 11:51 AM EDT) Vitamin B12 >2,000(H) 232 - 1,245 pg/mL 05/16/2024 1:03 AM EDT [facility] Blood BLOOD SPECIMEN / Unknown Venipuncture / Unknown 05/15/2024 11:51 AM EDT 05/15/2024 11:51 AM EDT Trever White MD LABORATORY Final Result [facility] [address] * T4 FREE/FREE THYROXINE (05/15/2024 11:51 AM EDT) Free T4 1.3 0.9 - 1.7 ng/dL 05/16/2024 7:33 PM EDT [facility] Blood BLOOD SPECIMEN / Unknown Venipuncture / Unknown 05/15/2024 11:51 AM EDT 05/15/2024 11:51 AM EDT Trever White MD LABORATORY Final Result [facility] [address] [place] [address], * HEMOGLOBIN A1C (05/15/2024 11:51 AM EDT) Hemoglobin A1C 4.7 4.3 - 5.6 % 05/16/2024 6:45 AM EDT [facility] Comment:[place] Diabetes As sociation guidelines indicate that patients with HgbA1c in the range 5.7-6.4% are at increased risk for development of diabetes, and intervention by lifestyle modification may be beneficial. HgbA1c greater or equal to 6.5% is considered diagnostic of diabetes. Estimated Average Glucose 88 mg/dL 05/16/2024 6:45 AM EDT [facility] Comment:eAG: (Estimated aver age glucose) is a calculated value from HgbA1c and is provider service representative of the average blood glucose level in the last 2-3 month period. Blood BLOOD SPECIMEN / Unknown Venipuncture / Unknown 05/15/2024 11:51 AM EDT 05/15/2024 11:51 AM EDT us Trever White MD LABORATORY Final Result [facility] [address] [facility] [address] [place] [phone], * (ABNORMAL) COMPREHENSIVE METABOLIC PANEL (05/15/2024 11:51 AM EDT) Protein, Total 7.8 6.3 - 8.0 g/dL 05/16/2024 7:33 PM EDT [facility] Albumin 4.6 3.9 - 4.9 g/dL 05/16/2024 7:33 PM EDT [facility] Calcium, Total 10.2 8.5 - 10.2 mg/dL 05/16/2024 7:33 PM EDT [facility] Bilirubin, Total 0.5 0.2 - 1.3 mg/dL 05/16/2024 7:33 PM EDT [facility] Alkaline Phosphatase 101 34 - 123 U/L 05/16/2024 7:33 PM EDT [facility] AST 41(H) 13 - 35 U/L 05/16/2024 7:33 PM EDT [facility] ALT 29 7 - 38 U/L 05/16/2024 7:33 PM EDT [facility] Glucose 99 74 - 99 mg/dL 05/16/2024 7:33 PM EDT [facility] Comment: The [place] Diabetes Association (ADA) provides [...] Diabetes Association. Diabetes Care. 2016.39(Suppl 1). BUN 18 7 - 21 mg/dL 05/16/2024 7:33 PM EDT [facility] Creatinine 0.78 0.58 - 0.96 mg/dL 05/16/2024 7:33 PM EDT [facility] Sodium 139 136 - 144 mmol/L 05/16/2024 7:33 PM EDT [facility] Potassium 4.9 3.7 - 5.1 mmol/L 05/16/2024 7:33 PM EDT [facility] Chloride 102 98 - 107 mmol/L 05/16/2024 7:33 PM EDT [facility] CO2 19(L) 22 - 30 mmol/L 05/16/2024 7:33 PM EDT [facility] Anion Gap 18(H) 8 - 15 mmol/L 05/16/2024 7:33 PM EDT [facility] Estimated Glomerular Filtration Rate 80 >=60 mL/min/1.7 3m 05/16/2024 7:33 PM EDT [facility] Comment:Estimated Glomerular Filtration Rate (eGFR) is calculated [...] BLOOD SPECIMEN / Unknown Venipuncture / Unknown 05/15/2024 11:51 AM EDT 05/15/2024 11:51 AM EDT us Trever White MD LABORATORY Final Result [facility] [address] [place] [address], * (ABNORMAL) COMPLETE BLOOD COUNT AND DIFFERENTIAL (05/15/2024 11:51 AM EDT) WBC 10.81 3.70 - 11.00 k/uL 05/15/2024 9:36 PM EDT [facility] RBC 4.07 3.90 - 5.20 m/uL 05/15/2024 9:36 PM EDT [facility] Hemoglobin 14.2 11.5 - 15.5 g/dL 05/15/2024 9:36 PM EDT [facility] Hematocrit 42.3 36.0 - 46.0 % 05/15/2024 9:36 PM EDT [facility] MCV 103.9(H) 80.0 - 100.0 fL 05/15/2024 9:36 PM EDT [facility] MCH 34.9(H) 26.0 - 34.0 pg 05/15/2024 9:36 PM EDT [facility] MCHC 33.6 30.5 - 36.0 g/dL 05/15/2024 9:36 PM EDT [facility] RDW-CV 13.6 11.5 - 15.0 % 05/15/2024 9:36 PM EDT [facility] Platelet Count 181 150 - 400 k/uL 05/15/2024 9:36 PM EDT [facility] MPV 9.5 9.0 - 12.7 fL 05/15/2024 9:36 PM EDT [facility] Neutrophils % 64.9 % 05/15/2024 9:36 PM EDT [facility] Abs Neut 7.01 1.45 - 7.50 k/uL 05/15/2024 9:36 PM EDT [facility] Lymphocytes % 25.0 % 05/15/2024 9:36 PM EDT [facility] Abs Lymph 2.70 1.00 - 4.00 k/uL 05/15/2024 9:36 PM EDT [facility] Monocytes % 7.4 % 05/15/2024 9:36 PM EDT [facility] Abs Morehouse 0.80 <0.87 k/uL 05/15/2024 9:36 PM EDT [facility] Eosinophils % 1.4 % 05/15/2024 9:36 PM EDT [facility] Abs Eosin 0.15 <0.46 k/uL 05/15/2024 9:36 PM EDT [facility] Basophils % 0.7 % 05/15/2024 9:36 PM EDT [facility] Abs Baso 0.08 <0.11 k/uL 05/15/2024 9:36 PM EDT [facility] Immature Granulocytes % 0.6 % 05/15/2024 9:36 PM EDT [facility] Abs Immature Gran 0.07 <0.10 k/uL 05/15/2024 9:36 PM EDT [facility] NRBC 0.0 /100 WBC 05/15/2024 9:36 PM EDT [facility] Absolute nRBC <0.01 <0.01 k/uL 05/15/2024 9:36 PM EDT [facility] Diff Type Auto 05/15/2024 9:36 PM EDT [facility] Blood BLOOD SPECIMEN / Unknown Venipuncture / Unknown 05/15/2024 11:51 AM EDT 05/15/2024 11:51 AM EDT Trever White MD LABORATORY Final Result Performing Organization Address City/State/[facility] Co de Phone Number [facility] [address] [place] [address], * HEP C AB IA W/CONF SCRN (07/04/2021 11:05 AM EDT) Hep C Antibody IA Negative Negative 07/05/2021 10:29 AM EDT [facility] Comment:The result suggests no evidence of active infection with Hepatitis C virus. Should recent infection be suspected, repeat testing may be considered 4-6 weeks after this draw. Blood BLOOD SPECIMEN / Unknown Venipuncture / Unknown 07/04/2021 11:05 AM EDT 07/04/2021 11:05 AM EDT Stas Horvath MD LABORATORY Final Result [facility] [address] [facility] [place] [id number], * SIGMOIDOSCOPY (07/07/2016 7:53 AM EDT) Teamsite Developer Q3 Patient Name: Candice Dejesus Procedure Date: 07/07/2016 7:53 AM Date of : 1950 Admit Type: Outpatient Age: 65 Gender: Female Note Status: Finalized Attending MD: Armin Luna MD Sedation Initiated: N/A - MAC Procedure: Flexible Sigmoidoscopy Indications: High risk colon cancer surveillance: Inflammatory bowel disease Providers: Armin Luna MD Patient Profile: Refer to note in patient chart for documentation of history and physical. Last Colonoscopy: date unknown. Referring Physician: Medicines: Monitored Anesthesia Care Complications: No immediate complications. Requesting Provider: Procedure: Pre-Anesthesia Assessment: - ASA Grade Assessment: III - A patient with severe systemic disease. After obtaining informed consent, the scope was passed under direct vision. The Flexible sigmoidoscope was introduced through the anus and advanced to the ileo-rectal anastomosis. The flexible sigmoidoscopy was accomplished without difficulty. The patient tolerated the procedure well. The quality of the bowel preparation was good. Findings: The terminal ileum appeared normal. This was biopsied with a cold forceps for histology. The ileo-rectal anastomosis was patent with minimal edema and a few ulcerations. Residual rectal mucosa appeared unremarkable. Biopsies obtained. Impression: - The terminal ileum is normal. Biopsied. - Patent ielo-rectal anastomosis - Helathy appearing rectal mucosa Estimated Blood Loss: Estimated blood loss: none. Recommendation: - Await pathology results. Procedure Code(s): --- Professional --- 21302 Diagnosis Code(s): --- Professional --- Z12.11 K52.3 CPT copyright 2016 [employer] [employer]. All rights reserved. Attending Participation: I personally performed the entire procedure. Scope In: 7:59:37 AM Scope Out: 8:04:56 AM MD Armin Adames MD 07/07/2016 8:08:38 AM This report has been signed electronically by Armin Luna MD Number of Addenda: 0 Note Initiated On: 07/07/2016 7:53 AM [facility] Anatomical Region Laterality Modality Other 07/07/2016 7:53 AM EDT [facility] Provider [facility] Final Result * BMD WHOLE BODY (08/07/2007 3:40 PM EDT) Anatomical Region Laterality Modality Other 08/07/2007 3:40 PM EDT Narrative 08/07/2007 10:49 AM EDT BONE DENSITY REPORT: Dual Energy Xray Absorptiometry DXA MODEL: [employer] [id number] [id number] DXA SITE: [place] [address] SITE SCANNED: Total Body DATE SCANNED: 08/07/2007 RESULTS: Total Body: 07/27: 1.077 g/cm2, T-score 0.0 Total Body: 03/29: 1.073 g/cm2 Total Body Fat: 07/27: 43.8% Total Body Fat: 03/29: 42.4% DIAGNOSIS: -Normal bone density RISK FACTORS: This patient is a 56 year old female. She reports postmenopausal status. She reports the following risk factors associated with low bone mass or increased fracture risk: - inflammatory bowel disease RECOMMENDATIONS: Based on the patient age, bone density and risk factors: - the patient should take calcium, the recommended dose is 3743-0733 mg per day along with 800-1000 IU vitamin D FOLLOW-UP: - per protocol Principal Maintenance Shop Welder: Rocael Melendez MD COPY: Dr. Horvath Stas Horvath MD BONE DENSITY Final Result * COLONOSCOPY, GI (10/22/2001) Teamsite Developer DATE: 10/22/2001 ENDOSCOPIST: Stas Horvath MD REFERRING PHYSICIAN: PATIENT NAME: CANDICE DEJESUS DATE: 1950 HOSPITAL NO: [id number] IMPRESSION: 1. Crohn's colitis. 555.1. 2. Ulcerated mucosa of the ascending colon, the transverse colon and the descending colon. 3. The colonoscopy was otherwise normal. PERFORMED BY: Performed by Stas Horvath MD._ INTRODUCTION 50 year old female patient presents for an outpatient colonoscopy. The indication for the procedure was inflammatory bowel disease. CONSENT: The benefits, risks, and alternatives to the procedure were discussed and informed consent was obtained from the patient. MEDICATIONS: - Versed 3 mg IV - Demerol 75 mg IV PROCEDURE: Rectal exam: Normal. The endoscope was passed without difficulty to the cecum confirmed by landmarks. A staff physician was present for the entire procedure from the insertion to the removal of the scope. The quality of the preparation was excellent. FINDINGS: There was evidence of crohn's colitis. Random biopsies were obtained. The mucosa of the ascending colon, the transverse colon and the descending colon appeared ulcerated. The colonoscopy was otherwise normal. [facility] 10/22/2001 Narrative [facility] - 10/22/2001 8:45 PM EDT Ordered by an unspecified provider. us [facility] Provider SCHEDULED PROCEDURES Final Resul t [facility] [address] [place] [address] from Last 3 Months or Most Recently Relevant to Health Maintenance Insurance MEDICARE [facility] Advance Directives * Full Code (Latest Code Status on File) Date Activated Date Inactivated Comments 07/01/2021 8:29 PM 07/02/2021 4:53 PM Question Answer Comments Full Code Order Discussed With: Patient * Full Code Date Activated Date Inactivated Comments 04/18/2021 6:18 PM 05/18/2021 4:10 PM Question Answer Comments Full Code Order Discussed With: Patient Care Teams Photographic Reproduction Technician Relationship Specialty Start Date End Date Efrain Mantilla Jr., [address] [place] [phone] PCP - General Internal Medicine 07/07/24 MARK Chavis - Joanne 05/05/21
--- OUTSIDE RECORDS SUMMARY | 2024-08-01 14:19 | XMS_ITS | Encounter Summary ---
Author Organization [facility] Address [address] [place] [address] Care Team Providers Care Assurance Specialist Name Role Phone Annalee Olivas DO, Charles Lewis Primary Care Provi elliott Trever White MD Primary Care Provider [phone] Annalee Olivas DO, Charles Lewis Primary Care Provi elliott Source Comments In the event this information is protected by the Federal Confidentiality of Alcohol and Drug AbusePatient Records regulations: The Federal rules restrict any use of the information to criminally investigate or prosecute any alcohol or drug abuse patient.[facility] Encounter Details Date Type Department Care Team (Late st Contact Info) Description 09/15/2022 Get Medical Advice Gastroenterology [address] [place] [phone] Stas Horvath MD [address] [place] [address] Lab results Social History Tobacco Use Types Packs/Day [...] is lower risk 6 07/13/2022 Data from: https://www.neighborhoodatlas.[facility]/. Last address used for calculation [address] 07/13/2022 Comments No Sex and Gender Information [...] 11:45 AM EDT Office Visit Orthopaedics [address] [place] [phone] Efrain Hernandez MD [address] [place] [address] 2 wk PO reverse 09/15/2024 11:45 AM EDT Office Visit Orthopaedics [address] [address] Efrain Hernandez MD [address] [place], [place] [phone] 6 wk PO reverse documented as of this encounter Visit Diagnoses Not on filedocumented in this encounter Care Teams Assurance Specialist Relationship Specialty Start Date End Date Efrain Mantilla Jr., DO [facility] [place] [phone] PCP - General 11/10/04 05/14/24 Trever White MD [address] [place] [address] PCP - General Family Medicine 05/15/24 07/06/24 Efrain Mantilla Jr., DO [address] [place] [phone] PCP - General Internal Medicine 07/07/24 MARK Rubio 05/05/21 documented as of this encounter
--- OUTSIDE RECORDS SUMMARY | 2024-08-01 14:19 | XMS_ITS | Encounter Summary ---
Author Organization [facility] Address [address] [place] [address] Care Team Providers Care Lab Analyst Name Role Phone Annalee Olivas DO, Charles Lewis Primary Care Provi elliott Trveer White MD Primary Care Provider [phone] Annalee Olivas DO, Charles Lewis Primary Care Provi elliott Source Comments In the event this information is protected by the Federal Confidentiality of Alcohol and Drug AbusePatient Records regulations: The Federal rules restrict any use of the information to criminally investigate or prosecute any alcohol or drug abuse patient.[facility] Encounter Details Date Type Department Care Team (Late st Contact Info) Description 11/02/2022 Get Medical Advice Gastroenterology [address] [place] [phone] Stas Horvath MD [address] [place] [address] Trouble eating Social History Tobacco Use Types Packs/Day Years [...] is lower risk 6 07/13/2022 Data from: https://www.neighborhoodatlas.[facility]/. Last address used for [...] 11:45 AM EDT Office Visit Orthopaedics [address] [address] Efrain Hernandez MD [address] [place], [place] [phone] 2 wk PO reverse 09/15/2024 11:45 AM EDT Office Visit Orthopaedics [address] [address] Efrain Hernandez MD [address] [place], [place] [phone] 6 wk PO reverse documented as of this encounter Visit Diagnoses Not on filedocumented in this encounter Care Teams Lab Analyst Relationship Specialty Start Date End Date Efrain Mantilla Jr., DO [facility] [place] [phone] PCP - General 11/10/04 05/14/24 Trever White MD [address] [place] [address] PCP - General Family Medicine 05/15/24 07/06/24 Efrain Mantilla Jr., DO [address] [place] [address] PCP - General Internal Medicine 07/07/24 MARK Rubio 05/05/21 documented as of this encounter
--- OUTSIDE RECORDS SUMMARY | 2024-08-01 14:19 | XMS_ITS | Encounter Summary ---
Author Organization [facility] Address [address] [place] [address] Care Team Providers Care Hris Developer Name Role Phone Annalee Olivas DO, Charles Lewis Primary Care Provi elliott Trever White MD Primary Care Provider [phone] Annalee Olivas DO, Charles Lewis Primary Care Provi elliott Source Comments In the event this information is protected by the Federal Confidentiality of Alcohol and Drug AbusePatient Records regulations: The Federal rules restrict any use of the information to criminally investigate or prosecute any alcohol or drug abuse patient.[facility] Encounter Details Date Type Department Care Team (Late st Contact Info) Description 06/26/2021 Get Medical Advice Gastroenterology [address] [place] [phone] Stas Horvath MD [address] [place] [address] Upcoming appointment Social History Tobacco Use Types Packs/Day [...] N ot on file 01/27/2020 Data from: https://www.neighborhoodatlas.medicine.[facility]/. Last address used for calculation Not [...] Upcoming Encounters Date Type Department Care Team (Cam kathleen Contact Info) Description 08/11/2024 11:45 AM EDT Office Visit Orthopaedics [address] [address] Efrain Hernandez MD [address] [place], [place] [phone] 2 wk PO reverse 09/15/2024 11:45 AM EDT Office Visit Orthopaedics [address] [address] Efrain Hernandez MD [address] [place] [address] 6 wk PO reverse documented as of this encounter Visit Diagnoses Not on filedocumented in this encounter Additional Health Concerns Infection Onset Date Last Indicated Resolved Time COVID-19 Rule-Out 07/01/2021 07/01/2021 07/01/2021 8:18 PM EDT documented as of this encounter Care Teams Hris Developer Relationship Specialty Start Date End Date Efrain Mantilla Jr., DO [address] [place] [address] PCP - General 11/10/04 05/14/24 Trever White MD [address] [place] [address] PCP - General Family Medicine 05/15/24 07/06/24 Efrain Mantilla Jr., DO [address] [place] [address] PCP - General Internal Medicine 07/07/24 MARK Rubio 05/05/21 documented as of this encounter
--- OUTSIDE RECORDS SUMMARY | 2024-08-01 14:19 | XMS_ITS | Encounter Summary ---
Author Organization [facility] Address [address] [place] [address] Care Team Providers Care Stain Applicator Name Role Phone Annalee Olivas DO, Charles Lewis Primary Care Provi elliott Trever White MD Primary Care Provider [phone] Annalee Olivas DO, Charles Lewis Primary Care Provi elliott Source Comments In the event this information is protected by the Federal Confidentiality of Alcohol and Drug AbusePatient Records regulations: The Federal rules restrict any use of the information to criminally investigate or prosecute any alcohol or drug abuse patient.[facility] Encounter Details Date Type Department Care Team (Late st Contact Info) Description 12/27/2022 Get Medical Advice Gastroenterology [address] [place] [phone] Stas Horvath MD [address] [place] [address] Upcoming appointment with surgical colorectal team Social History Tobacco Use Types Packs/Day Years [...] risk 6 07/13/2022 Data from: https://www.neighborhoodatlas.medicine.[facility]/. Last address used for calculation [address] [...] 11:45 AM EDT Office Visit Orthopaedics [address] [place] [phone] Efrain Hernandez MD [address] [place] [address] 2 wk PO reverse 09/15/2024 11:45 AM EDT Office Visit Orthopaedics [address] [address] Efrain Hernandez MD [address] [place], [place] [phone] 6 wk PO reverse documented as of this encounter Visit Diagnoses Not on filedocumented in this encounter Care Teams Stain Applicator Relationship Specialty Start Date End Date Efrain Mantilla Jr., DO [address] [place] [phone] PCP - General 11/10/04 05/14/24 Trever White MD [address] [place], [place] [phone] PCP - General Family Medicine 05/15/24 07/06/24 Efrain Mantilla Jr., DO [address] [place] [address] PCP - General Internal Medicine 07/07/24 MARK Rubio 05/05/21 documented as of this encounter
--- OUTSIDE RECORDS SUMMARY | 2024-08-01 14:19 | XMS_ITS | Encounter Summary ---
Author Organization [facility] Address [address] [place] [address] Care Team Providers Care Database Admin Name Role Phone Annalee Olivas DO, Charles Lewis Primary Care Provi elliott Trever White MD Primary Care Provider [phone] Annalee Olivas DO, Charles Lewis Primary Care Provi elliott Source Comments In the event this information is protected by the Federal Confidentiality of Alcohol and Drug AbusePatient Records regulations: The Federal rules restrict any use of the information to criminally investigate or prosecute any alcohol or drug abuse patient.[facility] Encounter Details Date Type Department Care Team (Late st Contact Info) Description 06/05/2021 Get Medical Advice Gastroenterology [address] [id number] Stas Horvath MD [address] [place] [address] Hospital visit Social History Tobacco Use Types Packs/Day [...] N ot on file 01/27/2020 Data from: https://www.neighborhoodatlas.medicine.[facility]/. Last address used for calculation [...] Assessment Author No 06/05/2021 9:38 AM Page Roht RN * Because of a physical, mental, [...] AM EDT Office Visit Orthopaedics [address] [address] Efrain Hernandez MD [address] [place], [place] [id number] 2 wk PO reverse 09/15/2024 11:45 AM EDT Office Visit Orthopaedics [address] [address] Efrain Hernandez MD [address] [place] [address] 6 wk PO reverse documented as of this encounter Visit Diagnoses Not on filedocumented in this encounter Additional Health Concerns Infection Onset Date Last Indicated Resolved Time COVID-19 Rule-Out 07/01/2021 07/01/2021 07/01/2021 8:18 PM EDT documented as of this encounter Care Teams Database Admin Relationship Specialty Start Date End Date Efrain Mantilla Jr., DO [address] [place] [address] PCP - General 11/10/04 05/14/24 Trever White MD [address] [place] [address] PCP - General Family Medicine 05/15/24 07/06/24 Efrain Mantilla Jr., DO [address] [place] [address] PCP - General Internal Medicine 07/07/24 MARK Rubio 05/05/21 documented as of this encounter
--- OUTSIDE RECORDS SUMMARY | 2024-08-01 14:19 | XMS_ITS | Encounter Summary ---
Author Organization [facility] Address [address] [place] [address] Care Team Providers Care Concession Supervisor Name Role Phone Annalee Olivas DO, Charles Lewis Primary Care Provi elliott Trever White MD Primary Care Provider [phone] Annalee Olivas DO, Charles Lewis Primary Care Provi elliott Source Comments In the event this information is protected by the Federal Confidentiality of Alcohol and Drug AbusePatient Records regulations: The Federal rules restrict any use of the information to criminally investigate or prosecute any alcohol or drug abuse patient.[facility] Encounter Details Date Type Department Care Team (Late st Contact Info) Description 09/26/2022 Get Medical Advice Gastroenterology [address] [place] [address] Stas Horvath MD [address] [place] [address] Information you need to know Social History Tobacco Use Types Packs/Day Years [...] lower risk 6 07/13/2022 Data from: https://www.neighborhoodatlas.medicine.[facility]/. Last address used for calculation [...] 11:45 AM EDT Office Visit Orthopaedics [address] [address] Efrain Hernandez MD [address] [place] [address] 2 wk PO reverse 09/15/2024 11:45 AM EDT Office Visit Orthopaedics [address] [address] Efrain Hernandez MD [address] [place], [place] [phone] 6 wk PO reverse documented as of this encounter Visit Diagnoses Not on filedocumented in this encounter Care Teams Concession Supervisor Relationship Specialty Start Date End Date Efrain Mantilla Jr., DO [address] [place] [phone] PCP - General 11/10/04 05/14/24 Trever White MD [address] [place] [address] PCP - General Family Medicine 05/15/24 07/06/24 Efrain Mantilla Jr., DO [facility] [place] [phone] PCP - General Internal Medicine 07/07/24 MARK Rubio 05/05/21 documented as of this encounter
--- OUTSIDE RECORDS SUMMARY | 2024-08-01 14:19 | XMS_ITS | Encounter Summary ---
Author Organization [facility] Address [address] [place] [address] Care Team Providers Care Safekeeping Clerk Name Role Phone Annalee Olivas DO, Charles Lewis Primary Care Provi elliott Trever White MD Primary Care Provider [phone] Annalee Olivas DO, Charles Lewis Primary Care Provi elliott Source Comments In the event this information is protected by the Federal Confidentiality of Alcohol and Drug AbusePatient Records regulations: The Federal rules restrict any use of the information to criminally investigate or prosecute any alcohol or drug abuse patient.[facility] Encounter Details Date Type Department Care Team (Late st Contact Info) Description 09/05/2022 Patient Msg Gastroenterology [address] [phone] Provider, [facility] Information Social History Tobacco Use Types Packs/Day [...] lower risk 6 07/13/2022 Data from: https://www.neighborhoodatlas.medicine.[facility]/. Last address used for calculation [address] [...] 11:45 AM EDT Office Visit Orthopaedics [address] [address] Efrain Hernandez MD [address] [place] [address] 2 wk PO reverse 09/15/2024 11:45 AM EDT Office Visit Orthopaedics [address] [address] Efrain Hernandez MD [address] [place], [place] [phone] 6 wk PO reverse documented as of this encounter Visit Diagnoses Not on filedocumented in this encounter Care Teams Safekeeping Clerk Relationship Specialty Start Date End Date Efrain Mantilla Jr., DO [facility] [place] [address] PCP - General 11/10/04 05/14/24 Trever White MD [address] [place] [address] PCP - General Family Medicine 05/15/24 07/06/24 Efrain Mantilla Jr., DO [address] [place] [address] PCP - General Internal Medicine 07/07/24 MARK Rubio 05/05/21 documented as of this encounter
--- NOTE | 2024-08-01 16:51 | ED_ITS ---
HPI - Extremity Problem General Chief complaint: Extremity Problem, Nontraumatic Stated complaint: POST OP COMPLICATION SENT BY DR ESPINO Time Seen by Provider: 08/01/24 14:36 Source: patient Mode of arrival: walk-in History of Present Illness HPI Narrative: The patient just had her left shoulder replaced almost 5 days ago, patient was supposed to get a home health care nurse visit today when the nurse noted that her left upper extremity swollen, patient also noted that over the last few hours that she started noticing that she is not able to extend her left wrist and this was not an issue initially it just happened over the last few hours today, the patient denies any pain as she still have the nerve block in her neck and she has a medication for nerve block through the pump Related Data Allergies Allergy/AdvReac Type Severity Reaction Status Date / Time No Known Drug Allergies Allergy Verified 08/01/24 14:19 Review of Systems ROS Status of ROS 10 or more systems reviewed and unremark able except as noted in history and below PFSH PFSH Social History Little interest or pleasure in doing things: not at all Feeling down, depressed, or hopeless: not at all Exam Narrative Exam Narrative: Nurses notes and vital signs reviewed and patient is not hypoxic. General: Well-appearing and in no apparent distress. Skin: Warm, dry, no pallor noted. No rash. Head: Normocephalic, atraumatic. Neck: Supple, non-tender. Left arm: The patient have the left shoulder immobilizer in place. There is swelling mildly to the forearm but the patient have a good radial pulse in addition to good vascular supply to the left hand with a good capillary fill. The hand is warm and the patient does have limitation of extension of the left wrist, it was also noted with the patient not able to do thumbs up movement of the thumb but in addition to she is very limited to do an okay sign with her index and thumb Constitutional Vital Signs, click to edit/add: Last Vital Signs Temp 98.3 F 08/01/24 14:12 Pulse 99 H 08/01/24 14:12 Resp 18 08/01/24 14:12 BP 160/89 H 08/01/24 14:12 Pulse Ox 96 08/01/24 14:12 O2 Del Method Room Air 08/01/24 14:12 Course Vital Signs Vital signs: Vital Signs Temperature 98.3 F 08/01/24 14:12 Pulse Rate 99 H 08/01/24 14:12 Respiratory Rate 18 08/01/24 14:12 Blood Pressure 160/89 H 08/01/24 14:12 Pulse Oximetry 96 08/01/24 14:12 Oxygen Delivery Method Room Air 08/01/24 14:12 Temperature 98.3 F 08/01/24 14:12 Pulse Rate 99 H 08/01/24 14:12 Respiratory Rate 18 08/01/24 14:12 Blood Pressure 160/89 H 08/01/24 14:12 Pulse Oximetry 96 08/01/24 14:12 Oxygen Delivery Method Room Air 08/01/24 14:12 MDM - Extremity (Nontraumatic) MDM Narrative Medical decision making narrative: The patient ultrasound of the left upper extremity showed no DVT She is presenting right now with the radial nerve palsy which could be secondary to the surgery but the patient also had a nerve block still going I spoke with Dr. Smith and discussed the presentation with him right now the p atient he advised to remove the nerve block after stopping the pump which he did The patient also was placed in wrist splint The patient was instructed that after 48 hours she is to contact Dr Smith for further evaluation The patient also have pain medication prescribed to her at home mostly Percocet Patient to come back in case of any new symptoms of concern including progression of her symptoms Discharge Plan Discharge Chief Complaint: Extremity Problem, Nontraumatic Clinical Impression: Acute radial nerve palsy Patient Disposition: Home, Self-Care Time of Disposition Decision: 17:03 Condition: Good Print Language: Finnish Instructions: Radial Nerve Palsy (ED) Additional Instructions: Please follow up with Dr Smith after 48 hours if there is no improvement Referrals: KWAME CHIRINOS DO [Primary Care Provider, Family Practice] - 1 week Discharge Date/Time: 08/01/24 17:12
--- OUTSIDE RECORDS SUMMARY | 2024-09-27 20:00 | XMS_ITS | Clinical Summary ---
Author Organization Unknown Care Team Providers Care Company [employer] Name Role Phone TRI KENNY, ENZO Unavailable Unavailable TAVARES RN, WING Unavailable Unavailable CATRACHITA RAIL FILLER, DREW Unavailable Unavailable COP[employer] SALES DEVELOPMENT ASSOCIATE, DONA Unavailable Unavailable GOSCHE OT, SOLOMON Unavailable Unavailable KOHLENBERG RAIL FILLER, FLORINA Unavailable Unavailabl e EDILBERTO SALES DEVELOPMENT ASSOCIATE, JOSE LUIS Unavailable Unavailabl e THIRY RAIL FILLER, ROSE Unavailable Unavailable NIYA PT, DEDRA Unavailable Unavailabl e CARLENE RAIL FILLER, TAWANDA Unavailable Unavailable CHI CLIFFORD, DELORES Unavailable Unavailabl jared COOL RN, WIL Unavailable Unavailable MIGUEL RN, PALMER Unavailable Unavailable Payers Payer Name Policy Type Policy Number Effective Date Expira tion Date MEDICARE [facility] ([facility]) [id number] Problems Condition Name Condition Details Condition Category Status Onset Date Resolution Date Last Treatment Date Treating Clinician Comments 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 07-30 00:00: 00 OTH DISP FX OF UPPER END OF L HUMER, SUBS FOR FX W MALUNION Active 07-30 00:00: 00 UNSP FX UPPER END OF L HUMERUS, SUBS FOR FX W MALUNION Active 07-30 00:00: 00 Allergies, Adverse Reactions, Alerts Allergy Name Allergy Type Status Severity Reaction(s) Onset Date Inactive Date Treating Clinician Comments PREDNISOLONE Propensity to adverse reactions Active 07-31 20:17: 47 Immunizations Ordered Immunization Name Filled Immunization Name Date Status Comments Refusal Reason COVID-19 STEP 2, COVID 19 (MODERNA) 2024-01-08 00:00:00 Vital Signs Vital Name Observation Time Observation Value Commen ts Temperature 2024-07-31 15:48:00.000 98.4 [degF] BMI (%) 2024-07-31 15:48:00.000 24 kg/m2 Height 2024-07-31 15:48:00.000 58 [in_us] Pulse 2024-07-31 15:48:00.000 80 /min O2 Saturation (%) 2024-07-31 15:48:00.000 95 % Respirations 2024-07-31 15:48:00.000 16 /min Weight (lbs) 2024-07-31 15:48:00.000 115 [lb_av] Systolic Blood Pressure 2024-07-31 15:48:00.000 122 mm [Hg] Diastolic Blood Pressure 2024-07-31 15:48:00.000 84 mm [Hg] Plan of Treatment Planned Activity Planned Date Details Comments Future Scheduled Test SKILLED NU RSE TO PROVIDE INSTRUCTIONS REGARDING MEASURES TO CONTROL CONSTIPATION. [code = SKILLED NURSE TO PROVIDE INSTRUCTIONS REGARDING MEASURES TO CONTROL CONSTIPATION.] Future Scheduled Test ALL CONSUL TING/COVERING PHYSICIANS MAY SIGN/ISSUE ORDERS. [code = ALL CONSULTING/COVERING PHYSICIANS MAY SIGN/ISSUE ORDERS.] Future Scheduled Test SKILLED NU RSE FOR MONITORING EFFECTIVENESS OF ANTICOAGULATION THERAPY REGIMEN AND SKILLED INSTRUCTION RELATED TO ANTICOAGULATION MANAGEMENT [code = SKILLED NURSE FOR MONITORING EFFECTIVENESS OF ANTICOAGULATION THERAPY REGIMEN AND SKILLED INSTRUCTION RELATED TO ANTICOAGULATION MANAGEMENT] Future Scheduled Test SKILLED NU RSE TO PERFORM/TEACH WOUND CARE USING CLEAN/ASEPTIC TECHNIQUE TO WOUND # 1LT SHOULDER SURGICAL SITE. ASSESS WOUND DRESSING FOR DRAINAGE AND SOILAGE/DISLODGEMENT. DISCONTINUE WOUND CARE AND WOUND SUPPLIES ONCE WOUND IS FULLY EPITHELIALIZED. [code = SKILLED NURSE TO PERFORM/TEACH WOUND CARE USING CLEAN/ASEPTIC TECHNIQUE TO WOUND # 1LT SHOULDER SURGICAL SITE. ASSESS WOUND DRESSING FOR DRAINAGE AND SOILAGE/DISLODGEMENT. DISCONTINUE WOUND CARE AND WOUND SUPPLIES ONCE WOUND IS FULLY EPITHELIALIZED.] Future Scheduled Test PHYSICAL T HERAPIST TO EVALUATE/ASSESS AND DEVELOP PHYSICAL THERAPY PLAN OF CARE TO BE SIGNED BY THE PHYSICIAN. [code = PHYSICAL THERAPIST TO EVALUATE/ASSESS AND DEVELOP PHYSICAL THERAPY PLAN OF CARE TO BE SIGNED BY THE PHYSICIAN.] Future Scheduled Test OCCUPATION AL THERAPIST TO EVALUATE/ASSESS AND DEVELOP OCCUPATIONAL THERAPY PLAN OF CARE TO BE SIGNED BY THE PHYSICIAN. [code = OCCUPATIONAL THERAPIST TO EVALUATE/ASSESS AND DEVELOP OCCUPATIONAL THERAPY PLAN OF CARE TO BE SIGNED BY THE PHYSICIAN.] Future Scheduled Test SKILLED NU RSE TO PROVIDE AND INSTRUCT REGARDING FALL PREVENTION INTERVENTIONS. [code = SKILLED NURSE TO PROVIDE AND INSTRUCT REGARDING FALL PREVENTION INTERVENTIONS.] Future Scheduled Test SKILLED NU RSE TO PROVIDE/INSTRUCT REGARDING INTERVENTION(S) TO MONITOR AND MITIGATE PAIN. [code = SKILLED NURSE TO PROVIDE/INSTRUCT REGARDING INTERVENTION(S) TO MONITOR AND MITIGATE PAIN.] Future Scheduled Test DISCHARGE HOME HEALTH SERVICES WHEN GOALS ARE MET OR SKILLED CARE NO LONGER REQUIRED. [code = DISCHARGE HOME HEALTH SERVICES WHEN GOALS ARE MET OR SKILLED CARE NO LONGER REQUIRED.] Future Scheduled Test PATIENT IS AT RISK FOR HOSPITALIZATION OR EMERGENCY DEPARTMENT USE DUE TO PAIN. TEACH PATIENT/CAREGIVER TO ?CALL US FIRST?. INFORM ON WHO AND WHEN TO CALL FOR SYMPTOMS BASED ON ZONE TOOLS. INSTRUCT ON MITIGATION OF IDENTIFIED HOSPITAL OR EMERGENCY DEPARTMENT RISK FACTORS. [code = PATIENT IS AT RISK FOR HOSPITALIZATION OR EMERGENCY DEPARTMENT USE DUE TO PAIN. TEACH PATIENT/CAREGIVER TO ?CALL US FIRST?. INFORM ON WHO AND WHEN TO CALL FOR SYMPTOMS BASED ON ZONE TOOLS. INSTRUCT ON MITIGATION OF IDENTIFIED HOSPITAL OR EMERGENCY DEPARTMENT RISK FACTORS.] Future Scheduled Test SKILLED NU RSE MAY PERFORM 3 PRN VISITS FOR OSTOMY CARE OR PAIN CONTROL [code = SKILLED NURSE MAY PERFORM 3 PRN VISITS FOR OSTOMY CARE OR PAIN CONTROL ] Future Scheduled Test SKILLED NU RSE FOR OASIS DATA COLLECTION/COMPREHENSIVE ASSESSMENT TO DETERMINE SKILLED NEED. THIS MAY INCLUDE RESUMPTION OF CARE ASSESSMENT (KARLEY) TO DETERMINE SKILLED NEED FOLLOWING INPATIENT DISCHARGE SHOULD PATIENT TRANSFER AND ADMIT TO AN INPATIENT FACILITY DURING CURRENT 60-DAY CERTIFICATION PERIOD. ADDITIONAL VISITS MAY BE REQUIRED FOR RECERT, FOLLOW UP, SIGNIFICANT CHANGE IN CONDITION (SCIC) AND DISCHARGE. HOME HEALTH EDITOR IN CHIEF NEWSPAPER MAY PROVIDE CARE RECOMMENDATIONS NEEDED ON NEW, EXISTING OR CHANGED WOUND OR INTEGUMENTARY CONDITIONS. [code = SKILLED NURSE FOR OASIS DATA COLLECTION/COMPREHENSIVE ASSESSMENT TO DETERMINE SKILLED NEED. THIS MAY INCLUDE RESUMPTION OF CARE ASSESSMENT (KARLEY) TO DETERMINE SKILLED NEED FOLLOWING INPATIENT DISCHARGE SHOULD PATIENT TRANSFER AND ADMIT TO AN INPATIENT FACILITY DURING CURRENT 60-DAY CERTIFICATION PERIOD. ADDITIONAL VISITS MAY BE REQUIRED FOR RECERT, FOLLOW UP, SIGNIFICANT CHANGE IN CONDITION (SCIC) AND DISCHARGE. HOME HEALTH EDITOR IN CHIEF NEWSPAPER MAY PROVIDE CARE RECOMMENDATIONS NEEDED ON NEW, EXISTING OR CHANGED WOUND OR INTEGUMENTARY CONDITIONS.] Goal Patient Goal - T O BE ABLE TO USE MY LEFT ARM Goal Provider Goal - PATIENT/CAREGIVER WILL VERBALIZE BOWEL PROGRAM STEPS TO PREVENT CONSTIPATION COMPLICATIONS BY 08/19/2024, AND PATIENT WILL HAVE REGULAR STOOL IN OSTOMY DAILY. Goal Provider Goal - Goal Provider Goal - INEFFECTIVE ANTICOAGULATION THERAPY, EVIDENCED BY PT/INR OUTSIDE THERAPEUTIC PARAMETERS SET BY PHYSICIAN OR SIGNS/SYMPTOMS OF EXCESSIVE BLEEDING, WILL BE IDENTIFIED AND PROMPTLY REPORTED TO THE PHYSICIAN. PATIENT/CAREGIVER WILL VERBALIZE/DEMONSTRATE UNDERSTANDING OF MEASURES TO MAINTAIN EFFECTIVE ANTICOAGULATION THERAPY BY 08/08/24 Goal Provider Goal - PATIENT / CAREGIVER WILL VERBALIZE / DEMONSTRATE ABILITY TO PERFORM WOUND CARE. WOUND STATUS WILL IMPROVE EVIDENCED BY A DECREASE IN SIZE, DRAINAGE, ABSENCE OF INFECTION, AND DECREASED PAIN BY 08/11/24 Goal Provider Goal - PHYSICAL THERAPIST TO EVALUATE/ASSESS AND DEVELOP PHYSICAL THERAPY PLAN OF CARE TO BE SIGNED BY THE PHYSICIAN. Goal Provider Goal - OCCUPATIONAL THERAPY PLAN OF CARE WILL BE ORDERED BY PHYSICIAN AND PROVIDED BY OCCUPATIONAL THERAPY. ALL GOALS TO BE MET BY END OF CURRENTLY APPROVED PLAN OF CARE. Goal Provider Goal - CHANGES IN PATIENT CO-MORBID STATUS WILL BE PROMPTLY IDENTIFIED AND REPORTED TO THE PHYSICIAN. PATIENT/CAREGIVER VERBALIZE/DEMONSTRATE MEASURES TO PREVENT FALLS BY 08/14/24 Goal Provider Goal - CHANGES IN PATIENT CO-MORBID STATUS WILL BE PROMPTLY IDENTIFIED AND REPORTED TO THE PHYSICIAN. PATIENT/CAREGIVER VERBALIZE/DEMONSTRATE ABILITY TO PROPERLY MANAGE PAIN BY 08/11/24 Goal Provider Goal - Goal Provider Goal - PATIENT/CAREGIVER WILL VERBALIZE/DEMONSTRATE UNDERSTANDING OF SYMPTOM MANAGEMENT, RESOURCE UTILIZATION, AND MEDICATION MANAGEMENT TO REDUCE UNPLANNED HOSPITAL OR EMERGENCY DEPARTMENT VISITS BY 08/13/24 Goal Provider Goal - Goal Provider Goal - Progress Notes Progress Notes <paragraph>[Visit Date: 2024 by WIL COOL RN]:</paragraph><paragraph>SOC NARRATIVE 73 YR OLD FEMALE ADMITTED FOR TOTAL LT SHOULDER PATIENT WAS HOSPITALIZED AT [facility] FROM 07/28/24-07/30/24 CURRENT STATUS: PT ALERT AND ORIENTED X4, DRESSING INPLACE TO LT SHOULDER UPCOMING APPOINTMENTS: DR KWAME BENDER ORTHOPEDIC SURGEON 08/11/24, 09/15/24 PRIMARY FOCUS OF CARE DIAGNOSIS/SKILLED NEED: ASSESSMENT, WOUND CARE, OSTOMY CARE PLAN FOR NEXT VISIT: ASSESSMENT, NERVE BLOCK NEEDLE REMOVED, OSTOMY CARE DISCIPLINES TO SEE PATIENT: NURSING, PT, OT MEDICATION ISSUES AND MD FOLLOW-UP/ACTION TAKEN: PTS PCP DR KWAME CHIRINOS OFFICE CLOSED PSYCHOLOGICAL TESTS SALES AGENT WILL CALL [facility] 08/01/24 TO REVIEW POC, MEDICATIONS, TX PLAN PT ALERT AND ORIENTED X4, APPEARS ANXIOUS DURING SOC, VERY TALKATIVE AND HAD MANY QUESTIONS ABOUT POC ALL QUESTIONS ANSWERED TO WRITERS BEST ABILITY. PT HAS MEPILEX DRESSING INPLACE OVER LT SHOULDER. DRESSING TO REMAIN IN PLACE UNTIL FOLLOW UP WITH SURGEON ON 08/11/24. LT ARM IN IMMOBILIZER, PT ABLE TO EMPTY OSTOMY BAG BUT WILL REQUIRE ASSISTANCE WITH CHANGING BAG DEVICE Q4 DAYS. NERVE BLOCK NEEDLE INPLACE TO POSTERIOR MID NECK, DRESSING IN PLACE. PT HAS DIFFICULTY WITH TRANSFERS FROM SITTING TO STANDING, AND ALL ADLS DUE TO LACK OF USE OF LT ARM. PTS PAIN CONTROLLED WITH BLOCK/TYLENOL CURRENTLY.</paragraph> Encounters Start Date/Time End Date/Time Encounter Type Admission Type Attending [facility] Facility Care Department Encounter ID Discharge Date Discharge Status Discharge Condition Discharge Reason Percent Goals Met 2024-07-31 00:00:00 2024-09-28 00:00:00 Outpatient WIL W[facility]ATT [facility] [id number] 100.00
== END 2024-08-01 17:12 | disposition home or self-care (01) ==
PROVIDERS: Emergency Provider Emergency Medicine; PCP Internal Medicine
DX: G56.32 Lesion of radial nerve, left upper limb (principal); R60.0 Localized edema
CPT/HCPCS: 93971; 99284